=== PATIENT | male | born 1935 | race Caucasian/White ===

== ENCOUNTER 2018-02-04 10:34 | Inpatient (IN) ==
[2018-02-04] MEDS ORDERED: Sod Chloride 0.9% Inj 1,000 ML IV.SIG ONE (11:05)
[2018-02-04 11:36] LABS: Baso # (Auto) 0.6 th/mm3 (0.0-0.2); Baso % (Auto) 3.2 % (0.0-2.0); Eos # (Auto) 1.6 th/mm3 (0.0-0.4); Eos % (Auto) 9.1 % (0.0-4.0); Hematocrit 54.5 % (39.0-51.0); Hemoglobin 16.8 gm/dL (13.0-17.0); Lymph # (Auto) 2.4 th/mm3 (1.0-4.8); Lymph % (Auto) 13.7 % (9.0-44.0); Mean Corpuscular Volume 86.9 fL (80.0-100.0); Mean Platelet Volume 7.9 fL (7.0-11.0); Mono % (Auto) 5.5 % (0.0-8.0); Neut # (Auto) 12.2 th/mm3 (1.8-7.7); Neut % (Auto) 68.5 % (16.0-70.0); Platelet Count 217 th/mm3 (150-450); Red Blood Count 6.27 mil/mm3 (4.50-5.90); Red Cell Distribution Width 14.3 % (11.6-17.2); White Blood Count 17.8 th/mm3 (4.0-11.0)
--- NOTE | 2018-02-04 11:55 | XR ---
EXAM DATE: 02/04/2018 11:42 AM EDT AGE/SEX: 82 years / Male INDICATIONS: Short of breath. CLINICAL DATA: This is the patient's initial encounter. Patient reports that signs and symptoms have been present for 1 day and indicates a pain score of 0/10. MEDICAL/SURGICAL HISTORY: None. None. COMPARISON: No prior exams available for comparison. FINDINGS: Heart is enlarged. Mild interstitial prominence is evident suggesting minimal failure. There is no ev idence of consolidation, pleural effusion or pneumothorax. Degenerative changes thoracic spine. CONCLUSION: Probable mild failure. There is no infiltrate. Electronically signed by: Palomo Craig MD 02/04/2018 11:54 AM EDT
[2018-02-04 11:59] LABS: Albumin 3.2 g/dL (3.4-5.0); Anion Gap 18 meq/L (5-15); Blood Urea Nitrogen 69 mg/dL (7-18); Calcium 7.7 mg/dL (8.5-10.1); Carbon Dioxide 19.5 meq/L (21.0-32.0); Chloride 93 meq/L (98-107); Glucose,Random 264 mg/dL (74-106); Sodium 130 meq/L (136-145)
[2018-02-04 12:02] LABS: Platelet Estimate Normal (Normal); Platelet Morphology Normal (Normal); RBC Morphology Normal (Normal)
[2018-02-04] MEDS ORDERED: metroNIDAZOLE 500 MG Tablet PO ONE (12:21)
[2018-02-04 12:26] LABS: Alanine Aminotransferase 16 U/L (12-78); Alkaline Phosphatase 104 U/L (45-117); Aspartate Aminotransferase 8 U/L (15-37); Glomerular Filtration Rate 9 mL/min (>89); Potassium 2.9 meq/L (3.5-5.1); Total Protein 7.8 g/dL (6.4-8.2)
[2018-02-04 12:44] LABS: Mean Corpuscular HGB Conc 34.7 % (32.0-36.0); Mean Corpuscular Hemoglobin 29.7 pg (27.0-34.0)
--- NOTE | 2018-02-04 12:44 | ED ---
HPI General Chief complaint: Nausea/Vomiting/Diarrhea Stated complaint: Possible Colitis/+C Diff/Diarrhea/Vomiting Time Seen by Provider: 02/04/18 10:57 Source: patient and family Mode of arrival: ambulatory Limitations: no limitations History of Present Illness HPI narrative: Patient is an 82-year-old male who comes in complaining of diarrhea for 1 week. He had a stool test done that was positive for C. difficile. He says he has multiple episodes of diarrhea each day, it is black in color. He was here a few days ago and found to have stool that was positive for blood. He was told to hold his Xarelto at that time. He denies any abdominal pain. He says he feels very weak. He denies chest pain. He does report some shortness of breath. He denies fever chills. He denies recent antibiotic use. Severity is moderate. Onset (ago): week(s) Related Data Home Medications Medication Instructions Recorded Confirmed cetirizine 10 mg PO DAILY 02/04/18 02/04/18 ezetimibe [Zetia] 10 mg PO DAILY 02/04/18 02/04/18 loperamide [Imodium A-D] 2 mg PO BID 02/04/18 02/04/18 losartan 50 mg PO DAILY 02/04/18 02/04/18 omeprazole magnesium [Prilosec OTC] 20 mg PO DAILY 02/04/18 02/04/18 rivaroxaban [Xarelto] 20 mg PO DAILY 02/04/18 02/04/18 simvastatin [Zocor] 40 mg 02/04/18 Allergies Allergy/AdvReac Type Severity Reaction Status Date / Time No Known Allergies Allergy NONE Uncoded 02/04/18 10:44 Review of Systems Except as stated in HPI: all other systems reviewed are negative Constitutional Denies chills, Denies fever(s) and Reports weakness Cardiovascular Denies chest pain Respiratory Reports dyspnea Gastrointestinal Denies nausea and Denies vomiting Genitourinary Denies difficulty urinating Musculoskeletal Reports myalgias and Reports arthralgias Integumentary/Breasts Denies change in pigmentation and Denies rash Neurologic Denies focal weakness PMFSH Medical History Medical History Presence of IVC filter (Acute) COPD (chronic obstructive pulmonary disease) (Acute) DVT, lower extremity (Acute) Emphysema lung (Acute) GERD (gastroesophageal reflux disease) (Acute) High cholesterol (Acute) Hypertension (Acute) Pulmonary embolism (Acute) Skin cancer of face (Acute) Social History Social History Substance History: No History of Abuse Second Hand Smoke Exposure: No Smoking Status: Current every day smoker Tobacco Type: Cigarettes How Often Do You Have a Drink Containing Alcohol: Never Recent Travel in [facility] within the Last 8 Weeks: No Recent Out of Country Travel within the Last 8 Weeks: No Immunization History Tetanus Immunization: Unsure Exam Narrative Exam Narrative: GENERAL: Awake and alert, patient appears uncomfortable. SKIN: Skin is pale in color, no evidence of infection. HEAD: Atraumatic. Normocephalic. EYES: Pupils equal and round. No scleral icterus. ENT: Dry mucous membranes. NECK: Trachea midline. No JVD. CARDIOVASCULAR: Tachycardia RESPIRATORY: No accessory muscle use. Coarse breath sounds throughout the lungs.. Breath sounds equal bilaterally. GASTROINTESTINAL: Abdomen soft, non-tender, nondistended. MUSCULOSKELETAL: No obvious deformities. No clubbing. No cyanosis. No edema. NEUROLOGICAL: Awake and alert. No obvious cranial nerve deficits. Motor grossly within normal limits. Normal speech. PSYCHIATRIC: Appropriate mood and affect; insight and judgment normal. Course Hospital Course: IV established, labs sent. Patient given IV, Flagyl. Reevaluation(s) Reevaluation #1: Patient reports feeling better after fluids. Pulse rate is improving. Time: 12:20 Reevaluation #2: Patient continues to feel better. He is advised of results. He is agreeable to admission. Time: 13:02 Initial Documented Vital Signs Temperature 98 F 02/04/18 10:42 Pulse Rate 118 H 02/04/18 10:42 Respiratory Rate 18 02/04/18 10:42 Blood Pressure 108/60 02/04/18 10:42 Pulse Oximetry 88 L 02/04/18 10:42 Last Documented Vital Signs Temperature 98 F 02/04/18 10:42 Pulse Rate 106 H 02/04/18 11:45 Respiratory Rate 20 02/04/18 11:45 Blood Pressure 119/65 02/04/18 11:06 Pulse Oximetry 94 L 02/04/18 11:45 Medical Decision Making MDM Narrative Medical decision making narrative: Patient is a an 82-year-old male who comes in planing of diarrhea and weakness. On exam, patient appears dehydrated, he is tachycardic. IV established, labs sent. Labs concerning for acute kidney injury with a creatinine of 5.9. It was 1.3 on January 29. Potassium was low at 2.9, this was replaced. Given a dose of Flagyl. Patient will be admitted for management of C. difficile, dehydration and acute kidney injury. Differential Diagnosis Differential Diagnosis: Dehydration versus electrolyte abnormality versus C. difficile versus infectious diarrhea Medical Records Medical records reviewed: Yes I reviewed the patient's medical records. Lab Data Lab results reviewed: Yes I reviewed the patient's lab results. Result diagrams: 02/04/18 11:30 02/04/18 11:30 Lab Results 02/04/18 02/04/18 02/04/18 Range/Units 11:30 11:30 11:30 CBC w Diff Slide review pending WBC 17.8 H (4.0-11.0) th/mm3 RBC 6.27 H (4.50-5.90) mil/mm3 Hgb 16.8 (13.0-17.0) gm/dL Hct 54.5 H (39.0-51.0) % MCV 86.9 (80.0-100.0) fL MCH 29.7 (27.0-34.0) pg MCHC 34.7 (32.0-36.0) % RDW 14.3 (11.6-17.2) % Plt Count 217 D (150-450) th/mm3 MPV 7.9 (7.0-11.0) fL Neut % (Auto) 68.5 (16.0-70.0) % Lymph % (Auto) 13.7 (9.0-44.0) % [place] % (Auto) 5.5 (0.0-8.0) % Eos % (Auto) 9.1 H (0.0-4.0) % Baso % (Auto) 3.2 H (0.0-2.0) % Neut # (Auto) 12.2 H (1.8-7.7) th/mm3 Lymph # (Auto) 2.4 (1.0-4.8) th/mm3 [place] # (Auto) 1.0 H (0.0-0.9) th/mm3 Eos # (Auto) 1.6 H (0.0-0.4) th/mm3 Baso # (Auto) 0.6 H (0.0-0.2) th/mm3 WBC Differential . Diff Scan Auto diff confirmed Differential Comment . Platelet Estimate Normal (Normal) Platelet Morphology Normal (Normal) RBC Morphology Normal (Normal) Sodium 130 L (136-145) meq/L Potassium 2.9 L* (3.5-5.1) meq/L Chloride 93 L (98-107) meq/L Carbon Dioxide 19.5 L (21.0-32.0) meq/L Anion Gap 18 H (5-15) meq/L BUN 69 H (7-18) mg/dL Creatinine 5.90 H (0.60-1.30) mg/dL Estimated GFR 9 L (>89) mL/min Random Glucose 264 H (74-106) mg/dL Lactic Acid 3.0 H (0.4-2.0) mmol/L Calcium 7.7 L (8.5-10.1) mg/dL Total Bilirubin 0.6 (0.2-1.0) mg/dL AST 8 L (15-37) U/L ALT 16 (12-78) U/L Alkaline Phosphatase 104 (45-117) U/L Troponin I Less than 0.02 L (0.02-0.05) ng/mL Total Protein 7.8 (6.4-8.2) g/dL Albumin 3.2 L (3.4-5.0) g/dL Imaging Data Radiologist's impression: ITS Impressions Chest X-Ray 02/04/18 11:05 CONCLUSION: Probable mild failure. There is no infiltrate. ECG Data EKG Prior to Arrival: No Attestation: I personally reviewed and interpreted this ECG as follows: Interpretation: ECG shows sinus tachycardia at a rate of 112, no ST elevation or depression Discharge Plan Discharge Disposition Patient Disposition: 30 Still Patient Discharge Details Discharge Problem: Dehydration, Clostridium difficile infection, JESS (acute kidney injury), Acute hypokalemia Physicians Team ED Provider: Carri Angeles Primary Care Provider: Mavis Lindo Rxs /Orders / Referrals /Forms Prescriptions: No Action losartan 50 mg Tablet 50 mg PO DAILY RF: 0 loperamide [Imodium A-D] 2 mg Capsule 2 mg PO BID RF: 0 cetirizine 10 mg Tablet 10 mg PO DAILY RF: 0 simvastatin [Zocor] 40 mg Tablet 40 mg RF: 0 ezetimibe [Zetia] 10 mg Tablet 10 mg PO DAILY RF: 0 omeprazole magnesium [Prilosec OTC] 20 mg Tablet,Delayed Release (Dr/Ec) 20 mg PO DAILY RF: 0 rivaroxaban [Xarelto] 20 mg Tablet 20 mg PO DAILY RF: 0 Discharge Interventions Interventions: Vital Signs Last Done: 02/04/18 11:06 Status ED Status: With Doctor
[2018-02-04] MEDS ORDERED: Dextrose 50% in Water 50 ML Vial IV.PUSH PRN (13:19)
--- NOTE | 2018-02-04 13:31 | P.HPIM ---
History of Present Illness Primary Care Physician: Mavis Lindo MD Chief Complaint: diarrhea History of Present Illness: patient is a 82 y/o male with history of COPD,diabetes mellitus, DVT, presented to ER with diarrhea. he says that he's had diarrhea for the past two weeks.he was seen in ER and was discharged home. he says that he became progressively weak with ongoing diarrhea to the extent that the family decided to bring him back to ER. he doesn't report any fever,chills, abdominal pain. he had some nausea and emesis earlier although he says that he's feeling better now.he doesn 't recall taking any antibiotics prior to his first presentation to ER. - Diagnosis (1) Clostridium difficile infection (2) Sepsis (3) JESS (acute kidney injury) (4) Acute hypokalemia (5) COPD (chronic obstructive pulmonary disease) (6) DVT (deep venous thrombosis) (7) Hypertension (8) Diabetes mellitus Inpatient Certification: I certify that the inpatient services were ordered in accordance with Medicare regulations governing the order. This includes certification that hospital inpatient services are reasonable and necessary and in the case of services not specified as inpatient-only under 42 CFR 419.22(n), that they are appropriately provided as inpatient services in accordance to with the 2-midnight benchmark under 43 CFR 412.3(e) Estimated Total Length of Stay (Days): 2 Plans for Post Hospital Care: Not yet determined Review of Systems All other systems reviewed negative except as stated in HPI PMFSH - History History Provided By: Family Member - Medical History Medical History: Medical History (Last Reviewed 02/04/18 @ 13:01 by Carri Angeles MD) Presence of IVC filter COPD (chronic obstructive pulmonary disease) DVT, lower extremity Emphysema lung GERD (gastroesophageal reflux disease) High cholesterol Hypertension Pulmonary embolism Skin cancer of face - Tobacco History Second Hand Smoke Exposure: No Tobacco Use In Past 30 Days: Yes Smoking Status: Current every day smoker Tobacco Type: Cigarettes - Alcohol History How Often Do You Have a Drink Containing Alcohol: Never - Substance Use History Substance History: No History of Abuse - Travel History Recent Travel in the [place] Within the Last 8 Weeks: No Recent Travel Out of the Country Within the Last 8 Weeks: No - Immunization History Tetanus Immunization: Unsure Medications and Allergies Active Medications: Active Medications Albuterol (Albuterol Neb (Prn)) 0.63 mg NEB Q6HR NEB PRN PRN Reason: SHORTNESS OF BREATH Cetirizine HCl (Zyrtec) 10 mg PO DAILY [facility] Dextrose (D50w Vial) 50 ml IV.PUSH UNSCH PRN PRN Reason: PER HYPOGLYCEMIA PROTOCOL Ezetimibe (Zetia) 10 mg PO DAILY [facility] Glucagon (Glucagon Inj) 1 mg OTHER PRN PRN PRN Reason: for Hypoglycemia Protocol Sodium Chloride (Ns Inj) 1,000 mls @ 125 mls/hr IV.CONT .Q8H ARYA Insulin Aspart (Novolog Insulin Suppl Scale Inj) 0 unit SQ ACHS ARYA; Protocol Non-Formulary Medication (Simvastatin [Zocor]) 40 mg PO DAILY [facility] Non-Formulary Medication (Omeprazole Magnesium [Prilosec Otc]) 20 mg PO DAILY [facility] Sodium Chloride (Ns Flush) 2 ml IV.FLUSH PRN PRN PRN Reason: FLUSH AFTER USING IV ACCESS Vancomycin HCl (Vancomycin Po) 125 mg PO QID ARYA Allergies Allergy/AdvReac Type Severity Reaction Status Date / Time No Known Allergies Allergy NONE Uncoded 02/04/18 10:44 Home Medications Medication Instructions Recorded Confirmed Type cetirizine 10 mg PO DAILY 02/04/18 02/04/18 History ezetimibe [Zetia] 10 mg PO DAILY 02/04/18 02/04/18 History loperamide [Imodium A-D] 2 mg PO BID 02/04/18 02/04/18 History losartan 50 mg PO DAILY 02/04/18 02/04/18 History omeprazole magnesium [Prilosec OTC] 20 mg PO DAILY 02/04/18 02/04/18 History rivaroxaban [Xarelto] 20 mg PO DAILY 02/04/18 02/04/18 History simvastatin [Zocor] 40 mg 02/04/18 History Exam Vital signs: Vital Signs 02/04/18 10:42 02/04/18 11:05 02/04/18 11:06 Temperature 98 F Pulse Rate 118 H 114 H Respiratory Rate 18 20 Blood Pressure 108/60 119/65 Pulse Oximetry 88 L 94 L 92 L 02/04/18 11:45 Temperature Pulse Rate 106 H Respiratory Rate 20 Blood Pressure Pulse Oximetry 94 L Intake & Output 02/03/18 02/04/18 02/04/18 18:59 06:59 18:59 Intake Total 1000 / 1000 Balance 1000 / 1000 Weight 68 kg Intake: IV 1000 / 1000 NS Inj 1,000 ML @ Wide Open IV. 1000 / 1000 SIG BOLUS ONE Rx#:[id number] Results - Labs CBC & Chem 7: 02/04/18 11:30 02/04/18 11:30 Labs: Short CBC 02/04/18 Range/Units 11:30 WBC 17.8 H (4.0-11.0) th/mm3 Hgb 16.8 (13.0-17.0) gm/dL Hct 54.5 H (39.0-51.0) % Plt Count 217 D (150-450) th/mm3 BMP 02/04/18 11:30 Sodium 130 L Potassium 2.9 L* Chloride 93 L Carbon Dioxide 19.5 L BUN 69 H Creatinine 5.90 H Calcium 7.7 L Cardiac Enzymes 02/04/18 Range/Units 11:30 Troponin I Less than 0.02 L (0.02-0.05) ng/mL Liver Function 02/04/18 Range/Units 11:30 Total Bilirubin 0.6 (0.2-1.0) mg/dL AST 8 L (15-37) U/L ALT 16 (12-78) U/L Alkaline Phosphatase 104 (45-117) U/L Albumin 3.2 L (3.4-5.0) g/dL - Imaging Impressions Chest X-Ray 02/04/18 11:05 CONCLUSION: Probable mild failure. There is no infiltrate. Caprini VTE Risk Assessment Caprini VTE Risk Assessment: Moderate/High Risk (score >= 2) Caprini Risk Assessment Model: Point Value = 1 Point Value = 2 Point Value = 3 Point Value = 5 Age 41-60 Minor surgery BMI > 25 kg/m2 Swollen legs Varicose veins or History of unexplained or recurrent spontaneous Oral contraceptives or hormone replacement Sepsis (< 1 month) Serious lung disease, including pneumonia (< 1 month) Abnormal pulmonary function Acute myocardial infarction Congestive heart failure (< 1 month) History of inflammatory bowel disease Medical patient at bed rest Age 61-74 Arthroscopic surgery Major open surgery (> 45 min) Laparoscopic surgery (> 45 min) Malignancy Confined to bed (> 72 hours) Immobilizing plaster cast Central venous access Age >= 75 History of VTE Family history of VTE Factor V Leiden Prothrombin [id number] Lupus anticoagulant Anticardiolipin antibodies Elevated serum homocysteine Heparin-induced thrombocytopenia Other congenital or acquired thrombophilia Stroke (< 1 month) Elective arthroplasty Hip, pelvis, or leg fracture Acute spinal cord injury (< 1 month) Prophylaxis Regimen: Total Risk Factor Score Risk Level Prophylaxis Regimen 0-1 Low Early ambulation 2 Moderate Order ONE of the following: *Sequential Compression Device (SCD) *Heparin 5000 units SQ BID 3-4 Higher Order ONE of the following medications: *Heparin 5000 units SQ TID *Enoxaparin/Lovenox 40 mg SQ daily (WT < 150 kg, CrCl > 30 mL/min) *Enoxaparin/Lovenox 30 mg SQ daily (WT < 150 kg, CrCl > 10-29 mL/min) *Enoxaparin/Lovenox 30 mg SQ BID (WT < 150 kg, CrCl > 30 mL/min) AND/OR *Sequential Compression Device (SCD) 5 or more Highest Order ONE of the following medications: *Heparin 5000 units SQ TID (Preferred with Epidurals) *Enoxaparin/Lovenox 40 mg SQ daily (WT < 150 kg, CrCl > 30 mL/min) *Enoxaparin/Lovenox 30 mg SQ daily (WT < 150 kg, CrCl > 10-29 mL/min) *Enoxaparin/Lovenox 30 mg SQ BID (WT < 150 kg, CrCl > 30 mL/min) AND *Sequential Compression Device (SCD) Assessment and Plan - Assessment (1) Clostridium difficile infection Code(s): B96.89 - Other specified bacterial agents as the cause of diseases classified elsewhere Status: Acute Plan: start on Vancomycin- will monitor clinically- will consider ID and/or GI evaluation if no improvement over the next 24-48 hrs. (2) Sepsis Code(s): A41.9 - Sepsis, unspecified organism Status: Acute Plan: due to c-diff colitis- started on Vanco and continue supportive care. (3) JESS (acute kidney injury) Code(s): N17.9 - Acute kidney failure, unspecified Status: Acute Plan: due to dehydration- due to diarrhea and vomiting- will continue with aggressive IV hydration and will monitor the renal function closely. (4) Acute hypokalemia Code(s): E87.6 - Hypokalemia Status: Acute Plan: due to diarrhea- replaced in ER- will monitor the level and replace as needed. (5) COPD (chronic obstructive pulmonary disease) Code(s): J44.9 - Chronic obstructive pulmonary disease, unspecified Status: Chronic Plan: with no exacerbation- oxygen dependent- neb treatment as needed. (6) DVT (deep venous thrombosis) Code(s): I82.409 - Acute embolism and thrombosis of unspecified deep veins of unspecified lower extremity Status: Chronic Plan: will hold Xarelto due to acute kidney injury- patient is s/p IVC filter placement. (7) Hypertension Code(s): I10 - Essential (primary) hypertension Status: Chronic Plan: hold losartan due to acute kidney injury- will monitor. (8) Diabetes mellitus Code(s): E11.9 - Type 2 diabetes mellitus without complications Status: Acute Plan: start on accu-check with SSI. - Plan DVT prophylaxis with SCD's. Discussed Condition With: ER physician and the patient and his family. Discharge Planning: pending clinical course. (7) Hypertension Qualifiers: Hypertension type: essential hypertension Qualified Code(s): I10 - Essential (primary) hypertension (8) Diabetes mellitus Qualifiers: Diabetes mellitus type: type 2
--- NOTE | 2018-02-04 15:11 | ECG ---
Date Performed: 02/04/2018 Time Performed: 11:22:36 PTAGE: 82 years EKG: SINUS TACHYCARDIA INFERIOR MYOCARDIAL INFARCTION ABNORMAL ECG PREVIOUS TRACING : 03/05/2012 16.42 Since the previous tracing, no significant change noted DOCTOR: Stef Campbell Interpretating Date/Time 02/04/2018 15:10:45
[2018-02-04] MEDS: Sod Chloride 0.9% Inj 1,000 ML IV.CONT SCH (15:30)
[2018-02-04] MEDS: Insulin NovoLOG Aspart Correctional Sugar Inj SQ SCH ×2 (18:23→20:47)
[2018-02-05] MEDS: Sod Chloride 0.9% Inj 1,000 ML IV.CONT SCH ×3 (02:13→17:50)
[2018-02-05 05:55] LABS: Hematocrit 46.8 % (39.0-51.0); Hemoglobin 15.5 gm/dL (13.0-17.0); Mean Corpuscular HGB Conc 33.1 % (32.0-36.0); Mean Corpuscular Hemoglobin 28.7 pg (27.0-34.0); Mean Corpuscular Volume 86.6 fL (80.0-100.0); Mean Platelet Volume 8.2 fL (7.0-11.0); Platelet Count 166 th/mm3 (150-450); Red Blood Count 5.41 mil/mm3 (4.50-5.90); Red Cell Distribution Width 14.1 % (11.6-17.2); White Blood Count 14.7 th/mm3 (4.0-11.0)
[2018-02-05 06:23] LABS: Calcium 7.5 mg/dL (8.5-10.1); Carbon Dioxide 19.4 meq/L (21.0-32.0)
[2018-02-05 06:38] LABS: Potassium 2.6 meq/L (3.5-5.1)
[2018-02-05] MEDS: Potassium Chlor 20 mEq Premix 20 MEQ/100 ML PIGGYBACK IV.SIG SCH ×2 (08:01→10:41)
[2018-02-05] MEDS: Insulin NovoLOG Aspart Correctional Sugar Inj SQ SCH ×4 (08:02→22:15)
[2018-02-05] MEDS: Pantoprazole Sodium 20 MG DR Tablet PO SCH (08:04)
[2018-02-05] MEDS: Ezetimibe 10 MG Tablet PO SCH (08:05)
--- NOTE | 2018-02-05 10:00 | P.PN ---
Subjective Interval history: in no acute distress.feeling a little stronger today. still with some diarrhea but with no abdominal pain. remains afebrile. Physical Exam Vital signs: Vital Signs 02/04/18 10:42 02/04/18 11:05 02/04/18 11:06 Temperature 98 F Pulse Rate 118 H 114 H Respiratory Rate 18 20 Blood Pressure 108/60 119/65 Pulse Oximetry 88 L 94 L 92 L 02/04/18 11:45 02/04/18 13:47 02/04/18 15:05 Temperature 97.5 F L Pulse Rate 106 H 98 H 101 H Respiratory Rate 20 18 17 Blood Pressure 125/64 116/69 Pulse Oximetry 94 L 95 93 L 02/04/18 16:00 02/04/18 20:00 02/04/18 20:20 Temperature 97.5 F L 98.7 F Pulse Rate 101 H 105 H Respiratory Rate 17 20 Blood Pressure 116/69 139/74 Pulse Oximetry 93 L 94 L 92 L 02/05/18 00:00 02/05/18 09:21 Temperature 97.4 F L Pulse Rate 102 H 105 H Respiratory Rate 20 20 Blood Pressure 105/70 Pulse Oximetry 94 L 91 L Intake & Output 02/04/18 02/05/18 02/05/18 18:59 06:59 18:59 Intake Total 1480 / 1480 1000 / 1000 1000 / 1000 Output Total 60 / 60 Balance 1480 / 1480 940 / 940 1000 / 1000 Weight 78.5 kg 77.5 kg Intake: IV 1000 / 1000 1000 / 1000 1000 / 1000 NS Inj 1,000 ML @ 125 mls/hr IV 1000 / 1000 1000 / 1000 .CONT .Q8H ARYA Rx#:[id number] NS Inj 1,000 ML @ Wide Open IV. 1000 / 1000 SIG BOLUS ONE Rx#:[id number] Oral 480 / 480 Output: Urine 60 / 60 Other: # Voids 1 2 Date of Last Bowel Movement 02/04/18 02/04/18 # Bowel Movements 0 2 Weight On Admission 78.5 kg - Constitutional no acute distress - Routine Respiratory Exam Present: CTA bilaterally - Routine Cardiovascular Exam Present: RRR - Routine Abdominal Exam Present: soft - Routine Extremities Exam Comments: no pedal edema. - Routine Neurological Exam Present: alert, oriented X3 Results - Labs CBC & Chem 7: 02/05/18 05:20 02/05/18 05:20 Laboratory Results - last 24 hr 02/04/18 02/04/18 02/04/18 11:30 11:30 11:30 CBC w Diff Slide review pending WBC 17.8 H RBC 6.27 H Hgb 16.8 Hct 54.5 H MCV 86.9 MCH 29.7 MCHC 34.7 RDW 14.3 Plt Count 217 D MPV 7.9 Neut % (Auto) 68.5 Lymph % (Auto) 13.7 [place] % (Auto) 5.5 Eos % (Auto) 9.1 H Baso % (Auto) 3.2 H Neut # (Auto) 12.2 H Lymph # (Auto) 2.4 [place] # (Auto) 1.0 H Eos # (Auto) 1.6 H Baso # (Auto) 0.6 H WBC Differential . Diff Scan Auto diff confirmed Differential Comment . Platelet Estimate Normal Platelet Morphology Normal RBC Morphology Normal Sodium 130 L Potassium 2.9 L* Chloride 93 L Carbon Dioxide 19.5 L Anion Gap 18 H BUN 69 H Creatinine 5.90 H Estimated GFR 9 L POC Glucose Random Glucose 264 H Lactic Acid 3.0 H Calcium 7.7 L Magnesium Total Bilirubin 0.6 AST 8 L ALT 16 Alkaline Phosphatase 104 Troponin I Less than 0.02 L Total Protein 7.8 Albumin 3.2 L 02/04/18 02/04/18 02/04/18 16:24 18:05 20:46 CBC w Diff WBC RBC Hgb Hct MCV MCH MCHC RDW Plt Count MPV Neut % (Auto) Lymph % (Auto) [place] % (Auto) Eos % (Auto) Baso % (Auto) Neut # (Auto) Lymph # (Auto) [place] # (Auto) Eos # (Auto) Baso # (Auto) WBC Differential Diff Scan Differential Comment Platelet Estimate Platelet Morphology RBC Morphology Sodium Potassium Chloride Carbon Dioxide Anion Gap BUN Creatinine Estimated GFR POC Glucose 91 137 H Random Glucose Lactic Acid 1.7 Calcium Magnesium Total Bilirubin AST ALT Alkaline Phosphatase Troponin I Total Protein Albumin 02/05/18 02/05/18 02/05/18 05:20 05:20 05:20 CBC w Diff WBC 14.7 H RBC 5.41 Hgb 15.5 Hct 46.8 MCV 86.6 MCH 28.7 MCHC 33.1 RDW 14.1 Plt Count 166 MPV 8.2 Neut % (Auto) Lymph % (Auto) [place] % (Auto) Eos % (Auto) Baso % (Auto) Neut # (Auto) Lymph # (Auto) [place] # (Auto) Eos # (Auto) Baso # (Auto) WBC Differential Diff Scan Differential Comment Platelet Estimate Platelet Morphology RBC Morphology Sodium 135 L Potassium 2.6 L* Chloride 102 D Carbon Dioxide 19.4 L Anion Gap 14 BUN 74 H Creatinine 4.70 H Estimated GFR 12 L POC Glucose Random Glucose 118 H D Lactic Acid Calcium 7.5 L Magnesium 2.0 Total Bilirubin AST ALT Alkaline Phosphatase Troponin I Total Protein Albumin 02/05/18 07:37 CBC w Diff WBC RBC Hgb Hct MCV MCH MCHC RDW Plt Count MPV Neut % (Auto) Lymph % (Auto) [place] % (Auto) Eos % (Auto) Baso % (Auto) Neut # (Auto) Lymph # (Auto) [place] # (Auto) Eos # (Auto) Baso # (Auto) WBC Differential Diff Scan Differential Comment Platelet Estimate Platelet Morphology RBC Morphology Sodium Potassium Chloride Carbon Dioxide Anion Gap BUN Creatinine Estimated GFR POC Glucose 121 H Random Glucose Lactic Acid Calcium Magnesium Total Bilirubin AST ALT Alkaline Phosphatase Troponin I Total Protein Albumin - Imaging Impressions Chest X-Ray 02/04/18 11:05 CONCLUSION: Probable mild failure. There is no infiltrate. Assessment and Plan - Assessment (1) Clostridium difficile infection Code(s): B96.89 - Other specified bacterial agents as the cause of diseases classified elsewhere Status: Acute Plan: started on Vancomycin- will monitor clinically- will consider ID and/or GI evaluation if no improvement over the next 24 hrs. (2) Sepsis Code(s): A41.9 - Sepsis, unspecified organism Status: Acute Plan: due to c-diff colitis- started on Vanco and continue supportive care. (3) JESS (acute kidney injury) Code(s): N17.9 - Acute kidney failure, unspecified Status: Acute Plan: due to dehydration- due to diarrhea and vomiting- will continue with aggressive IV hydration and will monitor the renal function closely. (4) Acute hypokalemia Code(s): E87.6 - Hypokalemia Status: Acute Plan: due to diarrhea- will replace and monitor. (5) COPD (chronic obstructive pulmonary disease) Code(s): J44.9 - Chronic obstructive pulmonary disease, unspecified Status: Chronic Plan: with no exacerbation- oxygen dependent- neb treatment as needed. (6) DVT (deep venous thrombosis) Code(s): I82.409 - Acute embolism and thrombosis of unspecified deep veins of unspecified lower extremity Status: Chronic Plan: will hold Xarelto due to acute kidney injury- patient is s/p IVC filter placement. (7) Hypertension Code(s): I10 - Essential (primary) hypertension Status: Chronic Plan: hold losartan due to acute kidney injury- will monitor. (8) Diabetes mellitus Code(s): E11.9 - Type 2 diabetes mellitus without complications Status: Acute Plan: started on accu-check with SSI. - Plan DVT prophylaxis with SCD's. Discharge Planning: within the next 2-3 days-pending clinical improvement. (7) Hypertension Qualifiers: Hypertension type: essential hypertension Qualified Code(s): I10 - Essential (primary) hypertension (8) Diabetes mellitus Qualifiers: Diabetes mellitus type: type 2
[2018-02-06] MEDS: Sod Chloride 0.9% Inj 1,000 ML IV.CONT SCH ×4 (01:27→23:23)
[2018-02-06 08:05] LABS: Hematocrit 43.5 % (39.0-51.0); Hemoglobin 14.4 gm/dL (13.0-17.0); Mean Corpuscular Hemoglobin 28.1 pg (27.0-34.0); Mean Corpuscular Volume 85.2 fL (80.0-100.0); Mean Platelet Volume 8.4 fL (7.0-11.0); Platelet Count 159 th/mm3 (150-450); Red Blood Count 5.11 mil/mm3 (4.50-5.90); Red Cell Distribution Width 14.7 % (11.6-17.2); White Blood Count 13.5 th/mm3 (4.0-11.0)
[2018-02-06] MEDS: Insulin NovoLOG Aspart Correctional Sugar Inj SQ SCH ×4 (08:05→21:05)
[2018-02-06] MEDS: Pantoprazole Sodium 20 MG DR Tablet PO SCH (08:25)
[2018-02-06] MEDS: Ezetimibe 10 MG Tablet PO SCH (08:27)
[2018-02-06 09:04] LABS: Calcium 7.8 mg/dL (8.5-10.1); Potassium 3.7 meq/L (3.5-5.1)
--- NOTE | 2018-02-06 12:09 | P.PN ---
Subjective Interval history: in no acute distress. feels stronger. diarrhea is improving but the RN reported that there was some blood on the bedsheet. Physical Exam Vital signs: Vital Signs 02/05/18 14:28 02/05/18 16:00 02/05/18 19:00 Temperature 97 F L Pulse Rate 92 H Respiratory Rate 18 Blood Pressure 110/62 Pulse Oximetry 93 L 93 L 93 L 02/05/18 20:00 02/05/18 20:30 02/06/18 00:00 Temperature 98.4 F 98.3 F Pulse Rate 90 89 Respiratory Rate 16 16 Blood Pressure 126/63 126/67 Pulse Oximetry 93 L 93 L 96 02/06/18 07:00 02/06/18 08:00 Temperature 97.8 F Pulse Rate 95 H Respiratory Rate 18 Blood Pressure 140/73 Pulse Oximetry 96 95 Intake & Output 02/05/18 02/06/18 02/06/18 18:59 06:59 18:59 Intake Total 2400 / 2400 1340 / 1340 1000 / 1000 Output Total 300 / 300 Balance 2100 / 2100 1340 / 1340 1000 / 1000 Weight 80.3 kg Intake: IV 2100 / 2100 1100 / 1100 1000 / 1000 NS Inj 1,000 ML @ 125 mls/hr IV 2000 / 2000 1000 / 1000 1000 / 1000 .CONT .Q8H ARYA Rx#:[id number] KCl 20 mEq Premix Inj 20 meq In 100 / 100 100 ml @ 50 mls/hr IV.SIG Q2H ARYA Rx#:[id number] Oral 300 / 300 240 / 240 Output: Urine 300 / 300 Other: # Voids 3 Date of Last Bowel Movement 02/05/18 # Bowel Movements 3 - Constitutional no acute distress - Routine Respiratory Exam Present: CTA bilaterally - Routine Cardiovascular Exam Present: RRR - Routine Abdominal Exam Present: soft - Routine Extremities Exam Comments: no pedal edema. - Routine Neurological Exam Present: alert, oriented X3 Results - Labs CBC & Chem 7: 02/06/18 07:55 02/06/18 07:55 Laboratory Results - last 24 hr 02/05/18 02/05/18 02/05/18 13:55 17:08 22:04 WBC RBC Hgb Hct MCV MCH MCHC RDW Plt Count MPV Sodium Potassium 3.2 L Chloride Carbon Dioxide Anion Gap BUN Creatinine Estimated GFR POC Glucose 112 H 114 H Random Glucose Calcium 02/06/18 02/06/18 02/06/18 07:55 07:55 07:57 WBC 13.5 H RBC 5.11 Hgb 14.4 Hct 43.5 MCV 85.2 MCH 28.1 MCHC 33.0 RDW 14.7 Plt Count 159 MPV 8.4 Sodium 142 Potassium 3.7 Chloride 112 H D Carbon Dioxide 19.0 L Anion Gap 11 BUN 69 H Creatinine 3.10 H Estimated GFR 19 L POC Glucose 110 Random Glucose 114 H Calcium 7.8 L 02/06/18 11:56 WBC RBC Hgb Hct MCV MCH MCHC RDW Plt Count MPV Sodium Potassium Chloride Carbon Dioxide Anion Gap BUN Creatinine Estimated GFR POC Glucose 109 Random Glucose Calcium Assessment and Plan - Assessment (1) Clostridium difficile infection Code(s): B96.89 - Other specified bacterial agents as the cause of diseases classified elsewhere Status: Acute Plan: clinically improving.started on Vancomycin- - (2) Rectal bleed Code(s): K62.5 - Hemorrhage of anus and rectum Status: Acute Plan: H/H stable- patient has been on anticoagulation- will consult GI and continue to monitor H/H. (3) Sepsis Code(s): A41.9 - Sepsis, unspecified organism Status: Acute Plan: due to c-diff colitis- started on Vanco and continue supportive care. (4) JESS (acute kidney injury) Code(s): N17.9 - Acute kidney failure, unspecified Status: Acute Plan: due to dehydration- due to diarrhea and vomiting- improving- will continue with IV hydration and will monitor the renal function closely. (5) Acute hypokalemia Code(s): E87.6 - Hypokalemia Status: Acute Plan: due to diarrhea- replaced. (6) COPD (chronic obstructive pulmonary disease) Code(s): J44.9 - Chronic obstructive pulmonary disease, unspecified Status: Chronic Plan: with no exacerbation- oxygen dependent- neb treatment as needed. (7) DVT (deep venous thrombosis) Code(s): I82.409 - Acute embolism and thrombosis of unspecified deep veins of unspecified lower extremity Status: Chronic Plan: will hold Xarelto due to acute kidney injury and reported rectal bleed- patient is s/p IVC filter placement. (8) Hypertension Code(s): I10 - Essential (primary) hypertension Status: Chronic Plan: hold losartan due to acute kidney injury- will monitor. (9) Diabetes mellitus Code(s): E11.9 - Type 2 diabetes mellitus without complications Status: Acute Plan: started on accu-check with SSI. - Plan DVT prophylaxis with SCD's. Discharge Planning: within the next 2-3 days-pending clinical improvement. (8) Hypertension Qualifiers: Hypertension type: essential hypertension Qualified Code(s): I10 - Essential (primary) hypertension (9) Diabetes mellitus Qualifiers: Diabetes mellitus type: type 2
--- NOTE | 2018-02-06 20:37 | MB ---
cc: Idalia Hennessy MD DATE: 02/06/2018 SERVICE: GI ATTENDING PHYSICIAN: Dr. Idalia Hennessy PRIMARY TOW OPERATOR: Dr. Luis Saucedo HISTORY OF PRESENT ILLNESS: This is a very pleasant 82-year-old gentleman known to our office with Dr. Saucedo, who complains of having issues with diarrhea over the last several weeks. He recalls being seen in the ER for similar issues about a week ago, but due to his ongoing diarrhea and his symptoms became worse, progressively weak and due to the severity of his symptoms, he came back to the hospital for further workup and evaluation. He denied any recent antibiotic use or travel history. He denies ever having similar issues in the past. PAST MEDICAL HISTORY: COPD, history of DVT with an IVC filter placement, history of GERD, dyslipidemia, hypertension. PAST SURGICAL HISTORY: IVC filter placement. FAMILY HISTORY: No GI malignancies. SOCIAL HISTORY: Smokes tobacco on a daily basis, but denies any alcohol use or any illicit drug use. ALLERGIES: NO KNOWN DRUG ALLERGIES. CURRENT MEDICATIONS: Albuterol, Zyrtec, Zetia, insulin and vancomycin. HOME MEDICATIONS: Include Zetia, loperamide, losartan, omeprazole, Xarelto, Zocor. REVIEW OF SYSTEMS: A 12-point review of system was obtained by nc, showed to be negative or noncontributory. PHYSICAL EXAMINATION: VITAL SIGNS: Temperature 97.6, heart rate 90, respiration 18, blood pressure 133/72, O2 saturation 96% on room air. GENERAL: Alert, oriented. No acute distress, resting comfortably, appears somewhat sickened and weak. HEENT: Pupils equal, round, reactive to light and accommodation. No JVD noted. NECK: Supple. No carotid bruits. No thyromegaly. CARDIOVASCULAR: Regular rate and rhythm. No murmurs heard. RESPIRATORY: Clear to auscultation. Bilateral mild wheezing noted at the bases. ABDOMEN: Soft, nontender, nondistended. Bowel sounds present in all 4 quadrants. No hepatosplenomegaly appreciated. Obese abdomen. No guarding noted. No umbilical hernias noted. GENITOURINARY, BACK: No CVA tenderness noted. No lymphadenopathy noted. MUSCULOSKELETAL: Upper and lower extremities equal, slight weakness overall. NEUROLOGIC: Alert, oriented. No focal deficits. PSYCHIATRIC: Appropriate mood and affect. LABORATORY DATA: WBC 13.5, hemoglobin 14.4, MCV 85.2, platelet count of 159. Sodium 142, potassium 3.7, chloride 112, bicarbonate 19, BUN 69, creatinine 3.1. IMPRESSION: 1. Clostridium difficile colitis. 2. Diarrhea secondary to above. 3. Questionable history of blood in the stool, which may be secondary to hemorrhoidal or the multiple bouts of diarrhea. It does not appear the patient is having any hemorrhagic diarrhea at this time. 4. Acute kidney injury, with an elevated creatinine. RECOMMENDATIONS: 1. Agree with vancomycin 125 p.o. q.i.d. The patient will need continued course of a 14-day treatment. Recommend oral liquid vancomycin upon discharge, which is more affordable than pills. 2. Diet as tolerated. 3. Monitor periodic hemoglobin. 4. workup management for acute kidney injury. 5. Can followup outpatient with GI in 1-2 weeks after discharge. No urgent plans for endoscopic workup at this time during the admission. Thank you for allowing to participate in the care of this patient. We will follow along with you and make recommendation as to the medical course. Please do not hesitate to contact for any further questions. MD PETROS Samuel/RAJWINDER , 08:11 PM , 08:35 PM
[2018-02-07 06:45] LABS: Hematocrit 42.3 % (39.0-51.0); Hemoglobin 14.3 gm/dL (13.0-17.0); Mean Corpuscular HGB Conc 33.9 % (32.0-36.0); Mean Corpuscular Hemoglobin 28.8 pg (27.0-34.0); Mean Corpuscular Volume 84.9 fL (80.0-100.0); Mean Platelet Volume 8.8 fL (7.0-11.0); Platelet Count 184 th/mm3 (150-450); Red Blood Count 4.98 mil/mm3 (4.50-5.90); Red Cell Distribution Width 14.3 % (11.6-17.2); White Blood Count 12.5 th/mm3 (4.0-11.0)
[2018-02-07 06:49] LABS: Potassium 3.1 meq/L (3.5-5.1)
[2018-02-07 06:51] LABS: Calcium 7.8 mg/dL (8.5-10.1)
[2018-02-07 06:52] LABS: Carbon Dioxide 20.4 meq/L (21.0-32.0)
[2018-02-07] MEDS: Insulin NovoLOG Aspart Correctional Sugar Inj SQ SCH ×4 (08:56→20:56)
[2018-02-07] MEDS: Sod Chloride 0.9% Inj 1,000 ML IV.CONT SCH (09:53)
[2018-02-07] MEDS: Pantoprazole Sodium 20 MG DR Tablet PO SCH (09:55)
[2018-02-07] MEDS: Ezetimibe 10 MG Tablet PO SCH (09:56)
[2018-02-07] MEDS ORDERED: Potassium Chloride 25 MEQ Effervescent Tablet PO ONE (12:00)
--- NOTE | 2018-02-07 12:06 | P.PNIM ---
Subjective Interval history: Patient seen in follow up for c diff colitis and weakness with severe sepsis. Still with frequent BM and hg has dropped from 14 g to 12. Otherwise he feels ashli d/w ptn and spous in room Physical Exam Vital signs: Vital Signs 02/06/18 12:00 02/06/18 16:00 02/06/18 20:00 Temperature 97.4 F L 97.6 F 97.1 F L Pulse Rate 96 H 90 93 H Respiratory Rate 18 18 18 Blood Pressure 138/70 133/72 158/80 H Pulse Oximetry 96 96 97 02/06/18 21:00 02/07/18 00:00 02/07/18 04:14 Temperature 98.2 F 97.4 F L Pulse Rate 100 H 97 H Respiratory Rate 18 18 Blood Pressure 178/89 H 144/74 H Pulse Oximetry 98 92 L 94 L 02/07/18 07:42 02/07/18 07:43 02/07/18 08:03 Temperature 97.6 F Pulse Rate 95 H 98 H Respiratory Rate 18 20 Blood Pressure 134/84 Pulse Oximetry 94 L 94 L 92 L 02/07/18 11:26 Temperature 97.2 F L Pulse Rate 97 H Respiratory Rate 20 Blood Pressure 130/82 Pulse Oximetry 93 L Intake & Output 02/06/18 02/07/18 02/07/18 18:59 06:59 18:59 Intake Total 2300 / 2300 1000 / 1000 1000 / 1000 Balance 2300 / 2300 1000 / 1000 1000 / 1000 Intake: IV 2000 / 2000 1000 / 1000 1000 / 1000 NS Inj 1,000 ML @ 100 mls/hr IV 2000 / 2000 1000 / 1000 1000 / 1000 .CONT .Q10H ARYA Rx#:[id number] Oral 300 / 300 Other: # Voids 1 Date of Last Bowel Movement 02/06/18 # Bowel Movements 3 Narrative: GENERAL: nad, ambulatory but weak SKIN: Warm and dry. HEAD: Atraumatic. Normocephalic. EYES: Pupils equal and round. No scleral icterus. No injection or drainage. ENT: No nasal bleeding or discharge. Mucous membranes pink and moist. NECK: Trachea midline. No JVD. CARDIOVASCULAR: Regular rate and rhythm. RESPIRATORY: No accessory muscle use. Clear to auscultation. Breath sounds equal bilaterally. GASTROINTESTINAL: Abdomen soft, non-tender, nondistended. Hepatic and splenic margins not palpable. MUSCULOSKELETAL: Extremities without clubbing, cyanosis, or edema. No obvious deformities. NEUROLOGICAL: Awake and alert. No obvious cranial nerve deficits. Motor grossly within normal limits. Five out of 5 muscle strength in the arms and legs. Normal speech. PSYCHIATRIC: Appropriate mood and affect; insight and judgment normal. Results - Labs CBC & Chem 7: 02/07/18 05:52 02/07/18 05:52 Laboratory Results - last 24 hr 02/06/18 02/06/18 02/07/18 18:01 21:03 05:52 WBC RBC Hgb Hct MCV MCH MCHC RDW Plt Count MPV Sodium 145 Potassium 3.1 L Chloride 114 H Carbon Dioxide 20.4 L Anion Gap 11 BUN 58 H Creatinine 2.00 H Estimated GFR 32 L POC Glucose 121 H 98 Random Glucose 125 H Calcium 7.8 L 02/07/18 02/07/18 02/07/18 05:52 07:39 11:34 WBC 12.5 H RBC 4.98 Hgb 14.3 Hct 42.3 MCV 84.9 MCH 28.8 MCHC 33.9 RDW 14.3 Plt Count 184 MPV 8.8 Sodium Potassium Chloride Carbon Dioxide Anion Gap BUN Creatinine Estimated GFR POC Glucose 109 171 H Random Glucose Calcium Assessment and Plan - Assessment (1) Clostridium difficile infection Code(s): B96.89 - Other specified bacterial agents as the cause of diseases classified elsewhere Status: Acute Plan: cont po vanco, add questran (2) Rectal bleed Code(s): K62.5 - Hemorrhage of anus and rectum Status: Acute Plan: H/H lower, but no need for transfusion likely due to colitis gi consult appreciated outpatient eval (3) Sepsis Code(s): A41.9 - Sepsis, unspecified organism Status: Acute Plan: severe, due to ARF secondary to c diff colitis, improved (4) JESS (acute kidney injury) Code(s): N17.9 - Acute kidney failure, unspecified Status: Acute Plan: improved with hydration, encourage po hydration (5) Acute hypokalemia Code(s): E87.6 - Hypokalemia Status: Acute Plan: replace as needed 3.1 today (6) COPD (chronic obstructive pulmonary disease) Code(s): J44.9 - Chronic obstructive pulmonary disease, unspecified Status: Chronic Plan: without exacerbation, home oxygen dependent- neb treatment as needed. (7) DVT (deep venous thrombosis) Code(s): I82.409 - Acute embolism and thrombosis of unspecified deep veins of unspecified lower extremity Status: Chronic Plan: hold Xarelto due to acute kidney injury and reported rectal bleed- patient is s/ p IVC filter placement. (8) Hypertension Code(s): I10 - Essential (primary) hypertension Status: Chronic Plan: losartan held due to acute kidney injury and relative hypotension- will monitor. (9) Diabetes mellitus Code(s): E11.9 - Type 2 diabetes mellitus without complications Status: Acute Plan: ada diet, accucheck and ssi controlled - Plan Discharge Planning: dc in am pending clinical improvement (8) Hypertension Qualifiers: Hypertension type: essential hypertension Qualified Code(s): I10 - Essential (primary) hypertension (9) Diabetes mellitus Qualifiers: Diabetes mellitus type: type 2
--- NOTE | 2018-02-07 15:47 | P.DCO ---
- Physical Therapy Order: Evaluate and treat, Improve ambulation - Occupational Therapy Order: Evaluate and treat, Gross motor coordination - Home Health Nursing Order: Medical education - Certification I have seen patient William Copeland on 02/07/18. My clinical findings support the need for the requested home health care services because: Limited mobility due to disease progression I certify that my clinical findings support that this patient is homebound because: Unsteady gait/balance
[2018-02-07] MEDS: Cholestyramine Light 4 GM Packet PO SCH ×2 (18:50→21:38)
[2018-02-08 06:21] LABS: Potassium 3.1 meq/L (3.5-5.1)
[2018-02-08 06:25] LABS: Calcium 8.2 mg/dL (8.5-10.1)
[2018-02-08] MEDS: Insulin NovoLOG Aspart Correctional Sugar Inj SQ SCH ×4 (08:08→21:16)
[2018-02-08] MEDS: Pantoprazole Sodium 20 MG DR Tablet PO SCH (09:32)
[2018-02-08] MEDS: Cholestyramine Light 4 GM Packet PO SCH ×2 (09:32→21:15)
[2018-02-08] MEDS: Ezetimibe 10 MG Tablet PO SCH (09:32)
--- NOTE | 2018-02-08 10:55 | P.PNGI ---
Subjective Interval history: Feels better today ,still having diarrhea, but overall better Physical Exam Vital signs: Vital Signs 02/07/18 11:26 02/07/18 14:33 02/07/18 15:11 Temperature 97.2 F L 97.5 F L Pulse Rate 97 H 95 H Respiratory Rate 20 20 Blood Pressure 130/82 131/84 Pulse Oximetry 93 L 93 L 98 02/07/18 20:02 02/07/18 22:15 02/08/18 01:41 Temperature 96.3 F L 97.7 F Pulse Rate 95 H 90 Respiratory Rate 18 18 Blood Pressure 169/80 H 162/83 H Pulse Oximetry 94 L 95 96 02/08/18 08:00 Temperature 97.8 F Pulse Rate 91 H Respiratory Rate 17 Blood Pressure 156/88 H Pulse Oximetry 94 L Intake & Output 02/07/18 02/08/18 02/08/18 18:59 06:59 18:59 Intake Total 2840 / 2840 1000 / 1000 Output Total 900 / 900 Balance 2840 / 2840 100 / 100 Weight 175.2 kg 79.1 kg Intake: IV 1999 NS Inj 1,000 ML @ 100 mls/hr IV 1999 .CONT .Q10H ARYA Rx#:[id number] Oral 840 / 840 1000 / 1000 Output: Urine 900 / 900 Other: # Voids 5 # Bowel Movements 2 - Constitutional no acute distress, mild distress - Routine HEENT Exam Head: Present: normocephalic Eye: Present: EOMI ENT: Present: mucous membranes moist - Routine Neck Exam Present: supple - Routine Respiratory Exam Present: CTA bilaterally - Routine Cardiovascular Exam Present: RRR - Routine Abdominal Exam Present: soft, normoactive bowel sounds, tenderness. Absent: distended, rebound , guarding - Routine Skin Exam Present: intact - Routine Neurological Exam Present: alert, oriented X3 - Routine Psychiatric Exam Present: normal affect Results - Labs CBC & Chem 7: 02/07/18 05:52 02/08/18 05:25 Laboratory Results - last 24 hr 02/07/18 02/07/18 02/07/18 11:34 16:45 20:54 Sodium Potassium Chloride Carbon Dioxide Anion Gap BUN Creatinine Estimated GFR POC Glucose 171 H 104 112 H Random Glucose Calcium 02/08/18 02/08/18 05:25 07:46 Sodium 145 Potassium 3.1 L Chloride 113 H Carbon Dioxide 22.0 Anion Gap 10 BUN 47 H Creatinine 1.50 H Estimated GFR 45 L POC Glucose 99 Random Glucose 104 Calcium 8.2 L Assessment and Plan (1) Clostridium difficile infection Status: Acute Code(s): B96.89 - Other specified bacterial agents as the cause of diseases classified elsewhere (2) Acute hypokalemia Status: Acute Code(s): E87.6 - Hypokalemia (3) COPD (chronic obstructive pulmonary disease) Status: Chronic Code(s): J44.9 - Chronic obstructive pulmonary disease, unspecified (4) Diabetes mellitus Status: Acute Code(s): E11.9 - Type 2 diabetes mellitus without complications - Plan 1. Continue Vanco PO 125 mg QId x 14 days total 2. Diet as tolerated 3. out pt follow up with GI in 3-4 wks 4. replace lytes as needed. (4) Diabetes mellitus Qualifiers: Diabetes mellitus type: type 2
[2018-02-09 07:58] LABS: Baso # (Auto) 0.1 th/mm3 (0.0-0.2); Baso % (Auto) 0.6 % (0.0-2.0); Eos # (Auto) 2.9 th/mm3 (0.0-0.4); Eos % (Auto) 20.8 % (0.0-4.0); Hematocrit 45.9 % (39.0-51.0); Hemoglobin 14.8 gm/dL (13.0-17.0); Lymph # (Auto) 2.5 th/mm3 (1.0-4.8); Lymph % (Auto) 17.8 % (9.0-44.0); Mean Corpuscular HGB Conc 32.2 % (32.0-36.0); Mean Corpuscular Hemoglobin 28.3 pg (27.0-34.0); Mean Corpuscular Volume 87.8 fL (80.0-100.0); Mean Platelet Volume 7.9 fL (7.0-11.0); Mono # (Auto) 1.6 th/mm3 (0.0-0.9); Mono % (Auto) 11.3 % (0.0-8.0); Neut # (Auto) 6.9 th/mm3 (1.8-7.7); Neut % (Auto) 49.5 % (16.0-70.0); Platelet Count 192 th/mm3 (150-450); Red Blood Count 5.23 mil/mm3 (4.50-5.90); Red Cell Distribution Width 13.9 % (11.6-17.2)
[2018-02-09 08:12] LABS: Potassium 3.4 meq/L (3.5-5.1)
[2018-02-09 08:15] LABS: Calcium 8.7 mg/dL (8.5-10.1)
[2018-02-09] MEDS: Pantoprazole Sodium 20 MG DR Tablet PO SCH (08:24)
[2018-02-09] MEDS: Ezetimibe 10 MG Tablet PO SCH (08:25)
[2018-02-09] MEDS: Insulin NovoLOG Aspart Correctional Sugar Inj SQ SCH (09:09)
--- NOTE | 2018-02-09 09:38 | P.DS ---
Date of admission: 02/04/18 12:51 Primary care physician: Mavis Lindo MD Brief History from admission: Patient is a 82 y/o male with history of COPD,diabetes mellitus, DVT, presented to ER with diarrhea. he says that he's had diarrhea for the past two weeks.he was seen in ER and was discharged home. he says that he became progressively weak with ongoing diarrhea to the extent that the family decided to bring him back to ER. he doesn't report any fever,chills, abdominal pain. he had some nausea and emesis earlier although he says that he's feeling better now.he doesn 't recall taking any antibiotics prior to his first presentation to ER. DS: Diagnosis - Discharge Diagnosis (1) Dehydration Status: Acute (2) Clostridium difficile infection Status: Acute (3) JESS (acute kidney injury) Status: Acute (4) Acute hypokalemia Status: Acute (5) COPD (chronic obstructive pulmonary disease) Status: Chronic (6) DVT (deep venous thrombosis) Status: Chronic (7) Hypertension Status: Chronic (8) Diabetes mellitus Status: Acute (9) Sepsis Status: Acute (10) Rectal bleed Status: Acute DS: Medications - Discharge Medications Prescriptions: cholestyramine-aspartame [Cholestyramine Light] 4 gm PO BID #14 ea vancomycin 125 mg PO QID #40 ea DS: Summary Hospital Course: Seen and treated for C. difficile colitis. His electrolytes were replaced aggressively. He was quite dehydrated and weak. He required quite a bit IV fluids and antibiotics. He was discharged home with home health care and for outpatient GI follow-up - Time Spent with Patient Total time spent providing and/or coordinating discharge services: Less than 30 minutes - Quality: VTE Deep Vein Thrombosis/Pulmonary Embolism Present on Admission: No Exam Vital signs: Vital Signs 02/08/18 12:00 02/08/18 16:00 02/08/18 20:00 Temperature 98.0 F 98.4 F 97.4 F L Pulse Rate 92 H 86 86 Respiratory Rate 17 18 20 Blood Pressure 156/84 H 157/86 H 139/74 Pulse Oximetry 95 94 L 94 L 02/08/18 22:59 02/09/18 00:00 02/09/18 07:41 Temperature 98 F 97.6 F Pulse Rate 87 99 H Respiratory Rate 20 20 Blood Pressure 133/72 151/76 H Pulse Oximetry 95 94 L 94 L Intake & Output 02/08/18 02/09/18 02/09/18 18:59 06:59 18:59 Intake Total 720 / 720 100 / 100 Balance 720 / 720 100 / 100 Weight 79.1 kg 79 kg Intake: Oral 720 / 720 100 / 100 Other: # Voids 5 2 Date of Last Bowel Movement 02/08/18 # Bowel Movements 2 Narrative: GENERAL: Patient calm resting and without complaints SKIN: Warm and dry. No rashes or ecchymotic injuries EYES: Pupils equal and round. No scleral icterus. No injection or drainage. ENT: External ear exam normal. No acute nasal bleeding or discharge. Mucous membranes pink and moist. CARDIOVASCULAR: Regular rate and rhythm. No murmurs gallops or rubs appreciated RESPIRATORY: Good air flow and effort without accessory muscle use. Clear to auscultation. Breath sounds equal bilaterally. GASTROINTESTINAL: Abdomen soft, non-tender, nondistended. Hepatic and splenic margins not palpable. MUSCULOSKELETAL: Extremities without clubbing, cyanosis, or edema. No obvious deformities. NEUROLOGICAL: Awake and alert. No obvious cranial nerve deficits. Motor grossly within normal limits. Five out of 5 muscle strength in the arms and legs. Normal speech. Results Procedures completed during hospitalization: none Labs on day of discharge: Labs from last 24 hours 02/09/18 02/09/18 02/09/18 07:27 06:54 06:54 CBC w Diff Auto diff final WBC 14.0 H RBC 5.23 Hgb 14.8 Hct 45.9 MCV 87.8 MCH 28.3 MCHC 32.2 RDW 13.9 Plt Count 192 MPV 7.9 Neut % (Auto) 49.5 Lymph % (Auto) 17.8 [place] % (Auto) 11.3 H Eos % (Auto) 20.8 H Baso % (Auto) 0.6 Neut # (Auto) 6.9 Lymph # (Auto) 2.5 [place] # (Auto) 1.6 H Eos # (Auto) 2.9 H Baso # (Auto) 0.1 WBC Differential . Differential Comment . Sodium 144 Potassium 3.4 L Chloride 110 H Carbon Dioxide 24.0 Anion Gap 10 BUN 42 H Creatinine 1.40 H Estimated GFR 49 L POC Glucose 125 H Random Glucose 116 H Calcium 8.7 02/09/18 02/08/18 02/08/18 03:43 21:06 16:25 CBC w Diff WBC RBC Hgb Hct MCV MCH MCHC RDW Plt Count MPV Neut % (Auto) Lymph % (Auto) [place] % (Auto) Eos % (Auto) Baso % (Auto) Neut # (Auto) Lymph # (Auto) [place] # (Auto) Eos # (Auto) Baso # (Auto) WBC Differential Differential Comment Sodium Potassium Chloride Carbon Dioxide Anion Gap BUN Creatinine Estimated GFR POC Glucose 113 H 144 H 106 Random Glucose Calcium 02/08/18 12:00 CBC w Diff WBC RBC Hgb Hct MCV MCH MCHC RDW Plt Count MPV Neut % (Auto) Lymph % (Auto) [place] % (Auto) Eos % (Auto) Baso % (Auto) Neut # (Auto) Lymph # (Auto) [place] # (Auto) Eos # (Auto) Baso # (Auto) WBC Differential Differential Comment Sodium Potassium Chloride Carbon Dioxide Anion Gap BUN Creatinine Estimated GFR POC Glucose 142 H Random Glucose Calcium - Impressions ITS Impressions Chest X-Ray 02/04/18 11:05 CONCLUSION: Probable mild failure. There is no infiltrate. Discharge Plan - Discharge Disposition Patient Disposition: W/Home Health Service - Discharge Condition Condition: Stable - Discharge Order Discharge Orders: Discharge Order (Routine); Ordered 02/09/18 Ordered By: Erendira Linares - Discharge Details Anticipated Discharge Date: 02/09/18 Discharge Comment: vanco given to spouse yesterday - Physicians Team Primary Care Provider: Mavis Lindo Attending Provider: Erendira Linares Other Providers: Idalia Hennessy MD
== END 2018-02-09 10:41 | disposition home health service (06) ==
LOC: PHED 10:34 → PHEDA 12:51 → PH3 13:55
PROVIDERS: ADMIT Hospitalist; ATTEND Hospitalist

== ENCOUNTER 2018-02-14 12:09 | Inpatient (IN) ==
[2018-02-14] MEDS ORDERED: MethylPREDNISolone Sod Succinate Inj 125 MG/2 ML Vial IV.PUSH ONE (12:19)
--- NOTE | 2018-02-14 12:27 | ED ---
HPI General Chief Complaint: Shortness of Breath/Dyspnea Stated Complaint: Medical Time Seen by Provider: 02/14/18 12:13 Source: patient Mode of arrival: EMS Limitations: other History of Present Illness Patient was recently discharged on February 07 or so he was treated for C. difficile colitis. However patient comes today complaining of progressive worsening of shortness of breath over the last 2 days. Home health attempted to increase the oxygen but was still reading on the pulse ox of 81% when seen, 911 was called EMS corroborated the pulse ox reading still reading around 70% or so this was shortly after the patient took off his oxygen Patient is known to have history of DVT, hypertension, diabetes, kidney injury, and COPD MD Complaint: shortness of breath Onset (ago): day(s) (Per EMS at least going on for 2 days) Severity: severe Consistency/Duration: progressively worsening Relieving factors: nothing Exacerbating factors: talking Known history of: COPD Treatment prior to arrival: oxygen and NIPPV Related Data Home oxygen amount: 2 liters Home Medications Medication Instructions Recorded Confirmed cetirizine 10 mg PO DAILY 02/04/18 02/14/18 ezetimibe [Zetia] 10 mg PO DAILY 02/04/18 02/14/18 losartan 50 mg PO DAILY 02/04/18 02/14/18 omeprazole magnesium [Prilosec OTC] 20 mg PO DAILY 02/04/18 02/14/18 simvastatin [Zocor] 40 mg PO DAILY 02/04/18 02/14/18 albuterol sulfate [ProAir HFA] 2 puff INHALATION DAILY 02/14/18 02/14/18 exenatide microspheres 2 mg SUB-Q WEEKLY 02/14/18 02/14/18 fluticasone-salmeterol [Advair 1 inh INHALATION BID 02/14/18 02/14/18 Diskus] loperamide [Imodium A-D] 2 mg PO PRN PRN 02/14/18 02/14/18 omega-3 acid ethyl esters 1 g PO DAILY 02/14/18 02/14/18 umeclidinium 1 inh INHALATION DAILY 02/14/18 02/14/18 Previous Rx's Medication Instructions Recorded vancomycin 125 mg PO QID #40 ea 02/08/18 Lactobacillus acidoph-L.bulgar 2 tab PO BID #60 tab 02/19/18 [Lactinex] apixaban [Eliquis] 2.5 mg PO BID #60 tab 02/19/18 cefuroxime axetil 500 mg PO Q12H #10 tab 02/19/18 diltiazem HCl 120 mg PO DAILY #60 cap 02/19/18 guaifenesin [Mucinex] 600 mg PO BID #10 tab 02/19/18 nicotine 1 patch TRANSDERMAL DAILY #30 ea 02/19/18 nitroglycerin [Nitrostat] 0.4 mg SUBLINGUAL Q5M PRN #30 tab 02/19/18 prednisone [Deltasone] 40 mg PO DAILY #3 tab 02/19/18 Allergies Allergy/AdvReac Type Severity Reaction Status Date / Time No Known Allergies Allergy Verified 02/14/18 12:58 Review of Systems Except as stated in HPI: all other systems reviewed are negative PMFSH History History Provided By: Patient Medical History Medical History COPD (chronic obstructive pulmonary disease) (Acute) DVT, lower extremity (Acute) Emphysema lung (Acute) GERD (gastroesophageal reflux disease) (Acute) High cholesterol (Acute) Hypertension (Acute) Presence of IVC filter (Acute) Pulmonary embolism (Acute) Skin cancer of face (Acute) Social History Social History Substance History: No History of Abuse Second Hand Smoke Exposure: Yes Smoking Status: Light tobacco smoker Tobacco Type: Cigarettes Packs Per Day: 1 Cigarettes Per Day: 20.0 Years Smoked: 50 Pack-Years: 50.00 How Often Do You Have a Drink Containing Alcohol: Monthly or less Hx Recent Travel: No Recent Travel in [facility] within the Last 8 Weeks: No Recent Out of Country Travel within the Last 8 Weeks: No Exam Narrative Exam Narrative: GENERAL: Obese elderly male in respiratory distress SKIN: Warm and dry. HEAD: Atraumatic. Normocephalic. EYES: Pupils equal and round. No scleral icterus. No injection or drainage. ENT: No nasal bleeding or discharge. Mucous membranes pink and moist. NECK: Trachea midline. No JVD. CARDIOVASCULAR: Tachycardic rate with regular rhythm. no rubs or gallops RESPIRATORY: accessory muscle use. Tachypnea, bilateral wheezing, bilaterally decreased tidal volume, 1-2 word dyspnea GASTROINTESTINAL: Abdomen soft, non-tender, nondistended. No rebound or guarding MUSCULOSKELETAL: Extremities without clubbing, cyanosis, or 2+ pitting edema to lower extremities. No obvious deformities. NEUROLOGICAL: Awake and alert. No obvious cranial nerve deficits. Motor grossly within normal limits. Five out of 5 muscle strength in the arms and legs. Normal speech. PSYCHIATRIC: Appropriate mood and affect; insight and judgment normal. Course Initial Documented Vital Signs Pulse Rate 116 H 02/14/18 12:12 Respiratory Rate 26 H 02/14/18 12:12 Blood Pressure 132/76 02/14/18 12:12 Pulse Oximetry 88 L 02/14/18 12:12 Last Documented Vital Signs Temperature 97.8 F 02/19/18 07:00 Pulse Rate 90 02/19/18 10:00 Respiratory Rate 20 02/19/18 07:00 Blood Pressure 144/84 H 02/19/18 07:00 Pulse Oximetry 94 L 02/19/18 08:00 Medical Decision Making MDM Narrative Medical decision making narrative: Patient has a leukocytosis with left shift 81 %, no anemia, normal platelet count Coagulation profile is within normal limits Beta natruretic peptide 21 and not consistent with any CHF Chest x-ray shows developing bibasilar airspace disease may represent early infiltrate or atelectasis otherwise stable emphysematous changes Differential Diagnosis Differential Diagnosis: Pneumonia versus COPD exacerbation versus pneumothorax versus pleural effusion versus STEMI Medical Records Medical records reviewed: Yes I reviewed the patient's medical records. Lab Data Lab results reviewed: Yes I reviewed the patient's lab results. Result diagrams: 02/19/18 06:21 02/19/18 06:21 Lab Results 02/14/18 02/14/18 02/14/18 Range/Units 12:40 12:40 12:40 WBC 15.4 H (4.0-11.0) th/mm3 RBC 4.58 (4.50-5.90) mil/mm3 Hgb 13.0 (13.0-17.0) gm/dL Hct 39.4 (39.0-51.0) % MCV 86.0 (80.0-100.0) fL MCH 28.5 (27.0-34.0) pg MCHC 33.1 (32.0-36.0) % RDW 15.6 (11.6-17.2) % Plt Count 270 D (150-450) th/mm3 MPV 9.3 (7.0-11.0) fL Neut % (Auto) 80.8 H (16.0-70.0) % Lymph % (Auto) 9.9 (9.0-44.0) % [place] % (Auto) 8.9 H (0.0-8.0) % Eos % (Auto) 0.1 (0.0-4.0) % Baso % (Auto) 0.3 (0.0-2.0) % Neut # (Auto) 12.5 H (1.8-7.7) th/mm3 Lymph # (Auto) 1.5 (1.0-4.8) th/mm3 [place] # (Auto) 1.4 H (0.0-0.9) th/mm3 Eos # (Auto) 0.0 (0.0-0.4) th/mm3 Baso # (Auto) 0.0 (0.0-0.2) th/mm3 WBC Differential . Differential Comment Auto diff final PT 11.4 (9.8-11.6) sec INR 1.1 Ratio APTT 23.3 L (24.3-30.1) sec Puncture Site Patient Temperature O2 Saturation (90-100) % ABG pH (7.380-7.420) ABG pCO2 (38-42) mmHg ABG pO2 (61-120) mmHg ABG HCO3 (22-26) mmol/L ABG O2 Content (12.0-20.0) Vol % ABG Base Excess (-2-2) mmol/L ABG Methemoglobin (0-2) % Isai Test Hemoglobin (12.0-16.0) G/DL Carboxyhemoglobin (0-4) % O2 Delivery Device Inspired O2 % Critical Value Sodium (136-145) meq/L Potassium (3.5-5.1) meq/L Chloride (98-107) meq/L Carbon Dioxide (21.0-32.0) meq/L Anion Gap (5-15) meq/L BUN (7-18) mg/dL Creatinine (0.60-1.30) mg/dL Estimated GFR (>89) mL/min POC Glucose (68-110) mg/dl Random Glucose (74-106) mg/dL Hemoglobin A1c (4.3-6.0) % Calcium (8.5-10.1) mg/dL Phosphorus (2.5-4.9) mg/dL Magnesium (1.5-2.5) mg/dL Total Bilirubin (0.2-1.0) mg/dL AST (15-37) U/L ALT (12-78) U/L Alkaline Phosphatase (45-117) U/L Total Creatine Kinase (39-308) U/L Troponin I (0.02-0.05) ng/mL B-Natriuretic Peptide 21 (0-100) pg/mL Total Protein (6.4-8.2) g/dL Albumin (3.4-5.0) g/dL Triglycerides (42-150) mg/dL Cholesterol (120-200) mg/dL LDL Cholesterol, Calc (0-99) mg/dL HDL Cholesterol (40.0-60.0) mg/dL Cholesterol/HDL Ratio Ratio TSH (0.358-3.740) uIU/mL Free T4 (0.76-1.46) ng/dL Urine Color (Yellw/Straw) Urine Clarity (Clear) Urine pH (5.0-8.5) Ur Specific [place] (1.002-1.035) Urine Protein (Neg-Trace) mg/dL Urine Glucose (UA) (Negative) mg/dL Urine Ketones (Negative) mg/dL Urine Occult Blood (Negative) Urine Nitrate (Negative) Urine Bilirubin (Negative) Urine Urobilinogen (Less than 2) mg/dL Ur Leukocyte Esterase (Negative) Urine RBC (0-3) /hpf Urine WBC (0-5) /hpf Ur Squamous Epith Cells (0-5) /hpf Urine Bacteria (None) /hpf Urine Mucus (Occasional) /lpf Micro UA Comment Urine Culture Comments 02/14/18 02/14/18 02/14/18 Range/Units 15:32 15:32 15:51 WBC (4.0-11.0) th/mm3 RBC (4.50-5.90) mil/mm3 Hgb (13.0-17.0) gm/dL Hct (39.0-51.0) % MCV (80.0-100.0) fL MCH (27.0-34.0) pg MCHC (32.0-36.0) % RDW (11.6-17.2) % Plt Count (150-450) th/mm3 MPV (7.0-11.0) fL Neut % (Auto) (16.0-70.0) % Lymph % (Auto) (9.0-44.0) % [place] % (Auto) (0.0-8.0) % Eos % (Auto) (0.0-4.0) % Baso % (Auto) (0.0-2.0) % Neut # (Auto) (1.8-7.7) th/mm3 Lymph # (Auto) (1.0-4.8) th/mm3 [place] # (Auto) (0.0-0.9) th/mm3 Eos # (Auto) (0.0-0.4) th/mm3 Baso # (Auto) (0.0-0.2) th/mm3 WBC Differential Differential Comment PT (9.8-11.6) sec INR Ratio APTT (24.3-30.1) sec Puncture Site Left radial Patient Temperature 98.6 O2 Saturation 94 (90-100) % ABG pH 7.42 (7.380-7.420) ABG pCO2 27 L (38-42) mmHg ABG pO2 84 (61-120) mmHg ABG HCO3 17 L (22-26) mmol/L ABG O2 Content 17.6 (12.0-20.0) Vol % ABG Base Excess -6.7 L (-2-2) mmol/L ABG Methemoglobin 0.6 (0-2) % Isai Test Present Hemoglobin 13.2 (12.0-16.0) G/DL Carboxyhemoglobin 1.2 (0-4) % O2 Delivery Device Bipap Inspired O2 50 % Critical Value No Sodium 133 L (136-145) meq/L Potassium 6.1 H (3.5-5.1) meq/L Chloride 102 (98-107) meq/L Carbon Dioxide 19.0 L (21.0-32.0) meq/L Anion Gap 12 (5-15) meq/L BUN 135 H (7-18) mg/dL Creatinine 3.98 H (0.60-1.30) mg/dL Estimated GFR 15 L (>89) mL/min POC Glucose (68-110) mg/dl Random Glucose 160 H (74-106) mg/dL Hemoglobin A1c (4.3-6.0) % Calcium 8.8 (8.5-10.1) mg/dL Phosphorus (2.5-4.9) mg/dL Magnesium (1.5-2.5) mg/dL Total Bilirubin 0.9 (0.2-1.0) mg/dL AST 40 H (15-37) U/L ALT 126 H (12-78) U/L Alkaline Phosphatase 188 H (45-117) U/L Total Creatine Kinase 41 (39-308) U/L Troponin I Less than 0.02 L Less than 0.02 L (0.02-0.05) ng/mL B-Natriuretic Peptide (0-100) pg/mL Total Protein 7.7 (6.4-8.2) g/dL Albumin 2.7 L (3.4-5.0) g/dL Triglycerides (42-150) mg/dL Cholesterol (120-200) mg/dL LDL Cholesterol, Calc (0-99) mg/dL HDL Cholesterol (40.0-60.0) mg/dL Cholesterol/HDL Ratio Ratio TSH (0.358-3.740) uIU/mL Free T4 (0.76-1.46) ng/dL Urine Color (Yellw/Straw) Urine Clarity (Clear) Urine pH (5.0-8.5) Ur Specific [place] (1.002-1.035) Urine Protein (Neg-Trace) mg/dL Urine Glucose (UA) (Negative) mg/dL Urine Ketones (Negative) mg/dL Urine Occult Blood (Negative) Urine Nitrate (Negative) Urine Bilirubin (Negative) Urine Urobilinogen (Less than 2) mg/dL Ur Leukocyte Esterase (Negative) Urine RBC (0-3) /hpf Urine WBC (0-5) /hpf Ur Squamous Epith Cells (0-5) /hpf Urine Bacteria (None) /hpf Urine Mucus (Occasional) /lpf Micro UA Comment Urine Culture Comments 02/14/18 02/14/18 02/14/18 Range/Units 17:19 17:29 20:37 WBC (4.0-11.0) th/mm3 RBC (4.50-5.90) mil/mm3 Hgb (13.0-17.0) gm/dL Hct (39.0-51.0) % MCV (80.0-100.0) fL MCH (27.0-34.0) pg MCHC (32.0-36.0) % RDW (11.6-17.2) % Plt Count (150-450) th/mm3 MPV (7.0-11.0) fL Neut % (Auto) (16.0-70.0) % Lymph % (Auto) (9.0-44.0) % [place] % (Auto) (0.0-8.0) % Eos % (Auto) (0.0-4.0) % Baso % (Auto) (0.0-2.0) % Neut # (Auto) (1.8-7.7) th/mm3 Lymph # (Auto) (1.0-4.8) th/mm3 [place] # (Auto) (0.0-0.9) th/mm3 Eos # (Auto) (0.0-0.4) th/mm3 Baso # (Auto) (0.0-0.2) th/mm3 WBC Differential Differential Comment PT (9.8-11.6) sec INR Ratio APTT (24.3-30.1) sec Puncture Site Patient Temperature O2 Saturation (90-100) % ABG pH (7.380-7.420) ABG pCO2 (38-42) mmHg ABG pO2 (61-120) mmHg ABG HCO3 (22-26) mmol/L ABG O2 Content (12.0-20.0) Vol % ABG Base Excess (-2-2) mmol/L ABG Methemoglobin (0-2) % Isai Test Hemoglobin (12.0-16.0) G/DL Carboxyhemoglobin (0-4) % O2 Delivery Device Inspired O2 % Critical Value Sodium (136-145) meq/L Potassium 6.1 H (3.5-5.1) meq/L Chloride (98-107) meq/L Carbon Dioxide (21.0-32.0) meq/L Anion Gap (5-15) meq/L BUN (7-18) mg/dL Creatinine (0.60-1.30) mg/dL Estimated GFR (>89) mL/min POC Glucose 186 H 255 H (68-110) mg/dl Random Glucose (74-106) mg/dL Hemoglobin A1c (4.3-6.0) % Calcium (8.5-10.1) mg/dL Phosphorus (2.5-4.9) mg/dL Magnesium (1.5-2.5) mg/dL Total Bilirubin (0.2-1.0) mg/dL AST (15-37) U/L ALT (12-78) U/L Alkaline Phosphatase (45-117) U/L Total Creatine Kinase (39-308) U/L Troponin I (0.02-0.05) ng/mL B-Natriuretic Peptide (0-100) pg/mL Total Protein (6.4-8.2) g/dL Albumin (3.4-5.0) g/dL Triglycerides (42-150) mg/dL Cholesterol (120-200) mg/dL LDL Cholesterol, Calc (0-99) mg/dL HDL Cholesterol (40.0-60.0) mg/dL Cholesterol/HDL Ratio Ratio TSH (0.358-3.740) uIU/mL Free T4 (0.76-1.46) ng/dL Urine Color (Yellw/Straw) Urine Clarity (Clear) Urine pH (5.0-8.5) Ur Specific [place] (1.002-1.035) Urine Protein (Neg-Trace) mg/dL Urine Glucose (UA) (Negative) mg/dL Urine Ketones (Negative) mg/dL Urine Occult Blood (Negative) Urine Nitrate (Negative) Urine Bilirubin (Negative) Urine Urobilinogen (Less than 2) mg/dL Ur Leukocyte Esterase (Negative) Urine RBC (0-3) /hpf Urine WBC (0-5) /hpf Ur Squamous Epith Cells (0-5) /hpf Urine Bacteria (None) /hpf Urine Mucus (Occasional) /lpf Micro UA Comment Urine Culture Comments 02/14/18 02/15/18 02/15/18 Range/Units 20:45 04:06 06:20 WBC (4.0-11.0) th/mm3 RBC (4.50-5.90) mil/mm3 Hgb (13.0-17.0) gm/dL Hct (39.0-51.0) % MCV (80.0-100.0) fL MCH (27.0-34.0) pg MCHC (32.0-36.0) % RDW (11.6-17.2) % Plt Count (150-450) th/mm3 MPV (7.0-11.0) fL Neut % (Auto) (16.0-70.0) % Lymph % (Auto) (9.0-44.0) % [place] % (Auto) (0.0-8.0) % Eos % (Auto) (0.0-4.0) % Baso % (Auto) (0.0-2.0) % Neut # (Auto) (1.8-7.7) th/mm3 Lymph # (Auto) (1.0-4.8) th/mm3 [place] # (Auto) (0.0-0.9) th/mm3 Eos # (Auto) (0.0-0.4) th/mm3 Baso # (Auto) (0.0-0.2) th/mm3 WBC Differential Differential Comment PT (9.8-11.6) sec INR Ratio APTT (24.3-30.1) sec Puncture Site Patient Temperature O2 Saturation (90-100) % ABG pH (7.380-7.420) ABG pCO2 (38-42) mmHg ABG pO2 (61-120) mmHg ABG HCO3 (22-26) mmol/L ABG O2 Content (12.0-20.0) Vol % ABG Base Excess (-2-2) mmol/L ABG Methemoglobin (0-2) % Isai Test Hemoglobin (12.0-16.0) G/DL Carboxyhemoglobin (0-4) % O2 Delivery Device Inspired O2 % Critical Value Sodium 137 (136-145) meq/L Potassium 5.2 H D (3.5-5.1) meq/L Chloride 104 (98-107) meq/L Carbon Dioxide 16.2 L (21.0-32.0) meq/L Anion Gap 17 H (5-15) meq/L BUN 134 H (7-18) mg/dL Creatinine 3.15 H (0.60-1.30) mg/dL Estimated GFR 19 L (>89) mL/min POC Glucose 174 H (68-110) mg/dl Random Glucose 180 H (74-106) mg/dL Hemoglobin A1c (4.3-6.0) % Calcium 9.1 (8.5-10.1) mg/dL Phosphorus 5.5 H (2.5-4.9) mg/dL Magnesium 3.0 H (1.5-2.5) mg/dL Total Bilirubin 0.6 (0.2-1.0) mg/dL AST 20 (15-37) U/L ALT 85 H (12-78) U/L Alkaline Phosphatase 141 H (45-117) U/L Total Creatine Kinase 35 L (39-308) U/L Troponin I Less than 0.02 L (0.02-0.05) ng/mL B-Natriuretic Peptide (0-100) pg/mL Total Protein 6.7 D (6.4-8.2) g/dL Albumin 2.3 L (3.4-5.0) g/dL Triglycerides 125 (42-150) mg/dL Cholesterol 106 L (120-200) mg/dL LDL Cholesterol, Calc 43 (0-99) mg/dL HDL Cholesterol 38.5 L (40.0-60.0) mg/dL Cholesterol/HDL Ratio 2.75 Ratio TSH 0.622 (0.358-3.740) uIU/mL Free T4 1.19 (0.76-1.46) ng/dL Urine Color (Yellw/Straw) Urine Clarity (Clear) Urine pH (5.0-8.5) Ur Specific [place] (1.002-1.035) Urine Protein (Neg-Trace) mg/dL Urine Glucose (UA) (Negative) mg/dL Urine Ketones (Negative) mg/dL Urine Occult Blood (Negative) Urine Nitrate (Negative) Urine Bilirubin (Negative) Urine Urobilinogen (Less than 2) mg/dL Ur Leukocyte Esterase (Negative) Urine RBC (0-3) /hpf Urine WBC (0-5) /hpf Ur Squamous Epith Cells (0-5) /hpf Urine Bacteria (None) /hpf Urine Mucus (Occasional) /lpf Micro UA Comment Urine Culture Comments 02/15/18 02/15/18 02/15/18 Range/Units 06:20 06:20 06:20 WBC 7.6 D (4.0-11.0) th/mm3 RBC 4.08 L (4.50-5.90) mil/mm3 Hgb 11.6 L (13.0-17.0) gm/dL Hct 34.7 L (39.0-51.0) % MCV 85.0 (80.0-100.0) fL MCH 28.3 (27.0-34.0) pg MCHC 33.3 (32.0-36.0) % RDW 15.2 (11.6-17.2) % Plt Count 241 (150-450) th/mm3 MPV 8.5 (7.0-11.0) fL Neut % (Auto) 85.3 H (16.0-70.0) % Lymph % (Auto) 10.5 (9.0-44.0) % [place] % (Auto) 4.1 (0.0-8.0) % Eos % (Auto) 0.0 (0.0-4.0) % Baso % (Auto) 0.1 (0.0-2.0) % Neut # (Auto) 6.5 (1.8-7.7) th/mm3 Lymph # (Auto) 0.8 L (1.0-4.8) th/mm3 [place] # (Auto) 0.3 (0.0-0.9) th/mm3 Eos # (Auto) 0.0 (0.0-0.4) th/mm3 Baso # (Auto) 0.0 (0.0-0.2) th/mm3 WBC Differential . Differential Comment Auto diff final PT 11.4 (9.8-11.6) sec INR 1.1 Ratio APTT (24.3-30.1) sec Puncture Site Patient Temperature O2 Saturation (90-100) % ABG pH (7.380-7.420) ABG pCO2 (38-42) mmHg ABG pO2 (61-120) mmHg ABG HCO3 (22-26) mmol/L ABG O2 Content (12.0-20.0) Vol % ABG Base Excess (-2-2) mmol/L ABG Methemoglobin (0-2) % Isai Test Hemoglobin (12.0-16.0) G/DL Carboxyhemoglobin (0-4) % O2 Delivery Device Inspired O2 % Critical Value Sodium (136-145) meq/L Potassium (3.5-5.1) meq/L Chloride (98-107) meq/L Carbon Dioxide (21.0-32.0) meq/L Anion Gap (5-15) meq/L BUN (7-18) mg/dL Creatinine (0.60-1.30) mg/dL Estimated GFR (>89) mL/min POC Glucose (68-110) mg/dl Random Glucose (74-106) mg/dL Hemoglobin A1c 6.4 H (4.3-6.0) % Calcium (8.5-10.1) mg/dL Phosphorus (2.5-4.9) mg/dL Magnesium (1.5-2.5) mg/dL Total Bilirubin (0.2-1.0) mg/dL AST (15-37) U/L ALT (12-78) U/L Alkaline Phosphatase (45-117) U/L Total Creatine Kinase (39-308) U/L Troponin I (0.02-0.05) ng/mL B-Natriuretic Peptide (0-100) pg/mL Total Protein (6.4-8.2) g/dL Albumin (3.4-5.0) g/dL Triglycerides (42-150) mg/dL Cholesterol (120-200) mg/dL LDL Cholesterol, Calc (0-99) mg/dL HDL Cholesterol (40.0-60.0) mg/dL Cholesterol/HDL Ratio Ratio TSH (0.358-3.740) uIU/mL Free T4 (0.76-1.46) ng/dL Urine Color (Yellw/Straw) Urine Clarity (Clear) Urine pH (5.0-8.5) Ur Specific [place] (1.002-1.035) Urine Protein (Neg-Trace) mg/dL Urine Glucose (UA) (Negative) mg/dL Urine Ketones (Negative) mg/dL Urine Occult Blood (Negative) Urine Nitrate (Negative) Urine Bilirubin (Negative) Urine Urobilinogen (Less than 2) mg/dL Ur Leukocyte Esterase (Negative) Urine RBC (0-3) /hpf Urine WBC (0-5) /hpf Ur Squamous Epith Cells (0-5) /hpf Urine Bacteria (None) /hpf Urine Mucus (Occasional) /lpf Micro UA Comment Urine Culture Comments 02/15/18 02/15/18 02/15/18 Range/Units 08:22 11:47 16:05 WBC (4.0-11.0) th/mm3 RBC (4.50-5.90) mil/mm3 Hgb (13.0-17.0) gm/dL Hct (39.0-51.0) % MCV (80.0-100.0) fL MCH (27.0-34.0) pg MCHC (32.0-36.0) % RDW (11.6-17.2) % Plt Count (150-450) th/mm3 MPV (7.0-11.0) fL Neut % (Auto) (16.0-70.0) % Lymph % (Auto) (9.0-44.0) % [place] % (Auto) (0.0-8.0) % Eos % (Auto) (0.0-4.0) % Baso % (Auto) (0.0-2.0) % Neut # (Auto) (1.8-7.7) th/mm3 Lymph # (Auto) (1.0-4.8) th/mm3 [place] # (Auto) (0.0-0.9) th/mm3 Eos # (Auto) (0.0-0.4) th/mm3 Baso # (Auto) (0.0-0.2) th/mm3 WBC Differential Differential Comment PT (9.8-11.6) sec INR Ratio APTT (24.3-30.1) sec Puncture Site Patient Temperature O2 Saturation (90-100) % ABG pH (7.380-7.420) ABG pCO2 (38-42) mmHg ABG pO2 (61-120) mmHg ABG HCO3 (22-26) mmol/L ABG O2 Content (12.0-20.0) Vol % ABG Base Excess (-2-2) mmol/L ABG Methemoglobin (0-2) % Isai Test Hemoglobin (12.0-16.0) G/DL Carboxyhemoglobin (0-4) % O2 Delivery Device Inspired O2 % Critical Value Sodium (136-145) meq/L Potassium (3.5-5.1) meq/L Chloride (98-107) meq/L Carbon Dioxide (21.0-32.0) meq/L Anion Gap (5-15) meq/L BUN (7-18) mg/dL Creatinine (0.60-1.30) mg/dL Estimated GFR (>89) mL/min POC Glucose 194 H 305 H (68-110) mg/dl Random Glucose (74-106) mg/dL Hemoglobin A1c (4.3-6.0) % Calcium (8.5-10.1) mg/dL Phosphorus (2.5-4.9) mg/dL Magnesium (1.5-2.5) mg/dL Total Bilirubin (0.2-1.0) mg/dL AST (15-37) U/L ALT (12-78) U/L Alkaline Phosphatase (45-117) U/L Total Creatine Kinase (39-308) U/L Troponin I (0.02-0.05) ng/mL B-Natriuretic Peptide (0-100) pg/mL Total Protein (6.4-8.2) g/dL Albumin (3.4-5.0) g/dL Triglycerides (42-150) mg/dL Cholesterol (120-200) mg/dL LDL Cholesterol, Calc (0-99) mg/dL HDL Cholesterol (40.0-60.0) mg/dL Cholesterol/HDL Ratio Ratio TSH (0.358-3.740) uIU/mL Free T4 (0.76-1.46) ng/dL Urine Color Yellow (Yellw/Straw) Urine Clarity Hazy H (Clear) Urine pH 5.0 (5.0-8.5) Ur Specific [place] 1.016 (1.002-1.035) Urine Protein Negative (Neg-Trace) mg/dL Urine Glucose (UA) 50 (Negative) mg/dL Urine Ketones Negative (Negative) mg/dL Urine Occult Blood Small H (Negative) Urine Nitrate Negative (Negative) Urine Bilirubin Negative (Negative) Urine Urobilinogen Less than 2 (Less than 2) mg/dL Ur Leukocyte Esterase Small H (Negative) Urine RBC 4 H (0-3) /hpf Urine WBC 6 H (0-5) /hpf Ur Squamous Epith Cells 1 (0-5) /hpf Urine Bacteria Rare H (None) /hpf Urine Mucus Few H (Occasional) /lpf Micro UA Comment Culture not ind Urine Culture Comments Culture not ind 02/15/18 02/15/18 02/16/18 Range/Units 16:16 20:58 04:06 WBC (4.0-11.0) th/mm3 RBC (4.50-5.90) mil/mm3 Hgb (13.0-17.0) gm/dL Hct (39.0-51.0) % MCV (80.0-100.0) fL MCH (27.0-34.0) pg MCHC (32.0-36.0) % RDW (11.6-17.2) % Plt Count (150-450) th/mm3 MPV (7.0-11.0) fL Neut % (Auto) (16.0-70.0) % Lymph % (Auto) (9.0-44.0) % [place] % (Auto) (0.0-8.0) % Eos % (Auto) (0.0-4.0) % Baso % (Auto) (0.0-2.0) % Neut # (Auto) (1.8-7.7) th/mm3 Lymph # (Auto) (1.0-4.8) th/mm3 [place] # (Auto) (0.0-0.9) th/mm3 Eos # (Auto) (0.0-0.4) th/mm3 Baso # (Auto) (0.0-0.2) th/mm3 WBC Differential Differential Comment PT (9.8-11.6) sec INR Ratio APTT (24.3-30.1) sec Puncture Site Patient Temperature O2 Saturation (90-100) % ABG pH (7.380-7.420) ABG pCO2 (38-42) mmHg ABG pO2 (61-120) mmHg ABG HCO3 (22-26) mmol/L ABG O2 Content (12.0-20.0) Vol % ABG Base Excess (-2-2) mmol/L ABG Methemoglobin (0-2) % Isai Test Hemoglobin (12.0-16.0) G/DL Carboxyhemoglobin (0-4) % O2 Delivery Device Inspired O2 % Critical Value Sodium (136-145) meq/L Potassium (3.5-5.1) meq/L Chloride (98-107) meq/L Carbon Dioxide (21.0-32.0) meq/L Anion Gap (5-15) meq/L BUN (7-18) mg/dL Creatinine (0.60-1.30) mg/dL Estimated GFR (>89) mL/min POC Glucose 228 H 243 H 245 H (68-110) mg/dl Random Glucose (74-106) mg/dL Hemoglobin A1c (4.3-6.0) % Calcium (8.5-10.1) mg/dL Phosphorus (2.5-4.9) mg/dL Magnesium (1.5-2.5) mg/dL Total Bilirubin (0.2-1.0) mg/dL AST (15-37) U/L ALT (12-78) U/L Alkaline Phosphatase (45-117) U/L Total Creatine Kinase (39-308) U/L Troponin I (0.02-0.05) ng/mL B-Natriuretic Peptide (0-100) pg/mL Total Protein (6.4-8.2) g/dL Albumin (3.4-5.0) g/dL Triglycerides (42-150) mg/dL Cholesterol (120-200) mg/dL LDL Cholesterol, Calc (0-99) mg/dL HDL Cholesterol (40.0-60.0) mg/dL Cholesterol/HDL Ratio Ratio TSH (0.358-3.740) uIU/mL Free T4 (0.76-1.46) ng/dL Urine Color (Yellw/Straw) Urine Clarity (Clear) Urine pH (5.0-8.5) Ur Specific [place] (1.002-1.035) Urine Protein (Neg-Trace) mg/dL Urine Glucose (UA) (Negative) mg/dL Urine Ketones (Negative) mg/dL Urine Occult Blood (Negative) Urine Nitrate (Negative) Urine Bilirubin (Negative) Urine Urobilinogen (Less than 2) mg/dL Ur Leukocyte Esterase (Negative) Urine RBC (0-3) /hpf Urine WBC (0-5) /hpf Ur Squamous Epith Cells (0-5) /hpf Urine Bacteria (None) /hpf Urine Mucus (Occasional) /lpf Micro UA Comment Urine Culture Comments 02/16/18 02/16/18 02/16/18 Range/Units 04:27 04:27 07:58 WBC 8.5 (4.0-11.0) th/mm3 RBC 4.23 L (4.50-5.90) mil/mm3 Hgb 12.1 L (13.0-17.0) gm/dL Hct 36.6 L (39.0-51.0) % MCV 86.5 (80.0-100.0) fL MCH 28.6 (27.0-34.0) pg MCHC 33.1 (32.0-36.0) % RDW 15.3 (11.6-17.2) % Plt Count 310 (150-450) th/mm3 MPV 8.3 (7.0-11.0) fL Neut % (Auto) 84.5 H (16.0-70.0) % Lymph % (Auto) 9.5 (9.0-44.0) % [place] % (Auto) 5.9 (0.0-8.0) % Eos % (Auto) 0.0 (0.0-4.0) % Baso % (Auto) 0.1 (0.0-2.0) % Neut # (Auto) 7.1 (1.8-7.7) th/mm3 Lymph # (Auto) 0.8 L (1.0-4.8) th/mm3 [place] # (Auto) 0.5 (0.0-0.9) th/mm3 Eos # (Auto) 0.0 (0.0-0.4) th/mm3 Baso # (Auto) 0.0 (0.0-0.2) th/mm3 WBC Differential . Differential Comment Auto diff final PT (9.8-11.6) sec INR Ratio APTT (24.3-30.1) sec Puncture Site Patient Temperature O2 Saturation (90-100) % ABG pH (7.380-7.420) ABG pCO2 (38-42) mmHg ABG pO2 (61-120) mmHg ABG HCO3 (22-26) mmol/L ABG O2 Content (12.0-20.0) Vol % ABG Base Excess (-2-2) mmol/L ABG Methemoglobin (0-2) % Isai Test Hemoglobin (12.0-16.0) G/DL Carboxyhemoglobin (0-4) % O2 Delivery Device Inspired O2 % Critical Value Sodium 136 (136-145) meq/L Potassium 4.7 (3.5-5.1) meq/L Chloride 101 (98-107) meq/L Carbon Dioxide 19.2 L (21.0-32.0) meq/L Anion Gap 16 H (5-15) meq/L BUN 127 H (7-18) mg/dL Creatinine 3.00 H (0.60-1.30) mg/dL Estimated GFR 20 L (>89) mL/min POC Glucose 199 H (68-110) mg/dl Random Glucose 217 H (74-106) mg/dL Hemoglobin A1c (4.3-6.0) % Calcium 8.6 (8.5-10.1) mg/dL Phosphorus (2.5-4.9) mg/dL Magnesium (1.5-2.5) mg/dL Total Bilirubin (0.2-1.0) mg/dL AST (15-37) U/L ALT (12-78) U/L Alkaline Phosphatase (45-117) U/L Total Creatine Kinase (39-308) U/L Troponin I (0.02-0.05) ng/mL B-Natriuretic Peptide (0-100) pg/mL Total Protein (6.4-8.2) g/dL Albumin (3.4-5.0) g/dL Triglycerides (42-150) mg/dL Cholesterol (120-200) mg/dL LDL Cholesterol, Calc (0-99) mg/dL HDL Cholesterol (40.0-60.0) mg/dL Cholesterol/HDL Ratio Ratio TSH (0.358-3.740) uIU/mL Free T4 (0.76-1.46) ng/dL Urine Color (Yellw/Straw) Urine Clarity (Clear) Urine pH (5.0-8.5) Ur Specific [place] (1.002-1.035) Urine Protein (Neg-Trace) mg/dL Urine Glucose (UA) (Negative) mg/dL Urine Ketones (Negative) mg/dL Urine Occult Blood (Negative) Urine Nitrate (Negative) Urine Bilirubin (Negative) Urine Urobilinogen (Less than 2) mg/dL Ur Leukocyte Esterase (Negative) Urine RBC (0-3) /hpf Urine WBC (0-5) /hpf Ur Squamous Epith Cells (0-5) /hpf Urine Bacteria (None) /hpf Urine Mucus (Occasional) /lpf Micro UA Comment Urine Culture Comments 02/16/18 02/16/18 02/16/18 Range/Units 11:42 17:13 20:44 WBC (4.0-11.0) th/mm3 RBC (4.50-5.90) mil/mm3 Hgb (13.0-17.0) gm/dL Hct (39.0-51.0) % MCV (80.0-100.0) fL MCH (27.0-34.0) pg MCHC (32.0-36.0) % RDW (11.6-17.2) % Plt Count (150-450) th/mm3 MPV (7.0-11.0) fL Neut % (Auto) (16.0-70.0) % Lymph % (Auto) (9.0-44.0) % [place] % (Auto) (0.0-8.0) % Eos % (Auto) (0.0-4.0) % Baso % (Auto) (0.0-2.0) % Neut # (Auto) (1.8-7.7) th/mm3 Lymph # (Auto) (1.0-4.8) th/mm3 [place] # (Auto) (0.0-0.9) th/mm3 Eos # (Auto) (0.0-0.4) th/mm3 Baso # (Auto) (0.0-0.2) th/mm3 WBC Differential Differential Comment PT (9.8-11.6) sec INR Ratio APTT (24.3-30.1) sec Puncture Site Patient Temperature O2 Saturation (90-100) % ABG pH (7.380-7.420) ABG pCO2 (38-42) mmHg ABG pO2 (61-120) mmHg ABG HCO3 (22-26) mmol/L ABG O2 Content (12.0-20.0) Vol % ABG Base Excess (-2-2) mmol/L ABG Methemoglobin (0-2) % Isai Test Hemoglobin (12.0-16.0) G/DL Carboxyhemoglobin (0-4) % O2 Delivery Device Inspired O2 % Critical Value Sodium (136-145) meq/L Potassium (3.5-5.1) meq/L Chloride (98-107) meq/L Carbon Dioxide (21.0-32.0) meq/L Anion Gap (5-15) meq/L BUN (7-18) mg/dL Creatinine (0.60-1.30) mg/dL Estimated GFR (>89) mL/min POC Glucose 329 H 308 H 306 H (68-110) mg/dl Random Glucose (74-106) mg/dL Hemoglobin A1c (4.3-6.0) % Calcium (8.5-10.1) mg/dL Phosphorus (2.5-4.9) mg/dL Magnesium (1.5-2.5) mg/dL Total Bilirubin (0.2-1.0) mg/dL AST (15-37) U/L ALT (12-78) U/L Alkaline Phosphatase (45-117) U/L Total Creatine Kinase (39-308) U/L Troponin I (0.02-0.05) ng/mL B-Natriuretic Peptide (0-100) pg/mL Total Protein (6.4-8.2) g/dL Albumin (3.4-5.0) g/dL Triglycerides (42-150) mg/dL Cholesterol (120-200) mg/dL LDL Cholesterol, Calc (0-99) mg/dL HDL Cholesterol (40.0-60.0) mg/dL Cholesterol/HDL Ratio Ratio TSH (0.358-3.740) uIU/mL Free T4 (0.76-1.46) ng/dL Urine Color (Yellw/Straw) Urine Clarity (Clear) Urine pH (5.0-8.5) Ur Specific [place] (1.002-1.035) Urine Protein (Neg-Trace) mg/dL Urine Glucose (UA) (Negative) mg/dL Urine Ketones (Negative) mg/dL Urine Occult Blood (Negative) Urine Nitrate (Negative) Urine Bilirubin (Negative) Urine Urobilinogen (Less than 2) mg/dL Ur Leukocyte Esterase (Negative) Urine RBC (0-3) /hpf Urine WBC (0-5) /hpf Ur Squamous Epith Cells (0-5) /hpf Urine Bacteria (None) /hpf Urine Mucus (Occasional) /lpf Micro UA Comment Urine Culture Comments 02/17/18 02/17/18 02/17/18 Range/Units 03:43 04:54 04:54 WBC 6.2 (4.0-11.0) th/mm3 RBC 4.08 L (4.50-5.90) mil/mm3 Hgb 11.7 L (13.0-17.0) gm/dL Hct 35.1 L (39.0-51.0) % MCV 86.0 (80.0-100.0) fL MCH 28.7 (27.0-34.0) pg MCHC 33.4 (32.0-36.0) % RDW 15.2 (11.6-17.2) % Plt Count 297 (150-450) th/mm3 MPV 7.9 (7.0-11.0) fL Neut % (Auto) 82.5 H (16.0-70.0) % Lymph % (Auto) 11.2 (9.0-44.0) % [place] % (Auto) 6.3 (0.0-8.0) % Eos % (Auto) 0.0 (0.0-4.0) % Baso % (Auto) 0.0 (0.0-2.0) % Neut # (Auto) 5.1 (1.8-7.7) th/mm3 Lymph # (Auto) 0.7 L (1.0-4.8) th/mm3 [place] # (Auto) 0.4 (0.0-0.9) th/mm3 Eos # (Auto) 0.0 (0.0-0.4) th/mm3 Baso # (Auto) 0.0 (0.0-0.2) th/mm3 WBC Differential . Differential Comment Auto diff final PT (9.8-11.6) sec INR Ratio APTT (24.3-30.1) sec Puncture Site Patient Temperature O2 Saturation (90-100) % ABG pH (7.380-7.420) ABG pCO2 (38-42) mmHg ABG pO2 (61-120) mmHg ABG HCO3 (22-26) mmol/L ABG O2 Content (12.0-20.0) Vol % ABG Base Excess (-2-2) mmol/L ABG Methemoglobin (0-2) % Isai Test Hemoglobin (12.0-16.0) G/DL Carboxyhemoglobin (0-4) % O2 Delivery Device Inspired O2 % Critical Value Sodium 141 (136-145) meq/L Potassium 4.7 (3.5-5.1) meq/L Chloride 106 (98-107) meq/L Carbon Dioxide 26.4 (21.0-32.0) meq/L Anion Gap 9 (5-15) meq/L BUN 104 H (7-18) mg/dL Creatinine 2.19 H (0.60-1.30) mg/dL Estimated GFR 29 L (>89) mL/min POC Glucose 180 H (68-110) mg/dl Random Glucose 168 H (74-106) mg/dL Hemoglobin A1c (4.3-6.0) % Calcium 8.5 (8.5-10.1) mg/dL Phosphorus (2.5-4.9) mg/dL Magnesium (1.5-2.5) mg/dL Total Bilirubin (0.2-1.0) mg/dL AST (15-37) U/L ALT (12-78) U/L Alkaline Phosphatase (45-117) U/L Total Creatine Kinase (39-308) U/L Troponin I (0.02-0.05) ng/mL B-Natriuretic Peptide (0-100) pg/mL Total Protein (6.4-8.2) g/dL Albumin (3.4-5.0) g/dL Triglycerides (42-150) mg/dL Cholesterol (120-200) mg/dL LDL Cholesterol, Calc (0-99) mg/dL HDL Cholesterol (40.0-60.0) mg/dL Cholesterol/HDL Ratio Ratio TSH (0.358-3.740) uIU/mL Free T4 (0.76-1.46) ng/dL Urine Color (Yellw/Straw) Urine Clarity (Clear) Urine pH (5.0-8.5) Ur Specific [place] (1.002-1.035) Urine Protein (Neg-Trace) mg/dL Urine Glucose (UA) (Negative) mg/dL Urine Ketones (Negative) mg/dL Urine Occult Blood (Negative) Urine Nitrate (Negative) Urine Bilirubin (Negative) Urine Urobilinogen (Less than 2) mg/dL Ur Leukocyte Esterase (Negative) Urine RBC (0-3) /hpf Urine WBC (0-5) /hpf Ur Squamous Epith Cells (0-5) /hpf Urine Bacteria (None) /hpf Urine Mucus (Occasional) /lpf Micro UA Comment Urine Culture Comments 02/17/18 02/17/18 02/17/18 Range/Units 11:25 17:24 21:19 WBC (4.0-11.0) th/mm3 RBC (4.50-5.90) mil/mm3 Hgb (13.0-17.0) gm/dL Hct (39.0-51.0) % MCV (80.0-100.0) fL MCH (27.0-34.0) pg MCHC (32.0-36.0) % RDW (11.6-17.2) % Plt Count (150-450) th/mm3 MPV (7.0-11.0) fL Neut % (Auto) (16.0-70.0) % Lymph % (Auto) (9.0-44.0) % [place] % (Auto) (0.0-8.0) % Eos % (Auto) (0.0-4.0) % Baso % (Auto) (0.0-2.0) % Neut # (Auto) (1.8-7.7) th/mm3 Lymph # (Auto) (1.0-4.8) th/mm3 [place] # (Auto) (0.0-0.9) th/mm3 Eos # (Auto) (0.0-0.4) th/mm3 Baso # (Auto) (0.0-0.2) th/mm3 WBC Differential Differential Comment PT (9.8-11.6) sec INR Ratio APTT (24.3-30.1) sec Puncture Site Patient Temperature O2 Saturation (90-100) % ABG pH (7.380-7.420) ABG pCO2 (38-42) mmHg ABG pO2 (61-120) mmHg ABG HCO3 (22-26) mmol/L ABG O2 Content (12.0-20.0) Vol % ABG Base Excess (-2-2) mmol/L ABG Methemoglobin (0-2) % Isai Test Hemoglobin (12.0-16.0) G/DL Carboxyhemoglobin (0-4) % O2 Delivery Device Inspired O2 % Critical Value Sodium (136-145) meq/L Potassium (3.5-5.1) meq/L Chloride (98-107) meq/L Carbon Dioxide (21.0-32.0) meq/L Anion Gap (5-15) meq/L BUN (7-18) mg/dL Creatinine (0.60-1.30) mg/dL Estimated GFR (>89) mL/min POC Glucose 349 H 422 H 264 H (68-110) mg/dl Random Glucose (74-106) mg/dL Hemoglobin A1c (4.3-6.0) % Calcium (8.5-10.1) mg/dL Phosphorus (2.5-4.9) mg/dL Magnesium (1.5-2.5) mg/dL Total Bilirubin (0.2-1.0) mg/dL AST (15-37) U/L ALT (12-78) U/L Alkaline Phosphatase (45-117) U/L Total Creatine Kinase (39-308) U/L Troponin I (0.02-0.05) ng/mL B-Natriuretic Peptide (0-100) pg/mL Total Protein (6.4-8.2) g/dL Albumin (3.4-5.0) g/dL Triglycerides (42-150) mg/dL Cholesterol (120-200) mg/dL LDL Cholesterol, Calc (0-99) mg/dL HDL Cholesterol (40.0-60.0) mg/dL Cholesterol/HDL Ratio Ratio TSH (0.358-3.740) uIU/mL Free T4 (0.76-1.46) ng/dL Urine Color (Yellw/Straw) Urine Clarity (Clear) Urine pH (5.0-8.5) Ur Specific [place] (1.002-1.035) Urine Protein (Neg-Trace) mg/dL Urine Glucose (UA) (Negative) mg/dL Urine Ketones (Negative) mg/dL Urine Occult Blood (Negative) Urine Nitrate (Negative) Urine Bilirubin (Negative) Urine Urobilinogen (Less than 2) mg/dL Ur Leukocyte Esterase (Negative) Urine RBC (0-3) /hpf Urine WBC (0-5) /hpf Ur Squamous Epith Cells (0-5) /hpf Urine Bacteria (None) /hpf Urine Mucus (Occasional) /lpf Micro UA Comment Urine Culture Comments 02/18/18 02/18/18 02/18/18 Range/Units 03:31 06:01 06:01 WBC 6.9 (4.0-11.0) th/mm3 RBC 4.07 L (4.50-5.90) mil/mm3 Hgb 11.7 L (13.0-17.0) gm/dL Hct 35.0 L (39.0-51.0) % MCV 86.0 (80.0-100.0) fL MCH 28.8 (27.0-34.0) pg MCHC 33.5 (32.0-36.0) % RDW 15.1 (11.6-17.2) % Plt Count 320 (150-450) th/mm3 MPV 7.7 (7.0-11.0) fL Neut % (Auto) 83.2 H (16.0-70.0) % Lymph % (Auto) 10.1 (9.0-44.0) % [place] % (Auto) 6.7 (0.0-8.0) % Eos % (Auto) 0.0 (0.0-4.0) % Baso % (Auto) 0.0 (0.0-2.0) % Neut # (Auto) 5.8 (1.8-7.7) th/mm3 Lymph # (Auto) 0.7 L (1.0-4.8) th/mm3 [place] # (Auto) 0.5 (0.0-0.9) th/mm3 Eos # (Auto) 0.0 (0.0-0.4) th/mm3 Baso # (Auto) 0.0 (0.0-0.2) th/mm3 WBC Differential . Differential Comment Auto diff final PT (9.8-11.6) sec INR Ratio APTT (24.3-30.1) sec Puncture Site Patient Temperature O2 Saturation (90-100) % ABG pH (7.380-7.420) ABG pCO2 (38-42) mmHg ABG pO2 (61-120) mmHg ABG HCO3 (22-26) mmol/L ABG O2 Content (12.0-20.0) Vol % ABG Base Excess (-2-2) mmol/L ABG Methemoglobin (0-2) % Isai Test Hemoglobin (12.0-16.0) G/DL Carboxyhemoglobin (0-4) % O2 Delivery Device Inspired O2 % Critical Value Sodium 142 (136-145) meq/L Potassium 4.6 (3.5-5.1) meq/L Chloride 104 (98-107) meq/L Carbon Dioxide 29.0 (21.0-32.0) meq/L Anion Gap 9 (5-15) meq/L BUN 76 H (7-18) mg/dL Creatinine 1.89 H (0.60-1.30) mg/dL Estimated GFR 34 L (>89) mL/min POC Glucose 130 H (68-110) mg/dl Random Glucose 171 H (74-106) mg/dL Hemoglobin A1c (4.3-6.0) % Calcium 8.7 (8.5-10.1) mg/dL Phosphorus (2.5-4.9) mg/dL Magnesium (1.5-2.5) mg/dL Total Bilirubin (0.2-1.0) mg/dL AST (15-37) U/L ALT (12-78) U/L Alkaline Phosphatase (45-117) U/L Total Creatine Kinase (39-308) U/L Troponin I (0.02-0.05) ng/mL B-Natriuretic Peptide (0-100) pg/mL Total Protein (6.4-8.2) g/dL Albumin (3.4-5.0) g/dL Triglycerides (42-150) mg/dL Cholesterol (120-200) mg/dL LDL Cholesterol, Calc (0-99) mg/dL HDL Cholesterol (40.0-60.0) mg/dL Cholesterol/HDL Ratio Ratio TSH (0.358-3.740) uIU/mL Free T4 (0.76-1.46) ng/dL Urine Color (Yellw/Straw) Urine Clarity (Clear) Urine pH (5.0-8.5) Ur Specific [place] (1.002-1.035) Urine Protein (Neg-Trace) mg/dL Urine Glucose (UA) (Negative) mg/dL Urine Ketones (Negative) mg/dL Urine Occult Blood (Negative) Urine Nitrate (Negative) Urine Bilirubin (Negative) Urine Urobilinogen (Less than 2) mg/dL Ur Leukocyte Esterase (Negative) Urine RBC (0-3) /hpf Urine WBC (0-5) /hpf Ur Squamous Epith Cells (0-5) /hpf Urine Bacteria (None) /hpf Urine Mucus (Occasional) /lpf Micro UA Comment Urine Culture Comments 02/18/18 02/18/18 02/18/18 Range/Units 08:23 11:50 17:10 WBC (4.0-11.0) th/mm3 RBC (4.50-5.90) mil/mm3 Hgb (13.0-17.0) gm/dL Hct (39.0-51.0) % MCV (80.0-100.0) fL MCH (27.0-34.0) pg MCHC (32.0-36.0) % RDW (11.6-17.2) % Plt Count (150-450) th/mm3 MPV (7.0-11.0) fL Neut % (Auto) (16.0-70.0) % Lymph % (Auto) (9.0-44.0) % [place] % (Auto) (0.0-8.0) % Eos % (Auto) (0.0-4.0) % Baso % (Auto) (0.0-2.0) % Neut # (Auto) (1.8-7.7) th/mm3 Lymph # (Auto) (1.0-4.8) th/mm3 [place] # (Auto) (0.0-0.9) th/mm3 Eos # (Auto) (0.0-0.4) th/mm3 Baso # (Auto) (0.0-0.2) th/mm3 WBC Differential Differential Comment PT (9.8-11.6) sec INR Ratio APTT (24.3-30.1) sec Puncture Site Patient Temperature O2 Saturation (90-100) % ABG pH (7.380-7.420) ABG pCO2 (38-42) mmHg ABG pO2 (61-120) mmHg ABG HCO3 (22-26) mmol/L ABG O2 Content (12.0-20.0) Vol % ABG Base Excess (-2-2) mmol/L ABG Methemoglobin (0-2) % Isai Test Hemoglobin (12.0-16.0) G/DL Carboxyhemoglobin (0-4) % O2 Delivery Device Inspired O2 % Critical Value Sodium (136-145) meq/L Potassium (3.5-5.1) meq/L Chloride (98-107) meq/L Carbon Dioxide (21.0-32.0) meq/L Anion Gap (5-15) meq/L BUN (7-18) mg/dL Creatinine (0.60-1.30) mg/dL Estimated GFR (>89) mL/min POC Glucose 209 H 308 H 201 H (68-110) mg/dl Random Glucose (74-106) mg/dL Hemoglobin A1c (4.3-6.0) % Calcium (8.5-10.1) mg/dL Phosphorus (2.5-4.9) mg/dL Magnesium (1.5-2.5) mg/dL Total Bilirubin (0.2-1.0) mg/dL AST (15-37) U/L ALT (12-78) U/L Alkaline Phosphatase (45-117) U/L Total Creatine Kinase (39-308) U/L Troponin I (0.02-0.05) ng/mL B-Natriuretic Peptide (0-100) pg/mL Total Protein (6.4-8.2) g/dL Albumin (3.4-5.0) g/dL Triglycerides (42-150) mg/dL Cholesterol (120-200) mg/dL LDL Cholesterol, Calc (0-99) mg/dL HDL Cholesterol (40.0-60.0) mg/dL Cholesterol/HDL Ratio Ratio TSH (0.358-3.740) uIU/mL Free T4 (0.76-1.46) ng/dL Urine Color (Yellw/Straw) Urine Clarity (Clear) Urine pH (5.0-8.5) Ur Specific [place] (1.002-1.035) Urine Protein (Neg-Trace) mg/dL Urine Glucose (UA) (Negative) mg/dL Urine Ketones (Negative) mg/dL Urine Occult Blood (Negative) Urine Nitrate (Negative) Urine Bilirubin (Negative) Urine Urobilinogen (Less than 2) mg/dL Ur Leukocyte Esterase (Negative) Urine RBC (0-3) /hpf Urine WBC (0-5) /hpf Ur Squamous Epith Cells (0-5) /hpf Urine Bacteria (None) /hpf Urine Mucus (Occasional) /lpf Micro UA Comment Urine Culture Comments 02/18/18 02/19/18 02/19/18 Range/Units 20:50 03:55 06:21 WBC 6.9 (4.0-11.0) th/mm3 RBC 4.26 L (4.50-5.90) mil/mm3 Hgb 12.4 L (13.0-17.0) gm/dL Hct 36.6 L (39.0-51.0) % MCV 86.0 (80.0-100.0) fL MCH 29.1 (27.0-34.0) pg MCHC 33.9 (32.0-36.0) % RDW 15.0 (11.6-17.2) % Plt Count 326 (150-450) th/mm3 MPV 7.3 (7.0-11.0) fL Neut % (Auto) 77.9 H (16.0-70.0) % Lymph % (Auto) 12.6 (9.0-44.0) % [place] % (Auto) 9.4 H (0.0-8.0) % Eos % (Auto) 0.1 (0.0-4.0) % Baso % (Auto) 0.0 (0.0-2.0) % Neut # (Auto) 5.3 (1.8-7.7) th/mm3 Lymph # (Auto) 0.9 L (1.0-4.8) th/mm3 [place] # (Auto) 0.6 (0.0-0.9) th/mm3 Eos # (Auto) 0.0 (0.0-0.4) th/mm3 Baso # (Auto) 0.0 (0.0-0.2) th/mm3 WBC Differential . Differential Comment Auto diff final PT (9.8-11.6) sec INR Ratio APTT (24.3-30.1) sec Puncture Site Patient Temperature O2 Saturation (90-100) % ABG pH (7.380-7.420) ABG pCO2 (38-42) mmHg ABG pO2 (61-120) mmHg ABG HCO3 (22-26) mmol/L ABG O2 Content (12.0-20.0) Vol % ABG Base Excess (-2-2) mmol/L ABG Methemoglobin (0-2) % Isai Test Hemoglobin (12.0-16.0) G/DL Carboxyhemoglobin (0-4) % O2 Delivery Device Inspired O2 % Critical Value Sodium (136-145) meq/L Potassium (3.5-5.1) meq/L Chloride (98-107) meq/L Carbon Dioxide (21.0-32.0) meq/L Anion Gap (5-15) meq/L BUN (7-18) mg/dL Creatinine (0.60-1.30) mg/dL Estimated GFR (>89) mL/min POC Glucose 222 H 165 H (68-110) mg/dl Random Glucose (74-106) mg/dL Hemoglobin A1c (4.3-6.0) % Calcium (8.5-10.1) mg/dL Phosphorus (2.5-4.9) mg/dL Magnesium (1.5-2.5) mg/dL Total Bilirubin (0.2-1.0) mg/dL AST (15-37) U/L ALT (12-78) U/L Alkaline Phosphatase (45-117) U/L Total Creatine Kinase (39-308) U/L Troponin I (0.02-0.05) ng/mL B-Natriuretic Peptide (0-100) pg/mL Total Protein (6.4-8.2) g/dL Albumin (3.4-5.0) g/dL Triglycerides (42-150) mg/dL Cholesterol (120-200) mg/dL LDL Cholesterol, Calc (0-99) mg/dL HDL Cholesterol (40.0-60.0) mg/dL Cholesterol/HDL Ratio Ratio TSH (0.358-3.740) uIU/mL Free T4 (0.76-1.46) ng/dL Urine Color (Yellw/Straw) Urine Clarity (Clear) Urine pH (5.0-8.5) Ur Specific [place] (1.002-1.035) Urine Protein (Neg-Trace) mg/dL Urine Glucose (UA) (Negative) mg/dL Urine Ketones (Negative) mg/dL Urine Occult Blood (Negative) Urine Nitrate (Negative) Urine Bilirubin (Negative) Urine Urobilinogen (Less than 2) mg/dL Ur Leukocyte Esterase (Negative) Urine RBC (0-3) /hpf Urine WBC (0-5) /hpf Ur Squamous Epith Cells (0-5) /hpf Urine Bacteria (None) /hpf Urine Mucus (Occasional) /lpf Micro UA Comment Urine Culture Comments 02/19/18 02/19/18 Range/Units 06:21 07:35 WBC (4.0-11.0) th/mm3 RBC (4.50-5.90) mil/mm3 Hgb (13.0-17.0) gm/dL Hct (39.0-51.0) % MCV (80.0-100.0) fL MCH (27.0-34.0) pg MCHC (32.0-36.0) % RDW (11.6-17.2) % Plt Count (150-450) th/mm3 MPV (7.0-11.0) fL Neut % (Auto) (16.0-70.0) % Lymph % (Auto) (9.0-44.0) % [place] % (Auto) (0.0-8.0) % Eos % (Auto) (0.0-4.0) % Baso % (Auto) (0.0-2.0) % Neut # (Auto) (1.8-7.7) th/mm3 Lymph # (Auto) (1.0-4.8) th/mm3 [place] # (Auto) (0.0-0.9) th/mm3 Eos # (Auto) (0.0-0.4) th/mm3 Baso # (Auto) (0.0-0.2) th/mm3 WBC Differential Differential Comment PT (9.8-11.6) sec INR Ratio APTT (24.3-30.1) sec Puncture Site Patient Temperature O2 Saturation (90-100) % ABG pH (7.380-7.420) ABG pCO2 (38-42) mmHg ABG pO2 (61-120) mmHg ABG HCO3 (22-26) mmol/L ABG O2 Content (12.0-20.0) Vol % ABG Base Excess (-2-2) mmol/L ABG Methemoglobin (0-2) % Isai Test Hemoglobin (12.0-16.0) G/DL Carboxyhemoglobin (0-4) % O2 Delivery Device Inspired O2 % Critical Value Sodium 142 (136-145) meq/L Potassium 4.7 (3.5-5.1) meq/L Chloride 106 (98-107) meq/L Carbon Dioxide 30.7 (21.0-32.0) meq/L Anion Gap 5 (5-15) meq/L BUN 62 H (7-18) mg/dL Creatinine 1.72 H (0.60-1.30) mg/dL Estimated GFR 38 L (>89) mL/min POC Glucose 145 H (68-110) mg/dl Random Glucose 157 H (74-106) mg/dL Hemoglobin A1c (4.3-6.0) % Calcium 8.6 (8.5-10.1) mg/dL Phosphorus (2.5-4.9) mg/dL Magnesium (1.5-2.5) mg/dL Total Bilirubin (0.2-1.0) mg/dL AST (15-37) U/L ALT (12-78) U/L Alkaline Phosphatase (45-117) U/L Total Creatine Kinase (39-308) U/L Troponin I (0.02-0.05) ng/mL B-Natriuretic Peptide (0-100) pg/mL Total Protein (6.4-8.2) g/dL Albumin (3.4-5.0) g/dL Triglycerides (42-150) mg/dL Cholesterol (120-200) mg/dL LDL Cholesterol, Calc (0-99) mg/dL HDL Cholesterol (40.0-60.0) mg/dL Cholesterol/HDL Ratio Ratio TSH (0.358-3.740) uIU/mL Free T4 (0.76-1.46) ng/dL Urine Color (Yellw/Straw) Urine Clarity (Clear) Urine pH (5.0-8.5) Ur Specific [place] (1.002-1.035) Urine Protein (Neg-Trace) mg/dL Urine Glucose (UA) (Negative) mg/dL Urine Ketones (Negative) mg/dL Urine Occult Blood (Negative) Urine Nitrate (Negative) Urine Bilirubin (Negative) Urine Urobilinogen (Less than 2) mg/dL Ur Leukocyte Esterase (Negative) Urine RBC (0-3) /hpf Urine WBC (0-5) /hpf Ur Squamous Epith Cells (0-5) /hpf Urine Bacteria (None) /hpf Urine Mucus (Occasional) /lpf Micro UA Comment Urine Culture Comments Imaging Data Radiologist's impression: Abdomen/Bladder Ultrasound 02/14/18 00:00 CONCLUSION: 1. Negative renal sonogram. Chest X-Ray 02/14/18 12:15 CONCLUSION: 1. Developing bibasilar airspace disease may represent early infiltrates or atelectasis. 2. Stable emphysematous changes, particularly in the apices. ECG Data EKG Prior to Arrival: No Attestation: I personally reviewed and interpreted this ECG as follows: Prior ECG tracings: not available for review Interpretation: Sinus tachycardia, 112 bpm, normal intervals, normal axis, no evidence of any ST elevation NC pattern Discharge Plan Discharge Disposition Patient Disposition: 30 Still Patient Discharge Condition Condition: Stable Discharge Details Anticipated Discharge Date: 02/19/18 Diagnosis: Acute exacerbation of chronic obstructive airways disease, Acute respiratory failure with hypoxia Physicians Team ED Provider: Heriberto Lundberg Primary Care Provider: Mavis Lindo Attending Provider: Halle Figueroa Other Providers: Dominic Camarena ; Leif Nieto ; Evelio Amezcua Discharge Interventions Interventions: ED Discharge Assessment Last Done: 02/15/18 00:45 Vital Signs Last Done: 02/14/18 17:00 Status ED Status: Left Department Discharge Information Discharge Date/Time: 02/15/18 00:30
[2018-02-14 13:27] LABS: Baso % (Auto) 0.3 % (0.0-2.0); Eos % (Auto) 0.1 % (0.0-4.0); Hematocrit 39.4 % (39.0-51.0); Lymph # (Auto) 1.5 th/mm3 (1.0-4.8); Lymph % (Auto) 9.9 % (9.0-44.0); Mean Corpuscular HGB Conc 33.1 % (32.0-36.0); Mean Corpuscular Hemoglobin 28.5 pg (27.0-34.0); Mean Platelet Volume 9.3 fL (7.0-11.0); Mono # (Auto) 1.4 th/mm3 (0.0-0.9); Mono % (Auto) 8.9 % (0.0-8.0); Neut # (Auto) 12.5 th/mm3 (1.8-7.7); Neut % (Auto) 80.8 % (16.0-70.0); Platelet Count 270 th/mm3 (150-450); Red Blood Count 4.58 mil/mm3 (4.50-5.90); Red Cell Distribution Width 15.6 % (11.6-17.2); White Blood Count 15.4 th/mm3 (4.0-11.0)
[2018-02-14 13:36] LABS: Activated Partial Thrombo Time 23.3 sec (24.3-30.1); INR 1.1 Ratio; Prothrombin Time 11.4 sec (9.8-11.6)
--- NOTE | 2018-02-14 13:54 | XR ---
EXAM DATE: 02/14/2018 1:46 PM EDT AGE/SEX: 82 years / Male INDICATIONS: Shortness of breath. CLINICAL DATA: This is the patient's initial encounter. Patient reports that signs and symptoms have been present for 1 day and indicates a pain score of 0/10. MEDICAL/SURGICAL HISTORY: Hypertension. Diabetes mellitus type II. None. COMPARISON: [facility], CHEST 1V SINGLE AP, 02/04/2018. . FINDINGS: A single AP view of the chest demonstrates developing bibasilar airspace disease. Stable biapical emp hysematous changes. Heart size is normal. Degenerative spurring throughout the dorsal spine. Osseous structures are otherwise intact. CONCLUSION: 1. Developing bibasilar airspace disease may represent early infiltrates or atelectasis. 2. Stable emphysematous changes, particularly in the apices. Electronically signed by: Wily Wilson MD 02/14/2018 1:53 PM EDT
[2018-02-14] MEDS ORDERED: Naloxone Inj 0.4 MG/ML Vial IV.PUSH PRN (15:31)
[2018-02-14] MEDS ORDERED: Acetaminophen 325 MG Tablet PO PRN ×2 (15:31)
[2018-02-14] MEDS ORDERED: Zolpidem Tartrate 5 MG Tablet PO PRN (15:31)
[2018-02-14] MEDS ORDERED: Morphine Inj 4 MG/ML Vial IV.PUSH PRN ×2 (15:31)
[2018-02-14] MEDS ORDERED: oxyCODONE/Acetaminophen 10/325 Tablet PO PRN (15:31)
[2018-02-14] MEDS ORDERED: Bisacodyl 10 MG Supp RECTAL PRN (15:31)
[2018-02-14] MEDS ORDERED: Morphine Sulfate Inj 2 MG/ML Vial IV.PUSH PRN (15:31)
[2018-02-14 15:58] LABS: ABG Base Excess -6.7 mmol/L (-2-2); ABG PCO2 27 mmHg (38-42); ABG PO2 84 mmHg (61-120)
[2018-02-14] MEDS ORDERED: Dextrose 50% in Water 50 ML Vial IV.PUSH PRN (15:59)
[2018-02-14] MEDS ORDERED: Pantoprazole Inj 40 MG Vial IV.PUSH SCH (16:00)
--- NOTE | 2018-02-14 16:02 | P.HPIM ---
History of Present Illness Service: [facility] Primary Care Physician: Mavis Lindo MD Chief Complaint: SHORTNESS OF BREATH AND DYSPNEA History of Present Illness: Patient is a 82-year-old gentleman who was recently discharged from the hospital on February 07. He was treated for C. difficile colitis. Patient comes in today complaining of increasing progressive worsening of shortness of breath it has been going on for the past 2 days. His home health attempted to increase the oxygen but he was still reading on the pulse ox about 81% when seen. 911 was therefore called and EMS brought the patient here with a pulse ox still reading about 70% or so when he took off his oxygen. Patient is therefore in the emergency department is already on BiPAP. Will get an ABG. And patient will be admitted to the ICU. Patient has severe shortness of breath it is worsening needs to be placed on BiPAP At home had been on oxygen 2 L by nasal cannula Has history of COPD Past medical history significant for DVT, hypertension, diabetes mellitus, kidney injury, and COPD and hyperlipidemia and GERD and recent C. difficile toxin colitis - Diagnosis (1) Clostridium difficile infection (2) JESS (acute kidney injury) (3) COPD (chronic obstructive pulmonary disease) (4) DVT (deep venous thrombosis) (5) Hypertension (6) Diabetes mellitus (7) Sepsis (8) COPD exacerbation (9) Acute respiratory failure with hypoxia Inpatient Certification: I certify that the inpatient services were ordered in accordance with Medicare regulations governing the order. This includes certification that hospital inpatient services are reasonable and necessary and in the case of services not specified as inpatient-only under 42 CFR 419.22(n), that they are appropriately provided as inpatient services in accordance to with the 2-midnight benchmark under 43 CFR 412.3(e) Estimated Total Length of Stay (Days): 5 Plans for Post Hospital Care: Not yet determined Review of Systems All other systems reviewed negative except as stated in HPI Constitutional: Reports fatigue, Denies body ache(s), Denies fever(s), Denies night sweats Eyes: Denies blind spots, Denies discharge, Denies requires corrective lenses Ears, Nose, Mouth, and Throat: Reports abnormal hearing, Denies dental pain, Denies ear pain, Denies lip swelling, Denies nasal discharge, Denies nose pain, Denies ringing in the ears, Denies throat swelling Cardiovascular: Reports shortness of breath with activity, Reports shortness of breath causing sudden awakening, Denies chest pain, Denies excessive sweating, Denies generalized swelling, Denies leg sores, Denies rapid, pounding, or irregular heartbeat Respiratory: Reports shortness of breath, Reports shortness of breath with activity, Reports wheezing, Denies change in phlegm color Gastrointestinal: Reports loose stools, Reports other (Diarrhea), Denies abdominal pain, Denies bright, red blood in stools, Denies constant urge to pass stool, Denies feeling full early, Denies pain with swallowing Genitourinary: Denies urinary urgency Musculoskeletal: Denies abnormal walking, Denies joint pain, Denies loss of height, Denies radiating pain into limb Skin/Breast: Denies hair loss, Denies nipple discharge, Denies rash, Denies wounds Neurologic: Reports abnormal hearing, Reports weakness, Denies abnormal walking , Denies dizziness, Denies other visual disturbances, Denies seizure-like activity, Denies tingling/numbness/burning sensations Psychiatric: Denies abnormal sleep pattern, Denies change in sex drive, Denies hearing things others do not hear, Denies lack of enjoyment, Denies seeing things others do not see Endocrine: Denies cold intolerance, Denies increased hunger, Denies rapid, pounding, or irregular heartbeat Hematologic/Lymphatic: Denies easy bleeding, Denies easy bruising Allergic/Immunologic: Denies GI upset with certain foods, Denies seasonal runny nose PMFSH - History History Provided By: Patient - Medical History Medical History: Medical History (Last Updated 02/14/18 @ 15:49 by Palomo Garcia DO) C. difficile colitis Diabetes mellitus COPD (chronic obstructive pulmonary disease) DVT, lower extremity Emphysema lung GERD (gastroesophageal reflux disease) High cholesterol Hypertension Presence of IVC filter Pulmonary embolism Skin cancer of face - Tobacco History Second Hand Smoke Exposure: Yes Tobacco Use In Past 30 Days: Yes Smoking Status: Light tobacco smoker Tobacco Type: Cigarettes Packs Per Day: 1 Years Smoked: 50 - Alcohol History How Often Do You Have a Drink Containing Alcohol: Monthly or less - Substance Use History Substance History: No History of Abuse - Travel History History of Recent Travel: No Recent Travel in the [place] Within the Last 8 Weeks: No Recent Travel Out of the Country Within the Last 8 Weeks: No - Immunization History Tetanus Immunization: >5 Years Hx Influenza Vaccine This Season: Yes Medications and Allergies Active Medications: Active Medications Acetaminophen (Tylenol) 650 mg PO Q6H PRN PRN Reason: PAIN 1-10 AND/OR FEVER >101F Acetaminophen (Tylenol) 650 mg PO Q6HR PRN PRN Reason: PAIN SCALE 1 TO 2 Al Hydroxide/Mg Hydroxide (Milk Of Magnesia Liq) 30 ml PO Q12H PRN PRN Reason: Mild Constipation Albuterol (Duoneb Neb (Marielle)) 1 ampul NEB Q4HR NEB MARIELLE Albuterol (Duoneb Neb (Prn)) 1 ampul NEB Q2HR NEB PRN PRN Reason: SHORTNESS OF BREATH/WHEEZING Albuterol (Duoneb Neb (Marielle)) 1 ampul NEB Q6HR NEB MARIELLE Bisacodyl (Dulcolax Supp) 10 mg RECTAL DAILY PRN PRN Reason: SEVERE CONSITIPATION Budesonide/Formoterol Fumarate (Symbicort 160/4.5 Mcg Inh) 2 puff INH BID [facility] Chlorhexidine Gluconate (Chlorhexidine 2% Cloth) 3 pack TOPICAL DAILY@0400 PRN PRN Reason: Extra cloth needed Stop: 02/20/18 03:59 Chlorhexidine Gluconate (Chlorhexidine 2% Cloth) 3 pack TOPICAL DAILY@0400 MARIELLE Stop: 02/20/18 03:59 Clonidine HCl (Catapres) 0.1 mg PO Q6H PRN PRN Reason: HYPERTENSION Enoxaparin Sodium (Lovenox Inj) 40 mg SQ Q24H [facility] Famotidine (Pepcid) 20 mg PO BID [facility] Famotidine (Pepcid Pf Inj) 20 mg IV.PUSH Q12HR MARIELLE Guaifenesin (Mucinex Er) 600 mg PO BID [facility] Lactulose (Lactulose Liq) 30 ml PO DAILY PRN PRN Reason: SEVERE CONSITIPATION Lorazepam (Ativan Inj) 2 mg IV.PUSH Q4H PRN PRN Reason: Agitation/sedation Methylprednisolone Sodium Succinate (Solumedrol Inj) 60 mg IV.PUSH Q6H MARIELLE Metoclopramide HCl (Reglan Inj) 5 mg IV.PUSH Q6HR PRN; Protocol PRN Reason: NAUSEA OR VOMITING Morphine Sulfate (Morphine Inj) 4 mg IV.PUSH Q3H PRN PRN Reason: PAIN 6-10;IF UNABLE TO TAKE PO Morphine Sulfate (Morphine Inj) 4 mg IV.PUSH Q3H PRN PRN Reason: BREAKTHROUGH PAIN Morphine Sulfate (Morphine Inj) 2 mg IV.PUSH Q3H PRN PRN Reason: PAIN 3-5; IF UABLE TO TAKE PO Naloxone HCl (Narcan Inj) 0.4 mg IV.PUSH UNSCH PRN PRN Reason: SEE LABEL COMMENTS Nicotine (Habitrol 21 Mg Patch.24 Hr) 1 patch T-DERMAL DAILY MARIELLE Nitroglycerin (Nitrostat Sl) 0.4 mg SL Q5M PRN PRN Reason: ANGINA Ondansetron HCl (Zofran Inj) 4 mg IV.PUSH Q6H PRN PRN Reason: NAUSEA OR VOMITING Oxycodone/Acetaminophen (Percocet 10/325 Mg) 1 tab PO Q6H PRN PRN Reason: PAIN SCALE 6 TO 10 Oxycodone/Acetaminophen (Percocet 5/325 Mg) 1 tab PO Q6H PRN PRN Reason: PAIN SCALE 3 TO 5 Pantoprazole Sodium (Protonix Inj) 40 mg IV.PUSH DAILY MARIELLE Senna/Docusate Sodium (Lianna-Colace) 1 tab PO BID MARIELLE Sennosides (Senokot) 17.2 mg PO Q12H PRN PRN Reason: Moderate Constipation Sodium Chloride (Ns Flush) 2 ml IV.FLUSH BID MARIELLE Sodium Chloride (Ns Flush) 2 ml IV.FLUSH PRN PRN PRN Reason: FLUSH AFTER USING IV ACCESS Sodium Chloride (Ns Flush) 2 ml IV.FLUSH PRN PRN PRN Reason: FLUSH AFTER USING IV ACCESS Sodium Chloride (Ns Flush) 2 ml IV.FLUSH BID MARIELLE Sodium Chloride (Ns Flush) 2 ml IV.FLUSH BID MARIELLE Sodium Chloride (Ns Flush) 2 ml IV.FLUSH PRN PRN PRN Reason: FLUSH AFTER USING IV ACCESS Zolpidem Tartrate (Ambien) 5 mg PO HS PRN PRN Reason: INSOMNIA Allergies Allergy/AdvReac Type Severity Reaction Status Date / Time No Known Allergies Allergy Verified 02/14/18 12:58 Home Medications Medication Instructions Recorded Confirmed Type cetirizine 10 mg PO DAILY 02/04/18 02/14/18 History ezetimibe [Zetia] 10 mg PO DAILY 02/04/18 02/14/18 History losartan 50 mg PO DAILY 02/04/18 02/14/18 History omeprazole magnesium [Prilosec OTC] 20 mg PO DAILY 02/04/18 02/14/18 History simvastatin [Zocor] 40 mg PO DAILY 02/04/18 02/14/18 History albuterol sulfate [ProAir HFA] 2 puff INHALATION DAILY 02/14/18 02/14/18 History exenatide microspheres 2 mg SUB-Q WEEKLY 02/14/18 02/14/18 History fluticasone-salmeterol [Advair 1 inh INHALATION BID 02/14/18 02/14/18 History Diskus] loperamide [Imodium A-D] 2 mg PO PRN PRN 02/14/18 02/14/18 History omega-3 acid ethyl esters 1 g PO DAILY 02/14/18 02/14/18 History umeclidinium 1 inh INHALATION DAILY 02/14/18 02/14/18 History Exam Vital signs: Vital Signs 02/14/18 12:12 02/14/18 12:22 02/14/18 12:27 Temperature 98.7 F Pulse Rate 116 H 111 H 113 H Respiratory Rate 26 H 25 H Blood Pressure 132/76 95/84 L Pulse Oximetry 88 L 93 L 96 02/14/18 12:33 02/14/18 12:40 02/14/18 13:22 Temperature Pulse Rate 110 H 110 H Respiratory Rate 20 20 Blood Pressure 105/92 H Pulse Oximetry 96 97 02/14/18 14:04 02/14/18 15:00 Temperature Pulse Rate 107 H 102 H Respiratory Rate 24 21 Blood Pressure 107/58 L 107/56 L Pulse Oximetry 93 L 93 L Intake & Output 02/13/18 02/14/18 02/14/18 18:59 06:59 18:59 Weight 86.183 kg Narrative: GENERAL: Awake alert oriented talkative and cooperative and respiratory distress on BiPAP somewhat hard of hearing on the BiPAP slow to respond SKIN: Warm and dry. HEAD: Atraumatic. Normocephalic. BiPAP in place EYES: Pupils equal and round. No scleral icterus. No injection or drainage. Extraocular muscles intact ENT: No nasal bleeding or discharge. Mucous membranes pink and moist. Tongue is midline NECK: Trachea midline. No JVD. Supple CARDIOVASCULAR: Regular rate and rhythm. S1-S2 no S3 or S4 RESPIRATORY: Positive accessory muscle use. Rhonchi and wheezes bilaterally. Breath sounds equal bilaterally. Positive conversational dyspnea even on BiPAP GASTROINTESTINAL: Abdomen soft, non-tender, nondistended. Hepatic and splenic margins not palpable. MUSCULOSKELETAL: Extremities without clubbing, cyanosis, or +3 bilateral lower extremity edema. No obvious deformities. NEUROLOGICAL: Awake and alert. No obvious cranial nerve deficits. Motor grossly within normal limits. 4 out of 5 muscle strength in the arms and legs. Normal speech. PSYCHIATRIC: Appropriate mood and affect; insight and judgment normal. Results - Labs CBC & Chem 7: 02/14/18 12:40 02/14/18 15:32 Labs: Short CBC 02/14/18 Range/Units 12:40 WBC 15.4 H (4.0-11.0) th/mm3 Hgb 13.0 (13.0-17.0) gm/dL Hct 39.4 (39.0-51.0) % Plt Count 270 D (150-450) th/mm3 - Imaging Impressions Chest X-Ray 02/14/18 12:15 CONCLUSION: 1. Developing bibasilar airspace disease may represent early infiltrates or atelectasis. 2. Stable emphysematous changes, particularly in the apices. Caprini VTE Risk Assessment Caprini VTE Risk Assessment: Moderate/High Risk (score >= 2) Caprini Risk Assessment Model: Point Value = 1 Point Value = 2 Point Value = 3 Point Value = 5 Age 41-60 Minor surgery BMI > 25 kg/m2 Swollen legs Varicose veins or History of unexplained or recurrent spontaneous Oral contraceptives or hormone replacement Sepsis (< 1 month) Serious lung disease, including pneumonia (< 1 month) Abnormal pulmonary function Acute myocardial infarction Congestive heart failure (< 1 month) History of inflammatory bowel disease Medical patient at bed rest Age 61-74 Arthroscopic surgery Major open surgery (> 45 min) Laparoscopic surgery (> 45 min) Malignancy Confined to bed (> 72 hours) Immobilizing plaster cast Central venous access Age >= 75 History of VTE Family history of VTE Factor V Leiden Prothrombin [id number] Lupus anticoagulant Anticardiolipin antibodies Elevated serum homocysteine Heparin-induced thrombocytopenia Other congenital or acquired thrombophilia Stroke (< 1 month) Elective arthroplasty Hip, pelvis, or leg fracture Acute spinal cord injury (< 1 month) Prophylaxis Regimen: Total Risk Factor Score Risk Level Prophylaxis Regimen 0-1 Low Early ambulation 2 Moderate Order ONE of the following: *Sequential Compression Device (SCD) *Heparin 5000 units SQ BID 3-4 Higher Order ONE of the following medications: *Heparin 5000 units SQ TID *Enoxaparin/Lovenox 40 mg SQ daily (WT < 150 kg, CrCl > 30 mL/min) *Enoxaparin/Lovenox 30 mg SQ daily (WT < 150 kg, CrCl > 10-29 mL/min) *Enoxaparin/Lovenox 30 mg SQ BID (WT < 150 kg, CrCl > 30 mL/min) AND/OR *Sequential Compression Device (SCD) 5 or more Highest Order ONE of the following medications: *Heparin 5000 units SQ TID (Preferred with Epidurals) *Enoxaparin/Lovenox 40 mg SQ daily (WT < 150 kg, CrCl > 30 mL/min) *Enoxaparin/Lovenox 30 mg SQ daily (WT < 150 kg, CrCl > 10-29 mL/min) *Enoxaparin/Lovenox 30 mg SQ BID (WT < 150 kg, CrCl > 30 mL/min) AND *Sequential Compression Device (SCD) Assessment and Plan - Assessment (1) Clostridium difficile infection Code(s): B96.89 - Other specified bacterial agents as the cause of diseases classified elsewhere Status: Acute (2) JESS (acute kidney injury) Code(s): N17.9 - Acute kidney failure, unspecified Status: Acute (3) COPD (chronic obstructive pulmonary disease) Code(s): J44.9 - Chronic obstructive pulmonary disease, unspecified Status: Chronic (4) DVT (deep venous thrombosis) Code(s): I82.409 - Acute embolism and thrombosis of unspecified deep veins of unspecified lower extremity Status: Chronic (5) Hypertension Code(s): I10 - Essential (primary) hypertension Status: Chronic (6) Diabetes mellitus Code(s): E11.9 - Type 2 diabetes mellitus without complications Status: Acute (7) Sepsis Code(s): A41.9 - Sepsis, unspecified organism Status: Acute (8) COPD exacerbation Code(s): J44.1 - Chronic obstructive pulmonary disease with (acute) exacerbation Status: Acute (9) Acute respiratory failure with hypoxia Code(s): J96.01 - Acute respiratory failure with hypoxia Status: Acute - Plan Patient is a 82-year-old gentleman who presented to the emergency department was COPD exacerbation on chronic home oxygen with severe hypoxia and acute respiratory failure has been placed on BiPAP We will continue on steroids Continue on duo nebs Continue on Mucinex Continue on BiPAP We will get an ABG Consult pulmonary May need critical care if needs to be intubated History of DVT continue on anticoagulation History of C. difficile toxin colitis continue on treatment WITH VANCOMYCIN ORALLY 4X DAY History of GERD continue on PPI Hyperlipidemia continue on home medications History of DVT with an IVC filter placed DM CONTINUE ON SLIDING SCALE COVERAGE Acute respiratory failure see above Continue on BiPAP Continue on oxygen Continue on steroids Continue on duo nebs Code Status: Full code Discussed Condition With: RN and patient Discharge Planning: Pending respiratory improvement (5) Hypertension Qualifiers:
[2018-02-14 16:16] LABS: Alanine Aminotransferase 126 U/L (12-78); Albumin 2.7 g/dL (3.4-5.0); Anion Gap 12 meq/L (5-15); Aspartate Aminotransferase 40 U/L (15-37); Blood Urea Nitrogen 135 mg/dL (7-18); Calcium 8.8 mg/dL (8.5-10.1); Chloride 102 meq/L (98-107); Glomerular Filtration Rate 15 mL/min (>89); Glucose,Random 160 mg/dL (74-106); Potassium 6.1 meq/L (3.5-5.1); Sodium 133 meq/L (136-145)
[2018-02-14 16:20] LABS: Alkaline Phosphatase 188 U/L (45-117); Total Protein 7.7 g/dL (6.4-8.2)
[2018-02-14 16:43] LABS: Creatine Kinase 41 U/L (39-308)
[2018-02-14] MEDS ORDERED: Enoxaparin Inj 40 MG/0.4 ML Syringe SQ SCH ×2 (17:00→17:37)
[2018-02-14] MEDS: MethylPREDNISolone Sod Succinate Inj 125 MG/2 ML Vial IV.PUSH SCH ×2 (17:24→23:11)
[2018-02-14] MEDS: Insulin NovoLOG Aspart Correctional Sugar Inj SQ SCH ×2 (17:44→23:10)
[2018-02-14] MEDS ORDERED: VANCOMYCIN IV.SIG SCH (18:00)
[2018-02-14] MEDS ORDERED: Calcium Chloride Inj 1 GM in Sodium Chlor 0.9% Inj 100 ML IV.SIG ONE (18:00)
[2018-02-14] MEDS: Ezetimibe 10 MG Tablet PO SCH (18:33)
[2018-02-14] MEDS ORDERED: Dextrose 50% in Water 50 ML Vial IV.PUSH ONE (18:40)
--- NOTE | 2018-02-14 18:56 | US ---
EXAM DATE: 02/14/2018 6:52 PM EDT AGE/SEX: 82 years / Male INDICATIONS: Increased lab values. CLINICAL DATA: This is the patient's initial encounter. Patient reports that signs and symptoms have been present for 1 day and indicates a pain score of 0/10. MEDICAL/SURGICAL HISTORY: Chronic obstructive pulmonary disease. Gastroesophageal reflux disea se. Hypercholesterolemia. C-diff. Diabetes. Deep vein thrombosis. Hypertension. Pulmonary embolism. Skin cancer. . IVC filter. COMPARISON: No prior exams available for comparison. MEASUREMENTS: Right Kidney:__11.4 x 4.5 x 4.8 cm Left Kidney:__9.3 x 4.7 x 5.6 cm FINDINGS: Right Kidney: Increased echotexture. No mass or hydronephrosis. A few simple cysts measuring 1.5 cm o r less. Left Kidney: Increased echotexture. No mass or hydronephrosis. A few simple cyst measuring 1.5 cm or less. Bladder: Within normal limits given the degree of distension. Other: None. CONCLUSION: 1. Negative renal sonogram. Electronically signed by: Marques Cummigns MD 02/14/2018 6:55 PM EDT
--- NOTE | 2018-02-14 19:05 | MB ---
cc: Dominic Camarena MD, Arjun D MD DATE: 02/14/2018 REQUESTING PHYSICIAN: Dr. Garcia REASON FOR CONSULTATION: Respiratory failure. HISTORY OF PRESENT ILLNESS: Mr. Vallejo is an 82-year-old male with history of COPD, diabetes mellitus, C diff colitis. The patient was recently discharged from the hospital. As per , he has been feeling very weak. He could barely walk inside the house. He had occupational therapy coming. They came to the house and found that his saturation was 80%; normally he is supposed to use 4 liters nasal cannula, as per his , oxygen was decresed to 2 liters nasal cannula. Because of worsening of his symptoms, he was brought to the emergency room. He had a workup done. His blood gas showed pH 7.42, PCO2 of 27, pO2 of 84 on 50% BiPAP. CBC: WBC count 15.4, hemoglobin 13.0, hematocrit 39.4, MCV 86, platelet count 270. Sodium 133, potassium 6.1, chloride 102, CO2 of 19, BUN 135, creatinine 3.98. Chest x-ray shows basilar airspace opacity, likely infiltrate or atelectasis. PAST MEDICAL HISTORY: Significant for history of COPD, renal insufficiency, C. diff infection recently. DVT, hypertension, diabetes mellitus. CURRENT MEDICATIONS: 1. Albuterol. 2. Atrovent nebulizer treatment, 3. Symbicort twice a day. 4. Zyrtec 10 mg, 5. Catapres 0.1 mg q. 6 hours p.r.n. 6. Lovenox 30 mg sub q. 7. Zetia 10 mg. 8. Famotidine 10 mg twice a day. 9. He is on insulin. 10. Lorazepam p.r.n. 11. Morphine p.r.n. 12. Nicotine patch, 13. Oxycodone for pain. 14. Pravastatin 80 mg a day. 15. Vancomycin p.o. 500 mg 4 times a day. ALLERGIES: NO KNOWN DRUG ALLERGIES. SOCIAL HISTORY: second time now for 13 years. 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 He has a long history of smoking, continues to smoke. FAMILY HISTORY: He had four children ,. REVIEW OF SYSTEMS: As per his , he was feeling very weak, has lost weight. has swelling in his legs, has history of deep venous thrombosis. No seizure, epilepsy. No malignancy. PHYSICAL EXAMINATION: GENERAL: Frail elderly male, short of breath. He is currently on BiPAP. VITAL SIGNS: His blood pressure is 107/59, heart rate 105, respirations 13, temperature 98. HEENT: Pupils are equal and reactive to light. Oral mucosa and nasal mucosa normal. NECK: Supple. JVD not raised. CHEST: He has a few rhonchi, basilar rales. CARDIOVASCULAR: S1, S2 is normal. ABDOMEN: Nontender. Bowel sounds are present. EXTREMITIES: 2+ pedal edema. IMPRESSION: 1. Respiratory failure. 2. Acute kidney injury. 4. Recent Clostridium difficile colitis. 5. Basilar infiltrate versus atelectasis. 6. Chronic obstructive pulmonary disease. PLAN: I discussed with the patient and his . At this point, he wants to remain FULL CODE. We will continue him on BiPAP. Monitor his electrolytes. Nephrology is consulted. Continue p.o. vancomycin. Aerosol treatment and supplement his oxygen, monitor his blood sugar and electrolytes. Further treatment will depend on the course in the hospital. Thank you, Dr. Garcia, for this consult. MD RICK Christianson/ , 06:31 PM , 07:04 PM [email or web address]
[2018-02-14] MEDS ORDERED: Famotidine PF Inj 20 MG/2 ML Vial IV.PUSH PRN (21:00)
[2018-02-14] MEDS ORDERED: Non-Formulary Drug (Fluticasone-Salmeterol [Advair Diskus] 1 INH) INHALATION SCH (21:00)
[2018-02-14 21:20] LABS: Creatine Kinase 35 U/L (39-308)
[2018-02-14] MEDS: Sodium Bicarbonate 8.4% Inj 75 MEQ in Sodium Chloride 0.45 % Inj 925 ML IV.CONT SCH (23:11)
[2018-02-14] MEDS: Sod Chloride 0.9% Inj 1,000 ML IV.CONT SCH (23:13)
[2018-02-15] MEDS: Budesonide-Formoterol 160/4.5 MCG 6 GM Inhaler INH SCH ×3 (00:21→21:51)
[2018-02-15] MEDS: guaiFENesin 600 MG ER Tablet PO SCH ×3 (00:21→21:47)
[2018-02-15] MEDS: Famotidine 20 MG Tablet PO SCH ×3 (00:22→21:46)
[2018-02-15] MEDS: Senna/Docusate Sodium 8.6/50 MG Tablet PO SCH ×3 (00:22→21:52)
[2018-02-15] MEDS ORDERED: Chlorhexidine Gluconate 2% 1 Pack (2 Cloths) TOPICAL PRN (04:00)
[2018-02-15] MEDS ORDERED: Metoprolol Inj 5 MG/5 ML Vial ONE (04:52)
[2018-02-15] MEDS: Insulin NovoLOG Aspart Correctional Sugar Inj SQ SCH ×5 (05:01→21:47)
[2018-02-15] MEDS: Chlorhexidine Gluconate 2% 1 Pack (2 Cloths) TOPICAL SCH (05:02)
[2018-02-15] MEDS: Sod Chloride 0.9% Inj 1,000 ML IV.CONT SCH ×2 (05:03→14:06)
[2018-02-15] MEDS: MethylPREDNISolone Sod Succinate Inj 125 MG/2 ML Vial IV.PUSH SCH ×4 (05:09→23:52)
[2018-02-15] MEDS: Metoprolol Inj 5 MG/5 ML Vial IV.PUSH SCH ×2 (05:09→05:19)
[2018-02-15 07:55] LABS: Baso % (Auto) 0.1 % (0.0-2.0); Hematocrit 34.7 % (39.0-51.0); Hemoglobin 11.6 gm/dL (13.0-17.0); Lymph # (Auto) 0.8 th/mm3 (1.0-4.8); Lymph % (Auto) 10.5 % (9.0-44.0); Mean Corpuscular HGB Conc 33.3 % (32.0-36.0); Mean Corpuscular Hemoglobin 28.3 pg (27.0-34.0); Mean Platelet Volume 8.5 fL (7.0-11.0); Mono # (Auto) 0.3 th/mm3 (0.0-0.9); Mono % (Auto) 4.1 % (0.0-8.0); Neut # (Auto) 6.5 th/mm3 (1.8-7.7); Neut % (Auto) 85.3 % (16.0-70.0); Platelet Count 241 th/mm3 (150-450); Red Blood Count 4.08 mil/mm3 (4.50-5.90); Red Cell Distribution Width 15.2 % (11.6-17.2); White Blood Count 7.6 th/mm3 (4.0-11.0)
[2018-02-15 08:03] LABS: INR 1.1 Ratio; Prothrombin Time 11.4 sec (9.8-11.6)
[2018-02-15 08:23] LABS: Alanine Aminotransferase 85 U/L (12-78); Albumin 2.3 g/dL (3.4-5.0); Alkaline Phosphatase 141 U/L (45-117); Anion Gap 17 meq/L (5-15); Aspartate Aminotransferase 20 U/L (15-37); Blood Urea Nitrogen 134 mg/dL (7-18); Calcium 9.1 mg/dL (8.5-10.1); Carbon Dioxide 16.2 meq/L (21.0-32.0); Chloride 104 meq/L (98-107); Chol/HDL Ratio 2.75 Ratio; Cholesterol 106 mg/dL (120-200); Free T4 (Free Thyroxine) 1.19 ng/dL (0.76-1.46); Glomerular Filtration Rate 19 mL/min (>89); Glucose,Random 180 mg/dL (74-106); HDL Cholesterol 38.5 mg/dL (40.0-60.0); LDL Cholesterol,Calculated 43 mg/dL (0-99); Phosphorus 5.5 mg/dL (2.5-4.9); Potassium 5.2 meq/L (3.5-5.1); Sodium 137 meq/L (136-145); Thyroid Stimulating Hormone 0.622 uIU/mL (0.358-3.740); Total Protein 6.7 g/dL (6.4-8.2); Triglycerides 125 mg/dL (42-150)
[2018-02-15] MEDS: Ezetimibe 10 MG Tablet PO SCH (08:24)
[2018-02-15] MEDS: Sodium Bicarbonate 8.4% Inj 75 MEQ in Sodium Chloride 0.45 % Inj 925 ML IV.CONT SCH ×2 (08:25→17:31)
[2018-02-15] MEDS ORDERED: OMEGA ACID ETHYL ESTERS PO SCH (09:00)
--- NOTE | 2018-02-15 10:27 | ECG ---
Date Performed: 02/14/2018 Time Performed: 12:24:47 PTAGE: 82 years EKG: SINUS TACHYCARDIA ABNORMAL RHYTHM ECG PREVIOUS TRACING 02/04/2018 11.22 Since the previous tracing, no significant change noted DOCTOR: Marlene Nuno Interpretating Date/Time 02/15/2018 10:26:12
--- NOTE | 2018-02-15 11:35 | P.PN ---
Physical Exam Vital signs: Vital Signs 02/14/18 12:12 02/14/18 12:22 02/14/18 12:27 Temperature 98.7 F Pulse Rate 116 H 111 H 113 H Respiratory Rate 26 H 25 H Blood Pressure 132/76 95/84 L Pulse Oximetry 88 L 93 L 96 02/14/18 12:33 02/14/18 12:40 02/14/18 13:22 Temperature Pulse Rate 110 H 110 H Respiratory Rate 20 20 Blood Pressure 105/92 H Pulse Oximetry 96 97 02/14/18 14:04 02/14/18 15:00 02/14/18 15:31 Temperature Pulse Rate 107 H 102 H 105 H Respiratory Rate 24 21 20 Blood Pressure 107/58 L 107/56 L 143/77 H Pulse Oximetry 93 L 93 L 93 L 02/14/18 17:00 02/14/18 18:03 02/14/18 19:00 Temperature Pulse Rate 105 H 107 H Respiratory Rate 20 21 26 H Blood Pressure 107/59 L 93/55 L 114/57 L Pulse Oximetry 93 L 94 L 94 L 02/14/18 19:42 02/14/18 19:51 02/14/18 21:00 Temperature Pulse Rate 106 H 107 H 112 H Respiratory Rate 26 H 22 24 Blood Pressure 118/58 L 121/68 Pulse Oximetry 93 L 94 L 96 02/14/18 23:00 02/15/18 00:00 02/15/18 01:44 Temperature 98.1 F Pulse Rate 104 H 102 H Respiratory Rate 24 20 Blood Pressure 133/66 126/75 Pulse Oximetry 95 99 95 02/15/18 02:02 02/15/18 02:03 02/15/18 03:26 Temperature Pulse Rate 100 H 97 H Respiratory Rate 23 Blood Pressure Pulse Oximetry 99 99 02/15/18 04:00 02/15/18 08:00 02/15/18 09:00 Temperature 98.7 F 97.8 F Pulse Rate 98 H 135 H 130 H Respiratory Rate 20 20 Blood Pressure 131/69 130/64 Pulse Oximetry 98 93 L 02/15/18 10:19 02/15/18 10:23 02/15/18 11:00 Temperature Pulse Rate 117 H 130 H Respiratory Rate 20 Blood Pressure Pulse Oximetry 94 L Intake & Output 02/14/18 02/15/18 02/15/18 18:59 06:59 18:59 Intake Total 110 / 110 1999 Output Total 825 / 825 Balance -715 / -715 1999 Weight 86.183 kg 86 kg Intake: IV 110 / 110 1999 NS Inj 1,000 ML @ 100 mls/hr IV 1000 / 1000 .CONT .Q10H [facility] Rx#:[id number] Sodium Bicarbonate 8.4% Inj 75 1000 / 1000 MEQ In 1/2 Normal Saline Inj 925 ML @ 100 mls/hr IV.CONT . Q10H [facility] Rx#:[id number] Calcium Chloride Inj 1 GM In NS 110 / 110 Inj 100 ML @ 110 mls/hr IV.SIG ONCE ONE Rx#:[id number] Oral 0 / 0 Output: Urine 825 / 825 Other: Date of Last Bowel Movement 02/15/18 02/15/18 Narrative: Subjective: The patient is in bed he appears in distress due to shortness of breath and coughing. Is also noted to tachycardic however says he does not feel that her heart racing. No fever or chills. Still with diarrhea however improved. No abdominal cramps. Feels very weak Does not have a cardiology Dr. Physical exam: GENERAL: Pleasant 82-year-old male in bed appears chronically ill, coughing. CARDIOVASCULAR: Regular rate and rhythm. S1-S2 no S3 or S4 RESPIRATORY: Coughing with some shortness of breath. Rhonchi and wheezes bilaterally. GASTROINTESTINAL: Abdomen soft, non-tender, nondistended. Hepatic and splenic margins not palpable. MUSCULOSKELETAL: Extremities without clubbing, cyanosis, or +3 bilateral lower extremity edema. No obvious deformities. NEUROLOGICAL: Awake and alert. No obvious cranial nerve deficits. Motor grossly within normal limits. 4 out of 5 muscle strength in the arms and legs. Normal speech. PSYCHIATRIC: Appropriate mood and affect; insight and judgment normal. Assessment and Plan Patient is a 82-year-old gentleman who presented to the emergency department was COPD exacerbation on chronic home oxygen with severe hypoxia and acute respiratory failure has been placed on BiPAP: COPD with exacerbation. Acute on chronic respiratory failure. Patient with chronic respiratory failure and with history of COPD. He is on chronic home oxygen. Presented with hypoxia and acute respiratory failure and was placed on BiPAP. Currently off BiPAP. Continue to monitor oxygen saturation and wean off oxygen as tolerated. We will continue on steroids Continue on duo nebs Continue on Mucinex Use BiPAP if need. Oxygen by nasal cannula keep oxygen saturation more than 92% ABG reviewed Consult pulmonary May need critical care if needs to be intubated A. fib with RVR. Received metoprolol overnight. Add Cardizem p.o. 30 mg 4 times daily. Add IV metoprolol as needed if sustained heart rate more than 110. Consult cardiology. Will do 2D echo. History of DVT continue on anticoagulation History of C. difficile toxin colitis continue on treatment WITH VANCOMYCIN ORALLY 4X DAY History of GERD continue on PPI Hyperlipidemia continue on home medications History of DVT with an IVC filter placed DM CONTINUE ON SLIDING SCALE COVERAGE Acute respiratory failure see above Continue on BiPAP Continue on oxygen Continue on steroids Continue on duo nebs Code Status: Full code Discussed Condition With: Patient, family at bedside, nurse. Discharge Planning: Pending improvement and clearance by consultants Results - Labs CBC & Chem 7: 02/15/18 06:20 02/15/18 06:20 Laboratory Results - last 24 hr 02/14/18 02/14/18 02/14/18 12:40 12:40 12:40 WBC 15.4 H RBC 4.58 Hgb 13.0 Hct 39.4 MCV 86.0 MCH 28.5 MCHC 33.1 RDW 15.6 Plt Count 270 D MPV 9.3 Neut % (Auto) 80.8 H Lymph % (Auto) 9.9 [place] % (Auto) 8.9 H Eos % (Auto) 0.1 Baso % (Auto) 0.3 Neut # (Auto) 12.5 H Lymph # (Auto) 1.5 [place] # (Auto) 1.4 H Eos # (Auto) 0.0 Baso # (Auto) 0.0 WBC Differential . Differential Comment Auto diff final PT 11.4 INR 1.1 APTT 23.3 L Puncture Site Patient Temperature O2 Saturation ABG pH ABG pCO2 ABG pO2 ABG HCO3 ABG O2 Content ABG Base Excess ABG Methemoglobin Isai Test Hemoglobin Carboxyhemoglobin O2 Delivery Device Inspired O2 Critical Value Sodium Potassium Chloride Carbon Dioxide Anion Gap BUN Creatinine Estimated GFR POC Glucose Random Glucose Calcium Phosphorus Magnesium Total Bilirubin AST ALT Alkaline Phosphatase Total Creatine Kinase Troponin I B-Natriuretic Peptide 21 Total Protein Albumin Triglycerides Cholesterol LDL Cholesterol, Calc HDL Cholesterol Cholesterol/HDL Ratio TSH Free T4 02/14/18 02/14/1802/14/18 15:32 15:32 15:51 WBC RBC Hgb Hct MCV MCH MCHC RDW Plt Count MPV Neut % (Auto) Lymph % (Auto) [place] % (Auto) Eos % (Auto) Baso % (Auto) Neut # (Auto) Lymph # (Auto) [place] # (Auto) Eos # (Auto) Baso # (Auto) WBC Differential Differential Comment PT INR APTT Puncture Site Left radial Patient Temperature 98.6 O2 Saturation 94 ABG pH 7.42 ABG pCO2 27 L ABG pO2 84 ABG HCO3 17 L ABG O2 Content 17.6 ABG Base Excess -6.7 L ABG Methemoglobin 0.6 Isai Test Present Hemoglobin 13.2 Carboxyhemoglobin 1.2 O2 Delivery Device Bipap Inspired O2 50 Critical Value No Sodium 133 L Potassium 6.1 H Chloride 102 Carbon Dioxide 19.0 L Anion Gap 12 BUN 135 H Creatinine 3.98 H Estimated GFR 15 L POC Glucose Random Glucose 160 H Calcium 8.8 Phosphorus Magnesium Total Bilirubin 0.9 AST 40 H ALT 126 H Alkaline Phosphatase 188 H Total Creatine Kinase 41 Troponin I Less than 0.02 L Less than 0.02 L B-Natriuretic Peptide Total Protein 7.7 Albumin 2.7 L Triglycerides Cholesterol LDL Cholesterol, Calc HDL Cholesterol Cholesterol/HDL Ratio TSH Free T4 02/14/18 02/14/18 02/14/18 17:19 17:29 20:37 WBC RBC Hgb Hct MCV MCH MCHC RDW Plt Count MPV Neut % (Auto) Lymph % (Auto) [place] % (Auto) Eos % (Auto) Baso % (Auto) Neut # (Auto) Lymph # (Auto) [place] # (Auto) Eos # (Auto) Baso # (Auto) WBC Differential Differential Comment PT INR APTT Puncture Site Patient Temperature O2 Saturation ABG pH ABG pCO2 ABG pO2 ABG HCO3 ABG O2 Content ABG Base Excess ABG Methemoglobin Isai Test Hemoglobin Carboxyhemoglobin O2 Delivery Device Inspired O2 Critical Value Sodium Potassium 6.1 H Chloride Carbon Dioxide Anion Gap BUN Creatinine Estimated GFR POC Glucose 186 H 255 H Random Glucose Calcium Phosphorus Magnesium Total Bilirubin AST ALT Alkaline Phosphatase Total Creatine Kinase Troponin I B-Natriuretic Peptide Total Protein Albumin Triglycerides Cholesterol LDL Cholesterol, Calc HDL Cholesterol Cholesterol/HDL Ratio TSH Free T4 02/14/18 02/15/18 02/15/18 20:45 04:06 06:20 WBC RBC Hgb Hct MCV MCH MCHC RDW Plt Count MPV Neut % (Auto) Lymph % (Auto) [place] % (Auto) Eos % (Auto) Baso % (Auto) Neut # (Auto) Lymph # (Auto) [place] # (Auto) Eos # (Auto) Baso # (Auto) WBC Differential Differential Comment PT INR APTT Puncture Site Patient Temperature O2 Saturation ABG pH ABG pCO2 ABG pO2 ABG HCO3 ABG O2 Content ABG Base Excess ABG Methemoglobin Isai Test Hemoglobin Carboxyhemoglobin O2 Delivery Device Inspired O2 Critical Value Sodium 137 Potassium 5.2 H D Chloride 104 Carbon Dioxide 16.2 L Anion Gap 17 H BUN 134 H Creatinine 3.15 H Estimated GFR 19 L POC Glucose 174 H Random Glucose 180 H Calcium 9.1 Phosphorus 5.5 H Magnesium 3.0 H Total Bilirubin 0.6 AST 20 ALT 85 H Alkaline Phosphatase 141 H Total Creatine Kinase 35 L Troponin I Less than 0.02 L B-Natriuretic Peptide Total Protein 6.7 D Albumin 2.3 L Triglycerides 125 Cholesterol 106 L LDL Cholesterol, Calc 43 HDL Cholesterol 38.5 L Cholesterol/HDL Ratio 2.75 TSH 0.622 Free T4 1.19 02/15/18 02/15/18 02/15/18 06:20 06:20 08:22 WBC 7.6 D RBC 4.08 L Hgb 11.6 L Hct 34.7 L MCV 85.0 MCH 28.3 MCHC 33.3 RDW 15.2 Plt Count 241 MPV 8.5 Neut % (Auto) 85.3 H Lymph % (Auto) 10.5 [place] % (Auto) 4.1 Eos % (Auto) 0.0 Baso % (Auto) 0.1 Neut # (Auto) 6.5 Lymph # (Auto) 0.8 L [place] # (Auto) 0.3 Eos # (Auto) 0.0 Baso # (Auto) 0.0 WBC Differential . Differential Comment Auto diff final PT 11.4 INR 1.1 APTT Puncture Site Patient Temperature O2 Saturation ABG pH ABG pCO2 ABG pO2 ABG HCO3 ABG O2 Content ABG Base Excess ABG Methemoglobin Isai Test Hemoglobin Carboxyhemoglobin O2 Delivery Device Inspired O2 Critical Value Sodium Potassium Chloride Carbon Dioxide Anion Gap BUN Creatinine Estimated GFR POC Glucose 194 H Random Glucose Calcium Phosphorus Magnesium Total Bilirubin AST ALT Alkaline Phosphatase Total Creatine Kinase Troponin I B-Natriuretic Peptide Total Protein Albumin Triglycerides Cholesterol LDL Cholesterol, Calc HDL Cholesterol Cholesterol/HDL Ratio TSH Free T4 Microbiology 02/14/18 12:10 Blood - Peripheral Aerobic Blood Culture - Preliminary No growth in 1 day 02/14/18 12:10 Blood - Peripheral Anaerobic Blood Culture - Preliminary No growth in 1 day 02/14/18 12:15 Blood - Peripheral Aerobic Blood Culture - Preliminary No growth in 1 day 02/14/18 12:15 Blood - Peripheral Anaerobic Blood Culture - Preliminary No growth in 1 day - Imaging Impressions Abdomen/Bladder Ultrasound 02/14/18 00:00 CONCLUSION: 1. Negative renal sonogram. Chest X-Ray 02/14/18 12:15 CONCLUSION: 1. Developing bibasilar airspace disease may represent early infiltrates or atelectasis. 2. Stable emphysematous changes, particularly in the apices. Assessment and Plan - Assessment (1) Clostridium difficile infection Code(s): B96.89 - Other specified bacterial agents as the cause of diseases classified elsewhere Status: Acute (2) JESS (acute kidney injury) Code(s): N17.9 - Acute kidney failure, unspecified Status: Acute (3) COPD (chronic obstructive pulmonary disease) Code(s): J44.9 - Chronic obstructive pulmonary disease, unspecified Status: Chronic (4) DVT (deep venous thrombosis) Code(s): I82.409 - Acute embolism and thrombosis of unspecified deep veins of unspecified lower extremity Status: Chronic (5) Hypertension Code(s): I10 - Essential (primary) hypertension Status: Chronic (6) Diabetes mellitus Code(s): E11.9 - Type 2 diabetes mellitus without complications Status: Acute (7) Sepsis Code(s): A41.9 - Sepsis, unspecified organism Status: Acute (8) COPD exacerbation Code(s): J44.1 - Chronic obstructive pulmonary disease with (acute) exacerbation Status: Acute (9) Acute respiratory failure with hypoxia Code(s): J96.01 - Acute respiratory failure with hypoxia Status: Acute 5) Hypertension Qualifiers:
[2018-02-15] MEDS: Metoprolol Inj 5 MG/5 ML Vial IV.PUSH PRN ×3 (11:49→23:43)
[2018-02-15] MEDS ORDERED: dilTIAZem 30 MG Tablet PO ONE (12:00)
[2018-02-15] MEDS: Nystatin Liq 500,000 UNIT/5 ML UDC SWISH-SWAL SCH ×3 (14:03→21:50)
[2018-02-15] MEDS: dilTIAZem 30 MG Tablet PO SCH ×3 (14:03→21:47)
--- NOTE | 2018-02-15 15:24 | P.CONNP ---
<Tiarra Reeves - Last Filed: 02/15/18 15:09> History of Present Illness Service: Nephrology Consult date: 02/15/18 Reason for Consult: Acute Renal Failure Primary Care Provider: Mavis Lindo MD Chief Complaint: SHORTNESS OF BREATH AND DYSPNEA History of Present Illness: This is a 82 y/o male patient who was admitted for shortness of breath overnight. He was recently discharged from the hospital and had C diff at that time. At home he reports upwards of 8 to 10 BM's per day. His creatinine at baseline is around 1.3. On admission his creatinine was3.98 that improved to 3.15 today. He was hyperkalemic at 6 improved to 5.2 today. He is making urine. We were consulted to assist with management. PMH include HTN, DM II, DVT, GERD, and COPD. He smokes daily and is on oxygen at night at home. The patient reports weakness and persistent shortness of breath and coughing. He is not nauseated, eating lunch on exam. He is a full code, family is at the bedside. Review of Systems All other systems reviewed negative except as stated in HPI PMFSH - History History Provided By: Patient - Medical History Medical History: Medical History (Last Reviewed 02/15/18 @ 08:18 by Willie Smith) C. difficile colitis Diabetes mellitus COPD (chronic obstructive pulmonary disease) DVT, lower extremity Emphysema lung GERD (gastroesophageal reflux disease) High cholesterol Hypertension Presence of IVC filter Pulmonary embolism Skin cancer of face - Tobacco History Second Hand Smoke Exposure: Yes Tobacco Use In Past 30 Days: Yes Smoking Status: Light tobacco smoker Tobacco Type: Cigarettes Packs Per Day: 1 Years Smoked: 50 - Alcohol History How Often Do You Have a Drink Containing Alcohol: Monthly or less - Substance Use History Substance History: No History of Abuse - Travel History History of Recent Travel: No Recent Travel in the [place] Within the Last 8 Weeks: No Recent Travel Out of the Country Within the Last 8 Weeks: No - Immunization History Tetanus Immunization: >5 Years Hx Influenza Vaccine This Season: Yes Medications and Allergies Allergies Allergy/AdvReac Type Severity Reaction Status Date / Time No Known Allergies Allergy Verified 02/14/18 12:58 Home Medications Medication Instructions Recorded Confirmed Type cetirizine 10 mg PO DAILY 02/04/18 02/14/18 History ezetimibe [Zetia] 10 mg PO DAILY 02/04/18 02/14/18 History losartan 50 mg PO DAILY 02/04/18 02/14/18 History omeprazole magnesium [Prilosec OTC] 20 mg PO DAILY 02/04/18 02/14/18 History simvastatin [Zocor] 40 mg PO DAILY 02/04/18 02/14/18 History albuterol sulfate [ProAir HFA] 2 puff INHALATION DAILY 02/14/18 02/14/18 History exenatide microspheres 2 mg SUB-Q WEEKLY 02/14/18 02/14/18 History fluticasone-salmeterol [Advair 1 inh INHALATION BID 02/14/18 02/14/18 History Diskus] loperamide [Imodium A-D] 2 mg PO PRN PRN 02/14/18 02/14/18 History omega-3 acid ethyl esters 1 g PO DAILY 02/14/18 02/14/18 History umeclidinium 1 inh INHALATION DAILY 02/14/18 02/14/18 History Active Medications: Active Medications Acetaminophen (Tylenol) 650 mg PO Q6H PRN PRN Reason: FEVER >101F Acetaminophen (Tylenol) 650 mg PO Q6HR PRN PRN Reason: PAIN SCALE 1 TO 2 Al Hydroxide/Mg Hydroxide (Milk Of Magnyeison Liq) 30 ml PO Q12H PRN PRN Reason: Mild Constipation Albuterol (Duoneb Neb (Prn)) 1 ampul NEB Q2HR NEB PRN PRN Reason: SHORTNESS OF BREATH/WHEEZING Albuterol (Duoneb Neb (Marielle)) 1 ampul NEB Q6HR NEB [facility] Last Admin: 02/15/18 10:15 Dose: 1 ampul Bisacodyl (Dulcolax Supp) 10 mg RECTAL DAILY PRN PRN Reason: SEVERE CONSITIPATION Budesonide/Formoterol Fumarate (Symbicort 160/4.5 Mcg Inh) 2 puff INH BID [facility] Last Admin: 02/15/18 08:24 Dose: 2 puff Cetirizine HCl (Zyrtec) 10 mg PO DAILY [facility] Last Admin: 02/15/18 08:24 Dose: 10 mg Chlorhexidine Gluconate (Chlorhexidine 2% Cloth) 3 pack TOPICAL DAILY@0400 PRN PRN Reason: Extra cloth needed Stop: 02/20/18 03:59 Chlorhexidine Gluconate (Chlorhexidine 2% Cloth) 3 pack TOPICAL DAILY@0400 [facility] Stop: 02/20/18 03:59 Last Admin: 02/15/18 05:02 Dose: 3 pack Clonidine HCl (Catapres) 0.1 mg PO Q6H PRN PRN Reason: SEE LABEL COMMENTS Dextrose (D50w Vial) 50 ml IV.PUSH UNSCH PRN PRN Reason: PER HYPOGLYCEMIA PROTOCOL Diltiazem HCl (Cardizem) 30 mg PO QID [facility] Last Admin: 02/15/18 14:03 Dose: 30 mg Ezetimibe (Zetia) 10 mg PO DAILY [facility] Last Admin: 02/15/18 08:24 Dose: 10 mg Enoxaparin Sodium (Lovenox Inj) 30 mg SQ Q24H [facility] Famotidine (Pepcid) 10 mg PO BID [facility] Last Admin: 02/15/18 08:24 Dose: 10 mg Famotidine (Pepcid Pf Inj) 10 mg IV.PUSH Q12HR PRN PRN Reason: SEE LABEL COMMENTS Glucagon (Glucagon Inj) 1 mg OTHER PRN PRN PRN Reason: for Hypoglycemia Protocol Guaifenesin (Mucinex Er) 600 mg PO BID [facility] Last Admin: 02/15/18 08:24 Dose: 600 mg Sodium Chloride (Ns Inj) 1,000 mls @ 100 mls/hr IV.CONT .Q10H [facility] Last Admin: 02/15/18 14:06 Dose: 100 mls/hr Sodium Bicarbonate 75 meq/ (Sodium Chloride) 1,000 mls @ 100 mls/hr IV.CONT .Q10H [facility] Last Admin: 02/15/18 08:25 Dose: 100 mls/hr Insulin Aspart (Novolog Insulin Correctional Sugar Inj) 0 unit SQ ACHS AND 3AM MARIELLE; Protocol Last Admin: 02/15/18 11:48 Dose: 7 unit Lactulose (Lactulose Liq) 30 ml PO DAILY PRN PRN Reason: SEVERE CONSITIPATION Lorazepam (Ativan Inj) 2 mg IV.PUSH Q4H PRN PRN Reason: Agitation/sedation Last Admin: 02/14/18 17:25 Dose: 1 mg Methylprednisolone Sodium Succinate (Solumedrol Inj) 60 mg IV.PUSH Q6H [facility] Last Admin: 02/15/18 11:50 Dose: 60 mg Metoclopramide HCl (Reglan Inj) 5 mg IV.PUSH Q6HR PRN; Protocol PRN Reason: NAUSEA OR VOMITING Metoprolol Tartrate (Lopressor Inj) 5 mg IV.PUSH Q5M PRN PRN Reason: if sustained HR> 110 Last Admin: 02/15/18 14:03 Dose: 5 mg Morphine Sulfate (Morphine Inj) 4 mg IV.PUSH Q3H PRN PRN Reason: PAIN 6-10;IF UNABLE TO TAKE PO Morphine Sulfate (Morphine Inj) 4 mg IV.PUSH Q3H PRN PRN Reason: BREAKTHROUGH PAIN Morphine Sulfate (Morphine Inj) 2 mg IV.PUSH Q3H PRN PRN Reason: PAIN 3-5; IF UABLE TO TAKE PO Naloxone HCl (Narcan Inj) 0.4 mg IV.PUSH UNSCH PRN PRN Reason: SEE LABEL COMMENTS Nicotine (Habitrol 21 Mg Patch.24 Hr) 1 patch T-DERMAL DAILY [facility] Last Admin: 02/15/18 08:25 Dose: 1 patch Nitroglycerin (Nitrostat Sl) 0.4 mg SL Q5M PRN PRN Reason: ANGINA Nystatin (Mycostatin Liq) 5 ml SWISH-SWAL QID [facility] Stop: 02/22/18 12:59 Last Admin: 02/15/18 14:03 Dose: 5 ml Ondansetron HCl (Zofran Odt) 4 mg PO Q6H PRN PRN Reason: NAUSEA OR VOMITING Oxycodone/Acetaminophen (Percocet 10/325 Mg) 1 tab PO Q6H PRN PRN Reason: PAIN SCALE 6 TO 10 Oxycodone/Acetaminophen (Percocet 5/325 Mg) 1 tab PO Q6H PRN PRN Reason: PAIN SCALE 3 TO 5 Pravastatin Sodium (Pravachol) 80 mg PO DAILY [facility] Last Admin: 02/15/18 08:24 Dose: 80 mg Senna/Docusate Sodium (Lianna-Colace) 1 tab PO BID [facility] Last Admin: 02/15/18 08:24 Dose: 1 tab Sennosides (Senokot) 17.2 mg PO Q12H PRN PRN Reason: Moderate Constipation Sodium Chloride (Ns Flush) 2 ml IV.FLUSH PRN PRN PRN Reason: FLUSH AFTER USING IV ACCESS Sodium Chloride (Ns Flush) 2 ml IV.FLUSH BID [facility] Last Admin: 02/15/18 08:25 Dose: 2 ml Vancomycin HCl (Vancomycin Po) 500 mg PO QID [facility] Last Admin: 02/15/18 14:03 Dose: 500 mg Zolpidem Tartrate (Ambien) 5 mg PO HS PRN PRN Reason: INSOMNIA Exam Vital signs: Vital Signs 02/14/18 15:31 02/14/18 17:00 02/14/18 18:03 Temperature Pulse Rate 105 H 105 H Respiratory Rate 20 20 21 Blood Pressure 143/77 H 107/59 L 93/55 L Pulse Oximetry 93 L 93 L 94 L 02/14/18 19:00 02/14/18 19:42 02/14/18 19:51 Temperature Pulse Rate 107 H 106 H 107 H Respiratory Rate 26 H 26 H 22 Blood Pressure 114/57 L 118/58 L Pulse Oximetry 94 L 93 L 94 L 02/14/18 21:00 02/14/18 23:00 02/15/18 00:00 Temperature 98.1 F Pulse Rate 112 H 104 H 102 H Respiratory Rate 24 24 20 Blood Pressure 121/68 133/66 126/75 Pulse Oximetry 96 95 99 02/15/18 01:44 02/15/18 02:02 02/15/18 02:03 Temperature Pulse Rate 100 H Respiratory Rate Blood Pressure Pulse Oximetry 95 99 02/15/18 03:26 02/15/18 04:00 02/15/18 08:00 Temperature 98.7 F 97.8 F Pulse Rate 97 H 98 H 135 H Respiratory Rate 23 20 20 Blood Pressure 131/69 130/64 Pulse Oximetry 99 98 93 L 02/15/18 09:00 02/15/18 10:19 02/15/18 10:23 Temperature Pulse Rate 130 H 117 H Respiratory Rate 20 Blood Pressure Pulse Oximetry 94 L 02/15/18 11:00 02/15/18 12:00 02/15/18 13:00 Temperature 97.8 F Pulse Rate 130 H 124 H 115 H Respiratory Rate 20 Blood Pressure 113/59 L Pulse Oximetry 95 02/15/18 14:00 02/15/18 15:00 Temperature Pulse Rate 113 H 102 H Respiratory Rate Blood Pressure Pulse Oximetry Intake & Output 02/14/18 02/15/18 02/15/18 18:59 06:59 18:59 Intake Total 110 / 110 1999 Output Total 825 / 825 Balance -715 / -715 1999 Weight 86.183 kg 86 kg Intake: IV 110 / 110 1999 NS Inj 1,000 ML @ 100 mls/hr IV 1000 / 1000 .CONT .Q10H [facility] Rx#:[id number] Sodium Bicarbonate 8.4% Inj 75 1000 / 1000 MEQ In 1/2 Normal Saline Inj 925 ML @ 100 mls/hr IV.CONT . Q10H [facility] Rx#:[id number] Calcium Chloride Inj 1 GM In NS 110 / 110 Inj 100 ML @ 110 mls/hr IV.SIG ONCE ONE Rx#:[id number] Oral 0 / 0 Output: Urine 825 / 825 Other: Date of Last Bowel Movement 02/15/18 02/15/18 - Constitutional no acute distress, chronically ill appearing, disheveled - Routine HEENT Exam Head: Present: normocephalic - Routine Neck Exam Present: supple, full ROM. Absent: JVD - Routine Respiratory Exam Present: accessory muscle use, prolonged expiratory phase, rhonchi, wheezes, crackles - Routine Cardiovascular Exam Present: RRR, S1, S2 - Routine Abdominal Exam Present: soft, normoactive bowel sounds - Routine Extremities Exam Present: edema. Absent: tenderness Comments: 1+ lower extremity edema - Routine Skin Exam Present: intact, warm - Routine Neurological Exam Present: alert, oriented X3 Results - Lab Results 02/15/18 06:20 02/15/18 06:20 Most recent lab results ABG pH 7.42 (7.380-7.420) 02/14/18 15:51 ABG pCO2 27 mmHg (38-42) L 02/14/18 15:51 ABG pO2 84 mmHg (61-120) 02/14/18 15:51 ABG HCO3 17 mmol/L (22-26) L 02/14/18 15:51 Calcium 9.1 mg/dL (8.5-10.1) 02/15/18 06:20 Phosphorus 5.5 mg/dL (2.5-4.9) H 02/15/18 06:20 Magnesium 3.0 mg/dL (1.5-2.5) H 02/15/18 06:20 - Image Kidney/bladder ultrasound: report reviewed Assessment and Plan - Assessment (1) JESS (acute kidney injury) Code(s): N17.9 - Acute kidney failure, unspecified Status: Acute Plan: Baseline creatinine 1.3. May have mild renal impairment. JESS thought to be due to intravascular volume depletion secondary to diarrhea. Renal function is improving with IVF Stop 0.9% NS, continue bicarb drip Monitor urine output, currently non oliguric. Avoid nephrotoxic agents. Dose medications appropriate to renal status Repeat labs in AM Encourage PO fluids. Obtain UA Imaging reviewed, not obstructive uropathy per imaging. (2) Clostridium difficile infection Code(s): B96.89 - Other specified bacterial agents as the cause of diseases classified elsewhere Status: Acute Plan: On PO vancomycin. contact precautions. (3) COPD (chronic obstructive pulmonary disease) Code(s): J44.9 - Chronic obstructive pulmonary disease, unspecified Status: Chronic Plan: Despite oxygen he is currently hypoxic. May need continuos oxygen at discharge. (4) Diabetes mellitus Code(s): E11.9 - Type 2 diabetes mellitus without complications Status: Acute Plan: Maintain glucose 140-180md/dL while hospitalized. <Leif Nieto - Last Filed: 02/15/18 16:13> History of Present Illness Primary Care Provider: Mavis Lindo MD [facility] - Medical History Medical History: Medical History (Last Reviewed 02/15/18 @ 08:18 by Willie Smith) C. difficile colitis Diabetes mellitus COPD (chronic obstructive pulmonary disease) DVT, lower extremity Emphysema lung GERD (gastroesophageal reflux disease) High cholesterol Hypertension Presence of IVC filter Pulmonary embolism Skin cancer of face Medications and Allergies Active Medications: Active Medications Acetaminophen (Tylenol) 650 mg PO Q6H PRN PRN Reason: FEVER >101F Acetaminophen (Tylenol) 650 mg PO Q6HR PRN PRN Reason: PAIN SCALE 1 TO 2 Al Hydroxide/Mg Hydroxide (Milk Of Mely Liq) 30 ml PO Q12H PRN PRN Reason: Mild Constipation Albuterol (Duoneb Neb (Prn)) 1 ampul NEB Q2HR NEB PRN PRN Reason: SHORTNESS OF BREATH/WHEEZING Albuterol (Duoneb Neb (Marielle)) 1 ampul NEB Q6HR NEB [facility] Last Admin: 02/15/18 10:15 Dose: 1 ampul Bisacodyl (Dulcolax Supp) 10 mg RECTAL DAILY PRN PRN Reason: SEVERE CONSITIPATION Budesonide/Formoterol Fumarate (Symbicort 160/4.5 Mcg Inh) 2 puff INH BID [facility] Last Admin: 02/15/18 08:24 Dose: 2 puff Cetirizine HCl (Zyrtec) 10 mg PO DAILY [facility] Last Admin: 02/15/18 08:24 Dose: 10 mg Chlorhexidine Gluconate (Chlorhexidine 2% Cloth) 3 pack TOPICAL DAILY@0400 PRN PRN Reason: Extra cloth needed Stop: 02/20/18 03:59 Chlorhexidine Gluconate (Chlorhexidine 2% Cloth) 3 pack TOPICAL DAILY@0400 [facility] Stop: 02/20/18 03:59 Last Admin: 02/15/18 05:02 Dose: 3 pack Clonidine HCl (Catapres) 0.1 mg PO Q6H PRN PRN Reason: SEE LABEL COMMENTS Dextrose (D50w Vial) 50 ml IV.PUSH UNSCH PRN PRN Reason: PER HYPOGLYCEMIA PROTOCOL Diltiazem HCl (Cardizem) 30 mg PO QID [facility] Last Admin: 02/15/18 14:03 Dose: 30 mg Ezetimibe (Zetia) 10 mg PO DAILY [facility] Last Admin: 02/15/18 08:24 Dose: 10 mg Enoxaparin Sodium (Lovenox Inj) 30 mg SQ Q24H [facility] Famotidine (Pepcid) 10 mg PO BID [facility] Last Admin: 02/15/18 08:24 Dose: 10 mg Famotidine (Pepcid Pf Inj) 10 mg IV.PUSH Q12HR PRN PRN Reason: SEE LABEL COMMENTS Glucagon (Glucagon Inj) 1 mg OTHER PRN PRN PRN Reason: for Hypoglycemia Protocol Guaifenesin (Mucinex Er) 600 mg PO BID [facility] Last Admin: 02/15/18 08:24 Dose: 600 mg Sodium Bicarbonate 75 meq/ (Sodium Chloride) 1,000 mls @ 100 mls/hr IV.CONT .Q10H [facility] Last Admin: 02/15/18 08:25 Dose: 100 mls/hr Insulin Aspart (Novolog Insulin Correctional Sugar Inj) 0 unit SQ ACHS AND 3AM MARIELLE; Protocol Last Admin: 02/15/18 11:48 Dose: 7 unit Lactulose (Lactulose Liq) 30 ml PO DAILY PRN PRN Reason: SEVERE CONSITIPATION Lorazepam (Ativan Inj) 2 mg IV.PUSH Q4H PRN PRN Reason: Agitation/sedation Last Admin: 02/14/18 17:25 Dose: 1 mg Methylprednisolone Sodium Succinate (Solumedrol Inj) 60 mg IV.PUSH Q6H [facility] Last Admin: 02/15/18 11:50 Dose: 60 mg Metoclopramide HCl (Reglan Inj) 5 mg IV.PUSH Q6HR PRN; Protocol PRN Reason: NAUSEA OR VOMITING Metoprolol Tartrate (Lopressor Inj) 5 mg IV.PUSH Q5M PRN PRN Reason: if sustained HR> 110 Last Admin: 02/15/18 14:03 Dose: 5 mg Morphine Sulfate (Morphine Inj) 4 mg IV.PUSH Q3H PRN PRN Reason: PAIN 6-10;IF UNABLE TO TAKE PO Morphine Sulfate (Morphine Inj) 4 mg IV.PUSH Q3H PRN PRN Reason: BREAKTHROUGH PAIN Morphine Sulfate (Morphine Inj) 2 mg IV.PUSH Q3H PRN PRN Reason: PAIN 3-5; IF UABLE TO TAKE PO Naloxone HCl (Narcan Inj) 0.4 mg IV.PUSH UNSCH PRN PRN Reason: SEE LABEL COMMENTS Nicotine (Habitrol 21 Mg Patch.24 Hr) 1 patch T-DERMAL DAILY [facility] Last Admin: 02/15/18 08:25 Dose: 1 patch Nitroglycerin (Nitrostat Sl) 0.4 mg SL Q5M PRN PRN Reason: ANGINA Nystatin (Mycostatin Liq) 5 ml SWISH-SWAL QID [facility] Stop: 02/22/18 12:59 Last Admin: 02/15/18 14:03 Dose: 5 ml Ondansetron HCl (Zofran Odt) 4 mg PO Q6H PRN PRN Reason: NAUSEA OR VOMITING Oxycodone/Acetaminophen (Percocet 10/325 Mg) 1 tab PO Q6H PRN PRN Reason: PAIN SCALE 6 TO 10 Oxycodone/Acetaminophen (Percocet 5/325 Mg) 1 tab PO Q6H PRN PRN Reason: PAIN SCALE 3 TO 5 Pravastatin Sodium (Pravachol) 80 mg PO DAILY [facility] Last Admin: 02/15/18 08:24 Dose: 80 mg Senna/Docusate Sodium (Lianna-Colace) 1 tab PO BID [facility] Last Admin: 02/15/18 08:24 Dose: 1 tab Sennosides (Senokot) 17.2 mg PO Q12H PRN PRN Reason: Moderate Constipation Sodium Chloride (Ns Flush) 2 ml IV.FLUSH PRN PRN PRN Reason: FLUSH AFTER USING IV ACCESS Sodium Chloride (Ns Flush) 2 ml IV.FLUSH BID [facility] Last Admin: 02/15/18 08:25 Dose: 2 ml Vancomycin HCl (Vancomycin Po) 500 mg PO QID [facility] Last Admin: 02/15/18 14:03 Dose: 500 mg Zolpidem Tartrate (Ambien) 5 mg PO HS PRN PRN Reason: INSOMNIA Exam Vital signs: Vital Signs 02/14/18 17:00 02/14/18 18:03 02/14/18 19:00 Temperature Pulse Rate 105 H 107 H Respiratory Rate 20 21 26 H Blood Pressure 107/59 L 93/55 L 114/57 L Pulse Oximetry 93 L 94 L 94 L 02/14/18 19:42 02/14/18 19:51 02/14/18 21:00 Temperature Pulse Rate 106 H 107 H 112 H Respiratory Rate 26 H 22 24 Blood Pressure 118/58 L 121/68 Pulse Oximetry 93 L 94 L 96 02/14/18 23:00 02/15/18 00:00 02/15/18 01:44 Temperature 98.1 F Pulse Rate 104 H 102 H Respiratory Rate 24 20 Blood Pressure 133/66 126/75 Pulse Oximetry 95 99 95 02/15/18 02:02 02/15/18 02:03 02/15/18 03:26 Temperature Pulse Rate 100 H 97 H Respiratory Rate 23 Blood Pressure Pulse Oximetry 99 99 02/15/18 04:00 02/15/18 08:00 02/15/18 09:00 Temperature 98.7 F 97.8 F Pulse Rate 98 H 135 H 130 H Respiratory Rate 20 20 Blood Pressure 131/69 130/64 Pulse Oximetry 98 93 L 02/15/18 10:19 02/15/18 10:23 02/15/18 11:00 Temperature Pulse Rate 117 H 130 H Respiratory Rate 20 Blood Pressure Pulse Oximetry 94 L 02/15/18 12:00 02/15/18 13:00 02/15/18 14:00 Temperature 97.8 F Pulse Rate 124 H 115 H 113 H Respiratory Rate 20 Blood Pressure 113/59 L Pulse Oximetry 95 02/15/18 15:00 Temperature Pulse Rate 102 H Respiratory Rate Blood Pressure Pulse Oximetry Intake & Output 02/14/18 02/15/18 02/15/18 18:59 06:59 18:59 Intake Total 110 / 110 3000 / 3000 Output Total 825 / 825 Balance -715 / -715 3000 / 3000 Weight 86.183 kg 86 kg Intake: IV 110 / 110 3000 / 3000 NS Inj 1,000 ML @ 100 mls/hr IV 1999 / 1999 .CONT .Q10H [facility] Rx#:[id number] Sodium Bicarbonate 8.4% Inj 75 1000 / 1000 MEQ In 1/2 Normal Saline Inj 925 ML @ 100 mls/hr IV.CONT . Q10H [facility] Rx#:[id number] Calcium Chloride Inj 1 GM In NS 110 / 110 Inj 100 ML @ 110 mls/hr IV.SIG ONCE ONE Rx#:[id number] Oral 0 / 0 Output: Urine 825 / 825 Other: Date of Last Bowel Movement 02/15/18 02/15/18 Results - Lab Results 02/15/18 06:20 02/15/18 06:20 Most recent lab results ABG pH 7.42 (7.380-7.420) 02/14/18 15:51 ABG pCO2 27 mmHg (38-42) L 02/14/18 15:51 ABG pO2 84 mmHg (61-120) 02/14/18 15:51 ABG HCO3 17 mmol/L (22-26) L 02/14/18 15:51 Calcium 9.1 mg/dL (8.5-10.1) 02/15/18 06:20 Phosphorus 5.5 mg/dL (2.5-4.9) H 02/15/18 06:20 Magnesium 3.0 mg/dL (1.5-2.5) H 02/15/18 06:20 Assessment and Plan - Assessment (1) JESS (acute kidney injury) Code(s): N17.9 - Acute kidney failure, unspecified Status: Acute (2) Clostridium difficile infection Code(s): B96.89 - Other specified bacterial agents as the cause of diseases classified elsewhere Status: Acute (3) COPD (chronic obstructive pulmonary disease) Code(s): J44.9 - Chronic obstructive pulmonary disease, unspecified Status: Chronic (4) Diabetes mellitus Code(s): E11.9 - Type 2 diabetes mellitus without complications Status: Acute - Attending Attestation patient was seen and examined. JESS likely due to intravascular volume depletion and pre-renal azotemia, but could have progressed to ATN. Continue bicarbonate drip. Hyperkalemia and renal function have improved. No hydronephrosis.
[2018-02-15 15:46] LABS: Hemoglobin A1c 6.4 % (4.3-6.0)
[2018-02-15] MEDS ORDERED: Enoxaparin Inj 30 MG/0.3 ML Syringe SQ SCH (17:00)
[2018-02-15 17:22] LABS: Bacteria,Urine Rare /hpf; Bilirubin,Urine Negative (Negative); Clarity,Urine Hazy (Clear); Color,Urine Yellow (Yellw/Straw); Glucose,Urine (UA) 50 mg/dL (Negative); Leukocyte Esterase,Urine Small (Negative); Mucus,Urine Few /lpf (Occasional); Nitrite,Urine Negative (Negative); Specific Gravity,Urine 1.016 (1.002-1.035); Squamous Epithelial Cell,Urine 1 /hpf (0-5)
--- NOTE | 2018-02-15 17:57 | P.PNPL ---
Subjective Interval history: 82 YOWM with COPD,hypercapnoic RF,JESS Used CPAP last night now weaned to [place] Family at [place] Physical Exam Vital signs: Vital Signs 02/14/18 18:03 02/14/18 19:00 02/14/18 19:42 Temperature Pulse Rate 107 H 106 H Respiratory Rate 21 26 H 26 H Blood Pressure 93/55 L 114/57 L 118/58 L Pulse Oximetry 94 L 94 L 93 L 02/14/18 19:51 02/14/18 21:00 02/14/18 23:00 Temperature Pulse Rate 107 H 112 H 104 H Respiratory Rate 22 24 24 Blood Pressure 121/68 133/66 Pulse Oximetry 94 L 96 95 02/15/18 00:00 02/15/18 01:44 02/15/18 02:02 Temperature 98.1 F Pulse Rate 102 H 100 H Respiratory Rate 20 Blood Pressure 126/75 Pulse Oximetry 99 95 02/15/18 02:03 02/15/18 03:26 02/15/18 04:00 Temperature 98.7 F Pulse Rate 97 H 98 H Respiratory Rate 23 20 Blood Pressure 131/69 Pulse Oximetry 99 99 98 02/15/18 08:00 02/15/18 09:00 02/15/18 10:19 Temperature 97.8 F Pulse Rate 135 H 130 H Respiratory Rate 20 Blood Pressure 130/64 Pulse Oximetry 93 L 94 L 02/15/18 10:23 02/15/18 11:00 02/15/18 12:00 Temperature 97.8 F Pulse Rate 117 H 130 H 124 H Respiratory Rate 20 20 Blood Pressure 113/59 L Pulse Oximetry 95 02/15/18 13:00 02/15/18 14:00 02/15/18 15:00 Temperature Pulse Rate 115 H 113 H 102 H Respiratory Rate Blood Pressure Pulse Oximetry 02/15/18 16:00 02/15/18 17:00 02/15/18 17:09 Temperature 98.1 F Pulse Rate 110 H 98 H 80 Respiratory Rate 18 20 Blood Pressure 123/64 Pulse Oximetry 97 Intake & Output 02/14/18 02/15/18 02/15/18 18:59 06:59 18:59 Intake Total 110 / 110 4000 / 4000 Output Total 825 / 825 Balance -715 / -715 4000 / 4000 Weight 86.183 kg 86 kg Intake: IV 110 / 110 4000 / 4000 NS Inj 1,000 ML @ 100 mls/hr IV 1999 / 1999 .CONT .Q10H [facility] Rx#:[id number] Sodium Bicarbonate 8.4% Inj 75 1999 / 1999 MEQ In 1/2 Normal Saline Inj 925 ML @ 100 mls/hr IV.CONT . Q10H [facility] Rx#:[id number] Calcium Chloride Inj 1 GM In NS 110 / 110 Inj 100 ML @ 110 mls/hr IV.SIG ONCE ONE Rx#:[id number] Oral 0 / 0 Output: Urine 825 / 825 Other: Date of Last Bowel Movement 02/15/18 02/15/18 GENERAL: Elderly WM NAD SKIN: Warm and dry. HEAD: Normocephalic. EYES: No scleral icterus. No injection or drainage. NECK: Supple, trachea midline. No JVD or lymphadenopathy. CARDIOVASCULAR: Regular rate and rhythm without murmurs, gallops, or rubs. RESPIRATORY: Breath sounds equal bilaterally. No accessory muscle use. GASTROINTESTINAL: Abdomen soft, non-tender, nondistended. MUSCULOSKELETAL: No cyanosis, or edema. BACK: Nontender without obvious deformity. No CVA tenderness. Assessment and Plan - Plan IMPRESSION: 1. Respiratory failure. 2. Acute kidney injury. 4. Recent Clostridium difficile colitis. 5. Basilar infiltrate versus atelectasis. 6. Chronic obstructive pulmonary disease. PLAN: Aerosol nebs PO Vanco Supplement 02 CPAP prn monitor jaspal TAYLOR pt and his family at [place]
--- NOTE | 2018-02-15 18:38 | ECHRPT ---
Indication: SOB CONCLUSIONS The left ventricular systolic function is normal with an estimated ejection fraction in the range of 60-65%. Trace mitral valve regurgitation. There is trace tricuspid valve regurgitation. BP: / HR: 144 Rhythm: Atrial fibrillation MEASUREMENTS (Male / Female) Normal Values Technical Quality: 2D ECHO LV Diastolic Diameter PLAX 4.7 cm 4.2 - 5.9 / 3.9 - 5.3 cm LV Systolic Diameter PLAX 3.7 cm IVS Diastolic Thickness 1.0 cm 0.6 - 1.0 / 0.6 - 0.9 cm LVPW Diastolic Thickness 0.8 cm 0.6 - 1.0 / 0.6 - 0.9 cm LV Relative Wall Thickness 0.4 RV Internal Dim ED PLAX 2.2 cm DOPPLER AV Peak Velocity 128.0 cm/s AV Peak Gradient 6.6 mmHg LVOT Peak Velocity 182.0 cm/s LVOT Peak Gradient 13.2 mmHg Mitral E Point Velocity 117.0 cm/s TR Peak Velocity 210.0 cm/s TR Peak Gradient 17.6 mmHg Right Atrial Pressure 10.0 mmHg Pulmonary Artery Systolic Pressu 27.6 mmHg Right Ventricular Systolic Press 27.6 mmHg FINDINGS LEFT VENTRICLE Normal left ventricular size. Wall thickness is normal. The left ventricular systolic function is normal with an estimated ejection fraction in the range of 60-65%. RIGHT VENTRICLE Normal right ventricular size and systolic function. LEFT ATRIUM The left atrial size is normal. RIGHT ATRIUM The right atrial size is normal. ATRIAL SEPTUM Normal atrial septal thickness without atrial level shunting by limited color doppler interrogation. AORTA The aortic root and proximal ascending aorta are normal in size on limited imaging. MITRAL VALVE Mitral annular calcification is present. Trace mitral valve regurgitation. No mitral valve stenosis. AORTIC VALVE Aortic valve sclerosis is present. No aortic valve regurgitation. No aortic valve stenosis. TRICUSPID VALVE Structurally normal tricuspid valve. There is trace tricuspid valve regurgitation. No tricuspid valve stenosis. PULMONARY VALVE No pulmonary valve regurgitation or stenosis. VESSELS The inferior vena cava is normal in size. PERICARDIUM No pericardial effusion. Evelio Amezcua DO (Electronically Signed) Final Date:15 February 2018 18:38
--- NOTE | 2018-02-15 19:12 | ECG ---
Date Performed: 02/14/2018 Time Performed: 20:38:53 PTAGE: 82 years EKG: SINUS TACHYCARDIA INFERIOR MYOCARDIAL INFARCTION ABNORMAL ECG Since PREVIOUS TRACING , no significant change noted PREVIOUS TRACIN02/14/2018 12.24 DOCTOR: Marlene Nuno Interpretating Date/Time 02/15/2018 19:11:03
--- NOTE | 2018-02-15 19:14 | ECG ---
Date Performed: 02/15/2018 Time Performed: 04:36:28 PTAGE: 82 years EKG: Atrial fibrillation with rapid ventricular response Abnormal ECG Compared to PREVIOUS TRACING , now AF with RVR PREVIOUS TRACIN02/14/2018 20.38 DOCTOR: Marlene Nuno Interpretating Date/Time 02/15/2018 19:13:45
[2018-02-16] MEDS: Insulin NovoLOG Aspart Correctional Sugar Inj SQ SCH ×5 (04:11→21:33)
[2018-02-16 05:08] LABS: Baso % (Auto) 0.1 % (0.0-2.0); Hematocrit 36.6 % (39.0-51.0); Hemoglobin 12.1 gm/dL (13.0-17.0); Lymph # (Auto) 0.8 th/mm3 (1.0-4.8); Lymph % (Auto) 9.5 % (9.0-44.0); Mean Corpuscular HGB Conc 33.1 % (32.0-36.0); Mean Corpuscular Hemoglobin 28.6 pg (27.0-34.0); Mean Corpuscular Volume 86.5 fL (80.0-100.0); Mean Platelet Volume 8.3 fL (7.0-11.0); Mono # (Auto) 0.5 th/mm3 (0.0-0.9); Mono % (Auto) 5.9 % (0.0-8.0); Neut # (Auto) 7.1 th/mm3 (1.8-7.7); Neut % (Auto) 84.5 % (16.0-70.0); Platelet Count 310 th/mm3 (150-450); Red Blood Count 4.23 mil/mm3 (4.50-5.90); Red Cell Distribution Width 15.3 % (11.6-17.2); White Blood Count 8.5 th/mm3 (4.0-11.0)
[2018-02-16] MEDS: Chlorhexidine Gluconate 2% 1 Pack (2 Cloths) TOPICAL SCH (05:14)
[2018-02-16] MEDS: MethylPREDNISolone Sod Succinate Inj 125 MG/2 ML Vial IV.PUSH SCH ×4 (05:15→22:51)
[2018-02-16] MEDS: Sodium Bicarbonate 8.4% Inj 75 MEQ in Sodium Chloride 0.45 % Inj 925 ML IV.CONT SCH ×2 (05:18→17:19)
[2018-02-16 05:26] LABS: Calcium 8.6 mg/dL (8.5-10.1); Carbon Dioxide 19.2 meq/L (21.0-32.0); Potassium 4.7 meq/L (3.5-5.1)
[2018-02-16] MEDS: Ezetimibe 10 MG Tablet PO SCH (08:51)
[2018-02-16] MEDS: Senna/Docusate Sodium 8.6/50 MG Tablet PO SCH ×2 (08:51→21:35)
[2018-02-16] MEDS: dilTIAZem 30 MG Tablet PO SCH (08:51)
[2018-02-16] MEDS: Famotidine 20 MG Tablet PO SCH ×2 (08:51→21:28)
[2018-02-16] MEDS: Nystatin Liq 500,000 UNIT/5 ML UDC SWISH-SWAL SCH ×4 (08:51→21:31)
[2018-02-16] MEDS: guaiFENesin 600 MG ER Tablet PO SCH ×2 (08:51→21:29)
[2018-02-16] MEDS: Budesonide-Formoterol 160/4.5 MCG 6 GM Inhaler INH SCH ×2 (08:53→21:35)
--- NOTE | 2018-02-16 09:24 | MB ---
cc: Jeff Villegas MD DATE: 02/16/2018 REASON FOR CONSULTATION: Atrial fibrillation. HISTORY OF PRESENT ILLNESS: The patient is a pleasantly confused 82-year-old gentleman, recently discharged from the hospital for Clostridium difficile, who comes in with hypoxia, shortness of breath, felt to have a COPD exacerbation. He is currently confused and appears asymptomatic, but cannot give me much history. He denies chest pain or shortness of breath. PAST MEDICAL HISTORY: DVT, hypertension, diabetes, kidney injury, COPD, hyperlipidemia, GERD, and C. difficile. CURRENT MEDICATIONS: 1. Tylenol. 2. Cardizem 30 mg p.o. q.i.d. 3. Lovenox 30 mg subcutaneous every 24 hours. 4. Zetia 10 mg daily. 5. Pepcid. ALLERGIES: NO KNOWN DRUG ALLERGIES. PHYSICAL EXAMINATION: VITAL SIGNS: Afebrile, pulse 90, respiratory rate 20, blood pressure 105/51, saturating 96%. GENERAL: A pleasantly confused gentleman in no distress. NECK: No JVD. LUNGS: Decreased breath sounds in all gamez. CARDIOVASCULAR: Regular rate and rhythm. No significant murmurs appreciated. ABDOMEN: Benign. EXTREMITIES: 1+ edema in the ankles bilaterally. LABORATORY DATA: White count 8.5, down from 15.4, hematocrit 36.6, platelets 310. INR is 1.1. Sodium 136, potassium 4.7, chloride 101, bicarbonate 19.2, BUN 127, creatinine 3, and glucose 199, down from 305. DIAGNOSTIC STUDIES: EKG showed atrial fibrillation at a rate of [address] changes. Current telemetry shows he converted to sinus rhythm. IMAGING STUDIES: Chest x-ray showed early infiltrates or atelectasis, as well as COPD. ASSESSMENT AND PLAN: New onset atrial fibrillation. The patient had newly discovered atrial fibrillation. An echocardiogram had already been done and showed normal ejection fraction without any major valvular disease. His risk for stroke is quite high given his age, history of hypertension, and diabetes with a CHADS-VASc score of at least 4, potentially 5, if we count him as having some diastolic congestive heart failure. Thus, with such a high stroke risk, I think a trial of anticoagulation is reasonable, as he apparently lives in a long term facility, so his fall risk could be hopefully mitigated. Given his poor renal function and age greater than 81, I will start him on low-dose Eliquis. He is now asymptomatic and back in sinus rhythm. I will also change his Cardizem to long-acting. I will be available as needed. Please call with any questions. Thank you again for the opportunity to participate in this patient's care. MD RYAN Kaminski/NAKUL , 09:04 AM , 09:22 AM
--- NOTE | 2018-02-16 10:31 | P.PN ---
Physical Exam Vital signs: Vital Signs 02/15/18 11:00 02/15/18 12:00 02/15/18 13:00 Temperature 97.8 F Pulse Rate 130 H 124 H 115 H Respiratory Rate 20 Blood Pressure 113/59 L Pulse Oximetry 95 02/15/18 14:00 02/15/18 15:00 02/15/18 16:00 Temperature 98.1 F Pulse Rate 113 H 102 H 110 H Respiratory Rate 18 Blood Pressure 123/64 Pulse Oximetry 97 02/15/18 17:00 02/15/18 17:09 02/15/18 17:56 Temperature Pulse Rate 98 H 80 125 H Respiratory Rate 20 Blood Pressure Pulse Oximetry 02/15/18 19:00 02/15/18 20:00 02/15/18 21:00 Temperature 97.8 F Pulse Rate 95 H 116 H 108 H Respiratory Rate 20 Blood Pressure 108/57 L Pulse Oximetry 97 02/15/18 21:25 02/15/18 22:00 02/15/18 23:00 Temperature Pulse Rate 90 140 H 120 H Respiratory Rate 18 Blood Pressure Pulse Oximetry 93 L 02/16/18 00:00 02/16/18 01:00 02/16/18 02:00 Temperature Pulse Rate 108 H 98 H 110 H Respiratory Rate 20 Blood Pressure 106/54 L Pulse Oximetry 96 02/16/18 03:00 02/16/18 03:52 02/16/18 04:00 Temperature Pulse Rate 108 H 87 100 H Respiratory Rate 20 Blood Pressure 105/51 L Pulse Oximetry 96 02/16/18 05:00 02/16/18 06:00 02/16/18 07:00 Temperature Pulse Rate 128 H 86 85 Respiratory Rate Blood Pressure Pulse Oximetry 02/16/18 08:00 02/16/18 09:00 02/16/18 10:00 Temperature 97.9 F Pulse Rate 86 93 H 81 Respiratory Rate 18 18 Blood Pressure 107/56 L Pulse Oximetry 96 96 Intake & Output 02/15/18 02/16/18 02/16/18 18:59 06:59 18:59 Intake Total 4720 / 4720 1480 / 1480 Output Total 800 / 800 1025 / 1025 Balance 3920 / 3920 455 / 455 Weight 86 kg Intake: IV 4000 / 4000 1000 / 1000 NS Inj 1,000 ML @ 100 mls/hr IV 1999 .CONT .Q10H ARYA Rx#:[id number] Sodium Bicarbonate 8.4% Inj 75 1999 1000 / 1000 MEQ In 1/2 Normal Saline Inj 925 ML @ 100 mls/hr IV.CONT . Q10H ARYA Rx#:[id number] Oral 720 / 720 480 / 480 Output: Urine 800 / 800 1025 / 1025 Other: Date of Last Bowel Movement 02/15/18 02/15/18 # Bowel Movements 3 0 Narrative: Subjective: Follow-up COPD with exacerbation, hypoxia acute on chronic respiratory failure, A. fib with RVR The patient feels very weak however he is improved since yesterday. Less cough. Does not feel his heart racing. Able to eat no nausea or vomiting. No lightheadedness or chest pain. Still with shortness of breath however improved some. Physical exam: GENERAL: Pleasant cachectic 82-year-old male in bed appears chronically ill. CARDIOVASCULAR: Regular rate and rhythm. S1-S2 no S3 or S4 RESPIRATORY: With shortness of breath. Rhonchi and wheezes bilaterally. GASTROINTESTINAL: Abdomen soft, non-tender, nondistended. MUSCULOSKELETAL: Extremities without clubbing, cyanosis, or +3 bilateral lower extremity edema. No obvious deformities. NEUROLOGICAL: Awake and alert. No obvious cranial nerve deficits. Motor grossly within normal limits. 4 out of 5 muscle strength in the arms and legs. Normal speech. PSYCHIATRIC: Appropriate mood and affect; insight and judgment normal. Assessment and Plan Patient is a 82-year-old gentleman who presented to the emergency department was COPD exacerbation on chronic home oxygen with severe hypoxia and acute respiratory failure has been placed on BiPAP: COPD with exacerbation. Acute on chronic respiratory failure. Patient with chronic respiratory failure and with history of COPD. He is on chronic home oxygen. Presented with hypoxia and acute respiratory failure and was placed on BiPAP. Currently off BiPAP. Continue to monitor oxygen saturation and wean off oxygen as tolerated. We will continue on steroids Continue on duo nebs Continue on Mucinex Use BiPAP if need. Oxygen by nasal cannula keep oxygen saturation more than 92% ABG reviewed Consult pulmonary, appreciate recs A. fib with RVR. Received metoprolol overnight. Continue Cardizem p.o. 30 mg 4 times daily. Add IV metoprolol as needed if sustained heart rate more than 110. Consult cardiology. 2D echo pending. History of DVT continue on anticoagulation History of C. difficile toxin colitis continue on treatment WITH VANCOMYCIN ORALLY 4X DAY History of GERD continue on PPI Hyperlipidemia continue on home medications History of DVT with an IVC filter placed DM CONTINUE ON SLIDING SCALE COVERAGE Acute respiratory failure see above Continue on BiPAP Continue on oxygen Continue on steroids Continue on duo nebs Code Status: Full code Discussed Condition With: Patient, family at bedside, nurse. Discharge Planning: Pending improvement and clearance by consultants Results - Labs CBC & Chem 7: 02/16/18 04:27 02/16/18 04:27 Laboratory Results - last 24 hr 02/15/18 02/15/18 02/15/18 06:20 11:47 16:05 WBC RBC Hgb Hct MCV MCH MCHC RDW Plt Count MPV Neut % (Auto) Lymph % (Auto) [place] % (Auto) Eos % (Auto) Baso % (Auto) Neut # (Auto) Lymph # (Auto) [place] # (Auto) Eos # (Auto) Baso # (Auto) WBC Differential Differential Comment Sodium Potassium Chloride Carbon Dioxide Anion Gap BUN Creatinine Estimated GFR POC Glucose 305 H Random Glucose Hemoglobin A1c 6.4 H Calcium Urine Color Yellow Urine Clarity Hazy H Urine pH 5.0 Ur Specific [place] 1.016 Urine Protein Negative Urine Glucose (UA) 50 Urine Ketones Negative Urine Occult Blood Small H Urine Nitrate Negative Urine Bilirubin Negative Urine Urobilinogen Less than 2 Ur Leukocyte Esterase Small H Urine RBC 4 H Urine WBC 6 H Ur Squamous Epith Cells 1 Urine Bacteria Rare H Urine Mucus Few H Micro UA Comment Culture not ind Urine Culture Comments Culture not ind 02/15/18 02/15/18 02/16/18 16:16 20:58 04:06 WBC RBC Hgb Hct MCV MCH MCHC RDW Plt Count MPV Neut % (Auto) Lymph % (Auto) [place] % (Auto) Eos % (Auto) Baso % (Auto) Neut # (Auto) Lymph # (Auto) [place] # (Auto) Eos # (Auto) Baso # (Auto) WBC Differential Differential Comment Sodium Potassium Chloride Carbon Dioxide Anion Gap BUN Creatinine Estimated GFR POC Glucose 228 H 243 H 245 H Random Glucose Hemoglobin A1c Calcium Urine Color Urine Clarity Urine pH Ur Specific [place] Urine Protein Urine Glucose (UA) Urine Ketones Urine Occult Blood Urine Nitrate Urine Bilirubin Urine Urobilinogen Ur Leukocyte Esterase Urine RBC Urine WBC Ur Squamous Epith Cells Urine Bacteria Urine Mucus Micro UA Comment Urine Culture Comments 02/16/18 02/16/18 02/16/18 04:27 04:27 07:58 WBC 8.5 RBC 4.23 L Hgb 12.1 L Hct 36.6 L MCV 86.5 MCH 28.6 MCHC 33.1 RDW 15.3 Plt Count 310 MPV 8.3 Neut % (Auto) 84.5 H Lymph % (Auto) 9.5 [place] % (Auto) 5.9 Eos % (Auto) 0.0 Baso % (Auto) 0.1 Neut # (Auto) 7.1 Lymph # (Auto) 0.8 L [place] # (Auto) 0.5 Eos # (Auto) 0.0 Baso # (Auto) 0.0 WBC Differential . Differential Comment Auto diff final Sodium 136 Potassium 4.7 Chloride 101 Carbon Dioxide 19.2 L Anion Gap 16 H BUN 127 H Creatinine 3.00 H Estimated GFR 20 L POC Glucose 199 H Random Glucose 217 H Hemoglobin A1c Calcium 8.6 Urine Color Urine Clarity Urine pH Ur Specific [place] Urine Protein Urine Glucose (UA) Urine Ketones Urine Occult Blood Urine Nitrate Urine Bilirubin Urine Urobilinogen Ur Leukocyte Esterase Urine RBC Urine WBC Ur Squamous Epith Cells Urine Bacteria Urine Mucus Micro UA Comment Urine Culture Comments Microbiology 02/14/18 12:10 Blood - Peripheral Aerobic Blood Culture - Preliminary No growth in 1 day 02/14/18 12:10 Blood - Peripheral Anaerobic Blood Culture - Preliminary No growth in 1 day 02/14/18 12:15 Blood - Peripheral Aerobic Blood Culture - Preliminary No growth in 1 day 02/14/18 12:15 Blood - Peripheral Anaerobic Blood Culture - Preliminary No growth in 1 day Assessment and Plan - Assessment (1) Clostridium difficile infection Code(s): B96.89 - Other specified bacterial agents as the cause of diseases classified elsewhere Status: Acute (2) JESS (acute kidney injury) Code(s): N17.9 - Acute kidney failure, unspecified Status: Acute (3) COPD (chronic obstructive pulmonary disease) Code(s): J44.9 - Chronic obstructive pulmonary disease, unspecified Status: Chronic (4) DVT (deep venous thrombosis) Code(s): I82.409 - Acute embolism and thrombosis of unspecified deep veins of unspecified lower extremity Status: Chronic (5) Hypertension Code(s): I10 - Essential (primary) hypertension Status: Chronic (6) Diabetes mellitus Code(s): E11.9 - Type 2 diabetes mellitus without complications Status: Acute (7) Sepsis Code(s): A41.9 - Sepsis, unspecified organism Status: Acute (8) COPD exacerbation Code(s): J44.1 - Chronic obstructive pulmonary disease with (acute) exacerbation Status: Acute (9) Acute respiratory failure with hypoxia Code(s): J96.01 - Acute respiratory failure with hypoxia Status: Acute (5) Hypertension Qualifiers:
--- NOTE | 2018-02-16 13:25 | P.PNPL ---
Subjective Interval history: 82 YOWM with COPD,hypercapnoic RF,JESS Did't requireCPAP last night now weaned to [place] Family at BS Good appetite Physical Exam Vital signs: Vital Signs 02/15/18 14:00 02/15/18 15:00 02/15/18 16:00 Temperature 98.1 F Pulse Rate 113 H 102 H 110 H Respiratory Rate 18 Blood Pressure 123/64 Pulse Oximetry 97 02/15/18 17:00 02/15/18 17:09 02/15/18 17:56 Temperature Pulse Rate 98 H 80 125 H Respiratory Rate 20 Blood Pressure Pulse Oximetry 02/15/18 19:00 02/15/18 20:00 02/15/18 21:00 Temperature 97.8 F Pulse Rate 95 H 116 H 108 H Respiratory Rate 20 Blood Pressure 108/57 L Pulse Oximetry 97 02/15/18 21:25 02/15/18 22:00 02/15/18 23:00 Temperature Pulse Rate 90 140 H 120 H Respiratory Rate 18 Blood Pressure Pulse Oximetry 93 L 02/16/18 00:00 02/16/18 01:00 02/16/18 02:00 Temperature Pulse Rate 108 H 98 H 110 H Respiratory Rate 20 Blood Pressure 106/54 L Pulse Oximetry 96 02/16/18 03:00 02/16/18 03:52 02/16/18 04:00 Temperature Pulse Rate 108 H 87 100 H Respiratory Rate 20 Blood Pressure 105/51 L Pulse Oximetry 96 02/16/18 05:00 02/16/18 06:00 02/16/18 07:00 Temperature Pulse Rate 128 H 86 85 Respiratory Rate Blood Pressure Pulse Oximetry 02/16/18 08:00 02/16/18 09:00 02/16/18 10:00 Temperature 97.9 F Pulse Rate 86 93 H 81 Respiratory Rate 18 18 Blood Pressure 107/56 L Pulse Oximetry 96 96 02/16/18 11:00 02/16/18 12:00 Temperature 98.1 F Pulse Rate 97 H 97 H Respiratory Rate 16 Blood Pressure 136/64 Pulse Oximetry 100 Intake & Output 02/15/18 02/16/18 02/16/18 18:59 06:59 18:59 Intake Total 4720 / 4720 1480 / 1480 Output Total 800 / 800 1025 / 1025 Balance 3920 / 3920 455 / 455 Weight 86 kg Intake: IV 4000 / 4000 1000 / 1000 NS Inj 1,000 ML @ 100 mls/hr IV 1999 / 1999 .CONT .Q10H ARYA Rx#:[id number] Sodium Bicarbonate 8.4% Inj 75 1999 / 1999 1000 / 1000 MEQ In 1/2 Normal Saline Inj 925 ML @ 100 mls/hr IV.CONT . Q10H ARYA Rx#:[id number] Oral 720 / 720 480 / 480 Output: Urine 800 / 800 1025 / 1025 Other: Date of Last Bowel Movement 02/15/18 02/15/18 # Bowel Movements 3 0 GENERAL: MBMN, Mild sob SKIN: Warm and dry. HEAD: Normocephalic. EYES: No scleral icterus. No injection or drainage. NECK: Supple, trachea midline. No JVD or lymphadenopathy. CARDIOVASCULAR: Regular rate and rhythm without murmurs, gallops, or rubs. RESPIRATORY: Breath sounds equal bilaterally. No accessory muscle use. GASTROINTESTINAL: Abdomen soft, non-tender, nondistended. MUSCULOSKELETAL: No cyanosis, or edema. BACK: Nontender without obvious deformity. No CVA tenderness. Assessment and Plan - Plan IMPRESSION: 1. Respiratory failure. 2. Acute kidney injury. 4. Recent Clostridium difficile colitis. 5. Basilar infiltrate versus atelectasis. 6. Chronic obstructive pulmonary disease. PLAN: Aerosol nebs PO Vanco Supplement 02 CPAP prn monitor lytes Use Michelle Giraldo pt and at BS
--- NOTE | 2018-02-16 15:32 | P.PNNP ---
Subjective Interval history: Patient states her diarrhea has improved Physical Exam Vital signs: Vital Signs 02/15/18 16:00 02/15/18 17:00 02/15/18 17:09 Temperature 98.1 F Pulse Rate 110 H 98 H 80 Respiratory Rate 18 20 Blood Pressure 123/64 Pulse Oximetry 97 02/15/18 17:56 02/15/18 19:00 02/15/18 20:00 Temperature 97.8 F Pulse Rate 125 H 95 H 116 H Respiratory Rate 20 Blood Pressure 108/57 L Pulse Oximetry 97 02/15/18 21:00 02/15/18 21:25 02/15/18 22:00 Temperature Pulse Rate 108 H 90 140 H Respiratory Rate 18 Blood Pressure Pulse Oximetry 93 L 02/15/18 23:00 02/16/18 00:00 02/16/18 01:00 Temperature Pulse Rate 120 H 108 H 98 H Respiratory Rate 20 Blood Pressure 106/54 L Pulse Oximetry 96 02/16/18 02:00 02/16/18 03:00 02/16/18 03:52 Temperature Pulse Rate 110 H 108 H 87 Respiratory Rate Blood Pressure Pulse Oximetry 02/16/18 04:00 02/16/18 05:00 02/16/18 06:00 Temperature Pulse Rate 100 H 128 H 86 Respiratory Rate 20 Blood Pressure 105/51 L Pulse Oximetry 96 02/16/18 07:00 02/16/18 08:00 02/16/18 09:00 Temperature 97.9 F Pulse Rate 85 86 93 H Respiratory Rate 18 Blood Pressure 107/56 L Pulse Oximetry 96 02/16/18 10:00 02/16/18 11:00 02/16/18 12:00 Temperature 98.1 F Pulse Rate 81 97 H 97 H Respiratory Rate 18 16 Blood Pressure 136/64 Pulse Oximetry 96 100 02/16/18 13:00 02/16/18 14:00 02/16/18 15:00 Temperature 97.8 F Pulse Rate 95 H 68 98 H Respiratory Rate 16 Blood Pressure 156/78 H Pulse Oximetry 99 Intake & Output 02/15/18 02/16/18 02/16/18 18:59 06:59 18:59 Intake Total 4720 / 4720 1480 / 1480 Output Total 800 / 800 1025 / 1025 Balance 3920 / 3920 455 / 455 Weight 86 kg Intake: IV 4000 / 4000 1000 / 1000 NS Inj 1,000 ML @ 100 mls/hr IV 1999 .CONT .Q10H ARYA Rx#:[id number] Sodium Bicarbonate 8.4% Inj 75 1999 / 1999 1000 / 1000 MEQ In 1/2 Normal Saline Inj 925 ML @ 100 mls/hr IV.CONT . Q10H ARAY Rx#:[id number] Oral 720 / 720 480 / 480 Output: Urine 800 / 800 1025 / 1025 Other: Date of Last Bowel Movement 02/15/18 02/15/18 # Bowel Movements 3 0 - Constitutional no acute distress - Routine HEENT Exam Head: Present: normocephalic - Routine Neck Exam Present: supple - Routine Respiratory Exam Present: accessory muscle use - Routine Cardiovascular Exam Present: RRR - Routine Abdominal Exam Present: soft, normoactive bowel sounds - Routine Neurological Exam Present: alert, oriented X3 Assessment and Plan - Assessment (1) Dehydration Code(s): E86.0 - Dehydration Status: Acute Plan: Improved with the IV fluids 100 cc an hour half-normal saline with 75 MB q. of sodium bicarbonate Follows with Dr. Nieto (2) Clostridium difficile infection Code(s): B96.89 - Other specified bacterial agents as the cause of diseases classified elsewhere Status: Acute (3) JESS (acute kidney injury) Code(s): N17.9 - Acute kidney failure, unspecified Status: Acute - Plan As above responding to IV hydration with bicarbonate and IV fluids follow BMP
[2018-02-17] MEDS: Sodium Bicarbonate 8.4% Inj 75 MEQ in Sodium Chloride 0.45 % Inj 925 ML IV.CONT SCH ×2 (03:38→11:58)
[2018-02-17] MEDS: Insulin NovoLOG Aspart Correctional Sugar Inj SQ SCH ×5 (03:45→22:58)
[2018-02-17] MEDS: Chlorhexidine Gluconate 2% 1 Pack (2 Cloths) TOPICAL SCH (05:04)
[2018-02-17] MEDS: MethylPREDNISolone Sod Succinate Inj 125 MG/2 ML Vial IV.PUSH SCH ×4 (05:31→22:56)
[2018-02-17 06:03] LABS: Hematocrit 35.1 % (39.0-51.0); Hemoglobin 11.7 gm/dL (13.0-17.0); Lymph # (Auto) 0.7 th/mm3 (1.0-4.8); Lymph % (Auto) 11.2 % (9.0-44.0); Mean Corpuscular HGB Conc 33.4 % (32.0-36.0); Mean Corpuscular Hemoglobin 28.7 pg (27.0-34.0); Mean Platelet Volume 7.9 fL (7.0-11.0); Mono # (Auto) 0.4 th/mm3 (0.0-0.9); Mono % (Auto) 6.3 % (0.0-8.0); Neut # (Auto) 5.1 th/mm3 (1.8-7.7); Neut % (Auto) 82.5 % (16.0-70.0); Platelet Count 297 th/mm3 (150-450); Red Blood Count 4.08 mil/mm3 (4.50-5.90); Red Cell Distribution Width 15.2 % (11.6-17.2); White Blood Count 6.2 th/mm3 (4.0-11.0)
[2018-02-17 06:29] LABS: Calcium 8.5 mg/dL (8.5-10.1); Carbon Dioxide 26.4 meq/L (21.0-32.0); Potassium 4.7 meq/L (3.5-5.1)
--- NOTE | 2018-02-17 08:57 | P.PN ---
Physical Exam Vital signs: Vital Signs 02/16/18 09:00 02/16/18 10:00 02/16/18 11:00 Temperature 98.1 F Pulse Rate 93 H 81 97 H Respiratory Rate 18 16 Blood Pressure 136/64 Pulse Oximetry 96 100 02/16/18 12:00 02/16/18 13:00 02/16/18 14:00 Temperature Pulse Rate 97 H 95 H 68 Respiratory Rate Blood Pressure Pulse Oximetry 02/16/18 15:00 02/16/18 16:00 02/16/18 16:23 Temperature 97.8 F Pulse Rate 98 H 89 76 Respiratory Rate 16 18 Blood Pressure 156/78 H Pulse Oximetry 99 02/16/18 17:00 02/16/18 18:00 02/16/18 19:00 Temperature 98 F Pulse Rate 98 H 96 H 102 H Respiratory Rate 16 Blood Pressure 142/82 H Pulse Oximetry 96 02/16/18 20:00 02/16/18 21:00 02/16/18 21:02 Temperature Pulse Rate 118 H 114 H 105 H Respiratory Rate 20 Blood Pressure Pulse Oximetry 93 L 100 02/16/18 22:00 02/16/18 23:00 02/16/18 23:40 Temperature Pulse Rate 102 H 104 H Respiratory Rate 20 Blood Pressure 129/69 Pulse Oximetry 96 97 02/17/18 00:00 02/17/18 01:00 02/17/18 02:00 Temperature Pulse Rate 98 H 106 H 99 H Respiratory Rate Blood Pressure Pulse Oximetry 100 02/17/18 03:00 02/17/18 04:00 02/17/18 04:15 Temperature Pulse Rate 96 H 94 H 90 Respiratory Rate 16 18 Blood Pressure 130/74 Pulse Oximetry 96 02/17/18 05:00 02/17/18 06:00 02/17/18 07:00 Temperature 97.6 F Pulse Rate 100 H 100 H 100 H Respiratory Rate 16 Blood Pressure 134/75 Pulse Oximetry 93 L 02/17/18 08:00 02/17/18 08:43 Temperature Pulse Rate 100 H 74 Respiratory Rate 18 Blood Pressure Pulse Oximetry 93 L 97 Intake & Output 02/16/18 02/17/18 02/17/18 18:59 06:59 18:59 Intake Total 1720 / 1720 1240 / 1240 Output Total 700 / 700 1100 / 1100 Balance 1020 / 1020 140 / 140 Weight 85.2 kg Intake: IV 1000 / 1000 1000 / 1000 Sodium Bicarbonate 8.4% Inj 75 1000 / 1000 1000 / 1000 MEQ In 1/2 Normal Saline Inj 925 ML @ 100 mls/hr IV.CONT . Q10H [facility] Rx#:[id number] Oral 720 / 720 240 / 240 Output: Urine 700 / 700 1100 / 1100 Other: Date of Last Bowel Movement 02/17/18 # Bowel Movements 1 1 Narrative: Subjective: Follow-up COPD with exacerbation, hypoxia acute on chronic respiratory failure, A. fib with RVR The patient appears improved. With cough nonproductive. No n/v/d/c. No fever or chills. Physical exam: GENERAL: Pleasant cachectic 82-year-old male in bed appears chronically ill. CARDIOVASCULAR: Regular rate and rhythm. S1-S2 no S3 or S4 RESPIRATORY: With shortness of breath. Rhonchi and wheezes bilaterally. GASTROINTESTINAL: Abdomen soft, non-tender, nondistended. MUSCULOSKELETAL: Extremities without clubbing, cyanosis, or +3 bilateral lower extremity edema. No obvious deformities. NEUROLOGICAL: Awake and alert. No obvious cranial nerve deficits. Motor grossly within normal limits. 4 out of 5 muscle strength in the arms and legs. Normal speech. PSYCHIATRIC: Appropriate mood and affect; insight and judgment normal. Assessment and Plan Patient is a 82-year-old gentleman who presented to the emergency department was COPD exacerbation on chronic home oxygen with severe hypoxia and acute respiratory failure has been placed on BiPAP: COPD with exacerbation. Acute on chronic respiratory failure. Patient with chronic respiratory failure and with history of COPD. He is on chronic home oxygen. Presented with hypoxia and acute respiratory failure and was placed on BiPAP. Currently off BiPAP. Continue to monitor oxygen saturation and wean off oxygen as tolerated. We will continue on steroids Continue on duo nebs Continue on Mucinex Use BiPAP if need. Oxygen by nasal cannula keep oxygen saturation more than 92% ABG reviewed Consult pulmonary, appreciate recs A. fib with RVR. Received metoprolol overnight. Continue Cardizem p.o. 30 mg 4 times daily. Add IV metoprolol as needed if sustained heart rate more than 110. Consult cardiology. 2D echo pending. JESS. Stop bicarb, continue NS. Nephrology ff. Appreciate recommendations History of DVT continue on anticoagulation History of C. difficile toxin colitis continue on treatment WITH VANCOMYCIN ORALLY 4X DAY History of GERD continue on PPI Hyperlipidemia continue on home medications History of DVT with an IVC filter placed DM CONTINUE ON SLIDING SCALE COVERAGE Acute respiratory failure see above Continue on BiPAP Continue on oxygen Continue on steroids Continue on duo nebs Code Status: Full code Discussed Condition With: Patient, family at bedside, nurse. Discharge Planning: Pending improvement and clearance by consultants Results - Labs CBC & Chem 7: 02/17/18 04:54 02/17/18 04:54 Laboratory Results - last 24 hr 02/16/18 02/16/18 02/16/18 11:42 17:13 20:44 WBC RBC Hgb Hct MCV MCH MCHC RDW Plt Count MPV Neut % (Auto) Lymph % (Auto) [place] % (Auto) Eos % (Auto) Baso % (Auto) Neut # (Auto) Lymph # (Auto) [place] # (Auto) Eos # (Auto) Baso # (Auto) WBC Differential Differential Comment Sodium Potassium Chloride Carbon Dioxide Anion Gap BUN Creatinine Estimated GFR POC Glucose 329 H 308 H 306 H Random Glucose Calcium 02/17/18 02/17/18 02/17/18 03:43 04:54 04:54 WBC 6.2 RBC 4.08 L Hgb 11.7 L Hct 35.1 L MCV 86.0 MCH 28.7 MCHC 33.4 RDW 15.2 Plt Count 297 MPV 7.9 Neut % (Auto) 82.5 H Lymph % (Auto) 11.2 [place] % (Auto) 6.3 Eos % (Auto) 0.0 Baso % (Auto) 0.0 Neut # (Auto) 5.1 Lymph # (Auto) 0.7 L [place] # (Auto) 0.4 Eos # (Auto) 0.0 Baso # (Auto) 0.0 WBC Differential . Differential Comment Auto diff final Sodium 141 Potassium 4.7 Chloride 106 Carbon Dioxide 26.4 Anion Gap 9 BUN 104 H Creatinine 2.19 H Estimated GFR 29 L POC Glucose 180 H Random Glucose 168 H Calcium 8.5 Microbiology 02/14/18 12:10 Blood - Peripheral Aerobic Blood Culture - Preliminary No growth in 2 days 02/14/18 12:10 Blood - Peripheral Anaerobic Blood Culture - Preliminary No growth in 2 days 02/14/18 12:15 Blood - Peripheral Aerobic Blood Culture - Preliminary No growth in 2 days 02/14/18 12:15 Blood - Peripheral Anaerobic Blood Culture - Preliminary No growth in 2 days Assessment and Plan - Assessment (1) Clostridium difficile infection Code(s): B96.89 - Other specified bacterial agents as the cause of diseases classified elsewhere Status: Acute (2) JESS (acute kidney injury) Code(s): N17.9 - Acute kidney failure, unspecified Status: Acute (3) COPD (chronic obstructive pulmonary disease) Code(s): J44.9 - Chronic obstructive pulmonary disease, unspecified Status: Chronic (4) DVT (deep venous thrombosis) Code(s): I82.409 - Acute embolism and thrombosis of unspecified deep veins of unspecified lower extremity Status: Chronic (5) Hypertension Code(s): I10 - Essential (primary) hypertension Status: Chronic (6) Diabetes mellitus Code(s): E11.9 - Type 2 diabetes mellitus without complications Status: Acute (7) Sepsis Code(s): A41.9 - Sepsis, unspecified organism Status: Acute (8) COPD exacerbation Code(s): J44.1 - Chronic obstructive pulmonary disease with (acute) exacerbation Status: Acute (9) Acute respiratory failure with hypoxia Code(s): J96.01 - Acute respiratory failure with hypoxia Status: Acute (5) Hypertension Qualifiers:
[2018-02-17] MEDS: dilTIAZem CD 120 MG Capsule PO SCH (09:09)
[2018-02-17] MEDS: Nystatin Liq 500,000 UNIT/5 ML UDC SWISH-SWAL SCH ×4 (09:09→22:55)
[2018-02-17] MEDS: Ezetimibe 10 MG Tablet PO SCH (09:09)
[2018-02-17] MEDS: Famotidine 20 MG Tablet PO SCH ×2 (09:09→22:51)
[2018-02-17] MEDS: guaiFENesin 600 MG ER Tablet PO SCH ×2 (09:09→22:53)
[2018-02-17] MEDS: Budesonide-Formoterol 160/4.5 MCG 6 GM Inhaler INH SCH ×2 (09:10→23:04)
[2018-02-17] MEDS: Senna/Docusate Sodium 8.6/50 MG Tablet PO SCH ×2 (09:10→23:04)
--- NOTE | 2018-02-17 11:00 | P.PNPL ---
Subjective Interval history: 82 YOWM with COPD,hypercapnoic RF,JESS Did't requireCPAP last night now weaned to NC Family at BS Good appetite Anxious to go home Physical Exam Vital signs: Vital Signs 02/16/18 11:00 02/16/18 12:00 02/16/18 13:00 Temperature 98.1 F Pulse Rate 97 H 97 H 95 H Respiratory Rate 16 Blood Pressure 136/64 Pulse Oximetry 100 02/16/18 14:00 02/16/18 15:00 02/16/18 16:00 Temperature 97.8 F Pulse Rate 68 98 H 89 Respiratory Rate 16 Blood Pressure 156/78 H Pulse Oximetry 99 02/16/18 16:23 02/16/18 17:00 02/16/18 18:00 Temperature Pulse Rate 76 98 H 96 H Respiratory Rate 18 Blood Pressure Pulse Oximetry 02/16/18 19:00 02/16/18 20:00 02/16/18 21:00 Temperature 98 F Pulse Rate 102 H 118 H 114 H Respiratory Rate 16 Blood Pressure 142/82 H Pulse Oximetry 96 93 L 02/16/18 21:02 02/16/18 22:00 02/16/18 23:00 Temperature Pulse Rate 105 H 102 H 104 H Respiratory Rate 20 20 Blood Pressure 129/69 Pulse Oximetry 100 96 02/16/18 23:40 02/17/18 00:00 02/17/18 01:00 Temperature Pulse Rate 98 H 106 H Respiratory Rate Blood Pressure Pulse Oximetry 97 100 02/17/18 02:00 02/17/18 03:00 02/17/18 04:00 Temperature Pulse Rate 99 H 96 H 94 H Respiratory Rate 16 Blood Pressure 130/74 Pulse Oximetry 96 02/17/18 04:15 02/17/18 05:00 02/17/18 06:00 Temperature Pulse Rate 90 100 H 100 H Respiratory Rate 18 Blood Pressure Pulse Oximetry 02/17/18 07:00 02/17/18 08:00 02/17/18 08:43 Temperature 97.6 F Pulse Rate 100 H 100 H 74 Respiratory Rate 16 18 Blood Pressure 134/75 Pulse Oximetry 93 L 93 L 97 02/17/18 09:00 02/17/18 10:00 Temperature Pulse Rate 117 H 108 H Respiratory Rate Blood Pressure Pulse Oximetry Intake & Output 02/16/18 02/17/18 02/17/18 18:59 06:59 18:59 Intake Total 1720 / 1720 1240 / 1240 Output Total 700 / 700 1100 / 1100 Balance 1020 / 1020 140 / 140 Weight 85.2 kg Intake: IV 1000 / 1000 1000 / 1000 Sodium Bicarbonate 8.4% Inj 75 1000 / 1000 1000 / 1000 MEQ In 1/2 Normal Saline Inj 925 ML @ 100 mls/hr IV.CONT . Q10H [facility] Rx#:[id number] Oral 720 / 720 240 / 240 Output: Urine 700 / 700 1100 / 1100 Other: Date of Last Bowel Movement 02/17/18 # Bowel Movements 1 1 GENERAL: MBMN WM NAD SKIN: Warm and dry. HEAD: Normocephalic. EYES: No scleral icterus. No injection or drainage. NECK: Supple, trachea midline. No JVD or lymphadenopathy. CARDIOVASCULAR: Regular rate and rhythm without murmurs, gallops, or rubs. RESPIRATORY: Breath sounds equal bilaterally. No accessory muscle use. GASTROINTESTINAL: Abdomen soft, non-tender, nondistended. MUSCULOSKELETAL: No cyanosis, or edema. BACK: Nontender without obvious deformity. No CVA tenderness. Assessment and Plan - Plan IMPRESSION: 1. Respiratory failure. 2. Acute kidney injury. 4. Recent Clostridium difficile colitis. 5. Basilar infiltrate versus atelectasis. 6. Chronic obstructive pulmonary disease. PLAN: Aerosol nebs PO Vanco Supplement 02 CPAP prn monitor lytes Use Acapella
--- NOTE | 2018-02-17 12:55 | P.PNNP ---
Subjective Interval history: Patient feels better Physical Exam Vital signs: Vital Signs 02/16/18 13:00 02/16/18 14:00 02/16/18 15:00 Temperature 97.8 F Pulse Rate 95 H 68 98 H Respiratory Rate 16 Blood Pressure 156/78 H Pulse Oximetry 99 02/16/18 16:00 02/16/18 16:23 02/16/18 17:00 Temperature Pulse Rate 89 76 98 H Respiratory Rate 18 Blood Pressure Pulse Oximetry 02/16/18 18:00 02/16/18 19:00 02/16/18 20:00 Temperature 98 F Pulse Rate 96 H 102 H 118 H Respiratory Rate 16 Blood Pressure 142/82 H Pulse Oximetry 96 93 L 02/16/18 21:00 02/16/18 21:02 02/16/18 22:00 Temperature Pulse Rate 114 H 105 H 102 H Respiratory Rate 20 Blood Pressure Pulse Oximetry 100 02/16/18 23:00 02/16/18 23:40 02/17/18 00:00 Temperature Pulse Rate 104 H 98 H Respiratory Rate 20 Blood Pressure 129/69 Pulse Oximetry 96 97 02/17/18 01:00 02/17/18 02:00 02/17/18 03:00 Temperature Pulse Rate 106 H 99 H 96 H Respiratory Rate 16 Blood Pressure 130/74 Pulse Oximetry 100 96 02/17/18 04:00 02/17/18 04:15 02/17/18 05:00 Temperature Pulse Rate 94 H 90 100 H Respiratory Rate 18 Blood Pressure Pulse Oximetry 02/17/18 06:00 02/17/18 07:00 02/17/18 08:00 Temperature 97.6 F Pulse Rate 100 H 100 H 100 H Respiratory Rate 16 Blood Pressure 134/75 Pulse Oximetry 93 L 93 L 02/17/18 08:43 02/17/18 09:00 02/17/18 10:00 Temperature Pulse Rate 74 117 H 108 H Respiratory Rate 18 Blood Pressure Pulse Oximetry 97 02/17/18 11:00 02/17/18 12:00 Temperature 97.8 F Pulse Rate 109 H 110 H Respiratory Rate 16 Blood Pressure 123/68 Pulse Oximetry 99 Intake & Output 02/16/18 02/17/18 02/17/18 18:59 06:59 18:59 Intake Total 1720 / 1720 1240 / 1240 1000 / 1000 Output Total 700 / 700 1100 / 1100 Balance 1020 / 1020 140 / 140 1000 / 1000 Weight 85.2 kg Intake: IV 1000 / 1000 1000 / 1000 1000 / 1000 Sodium Bicarbonate 8.4% Inj 75 1000 / 1000 1000 / 1000 1000 / 1000 MEQ In 1/2 Normal Saline Inj 925 ML @ 100 mls/hr IV.CONT . Q10H [facility] Rx#:[id number] Oral 720 / 720 240 / 240 Output: Urine 700 / 700 1100 / 1100 Other: Date of Last Bowel Movement 02/17/18 # Bowel Movements 1 1 - Constitutional no acute distress - Routine HEENT Exam Head: Present: normocephalic - Routine Respiratory Exam Present: CTA bilaterally - Routine Cardiovascular Exam Present: RRR - Routine Abdominal Exam Present: soft, normoactive bowel sounds - Routine Neurological Exam Present: alert Assessment and Plan - Assessment (1) Dehydration Code(s): E86.0 - Dehydration Status: Acute Plan: Resolving acute renal failure creatinine declined to 2.19 with hydration, bicarbonate improved DC bicarbonate from IV fluids and change it to normal saline Follows with Dr. Nieto (2) Clostridium difficile infection Code(s): B96.89 - Other specified bacterial agents as the cause of diseases classified elsewhere Status: Acute (3) JESS (acute kidney injury) Code(s): N17.9 - Acute kidney failure, unspecified Status: Acute - Plan As above responding to IV hydration with bicarbonate and IV fluids follow BMP
[2018-02-18] MEDS: Insulin NovoLOG Aspart Correctional Sugar Inj SQ SCH ×5 (03:38→22:27)
[2018-02-18] MEDS: MethylPREDNISolone Sod Succinate Inj 125 MG/2 ML Vial IV.PUSH SCH (04:40)
[2018-02-18] MEDS: Chlorhexidine Gluconate 2% 1 Pack (2 Cloths) TOPICAL SCH (04:44)
[2018-02-18 06:59] LABS: Hemoglobin 11.7 gm/dL (13.0-17.0); Lymph # (Auto) 0.7 th/mm3 (1.0-4.8); Lymph % (Auto) 10.1 % (9.0-44.0); Mean Corpuscular HGB Conc 33.5 % (32.0-36.0); Mean Corpuscular Hemoglobin 28.8 pg (27.0-34.0); Mean Platelet Volume 7.7 fL (7.0-11.0); Mono # (Auto) 0.5 th/mm3 (0.0-0.9); Mono % (Auto) 6.7 % (0.0-8.0); Neut # (Auto) 5.8 th/mm3 (1.8-7.7); Neut % (Auto) 83.2 % (16.0-70.0); Platelet Count 320 th/mm3 (150-450); Red Blood Count 4.07 mil/mm3 (4.50-5.90); Red Cell Distribution Width 15.1 % (11.6-17.2); White Blood Count 6.9 th/mm3 (4.0-11.0)
[2018-02-18 07:12] LABS: Calcium 8.7 mg/dL (8.5-10.1); Potassium 4.6 meq/L (3.5-5.1)
[2018-02-18] MEDS: Nystatin Liq 500,000 UNIT/5 ML UDC SWISH-SWAL SCH ×4 (08:32→22:26)
[2018-02-18] MEDS: Famotidine 20 MG Tablet PO SCH ×2 (08:33→22:27)
[2018-02-18] MEDS: Ezetimibe 10 MG Tablet PO SCH (08:34)
[2018-02-18] MEDS: guaiFENesin 600 MG ER Tablet PO SCH ×2 (08:34→22:26)
[2018-02-18] MEDS: dilTIAZem CD 120 MG Capsule PO SCH (08:34)
[2018-02-18] MEDS: Senna/Docusate Sodium 8.6/50 MG Tablet PO SCH ×2 (08:35→22:28)
[2018-02-18] MEDS: Budesonide-Formoterol 160/4.5 MCG 6 GM Inhaler INH SCH ×2 (10:01→22:31)
--- NOTE | 2018-02-18 10:52 | P.PNNP ---
Subjective Interval history: Renal function improved. He is still on oxygen. His diarrhea has improved significantly. <Tiarra Reeves - Last Filed: 02/18/18 10:44> Physical Exam Vital signs: Vital Signs 02/17/18 11:00 02/17/18 12:00 02/17/18 13:00 Temperature 97.8 F Pulse Rate 109 H 110 H 108 H Respiratory Rate 16 Blood Pressure 123/68 Pulse Oximetry 99 02/17/18 14:00 02/17/18 15:00 02/17/18 16:00 Temperature 97.7 F Pulse Rate 115 H 110 H 109 H Respiratory Rate 16 Blood Pressure 131/71 Pulse Oximetry 95 02/17/18 16:05 02/17/18 17:00 02/17/18 18:00 Temperature Pulse Rate 110 H 114 H 110 H Respiratory Rate 18 Blood Pressure Pulse Oximetry 02/17/18 19:00 02/17/18 20:00 02/17/18 20:59 Temperature 97.7 F Pulse Rate 103 H 116 H 110 H Respiratory Rate 20 18 Blood Pressure 145/74 H Pulse Oximetry 95 95 02/17/18 21:00 02/17/18 22:00 02/17/18 23:00 Temperature Pulse Rate 98 H 104 H 101 H Respiratory Rate 16 Blood Pressure 139/73 Pulse Oximetry 99 02/18/18 00:00 02/18/18 00:11 02/18/18 01:00 Temperature Pulse Rate 100 H 90 Respiratory Rate Blood Pressure Pulse Oximetry 99 02/18/18 02:00 02/18/18 03:00 02/18/18 03:43 Temperature Pulse Rate 86 90 94 H Respiratory Rate 16 16 Blood Pressure 123/73 Pulse Oximetry 99 02/18/18 04:00 02/18/18 05:00 02/18/18 06:00 Temperature Pulse Rate 92 H 114 H 98 H Respiratory Rate Blood Pressure Pulse Oximetry Intake & Output 02/17/18 02/18/18 02/18/18 18:59 06:59 18:59 Intake Total 3050 / 3050 240 / 240 Output Total 1000 / 1000 900 / 900 Balance 2049 -660 / -660 Weight 86.9 kg Intake: IV 1999 / 1999 Sodium Bicarbonate 8.4% Inj 75 1999 / 1999 MEQ In 1/2 Normal Saline Inj 925 ML @ 100 mls/hr IV.CONT . Q10H [facility] Rx#:[id number] Oral 1050 / 1050 240 / 240 Output: Urine 1000 / 1000 900 / 900 Other: Date of Last Bowel Movement 02/17/18 02/18/18 # Bowel Movements 2 1 - Constitutional no acute distress, chronically ill appearing - Routine HEENT Exam Head: Present: normocephalic - Routine Neck Exam Present: supple, full ROM. Absent: JVD - Routine Respiratory Exam Present: rhonchi, wheezes, crackles. Absent: accessory muscle use Comments: mostly on right - Routine Cardiovascular Exam Present: RRR, S1, S2 - Routine Abdominal Exam Present: soft, normoactive bowel sounds - Routine Extremities Exam Present: edema Comments: lower extremity edema - Routine Skin Exam Present: intact, warm - Routine Neurological Exam Present: alert, oriented X3, CN II-XII intact, moving all extremities, hearing grossly intact - Detailed Neurological Exam: Coma Scale Eye Opening: Spontaneous Verbal Response: Oriented Motor Response: Obey commands [place] Coma Scale Total: 15 - Routine Psychiatric Exam Present: normal affect, normal thought process <Tiarra Reeves - Last Filed: 02/18/18 10:44> Vital signs: Vital Signs 02/18/18 12:00 02/18/18 13:00 02/18/18 14:00 Temperature 98.2 F Pulse Rate 101 H 106 H 97 H Respiratory Rate 20 Blood Pressure 134/69 Pulse Oximetry 94 L Pulse Oximetry [Exertion on Room Air] Pulse Oximetry [Resting on Room Air] Pulse Oximetry [Resting with Oxygen] 02/18/18 15:00 02/18/18 15:55 02/18/18 16:00 Temperature Pulse Rate 92 H 90 88 Respiratory Rate 20 Blood Pressure Pulse Oximetry 97 Pulse Oximetry [Exertion on Room Air] Pulse Oximetry [Resting on Room Air] Pulse Oximetry [Resting with Oxygen] 02/18/18 17:00 02/18/18 18:00 02/18/18 18:39 Temperature Pulse Rate 96 H 100 H Respiratory Rate Blood Pressure Pulse Oximetry Pulse Oximetry [Exertion on Room Air] 95 Pulse Oximetry [Resting on Room Air] 96 Pulse Oximetry [Resting with Oxygen] 98 02/18/18 19:00 02/18/18 20:00 02/18/18 21:00 Temperature 97.8 F Pulse Rate 96 H 93 H 88 Respiratory Rate 18 Blood Pressure 137/80 Pulse Oximetry 95 Pulse Oximetry [Exertion on Room Air] Pulse Oximetry [Resting on Room Air] Pulse Oximetry [Resting with Oxygen] 02/18/18 22:00 02/18/18 23:00 02/19/18 00:00 Temperature 98.2 F Pulse Rate 86 92 H 92 H Respiratory Rate 18 Blood Pressure 150/74 H Pulse Oximetry 97 Pulse Oximetry [Exertion on Room Air] Pulse Oximetry [Resting on Room Air] Pulse Oximetry [Resting with Oxygen] 02/19/18 01:00 02/19/18 02:00 02/19/18 03:00 Temperature 98.2 F Pulse Rate 89 84 84 Respiratory Rate 18 Blood Pressure 127/70 Pulse Oximetry 95 Pulse Oximetry [Exertion on Room Air] Pulse Oximetry [Resting on Room Air] Pulse Oximetry [Resting with Oxygen] 02/19/18 04:00 02/19/18 05:00 02/19/18 06:00 Temperature Pulse Rate 86 80 84 Respiratory Rate Blood Pressure Pulse Oximetry Pulse Oximetry [Exertion on Room Air] Pulse Oximetry [Resting on Room Air] Pulse Oximetry [Resting with Oxygen] 02/19/18 07:00 02/19/18 08:00 02/19/18 09:00 Temperature 97.8 F Pulse Rate 79 84 100 H Respiratory Rate 20 Blood Pressure 144/84 H Pulse Oximetry 94 L 94 L Pulse Oximetry [Exertion on Room Air] Pulse Oximetry [Resting on Room Air] Pulse Oximetry [Resting with Oxygen] 02/19/18 10:00 Temperature Pulse Rate 90 Respiratory Rate Blood Pressure Pulse Oximetry Pulse Oximetry [Exertion on Room Air] Pulse Oximetry [Resting on Room Air] Pulse Oximetry [Resting with Oxygen] Intake & Output 02/18/18 02/19/18 02/19/18 18:59 06:59 18:59 Intake Total 800 / 800 240 / 240 400 / 400 Output Total 750 / 750 950 / 950 250 / 250 Balance 50 / 50 -710 / -710 150 / 150 Weight 87 kg Intake: Oral 800 / 800 240 / 240 400 / 400 Output: Urine 750 / 750 950 / 950 250 / 250 Other: Date of Last Bowel Movement 02/18/18 02/18/18 02/18/18 # Bowel Movements 1 <Leif Nieto - Last Filed: 02/19/18 11:06> Assessment and Plan - Assessment (1) JESS (acute kidney injury) Code(s): N17.9 - Acute kidney failure, unspecified Status: Acute Plan: Baseline creatinine 1.3. May have mild CKD at baseline. JESS thought to be due to intravascular volume depletion secondary to diarrhea. Renal function improved He is non oliguric Encourage PO fluids. IVF not currently infusing. UA without proteinuria. Monitor urine output, repeat labs daily. Avoid nephrotoxic agents. Dose medications appropriate to renal status (2) Dehydration Code(s): E86.0 - Dehydration Status: Acute Plan: Due to diarrhea, improved with IVF. (3) Clostridium difficile infection Code(s): B96.89 - Other specified bacterial agents as the cause of diseases classified elsewhere Status: Acute Plan: On PO vancomycin. and contact precautions. (4) COPD (chronic obstructive pulmonary disease) Code(s): J44.9 - Chronic obstructive pulmonary disease, unspecified Status: Chronic Plan: On oxygen, may need walk test to determine need for continuos oxygen at home On Nebs. Solumedrol was stopped. <Tiarra Reeves - Last Filed: 02/18/18 10:44> - Assessment (1) JESS (acute kidney injury) Code(s): N17.9 - Acute kidney failure, unspecified Status: Acute (2) Dehydration Code(s): E86.0 - Dehydration Status: Acute (3) Clostridium difficile infection Code(s): B96.89 - Other specified bacterial agents as the cause of diseases classified elsewhere Status: Acute (4) COPD (chronic obstructive pulmonary disease) Code(s): J44.9 - Chronic obstructive pulmonary disease, unspecified Status: Chronic - Attending Attestation patient was seen and examined. Agree with above assessment and plan. <Leif Nieto - Last Filed: 02/19/18 11:06>
[2018-02-18] MEDS ORDERED: MethylPREDNISolone Sod Succinate Inj 40 MG/ML Vial IV.PUSH SCH (14:00)
--- NOTE | 2018-02-18 14:38 | P.PN ---
Physical Exam Vital signs: Vital Signs 02/17/18 15:00 02/17/18 16:00 02/17/18 16:05 Temperature 97.7 F Pulse Rate 110 H 109 H 110 H Respiratory Rate 16 18 Blood Pressure 131/71 Pulse Oximetry 95 02/17/18 17:00 02/17/18 18:00 02/17/18 19:00 Temperature 97.7 F Pulse Rate 114 H 110 H 103 H Respiratory Rate 20 Blood Pressure 145/74 H Pulse Oximetry 95 02/17/18 20:00 02/17/18 20:59 02/17/18 21:00 Temperature Pulse Rate 116 H 110 H 98 H Respiratory Rate 18 Blood Pressure Pulse Oximetry 95 02/17/18 22:00 02/17/18 23:00 02/18/18 00:00 Temperature Pulse Rate 104 H 101 H 100 H Respiratory Rate 16 Blood Pressure 139/73 Pulse Oximetry 99 02/18/18 00:11 02/18/18 01:00 02/18/18 02:00 Temperature Pulse Rate 90 86 Respiratory Rate Blood Pressure Pulse Oximetry 99 02/18/18 03:00 02/18/18 03:43 02/18/18 04:00 Temperature Pulse Rate 90 94 H 92 H Respiratory Rate 16 16 Blood Pressure 123/73 Pulse Oximetry 99 02/18/18 05:00 02/18/18 06:00 02/18/18 08:00 Temperature 97.9 F Pulse Rate 114 H 98 H 95 H Respiratory Rate 20 Blood Pressure 141/77 H Pulse Oximetry 97 02/18/18 08:25 02/18/18 09:00 02/18/18 11:00 Temperature Pulse Rate 102 H 108 H Respiratory Rate Blood Pressure Pulse Oximetry 97 02/18/18 12:00 02/18/18 13:00 02/18/18 14:00 Temperature 98.2 F Pulse Rate 101 H 106 H 97 H Respiratory Rate 20 Blood Pressure 134/69 Pulse Oximetry 94 L Intake & Output 02/17/18 02/18/18 02/18/18 18:59 06:59 18:59 Intake Total 3050 / 3050 240 / 240 Output Total 1000 / 1000 900 / 900 Balance 2049 / 2050 -660 / -660 Weight 86.9 kg Intake: IV 1999 / 1999 Sodium Bicarbonate 8.4% Inj 75 1999 / 1999 MEQ In 1/2 Normal Saline Inj 925 ML @ 100 mls/hr IV.CONT . Q10H ARYA Rx#:[id number] Oral 1050 / 1050 240 / 240 Output: Urine 1000 / 1000 900 / 900 Other: Date of Last Bowel Movement 02/17/18 02/18/18 02/18/18 # Bowel Movements 2 1 Narrative: Subjective: Follow-up COPD with exacerbation, hypoxia acute on chronic respiratory failure, A. fib with RVR The patient appears improved. With cough nonproductive. With some shortness of breath however he improved significantly. Feels weak. Does not have oxygen during the day at home. Will do a walking test tomorrow morning. Plan to taper off steroids and possible discharge tomorrow if continues to improves. No fever or chills. Had a forming stool in the morning. Physical exam: GENERAL: Pleasant cachectic 82-year-old appears to not acute distress at this time. CARDIOVASCULAR: Regular rate and rhythm. S1-S2 no S3 or S4 RESPIRATORY: Less shortness of breath. Minimal rhonchi is scattered no wheezing. GASTROINTESTINAL: Abdomen soft, non-tender, nondistended. MUSCULOSKELETAL: Extremities without clubbing, cyanosis, or +3 bilateral lower extremity edema. No obvious deformities. NEUROLOGICAL: Awake and alert. No obvious cranial nerve deficits. Motor grossly within normal limits. 4 out of 5 muscle strength in the arms and legs. Normal speech. PSYCHIATRIC: Appropriate mood and affect; insight and judgment normal. Assessment and Plan Patient is a 82-year-old gentleman who presented to the emergency department was COPD exacerbation on chronic home oxygen with severe hypoxia and acute respiratory failure has been placed on BiPAP: COPD with exacerbation. Acute on chronic respiratory failure. Patient with chronic respiratory failure and with history of COPD. He is on chronic home oxygen. Presented with hypoxia and acute respiratory failure and was placed on BiPAP. Currently off BiPAP. Continue to monitor oxygen saturation and wean off oxygen as tolerated. We will continue on steroids Continue on duo nebs Continue on Mucinex Use BiPAP if need. Oxygen by nasal cannula keep oxygen saturation more than 92% ABG reviewed Consult pulmonary, appreciate recs A. fib with RVR. Received metoprolol overnight. Continue Cardizem p.o. 30 mg 4 times daily. Add IV metoprolol as needed if sustained heart rate more than 110. Consult cardiology. 2D echo pending. JESS. Stop bicarb, continue NS. Nephrology ff. Appreciate recommendations History of DVT continue on anticoagulation History of C. difficile toxin colitis continue on treatment WITH VANCOMYCIN ORALLY 4X DAY History of GERD continue on PPI Hyperlipidemia continue on home medications History of DVT with an IVC filter placed DM CONTINUE ON SLIDING SCALE COVERAGE Acute respiratory failure see above Continue on BiPAP Continue on oxygen Continue on steroids Continue on duo nebs Code Status: Full code Discussed Condition With: Patient, family at bedside, nurse. Discharge Planning: Pending improvement and clearance by consultants Will wean off steroids, if continues to improve possible discharge tomorrow. We will do walking oxygen test tomorrow morning Results - Labs CBC & Chem 7: 02/18/18 06:01 02/18/18 06:01 Laboratory Results - last 24 hr 02/17/18 02/17/18 02/18/18 17:24 21:19 03:31 WBC RBC Hgb Hct MCV MCH MCHC RDW Plt Count MPV Neut % (Auto) Lymph % (Auto) [place] % (Auto) Eos % (Auto) Baso % (Auto) Neut # (Auto) Lymph # (Auto) [place] # (Auto) Eos # (Auto) Baso # (Auto) WBC Differential Differential Comment Sodium Potassium Chloride Carbon Dioxide Anion Gap BUN Creatinine Estimated GFR POC Glucose 422 H 264 H 130 H Random Glucose Calcium 02/18/18 02/18/18 02/18/18 06:01 06:01 08:23 WBC 6.9 RBC 4.07 L Hgb 11.7 L Hct 35.0 L MCV 86.0 MCH 28.8 MCHC 33.5 RDW 15.1 Plt Count 320 MPV 7.7 Neut % (Auto) 83.2 H Lymph % (Auto) 10.1 [place] % (Auto) 6.7 Eos % (Auto) 0.0 Baso % (Auto) 0.0 Neut # (Auto) 5.8 Lymph # (Auto) 0.7 L [place] # (Auto) 0.5 Eos # (Auto) 0.0 Baso # (Auto) 0.0 WBC Differential . Differential Comment Auto diff final Sodium 142 Potassium 4.6 Chloride 104 Carbon Dioxide 29.0 Anion Gap 9 BUN 76 H Creatinine 1.89 H Estimated GFR 34 L POC Glucose 209 H Random Glucose 171 H Calcium 8.7 02/18/18 11:50 WBC RBC Hgb Hct MCV MCH MCHC RDW Plt Count MPV Neut % (Auto) Lymph % (Auto) [place] % (Auto) Eos % (Auto) Baso % (Auto) Neut # (Auto) Lymph # (Auto) [place] # (Auto) Eos # (Auto) Baso # (Auto) WBC Differential Differential Comment Sodium Potassium Chloride Carbon Dioxide Anion Gap BUN Creatinine Estimated GFR POC Glucose 308 H Random Glucose Calcium Microbiology 02/14/18 12:10 Blood - Peripheral Aerobic Blood Culture - Preliminary No growth in 4 days 02/14/18 12:10 Blood - Peripheral Anaerobic Blood Culture - Preliminary No growth in 4 days 02/14/18 12:15 Blood - Peripheral Aerobic Blood Culture - Preliminary No growth in 4 days 02/14/18 12:15 Blood - Peripheral Anaerobic Blood Culture - Preliminary No growth in 4 days Assessment and Plan - Assessment (1) Clostridium difficile infection Code(s): B96.89 - Other specified bacterial agents as the cause of diseases classified elsewhere Status: Acute (2) JESS (acute kidney injury) Code(s): N17.9 - Acute kidney failure, unspecified Status: Acute (3) COPD (chronic obstructive pulmonary disease) Code(s): J44.9 - Chronic obstructive pulmonary disease, unspecified Status: Chronic (4) DVT (deep venous thrombosis) Code(s): I82.409 - Acute embolism and thrombosis of unspecified deep veins of unspecified lower extremity Status: Chronic (5) Hypertension Code(s): I10 - Essential (primary) hypertension Status: Chronic (6) Diabetes mellitus Code(s): E11.9 - Type 2 diabetes mellitus without complications Status: Acute (7) Sepsis Code(s): A41.9 - Sepsis, unspecified organism Status: Acute (8) COPD exacerbation Code(s): J44.1 - Chronic obstructive pulmonary disease with (acute) exacerbation Status: Acute (9) Acute respiratory failure with hypoxia Code(s): J96.01 - Acute respiratory failure with hypoxia Status: Acute (5) Hypertension Qualifiers:
--- NOTE | 2018-02-18 18:11 | P.PNPL ---
Subjective Interval history: 82 YOWM with COPD,hypercapnoic RF,JESS Did't requireCPAP last night Good appetite Anxious to go home On NC, maintains good sats Physical Exam Vital signs: Vital Signs 02/17/18 19:00 02/17/18 20:00 02/17/18 20:59 Temperature 97.7 F Pulse Rate 103 H 116 H 110 H Respiratory Rate 20 18 Blood Pressure 145/74 H Pulse Oximetry 95 95 02/17/18 21:00 02/17/18 22:00 02/17/18 23:00 Temperature Pulse Rate 98 H 104 H 101 H Respiratory Rate 16 Blood Pressure 139/73 Pulse Oximetry 99 02/18/18 00:00 02/18/18 00:11 02/18/18 01:00 Temperature Pulse Rate 100 H 90 Respiratory Rate Blood Pressure Pulse Oximetry 99 02/18/18 02:00 02/18/18 03:00 02/18/18 03:43 Temperature Pulse Rate 86 90 94 H Respiratory Rate 16 16 Blood Pressure 123/73 Pulse Oximetry 99 02/18/18 04:00 02/18/18 05:00 02/18/18 06:00 Temperature Pulse Rate 92 H 114 H 98 H Respiratory Rate Blood Pressure Pulse Oximetry 02/18/18 07:00 02/18/18 08:00 02/18/18 08:25 Temperature 97.9 F Pulse Rate 94 H 95 H Respiratory Rate 20 Blood Pressure 141/77 H Pulse Oximetry 97 97 02/18/18 09:00 02/18/18 11:00 02/18/18 12:00 Temperature 98.2 F Pulse Rate 102 H 113 H 101 H Respiratory Rate 20 Blood Pressure 134/69 Pulse Oximetry 94 L 02/18/18 13:00 02/18/18 14:00 02/18/18 15:00 Temperature Pulse Rate 106 H 97 H 92 H Respiratory Rate Blood Pressure Pulse Oximetry 02/18/18 15:55 02/18/18 16:00 02/18/18 17:00 Temperature Pulse Rate 90 88 96 H Respiratory Rate 20 Blood Pressure Pulse Oximetry 97 02/18/18 18:00 Temperature Pulse Rate 100 H Respiratory Rate Blood Pressure Pulse Oximetry Intake & Output 02/17/18 02/18/18 02/18/18 18:59 06:59 18:59 Intake Total 3050 / 3050 240 / 240 800 / 800 Output Total 1000 / 1000 900 / 900 750 / 750 Balance 2049 -660 / -660 50 / 50 Weight 86.9 kg Intake: IV 1999 / 1999 Sodium Bicarbonate 8.4% Inj 75 1999 / 1999 MEQ In 1/2 Normal Saline Inj 925 ML @ 100 mls/hr IV.CONT . Q10H ARYA Rx#:[id number] Oral 1050 / 1050 240 / 240 800 / 800 Output: Urine 1000 / 1000 900 / 900 750 / 750 Other: Date of Last Bowel Movement 02/17/18 02/18/18 02/18/18 # Bowel Movements 2 1 GENERAL: MBMN,NAD SKIN: Warm and dry. HEAD: Normocephalic. EYES: No scleral icterus. No injection or drainage. NECK: Supple, trachea midline. No JVD or lymphadenopathy. CARDIOVASCULAR: Regular rate and rhythm without murmurs, gallops, or rubs. RESPIRATORY: Breath sounds equal bilaterally. No accessory muscle use. GASTROINTESTINAL: Abdomen soft, non-tender, nondistended. MUSCULOSKELETAL: No cyanosis, or edema. BACK: Nontender without obvious deformity. No CVA tenderness. Assessment and Plan - Plan IMPRESSION: 1. Respiratory failure. 2. Acute kidney injury. 4. Recent Clostridium difficile colitis. 5. Basilar infiltrate versus atelectasis. 6. Chronic obstructive pulmonary disease. PLAN: Aerosol nebs PO Vanco Supplement 02 CPAP prn monitor lytes Use Acapella DC plans underway
[2018-02-18] MEDS: MethylPREDNISolone Sod Succinate Inj 40 MG/ML Vial IV.PUSH SCH (22:28)
[2018-02-19] MEDS: Insulin NovoLOG Aspart Correctional Sugar Inj SQ SCH ×2 (04:00→08:48)
[2018-02-19 06:43] LABS: Eos % (Auto) 0.1 % (0.0-4.0); Hematocrit 36.6 % (39.0-51.0); Hemoglobin 12.4 gm/dL (13.0-17.0); Lymph # (Auto) 0.9 th/mm3 (1.0-4.8); Lymph % (Auto) 12.6 % (9.0-44.0); Mean Corpuscular HGB Conc 33.9 % (32.0-36.0); Mean Corpuscular Hemoglobin 29.1 pg (27.0-34.0); Mean Platelet Volume 7.3 fL (7.0-11.0); Mono # (Auto) 0.6 th/mm3 (0.0-0.9); Mono % (Auto) 9.4 % (0.0-8.0); Neut # (Auto) 5.3 th/mm3 (1.8-7.7); Neut % (Auto) 77.9 % (16.0-70.0); Platelet Count 326 th/mm3 (150-450); Red Blood Count 4.26 mil/mm3 (4.50-5.90); White Blood Count 6.9 th/mm3 (4.0-11.0)
[2018-02-19 06:59] LABS: Calcium 8.6 mg/dL (8.5-10.1); Carbon Dioxide 30.7 meq/L (21.0-32.0); Potassium 4.7 meq/L (3.5-5.1)
--- NOTE | 2018-02-19 08:14 | P.DS ---
Date of admission: 02/14/18 15:12 Primary care physician: Mavis Lindo MD Brief History from admission: Patient is a 82-year-old gentleman who was recently discharged from the hospital on February 07. He was treated for C. difficile colitis. Patient comes in today complaining of increasing progressive worsening of shortness of breath it has been going on for the past 2 days. His home health attempted to increase the oxygen but he was still reading on the pulse ox about 81% when seen. 911 was therefore called and EMS brought the patient here with a pulse ox still reading about 70% or so when he took off his oxygen. Patient is therefore in the emergency department is already on BiPAP. Will get an ABG. And patient will be admitted to the ICU. Patient has severe shortness of breath it is worsening needs to be placed on BiPAP At home had been on oxygen 2 L by nasal cannula Has history of COPD Past medical history significant for DVT, hypertension, diabetes mellitus, kidney injury, and COPD and hyperlipidemia and GERD and recent C. difficile toxin colitis DS: Diagnosis - Discharge Diagnosis (1) Clostridium difficile infection Status: Acute (2) JESS (acute kidney injury) Status: Acute (3) COPD (chronic obstructive pulmonary disease) Status: Chronic (4) DVT (deep venous thrombosis) Status: Chronic (5) Hypertension Status: Chronic (6) Diabetes mellitus Status: Acute (7) Sepsis Status: Acute (8) COPD exacerbation Status: Acute (9) Acute respiratory failure with hypoxia Status: Acute DS: Medications - Discharge Medications Prescriptions: apixaban [Eliquis] 2.5 mg PO BID #60 tab cefuroxime axetil 500 mg PO Q12H #10 tab diltiazem HCl 120 mg PO DAILY #60 cap guaifenesin [Mucinex] 600 mg PO BID #10 tab Lactobacillus acidoph-L.bulgar [Lactinex] 2 tab PO BID #60 tab nicotine 1 patch TRANSDERMAL DAILY #30 ea nitroglycerin [Nitrostat] 0.4 mg SUBLINGUAL Q5M PRN #30 tab PRN Reason: Angina prednisone [Deltasone] 40 mg PO DAILY #3 tab DS: Summary Hospital Course: Physical exam: GENERAL: Pleasant cachectic 82-year-old appears to not acute distress at this time. CARDIOVASCULAR: Regular rate and rhythm. S1-S2 no S3 or S4 RESPIRATORY: Less shortness of breath. Minimal rhonchi is scattered no wheezing. GASTROINTESTINAL: Abdomen soft, non-tender, nondistended. MUSCULOSKELETAL: Extremities without clubbing, cyanosis, edema improved. No obvious deformities. NEUROLOGICAL: Awake and alert. No obvious cranial nerve deficits. Motor grossly within normal limits. 4 out of 5 muscle strength in the arms and legs. Normal speech. PSYCHIATRIC: Appropriate mood and affect; insight and judgment normal. Assessment and Plan Patient is a 82-year-old gentleman who presented to the emergency department was COPD exacerbation on chronic home oxygen with severe hypoxia and acute respiratory failure has been placed on BiPAP on admission. Also with JESS, AFib with RVR on admission. Weaned off to NC and also by DC he passed O2 walking test. DC home in stable condition to f/u as OP with PCP and consultants. COPD with exacerbation. Acute on chronic respiratory failure. Patient with chronic respiratory failure and with history of COPD. He is on chronic home oxygen. Presented with hypoxia and acute respiratory failure and was placed on BiPAP. Currently off BiPAP. Continue to monitor oxygen saturation and wean off oxygen as tolerated. Steroids, tapered Continue on duo nebs Continue on Mucinex Use BiPAP if need. Oxygen by nasal cannula keep oxygen saturation more than 92% . Passed O2 walking test ABG reviewed Consult pulmonary, appreciate recs, cleared for DC A. fib with RVR. Received metoprolol overnight. Continue Cardizem p.o. 30 mg 4 times daily. Add IV metoprolol as needed if sustained heart rate more than 110. Consult cardiology. 2D echo with normal EF 60-65 % JESS. Improved. Stop bicarb. Nephrology ff. Appreciate recommendations, cleared pt for DC History of DVT continue on anticoagulation History of C. difficile toxin colitis continue on treatment WITH VANCOMYCIN ORALLY History of GERD continue on PPI Hyperlipidemia continue on home medications History of DVT with an IVC filter placed DM CONTINUE ON SLIDING SCALE COVERAGE Acute respiratory failure see above Continue on BiPAP as need. Patient improved and did not use bipap anymore. Weaned off to NC and also by DC he passed O2 walking test. Continue on steroids, tapered Continue on duo nebs Improved. Passed O2 walking test DC home in stable condition to follow up as OP with PCP and consultants. - Time Spent with Patient Total time spent providing and/or coordinating discharge services: Greater than 30 minutes Exam Vital signs: Vital Signs 02/18/18 08:25 02/18/18 09:00 02/18/18 11:00 Temperature Pulse Rate 102 H 113 H Respiratory Rate Blood Pressure Pulse Oximetry 97 Pulse Oximetry [Exertion on Room Air] Pulse Oximetry [Resting on Room Air] Pulse Oximetry [Resting with Oxygen] 02/18/18 12:00 02/18/18 13:00 02/18/18 14:00 Temperature 98.2 F Pulse Rate 101 H 106 H 97 H Respiratory Rate 20 Blood Pressure 134/69 Pulse Oximetry 94 L Pulse Oximetry [Exertion on Room Air] Pulse Oximetry [Resting on Room Air] Pulse Oximetry [Resting with Oxygen] 02/18/18 15:00 02/18/18 15:55 02/18/18 16:00 Temperature Pulse Rate 92 H 90 88 Respiratory Rate 20 Blood Pressure Pulse Oximetry 97 Pulse Oximetry [Exertion on Room Air] Pulse Oximetry [Resting on Room Air] Pulse Oximetry [Resting with Oxygen] 02/18/18 17:00 02/18/18 18:00 02/18/18 18:39 Temperature Pulse Rate 96 H 100 H Respiratory Rate Blood Pressure Pulse Oximetry Pulse Oximetry [Exertion on Room Air] 95 Pulse Oximetry [Resting on Room Air] 96 Pulse Oximetry [Resting with Oxygen] 98 02/18/18 19:00 02/18/18 20:00 02/18/18 21:00 Temperature 97.8 F Pulse Rate 96 H 93 H 88 Respiratory Rate 18 Blood Pressure 137/80 Pulse Oximetry 95 Pulse Oximetry [Exertion on Room Air] Pulse Oximetry [Resting on Room Air] Pulse Oximetry [Resting with Oxygen] 02/18/18 22:00 02/18/18 23:00 02/19/18 00:00 Temperature 98.2 F Pulse Rate 86 92 H 92 H Respiratory Rate 18 Blood Pressure 150/74 H Pulse Oximetry 97 Pulse Oximetry [Exertion on Room Air] Pulse Oximetry [Resting on Room Air] Pulse Oximetry [Resting with Oxygen] 02/19/18 01:00 02/19/18 02:00 02/19/18 03:00 Temperature 98.2 F Pulse Rate 89 84 84 Respiratory Rate 18 Blood Pressure 127/70 Pulse Oximetry 95 Pulse Oximetry [Exertion on Room Air] Pulse Oximetry [Resting on Room Air] Pulse Oximetry [Resting with Oxygen] 02/19/18 04:00 02/19/18 05:00 02/19/18 06:00 Temperature Pulse Rate 86 80 84 Respiratory Rate Blood Pressure Pulse Oximetry Pulse Oximetry [Exertion on Room Air] Pulse Oximetry [Resting on Room Air] Pulse Oximetry [Resting with Oxygen] Intake & Output 02/18/18 02/19/18 02/19/18 18:59 06:59 18:59 Intake Total 800 / 800 240 / 240 Output Total 750 / 750 950 / 950 Balance 50 / 50 -710 / -710 Weight 87 kg Intake: Oral 800 / 800 240 / 240 Output: Urine 750 / 750 950 / 950 Other: Date of Last Bowel Movement 02/18/18 02/18/18 # Bowel Movements 1 Results Procedures completed during hospitalization: no procedures Labs on day of discharge: Labs from last 24 hours 02/19/18 02/19/18 02/19/18 07:35 06:21 06:21 WBC 6.9 RBC 4.26 L Hgb 12.4 L Hct 36.6 L MCV 86.0 MCH 29.1 MCHC 33.9 RDW 15.0 Plt Count 326 MPV 7.3 Neut % (Auto) 77.9 H Lymph % (Auto) 12.6 [place] % (Auto) 9.4 H Eos % (Auto) 0.1 Baso % (Auto) 0.0 Neut # (Auto) 5.3 Lymph # (Auto) 0.9 L [place] # (Auto) 0.6 Eos # (Auto) 0.0 Baso # (Auto) 0.0 WBC Differential . Differential Comment Auto diff final Sodium 142 Potassium 4.7 Chloride 106 Carbon Dioxide 30.7 Anion Gap 5 BUN 62 H Creatinine 1.72 H Estimated GFR 38 L POC Glucose 145 H Random Glucose 157 H Calcium 8.6 02/19/18 02/18/18 02/18/18 03:55 20:50 17:10 WBC RBC Hgb Hct MCV MCH MCHC RDW Plt Count MPV Neut % (Auto) Lymph % (Auto) [place] % (Auto) Eos % (Auto) Baso % (Auto) Neut # (Auto) Lymph # (Auto) [place] # (Auto) Eos # (Auto) Baso # (Auto) WBC Differential Differential Comment Sodium Potassium Chloride Carbon Dioxide Anion Gap BUN Creatinine Estimated GFR POC Glucose 165 H 222 H 201 H Random Glucose Calcium 02/18/18 02/18/18 11:50 08:23 WBC RBC Hgb Hct MCV MCH MCHC RDW Plt Count MPV Neut % (Auto) Lymph % (Auto) [place] % (Auto) Eos % (Auto) Baso % (Auto) Neut # (Auto) Lymph # (Auto) [place] # (Auto) Eos # (Auto) Baso # (Auto) WBC Differential Differential Comment Sodium Potassium Chloride Carbon Dioxide Anion Gap BUN Creatinine Estimated GFR POC Glucose 308 H 209 H Random Glucose Calcium Preliminary micro results at discharge 02/14/18 12:10 Aerobic Blood Culture - Preliminary Blood - Peripheral No growth in 4 days Anaerobic Blood Culture - Preliminary No growth in 4 days 02/14/18 12:15 Aerobic Blood Culture - Preliminary Blood - Peripheral No growth in 4 days Anaerobic Blood Culture - Preliminary No growth in 4 days - Impressions ITS Impressions Abdomen/Bladder Ultrasound 02/14/18 00:00 CONCLUSION: 1. Negative renal sonogram. Chest X-Ray 02/14/18 12:15 CONCLUSION: 1. Developing bibasilar airspace disease may represent early infiltrates or atelectasis. 2. Stable emphysematous changes, particularly in the apices. Discharge Plan - Discharge Disposition Patient Disposition: /Home Health Service - Discharge Condition Condition: Stable - Discharge Details Anticipated Discharge Date: 02/19/18 - Physicians Team Primary Care Provider: Mavis Lindo Attending Provider: Halle Figueroa Other Providers: Dominic Camarena MD ; Leif Nieto MD ; Evelio Amezcua DO
--- NOTE | 2018-02-19 08:28 | P.DCO ---
- Diagnosis (3) Hypertension - Physical Therapy Order: Evaluate and treat - Home Health Nursing Order: Medical education, Signs/symptoms of disease process, Diabetic education , Medication education-adverse effect, Nursing assessment with vital signs - Certification I have seen patient William Copeland on 02/19/18. My clinical findings support the need for the requested home health care services because: Limited mobility due to disease progression, Patient has SOB I certify that my clinical findings support that this patient is homebound because: Post-op weakness, Hx COPD - exertion dyspnea/weakness (3) Hypertension Qualifiers:
[2018-02-19] MEDS: Ezetimibe 10 MG Tablet PO SCH (08:45)
[2018-02-19] MEDS: MethylPREDNISolone Sod Succinate Inj 40 MG/ML Vial IV.PUSH SCH (08:45)
[2018-02-19] MEDS: Nystatin Liq 500,000 UNIT/5 ML UDC SWISH-SWAL SCH (08:45)
[2018-02-19] MEDS: dilTIAZem CD 120 MG Capsule PO SCH (08:45)
[2018-02-19] MEDS: Famotidine 20 MG Tablet PO SCH (08:46)
[2018-02-19] MEDS: guaiFENesin 600 MG ER Tablet PO SCH (08:47)
[2018-02-19] MEDS: Budesonide-Formoterol 160/4.5 MCG 6 GM Inhaler INH SCH (08:48)
[2018-02-19] MEDS: Senna/Docusate Sodium 8.6/50 MG Tablet PO SCH (08:48)
[2018-02-19 09:13] VITALS: BP 144/84; RESP 20; TEMP 97.8; O2SAT 94
[2018-02-19] MEDS: Chlorhexidine Gluconate 2% 1 Pack (2 Cloths) TOPICAL SCH (09:21)
--- NOTE | 2018-02-19 09:50 | P.PN ---
Physical Exam Vital signs: Vital Signs 02/18/18 11:00 02/18/18 12:00 02/18/18 13:00 Temperature 98.2 F Pulse Rate 113 H 101 H 106 H Respiratory Rate 20 Blood Pressure 134/69 Pulse Oximetry 94 L Pulse Oximetry [Exertion on Room Air] Pulse Oximetry [Resting on Room Air] Pulse Oximetry [Resting with Oxygen] 02/18/18 14:00 02/18/18 15:00 02/18/18 15:55 Temperature Pulse Rate 97 H 92 H 90 Respiratory Rate 20 Blood Pressure Pulse Oximetry 97 Pulse Oximetry [Exertion on Room Air] Pulse Oximetry [Resting on Room Air] Pulse Oximetry [Resting with Oxygen] 02/18/18 16:00 02/18/18 17:00 02/18/18 18:00 Temperature Pulse Rate 88 96 H 100 H Respiratory Rate Blood Pressure Pulse Oximetry Pulse Oximetry [Exertion on Room Air] Pulse Oximetry [Resting on Room Air] Pulse Oximetry [Resting with Oxygen] 02/18/18 18:39 02/18/18 19:00 02/18/18 20:00 Temperature 97.8 F Pulse Rate 96 H 93 H Respiratory Rate 18 Blood Pressure 137/80 Pulse Oximetry 95 Pulse Oximetry [Exertion on Room Air] 95 Pulse Oximetry [Resting on Room Air] 96 Pulse Oximetry [Resting with Oxygen] 98 02/18/18 21:00 02/18/18 22:00 02/18/18 23:00 Temperature 98.2 F Pulse Rate 88 86 92 H Respiratory Rate 18 Blood Pressure 150/74 H Pulse Oximetry 97 Pulse Oximetry [Exertion on Room Air] Pulse Oximetry [Resting on Room Air] Pulse Oximetry [Resting with Oxygen] 02/19/18 00:00 02/19/18 01:00 02/19/18 02:00 Temperature Pulse Rate 92 H 89 84 Respiratory Rate Blood Pressure Pulse Oximetry Pulse Oximetry [Exertion on Room Air] Pulse Oximetry [Resting on Room Air] Pulse Oximetry [Resting with Oxygen] 02/19/18 03:00 02/19/18 04:00 02/19/18 05:00 Temperature 98.2 F Pulse Rate 84 86 80 Respiratory Rate 18 Blood Pressure 127/70 Pulse Oximetry 95 Pulse Oximetry [Exertion on Room Air] Pulse Oximetry [Resting on Room Air] Pulse Oximetry [Resting with Oxygen] 02/19/18 06:00 02/19/18 07:00 02/19/18 08:00 Temperature 97.8 F Pulse Rate 84 88 Respiratory Rate 20 Blood Pressure 144/84 H Pulse Oximetry 94 L 94 L Pulse Oximetry [Exertion on Room Air] Pulse Oximetry [Resting on Room Air] Pulse Oximetry [Resting with Oxygen] Intake & Output 02/18/18 02/19/18 02/19/18 18:59 06:59 18:59 Intake Total 800 / 800 240 / 240 Output Total 750 / 750 950 / 950 Balance 50 / 50 -710 / -710 Weight 87 kg Intake: Oral 800 / 800 240 / 240 Output: Urine 750 / 750 950 / 950 Other: Date of Last Bowel Movement 02/18/18 02/18/18 02/18/18 # Bowel Movements 1 Narrative: Subjective: Follow-up COPD with exacerbation, hypoxia acute on chronic respiratory failure, A. fib with RVR Improved significantly some cough nonproductive No abd pain Stool is formed No fever oe chills Passed O2 walking test Physical exam: GENERAL: Pleasant cachectic 82-year-old appears to not acute distress at this time. CARDIOVASCULAR: Regular rate and rhythm. S1-S2 no S3 or S4 RESPIRATORY: Less shortness of breath. Minimal rhonchi is scattered no wheezing. GASTROINTESTINAL: Abdomen soft, non-tender, nondistended. MUSCULOSKELETAL: Extremities without clubbing, cyanosis, or +3 bilateral lower extremity edema. No obvious deformities. NEUROLOGICAL: Awake and alert. No obvious cranial nerve deficits. Motor grossly within normal limits. 4 out of 5 muscle strength in the arms and legs. Normal speech. PSYCHIATRIC: Appropriate mood and affect; insight and judgment normal. Assessment and Plan Patient is a 82-year-old gentleman who presented to the emergency department was COPD exacerbation on chronic home oxygen with severe hypoxia and acute respiratory failure has been placed on BiPAP: COPD with exacerbation. Acute on chronic respiratory failure. Patient with chronic respiratory failure and with history of COPD. He is on chronic home oxygen. Presented with hypoxia and acute respiratory failure and was placed on BiPAP. Currently off BiPAP. Continue to monitor oxygen saturation and wean off oxygen as tolerated. We will continue on steroids Continue on duo nebs Continue on Mucinex Use BiPAP if need. Oxygen by nasal cannula keep oxygen saturation more than 92% ABG reviewed Consult pulmonary, appreciate recs A. fib with RVR. Received metoprolol overnight. Continue Cardizem p.o. 30 mg 4 times daily. Add IV metoprolol as needed if sustained heart rate more than 110. Consult cardiology. 2D echo pending. JESS. Stop bicarb, continue NS. Nephrology ff. Appreciate recommendations History of DVT continue on anticoagulation History of C. difficile toxin colitis continue on treatment WITH VANCOMYCIN ORALLY 4X DAY History of GERD continue on PPI Hyperlipidemia continue on home medications History of DVT with an IVC filter placed DM CONTINUE ON SLIDING SCALE COVERAGE Acute respiratory failure see above Continue on BiPAP Continue on oxygen Continue on steroids Continue on duo nebs Code Status: Full code Discussed Condition With: Patient, family at bedside, nurse. Discharge Planning: Improved. Passed O2 walking test DC home in stable condition to follow upas OP with PCP and consultants. Results - Labs CBC & Chem 7: 02/19/18 06:21 02/19/18 06:21 Laboratory Results - last 24 hr 02/18/18 02/18/18 02/18/18 11:50 17:10 20:50 WBC RBC Hgb Hct MCV MCH MCHC RDW Plt Count MPV Neut % (Auto) Lymph % (Auto) [place] % (Auto) Eos % (Auto) Baso % (Auto) Neut # (Auto) Lymph # (Auto) [place] # (Auto) Eos # (Auto) Baso # (Auto) WBC Differential Differential Comment Sodium Potassium Chloride Carbon Dioxide Anion Gap BUN Creatinine Estimated GFR POC Glucose 308 H 201 H 222 H Random Glucose Calcium 02/19/18 02/19/18 02/19/18 03:55 06:21 06:21 WBC 6.9 RBC 4.26 L Hgb 12.4 L Hct 36.6 L MCV 86.0 MCH 29.1 MCHC 33.9 RDW 15.0 Plt Count 326 MPV 7.3 Neut % (Auto) 77.9 H Lymph % (Auto) 12.6 [place] % (Auto) 9.4 H Eos % (Auto) 0.1 Baso % (Auto) 0.0 Neut # (Auto) 5.3 Lymph # (Auto) 0.9 L [place] # (Auto) 0.6 Eos # (Auto) 0.0 Baso # (Auto) 0.0 WBC Differential . Differential Comment Auto diff final Sodium 142 Potassium 4.7 Chloride 106 Carbon Dioxide 30.7 Anion Gap 5 BUN 62 H Creatinine 1.72 H Estimated GFR 38 L POC Glucose 165 H Random Glucose 157 H Calcium 8.6 02/19/18 07:35 WBC RBC Hgb Hct MCV MCH MCHC RDW Plt Count MPV Neut % (Auto) Lymph % (Auto) [place] % (Auto) Eos % (Auto) Baso % (Auto) Neut # (Auto) Lymph # (Auto) [place] # (Auto) Eos # (Auto) Baso # (Auto) WBC Differential Differential Comment Sodium Potassium Chloride Carbon Dioxide Anion Gap BUN Creatinine Estimated GFR POC Glucose 145 H Random Glucose Calcium Microbiology 02/14/18 12:10 Blood - Peripheral Aerobic Blood Culture - Preliminary No growth in 4 days 02/14/18 12:10 Blood - Peripheral Anaerobic Blood Culture - Preliminary No growth in 4 days 02/14/18 12:15 Blood - Peripheral Aerobic Blood Culture - Preliminary No growth in 4 days 02/14/18 12:15 Blood - Peripheral Anaerobic Blood Culture - Preliminary No growth in 4 days Assessment and Plan - Assessment (1) Dehydration Code(s): E86.0 - Dehydration Status: Acute (2) Clostridium difficile infection Code(s): B96.89 - Other specified bacterial agents as the cause of diseases classified elsewhere Status: Acute (3) JESS (acute kidney injury) Code(s): N17.9 - Acute kidney failure, unspecified Status: Acute (4) Acute hypokalemia Code(s): E87.6 - Hypokalemia Status: Acute (5) COPD (chronic obstructive pulmonary disease) Code(s): J44.9 - Chronic obstructive pulmonary disease, unspecified Status: Chronic (6) DVT (deep venous thrombosis) Code(s): I82.409 - Acute embolism and thrombosis of unspecified deep veins of unspecified lower extremity Status: Chronic (7) Hypertension Code(s): I10 - Essential (primary) hypertension Status: Chronic (8) Diabetes mellitus Code(s): E11.9 - Type 2 diabetes mellitus without complications Status: Acute (9) Sepsis Code(s): A41.9 - Sepsis, unspecified organism Status: Acute (10) COPD exacerbation Code(s): J44.1 - Chronic obstructive pulmonary disease with (acute) exacerbation Status: Acute (11) Acute respiratory failure with hypoxia Code(s): J96.01 - Acute respiratory failure with hypoxia Status: Acute (7) Hypertension Qualifiers:
[2018-02-19 10:08] VITALS: PULSE 90
--- NOTE | 2018-02-19 10:56 | P.PNPL ---
Subjective Interval history: 82 YOWM with COPD,hypercapnoic RF,JESS Good appetite Anxious to go home On [place], maintains good sats Anxious to go home Physical Exam Vital signs: Vital Signs 02/18/18 11:00 02/18/18 12:00 02/18/18 13:00 Temperature 98.2 F Pulse Rate 113 H 101 H 106 H Respiratory Rate 20 Blood Pressure 134/69 Pulse Oximetry 94 L Pulse Oximetry [Exertion on Room Air] Pulse Oximetry [Resting on Room Air] Pulse Oximetry [Resting with Oxygen] 02/18/18 14:00 02/18/18 15:00 02/18/18 15:55 Temperature Pulse Rate 97 H 92 H 90 Respiratory Rate 20 Blood Pressure Pulse Oximetry 97 Pulse Oximetry [Exertion on Room Air] Pulse Oximetry [Resting on Room Air] Pulse Oximetry [Resting with Oxygen] 02/18/18 16:00 02/18/18 17:00 02/18/18 18:00 Temperature Pulse Rate 88 96 H 100 H Respiratory Rate Blood Pressure Pulse Oximetry Pulse Oximetry [Exertion on Room Air] Pulse Oximetry [Resting on Room Air] Pulse Oximetry [Resting with Oxygen] 02/18/18 18:39 02/18/18 19:00 02/18/18 20:00 Temperature 97.8 F Pulse Rate 96 H 93 H Respiratory Rate 18 Blood Pressure 137/80 Pulse Oximetry 95 Pulse Oximetry [Exertion on Room Air] 95 Pulse Oximetry [Resting on Room Air] 96 Pulse Oximetry [Resting with Oxygen] 98 02/18/18 21:00 02/18/18 22:00 02/18/18 23:00 Temperature 98.2 F Pulse Rate 88 86 92 H Respiratory Rate 18 Blood Pressure 150/74 H Pulse Oximetry 97 Pulse Oximetry [Exertion on Room Air] Pulse Oximetry [Resting on Room Air] Pulse Oximetry [Resting with Oxygen] 02/19/18 00:00 02/19/18 01:00 02/19/18 02:00 Temperature Pulse Rate 92 H 89 84 Respiratory Rate Blood Pressure Pulse Oximetry Pulse Oximetry [Exertion on Room Air] Pulse Oximetry [Resting on Room Air] Pulse Oximetry [Resting with Oxygen] 02/19/18 03:00 02/19/18 04:00 02/19/18 05:00 Temperature 98.2 F Pulse Rate 84 86 80 Respiratory Rate 18 Blood Pressure 127/70 Pulse Oximetry 95 Pulse Oximetry [Exertion on Room Air] Pulse Oximetry [Resting on Room Air] Pulse Oximetry [Resting with Oxygen] 02/19/18 06:00 02/19/18 07:00 02/19/18 08:00 Temperature 97.8 F Pulse Rate 84 79 84 Respiratory Rate 20 Blood Pressure 144/84 H Pulse Oximetry 94 L 94 L Pulse Oximetry [Exertion on Room Air] Pulse Oximetry [Resting on Room Air] Pulse Oximetry [Resting with Oxygen] 02/19/18 09:00 02/19/18 10:00 Temperature Pulse Rate 100 H 90 Respiratory Rate Blood Pressure Pulse Oximetry Pulse Oximetry [Exertion on Room Air] Pulse Oximetry [Resting on Room Air] Pulse Oximetry [Resting with Oxygen] Intake & Output 02/18/18 02/19/18 02/19/18 18:59 06:59 18:59 Intake Total 800 / 800 240 / 240 400 / 400 Output Total 750 / 750 950 / 950 250 / 250 Balance 50 / 50 -710 / -710 150 / 150 Weight 87 kg Intake: Oral 800 / 800 240 / 240 400 / 400 Output: Urine 750 / 750 950 / 950 250 / 250 Other: Date of Last Bowel Movement 02/18/18 02/18/18 02/18/18 # Bowel Movements 1 GENERAL: Elderly WM,NAD SKIN: Warm and dry. HEAD: Normocephalic. EYES: No scleral icterus. No injection or drainage. NECK: Supple, trachea midline. No JVD or lymphadenopathy. CARDIOVASCULAR: Regular rate and rhythm without murmurs, gallops, or rubs. RESPIRATORY: Breath sounds equal bilaterally. No accessory muscle use. GASTROINTESTINAL: Abdomen soft, non-tender, nondistended. MUSCULOSKELETAL: No cyanosis, or edema. BACK: Nontender without obvious deformity. No CVA tenderness.El Assessment and Plan - Plan IMPRESSION: 1. Respiratory failure. 2. Acute kidney injury. 4. Recent Clostridium difficile colitis. 5. Basilar infiltrate versus atelectasis. 6. Chronic obstructive pulmonary disease. PLAN: Aerosol nebs Supplement 02 monitor lytes Use Acapella DC plans underway Will FU in office
== END 2018-02-19 10:54 | disposition home health service (06) ==
LOC: NEPE 12:09 → NEDA 15:12 → HCIS 02-15 00:30
PROVIDERS: ADMIT Hospitalist; ATTEND Hospitalist

== ENCOUNTER 2018-02-21 14:12 | Inpatient (IN) ==
--- NOTE | 2018-02-21 14:28 | ED ---
HPI General Chief Complaint: Weakness Stated Complaint: Medical Time Seen by Provider: 02/21/18 14:17 Source: patient and family Mode of arrival: ambulatory Limitations: other (Both the patient and his are very poor historians) History of Present Illness MD Complaint: shortness of breath Onset (ago): unknown Context: recent illness and other Consistency/Duration: constant and progressively worsening Relieving factors: nothing Exacerbating factors: nothing Known history of: COPD and DVT Associated symptoms: other (Weakness and lower extremity edema) Related Data Home oxygen amount: as needed at night Home Medications Medication Instructions Recorded Confirmed cetirizine 10 mg PO DAILY 02/04/18 02/21/18 ezetimibe [Zetia] 10 mg PO DAILY 02/04/18 02/21/18 losartan 50 mg PO DAILY 02/04/18 02/21/18 omeprazole magnesium [Prilosec OTC] 20 mg PO DAILY 02/04/18 02/21/18 simvastatin [Zocor] 40 mg PO DAILY 02/04/18 02/21/18 albuterol sulfate [ProAir HFA] 2 puff INHALATION DAILY 02/14/18 02/21/18 exenatide microspheres 2 mg SUB-Q WEEKLY 02/14/18 02/21/18 fluticasone-salmeterol [Advair 1 inh INHALATION BID 02/14/18 02/21/18 Diskus] loperamide [Imodium A-D] 2 mg PO PRN PRN 02/14/18 02/21/18 omega-3 acid ethyl esters 1 g PO DAILY 02/14/18 02/21/18 umeclidinium 1 puff INHALATION DAILY 02/14/18 02/21/18 prednisone 20 mg PO DIRECTED 02/21/18 02/21/18 Previous Rx's Medication Instructions Recorded vancomycin 125 mg PO QID #40 ea 02/08/18 Lactobacillus acidoph-L.bulgar 2 tab PO BID #60 tab 02/19/18 [Lactinex] apixaban [Eliquis] 2.5 mg PO BID #60 tab 02/19/18 cefuroxime axetil 500 mg PO Q12H #10 tab 02/19/18 diltiazem HCl 120 mg PO DAILY #60 cap 02/19/18 guaifenesin [Mucinex] 600 mg PO BID #10 tab 02/19/18 nicotine 1 patch TRANSDERMAL DAILY #30 ea 02/19/18 nitroglycerin [Nitrostat] 0.4 mg SUBLINGUAL Q5M PRN #30 tab 02/19/18 Allergies Allergy/AdvReac Type Severity Reaction Status Date / Time No Known Allergies Allergy Verified 02/14/18 12:58 Review of Systems Except as stated in HPI: all other systems reviewed are negative [facility] Medical History Medical History C. difficile colitis (Acute) COPD (chronic obstructive pulmonary disease) (Acute) DVT, lower extremity (Acute) Diabetes mellitus (Acute) Emphysema lung (Acute) GERD (gastroesophageal reflux disease) (Acute) High cholesterol (Acute) Hypertension (Acute) Presence of IVC filter (Acute) Pulmonary embolism (Acute) Skin cancer of face (Acute) Social History Social History Substance History: No History of Abuse Second Hand Smoke Exposure: No Smoking Status: Former smoker Tobacco Type: Cigarettes Packs Per Day: 1 Cigarettes Per Day: 20.0 Years Smoked: 50 Pack-Years: 50.00 How Often Do You Have a Drink Containing Alcohol: Never Hx Recent Travel: No Recent Travel in [facility] within the Last 8 Weeks: No Recent Out of Country Travel within the Last 8 Weeks: No Immunization History Tetanus Immunization: Unsure Exam Const General: cooperative and ill appearing [facility] Head: normal to inspection, normocephalic and atraumatic Eyes General: appearance normal, both eyes and all related structures Conjunctivae: conjunctivae normal Sclera: sclerae normal EOM: EOM intact bilaterally Neck Neck: normal visual inspection and full ROM Chest Chest: normal inspection of the chest Resp Effort & Inspection: normal respiratory effort Auscultation: rales Cardio Rate: regular rate Rhythm: regular rhythm Back/Spine/Pelvis Cervical Spine: cervical ROM normal Thoracic/Lumbar Spine: thoraco-lumbar ROM normal Skin General: no rashes or lesions noted and turgor normal Neuro General: alert, awake, oriented x3, moves all extremities and CN's II-XI intact bilaterally Extrem General: pedal edema (4+) bilaterally Psych Appearance: grossly normal Mental Status: mental status grossly normal Speech and Movement: speech and movement normal Mood: congruent mood Affect: normal affect Attitude: cooperative Thought Process: normal Thought Content: normal Judgment: judgment good Course Consultations Consultation #1: Dr. Yen will admit to OBS Initial Documented Vital Signs Temperature 97.7 F 02/21/18 14:17 Pulse Rate 85 02/21/18 14:17 Respiratory Rate 18 02/21/18 14:17 Blood Pressure 142/67 H 02/21/18 14:17 Pulse Oximetry 97 02/21/18 14:17 Last Documented Vital Signs Temperature 97.7 F 02/21/18 14:17 Pulse Rate 85 02/21/18 16:56 Respiratory Rate 17 02/21/18 16:56 Blood Pressure 127/81 02/21/18 16:56 Pulse Oximetry 97 02/21/18 16:56 Medical Decision Making MDM Narrative Medical decision making narrative: if or when there had been an exacerbationPatient presents with the chief complaint of dyspnea associated with weakness and peripheral edema. Onset has been a while. Neither the patient nor the were able to tell me her shortness of breath they do state that he is getting progressively worse. He is on oxygen at home at night. On exam, he is a chronically ill-appearing elderly man who does have rales on examination of his chest and 4+ pretibial pitting edema. Previous BNP during his most recent hospitalization was 21. Chest x-ray and CT of the chest reveal a mass in the right hilar region which was not present on his most recent chest x-ray done on 02/04. He is having progressive shortness of breath and weakness. I will consult the hospitalist for admission for further evaluation and treatment. Differential Diagnosis Differential Diagnosis: Differential diagnosis of dyspnea includes but is not limited to congestive heart failure, pneumonia, wheezing, pneumothorax, pulmonary embolism Medical Records Medical records reviewed: Yes I reviewed the patient's medical records. PMH of COPD on home O2, HTN, DVT with IVC filter, DM, HL, CKD with most recent creat of 1.72 on 02/19 and recent c. dif. Lab Data Lab results reviewed: Yes I reviewed the patient's lab results. Lab results narrative: He has a leukocytosis and a new mass in the right hilar region of his chest x-ray. I have added a lactic acid and blood cultures. He will be given antibiotics for presumed hospital-acquired pneumonia. Result diagrams: 02/21/18 14:30 02/21/18 14:30 Lab Results 02/21/18 02/21/18 02/21/18 Range/Units 14:30 14:30 14:30 WBC 13.2 H (4.0-11.0) th/mm3 RBC 4.90 (4.50-5.90) mil/mm3 Hgb 13.8 (13.0-17.0) gm/dL Hct 42.5 (39.0-51.0) % MCV 86.7 (80.0-100.0) fL MCH 28.1 (27.0-34.0) pg MCHC 32.4 (32.0-36.0) % RDW 15.1 (11.6-17.2) % Plt Count 311 (150-450) th/mm3 MPV 7.4 (7.0-11.0) fL Neut % (Auto) 64.8 (16.0-70.0) % Lymph % (Auto) 21.5 (9.0-44.0) % [place]ledso[place] % (Auto) 12.3 H (0.0-8.0) % Eos % (Auto) 1.3 (0.0-4.0) % Baso % (Auto) 0.1 (0.0-2.0) % Neut # (Auto) 8.6 H (1.8-7.7) th/mm3 Lymph # (Auto) 2.8 (1.0-4.8) th/mm3 [place] # (Auto) 1.6 H (0.0-0.9) th/mm3 Eos # (Auto) 0.2 (0.0-0.4) th/mm3 Baso # (Auto) 0.0 (0.0-0.2) th/mm3 WBC Differential . Differential Comment Auto diff final PT 11.9 H (9.8-11.6) sec INR 1.2 Ratio APTT 20.5 L (24.3-30.1) sec Sodium 142 (136-145) meq/L Potassium 4.2 (3.5-5.1) meq/L Chloride 104 (98-107) meq/L Carbon Dioxide 30.9 (21.0-32.0) meq/L Anion Gap 7 (5-15) meq/L BUN 50 H (7-18) mg/dL Creatinine 1.58 H (0.60-1.30) mg/dL Estimated GFR 42 L (>89) mL/min Random Glucose 84 (74-106) mg/dL Lactic Acid (0.4-2.0) mmol/L Calcium 8.6 (8.5-10.1) mg/dL Total Bilirubin 0.8 (0.2-1.0) mg/dL AST 22 (15-37) U/L ALT 75 (12-78) U/L Alkaline Phosphatase 95 (45-117) U/L Troponin I Less than 0.02 L (0.02-0.05) ng/mL B-Natriuretic Peptide (0-100) pg/mL Total Protein 6.7 (6.4-8.2) g/dL Albumin 3.0 L (3.4-5.0) g/dL 02/21/18 02/21/18 Range/Units 14:30 17:00 WBC (4.0-11.0) th/mm3 RBC (4.50-5.90) mil/mm3 Hgb (13.0-17.0) gm/dL Hct (39.0-51.0) % MCV (80.0-100.0) fL MCH (27.0-34.0) pg MCHC (32.0-36.0) % RDW (11.6-17.2) % Plt Count (150-450) th/mm3 MPV (7.0-11.0) fL Neut % (Auto) (16.0-70.0) % Lymph % (Auto) (9.0-44.0) % Bledsoe % (Auto) (0.0-8.0) % Eos % (Auto) (0.0-4.0) % Baso % (Auto) (0.0-2.0) % Neut # (Auto) (1.8-7.7) th/mm3 Lymph # (Auto) (1.0-4.8) th/mm3 [place] # (Auto) (0.0-0.9) th/mm3 Eos # (Auto) (0.0-0.4) th/mm3 Baso # (Auto) (0.0-0.2) th/mm3 WBC Differential Differential Comment PT (9.8-11.6) sec INR Ratio APTT (24.3-30.1) sec Sodium (136-145) meq/L Potassium (3.5-5.1) meq/L Chloride (98-107) meq/L Carbon Dioxide (21.0-32.0) meq/L Anion Gap (5-15) meq/L BUN (7-18) mg/dL Creatinine (0.60-1.30) mg/dL Estimated GFR (>89) mL/min Random Glucose (74-106) mg/dL Lactic Acid 2.0 (0.4-2.0) mmol/L Calcium (8.5-10.1) mg/dL Total Bilirubin (0.2-1.0) mg/dL AST (15-37) U/L ALT (12-78) U/L Alkaline Phosphatase (45-117) U/L Troponin I (0.02-0.05) ng/mL B-Natriuretic Peptide 60 (0-100) pg/mL Total Protein (6.4-8.2) g/dL Albumin (3.4-5.0) g/dL Imaging Data Attestation: I personally reviewed and interpreted this imaging study as follows : My impression: Right hilar mass Radiologist's impression: Chest X-Ray 02/21/18 14:20 CONCLUSION: Chest CT 02/21/18 16:15 CONCLUSION: ECG Data EKG Prior to Arrival: No Attestation: I personally reviewed and interpreted this ECG as follows: (EKG has a sinus rhythm with a rate of 80T wave elevation or depression. This is actually a normal EKG) Discharge Plan Discharge Disposition Patient Disposition: 30 Still Patient Discharge Details Diagnosis: Pulmonary mass Physicians Team ED Provider: Shayy Orr Primary Care Provider: Mavis Lindo Rxs /Orders / Referrals /Forms Prescriptions: No Action loperamide [Imodium A-D] 2 mg Capsule 2 mg PO PRN PRN (Reason: Diarrhea) RF: 0 fluticasone-salmeterol [Advair Diskus] 250-50 mcg/dose Blister With Device 1 inh INHALATION BID RF: 0 albuterol sulfate [ProAir HFA] 90 mcg/actuation Hfa Aerosol Inhaler 2 puff Inhalation DAILY RF: 0 omega-3 acid ethyl esters 1 gram Capsule 1 g PO DAILY RF: 0 exenatide microspheres 2 mg/0.65 mL Pen Injector 2 mg Sub-Q WEEKLY RF: 0 umeclidinium 62.5 mcg/actuation Blister With Device 1 puff INHALATION DAILY RF: 0 nicotine 21 mg/24 hr Patch 24 Hour 1 patch Transdermal DAILY Qty: 30 RF: 0 nitroglycerin [Nitrostat] 0.4 mg Tablet, Sublingual 0.4 mg Sublingual Q5M PRN (Reason: Angina) Qty: 30 RF: 0 diltiazem HCl 120 mg Capsule,Extended Release 24hr 120 mg PO DAILY Qty: 60 RF: 0 apixaban [Eliquis] 2.5 mg Tablet 2.5 mg PO BID Qty: 60 RF: 0 guaifenesin [Mucinex] 600 mg Tablet Extended Release 12hr 600 mg PO BID Qty: 10 RF: 0 Lactobacillus acidoph-L.bulgar [Lactinex] 1 million cell Tablet,Chewable 2 tab PO BID Qty: 60 RF: 0 cefuroxime axetil 500 mg Tablet 500 mg PO Q12H Qty: 10 RF: 0 losartan 50 mg Tablet 50 mg PO DAILY RF: 0 cetirizine 10 mg Tablet 10 mg PO DAILY RF: 0 simvastatin [Zocor] 40 mg Tablet 40 mg PO DAILY RF: 0 ezetimibe [Zetia] 10 mg Tablet 10 mg PO DAILY RF: 0 omeprazole magnesium [Prilosec OTC] 20 mg Tablet,Delayed Release (Dr/Ec) 20 mg PO DAILY RF: 0 vancomycin 500 mg Recon Soln 125 mg PO QID Qty: 40 RF: 0 prednisone 20 mg Tablet 20 mg PO DIRECTED RF: 0 Status ED Status: Pending Admission
--- NOTE | 2018-02-21 15:23 | XR ---
EXAM DATE: 02/21/2018 3:17 PM EDT AGE/SEX: 82 years / Male INDICATIONS: Short of breath and lower extremity swelling. CLINICAL DATA: This is the patient's initial encounter. Patient reports that signs and symptoms have been present for 1 week and indicates a pain score of 0/10. MEDICAL/SURGICAL HISTORY: . Chronic obstructive pulmonary disease. Gastroesophageal reflux dise ase. Hypercholesterolemia. Diabetes. Deep vein thrombosis. Hypertension. Pulmonary embolism. Skin can cer. . IVC filter. . COMPARISON: [facility] [place], CHEST 1V SINGLE AP, 02/14/2018. . FINDINGS: A single AP portable erect view of the chest was obtained and demonstrates masslike opacity in the ri ght perihilar region measuring up to 4.2 x 7 cm in diameter. There is mild patchy opacity at the lung bases most characteristic of scarring. The heart size is within normal limits. The bony thorax is in tact. CONCLUSION: New masslike opacity in the right hilar region which could indicate adenopathy. Further evaluation wi contrast enhanced chest CT is recommended. Electronically signed by: Carlos Shirley MD 02/21/2018 3:21 PM EDT
[2018-02-21 15:30] LABS: Baso % (Auto) 0.1 % (0.0-2.0); Eos # (Auto) 0.2 th/mm3 (0.0-0.4); Eos % (Auto) 1.3 % (0.0-4.0); Hematocrit 42.5 % (39.0-51.0); Hemoglobin 13.8 gm/dL (13.0-17.0); Lymph # (Auto) 2.8 th/mm3 (1.0-4.8); Lymph % (Auto) 21.5 % (9.0-44.0); Mean Corpuscular HGB Conc 32.4 % (32.0-36.0); Mean Corpuscular Hemoglobin 28.1 pg (27.0-34.0); Mean Corpuscular Volume 86.7 fL (80.0-100.0); Mean Platelet Volume 7.4 fL (7.0-11.0); Mono # (Auto) 1.6 th/mm3 (0.0-0.9); Mono % (Auto) 12.3 % (0.0-8.0); Neut # (Auto) 8.6 th/mm3 (1.8-7.7); Neut % (Auto) 64.8 % (16.0-70.0); Platelet Count 311 th/mm3 (150-450); Red Cell Distribution Width 15.1 % (11.6-17.2); White Blood Count 13.2 th/mm3 (4.0-11.0)
[2018-02-21 15:46] LABS: Activated Partial Thrombo Time 20.5 sec (24.3-30.1); INR 1.2 Ratio; Prothrombin Time 11.9 sec (9.8-11.6)
[2018-02-21] MEDS ORDERED: Azithromycin Inj 500 MG in Sodium Chlor 0.9% Inj 250 ML IV.SIG STA (15:58)
[2018-02-21] MEDS ORDERED: Piperacil/Tazo 4.5 GM Premix 4.5 GM/100 ML BAG IV.SIG STA (15:58)
[2018-02-21 16:01] LABS: Alanine Aminotransferase 75 U/L (12-78); Alkaline Phosphatase 95 U/L (45-117); Anion Gap 7 meq/L (5-15); Aspartate Aminotransferase 22 U/L (15-37); Blood Urea Nitrogen 50 mg/dL (7-18); Calcium 8.6 mg/dL (8.5-10.1); Carbon Dioxide 30.9 meq/L (21.0-32.0); Chloride 104 meq/L (98-107); Glomerular Filtration Rate 42 mL/min (>89); Glucose,Random 84 mg/dL (74-106); Potassium 4.2 meq/L (3.5-5.1); Sodium 142 meq/L (136-145); Total Protein 6.7 g/dL (6.4-8.2)
[2018-02-21] MEDS ORDERED: Sod Chloride 0.9% Inj 1,000 ML IV.SIG ONE (18:21)
--- NOTE | 2018-02-21 18:24 | CT ---
EXAM DATE: 02/21/2018 6:09 PM EDT AGE/SEX: 82 years / Male INDICATIONS: Shortness of breath, chest pain. CLINICAL DATA: This is the patient's initial encounter. Patient reports that signs and symptoms have been present for 1 day and indicates a pain score of 2/10. MEDICAL/SURGICAL HISTORY: Chronic obstructive pulmonary disease. Deep venous thrombosis. Hyperten nish. Cdiff, diabetes. None. RADIATION DOSE: 16.94 CTDI (mGy) COMPARISON: POI, CT CHEST W/O CONTRAST, 11/23/2016. . TECHNIQUE: Multiple contiguous axial images were obtained through the chest during bolus infusion of 70 ml Omnipaque 350 (iohexol) nonionic water-soluble contrast as a single exam dose. Images were obtained in suspended respiration using multiple row detector helical technique. Using automated exp osure control and adjustment of the mA and/or kV according to patient size, radiation dose was kept a s low as reasonably achievable to obtain optimal diagnostic quality images. DICOM format image data is available electronically for review and comparison. FINDINGS: Lungs: There is a large 8 cm mass seen at the right mediastinum and right hilar region. This very li cesilia represents a primary central lung malignancy. This mass abuts the SVC, right pulmonary artery, t he inferior trachea, and the right mainstem bronchus. There are 2 rounded masses seen in the left low er lobe with some cavitary change measuring 2.3 and 1.0 cm. These are nonspecific. There is some line ar density seen at the bases bilaterally being more prominent on the left likely related to atelectas is, scarring or consolidation. There is emphysematous change in the upper lungs. Mediastinum: Again noted is the mass in the right hilar and right mediastinum. Coronary artery calci fied lesions are seen.. Pleurae: No evidence of focal thickening or pleural effusion. Axillae: Unremarkable. Bony Structures: Unremarkable. Miscellaneous: The examination was extended to include the upper abdomen, and both adrenal glands ar e normal in size and configuration. Bilateral low-density masses are seen in the kidneys measuring 1. 3 cm on the left and 1.8 and 1.7 cm on the right likely related to cysts. 1. Large right-sided mass involving the right hilum and mediastinum. This likely represents a centra l lung malignancy. 2. 2 cavitary masses seen in the left lower lobe. These are nonspecific. They could be neoplastic or inflammatory. 3. Emphysematous change. Electronically signed by: Miguel Huitron MD 02/21/2018 6:23 PM EDT
[2018-02-21] MEDS ORDERED: Bisacodyl 10 MG Supp RECTAL PRN (19:26)
[2018-02-21] MEDS ORDERED: Acetaminophen 325 MG Tablet PO PRN (19:26)
[2018-02-21] MEDS ORDERED: Temazepam 15 MG Capsule PO PRN (19:26)
--- NOTE | 2018-02-21 19:27 | P.HPIM ---
History of Present Illness Primary Care Physician: Mavis Lindo MD History of Present Illness: This is an 82-year-old male with a PMH of COPD, O2 Dependent, DM, H/o DVT s/p IVC Filter, Afib on Eliquis and C Diff who presented to the ER w/ complaints of severe SOB. Recent admit 02/14-02/19/18 for similar complaints, treated for COPD Exacerbation, s/p eval by Dr. Camarena w/ Pulmonology. Returns now w/ worsening SOB. Denies fever/chills. No c/o chest pain. On arrival, BP 142/67, HR 85, O2 sat 97% on RA, Afebrile. WBC 13.2. Chemistry essentially at baseline. Troponin negative. CXR with new masslike opacity right hilar region, recommendation for further evaluation. CT Chest with large right-sided mass involving right hilum and mediastinum, likely central lung malignancy, 2 cavitary masses in left lower lobe, nonspecific. Previous CXR on 02/14/2018 with no evidence of lung mass. - Diagnosis (1) COPD (chronic obstructive pulmonary disease) (2) Lung mass (3) H/O deep venous thrombosis (4) C. difficile colitis Review of Systems All other systems reviewed negative except as stated in HPI PMFSH - History History Provided By: Patient, Family Member - Medical History Medical History: Medical History (Last Reviewed 02/21/18 @ 14:27 by Shayy Orr) C. difficile colitis COPD (chronic obstructive pulmonary disease) DVT, lower extremity Diabetes mellitus Emphysema lung GERD (gastroesophageal reflux disease) High cholesterol Hypertension Presence of IVC filter Pulmonary embolism Skin cancer of face - Tobacco History Second Hand Smoke Exposure: No Tobacco Use In Past 30 Days: No Smoking Status: Former smoker Tobacco Type: Cigarettes Packs Per Day: 1 Years Smoked: 50 - Alcohol History How Often Do You Have a Drink Containing Alcohol: Never - Substance Use History Substance History: No History of Abuse - Travel History History of Recent Travel: No Recent Travel in the [place] Within the Last 8 Weeks: No Recent Travel Out of the Country Within the Last 8 Weeks: No - Immunization History Tetanus Immunization: Unsure Medications and Allergies Allergies Allergy/AdvReac Type Severity Reaction Status Date / Time No Known Allergies Allergy Verified 02/14/18 12:58 Home Medications Medication Instructions Recorded Confirmed Type cetirizine 10 mg PO DAILY 02/04/18 02/21/18 History ezetimibe [Zetia] 10 mg PO DAILY 02/04/18 02/21/18 History losartan 50 mg PO DAILY 02/04/18 02/21/18 History omeprazole magnesium [Prilosec OTC] 20 mg PO DAILY 02/04/18 02/21/18 History simvastatin [Zocor] 40 mg PO DAILY 02/04/18 02/21/18 History albuterol sulfate [ProAir HFA] 2 puff INHALATION DAILY 02/14/18 02/21/18 History exenatide microspheres 2 mg SUB-Q WEEKLY 02/14/18 02/21/18 History fluticasone-salmeterol [Advair 1 inh INHALATION BID 02/14/18 02/21/18 History Diskus] loperamide [Imodium A-D] 2 mg PO PRN PRN 02/14/18 02/21/18 History omega-3 acid ethyl esters 1 g PO DAILY 02/14/18 02/21/18 History umeclidinium 1 puff INHALATION DAILY 02/14/18 02/21/18 History prednisone 20 mg PO DIRECTED 02/21/18 02/21/18 History Exam Vital signs: Vital Signs 02/21/18 14:17 02/21/18 14:23 02/21/18 16:56 Temperature 97.7 F Pulse Rate 85 85 Respiratory Rate 18 17 Blood Pressure 142/67 H 127/81 Pulse Oximetry 97 96 97 Intake & Output 02/21/18 02/21/18 02/22/18 06:59 18:59 06:59 Weight 83.915 kg Narrative: PE: GENERAL: Pleasant elderly white male in no acute distress. Sitting up at bedside, having dinner. at bedside. HEENT: PERRLA, EOMI. No scleral icterus or conjunctival pallor. No lid lag or facial droop. CARDIOVASCULAR: Regular rate and rhythm. No obvious murmurs to auscultation. No chest tenderness to palpation. RESPIRATORY: No obvious rhonchi. +wheezing. Clear to auscultation. Breath sounds equal bilaterally. GASTROINTESTINAL: Abdomen soft, non-tender, nondistended. BS normal. MUSCULOSKELETAL: Extremities without clubbing, cyanosis, or edema. No obvious deformities. NEUROLOGICAL: Awake, alert and oriented x4. No focal neurologic deficits. Moving both upper and lower extremities spontaneously. Results - Labs CBC & Chem 7: 02/21/18 14:30 02/21/18 14:30 Labs: Short CBC 02/21/18 Range/Units 14:30 WBC 13.2 H (4.0-11.0) th/mm3 Hgb 13.8 (13.0-17.0) gm/dL Hct 42.5 (39.0-51.0) % Plt Count 311 (150-450) th/mm3 BMP 02/21/18 14:30 Sodium 142 Potassium 4.2 Chloride 104 Carbon Dioxide 30.9 BUN 50 H Creatinine 1.58 H Calcium 8.6 Cardiac Enzymes 02/21/18 Range/Units 14:30 Troponin I Less than 0.02 L (0.02-0.05) ng/mL Liver Function 02/21/18 Range/Units 14:30 Total Bilirubin 0.8 (0.2-1.0) mg/dL AST 22 (15-37) U/L ALT 75 (12-78) U/L Alkaline Phosphatase 95 (45-117) U/L Albumin 3.0 L (3.4-5.0) g/dL - Imaging Impressions Chest X-Ray 02/21/18 14:20 CONCLUSION: Chest CT 02/21/18 16:15 CONCLUSION: Caprini VTE Risk Assessment Caprini VTE Risk Assessment: Moderate/High Risk (score >= 2) Caprini Risk Assessment Model: Point Value = 1 Point Value = 2 Point Value = 3 Point Value = 5 Age 41-60 Minor surgery BMI > 25 kg/m2 Swollen legs Varicose veins or History of unexplained or recurrent spontaneous Oral contraceptives or hormone replacement Sepsis (< 1 month) Serious lung disease, including pneumonia (< 1 month) Abnormal pulmonary function Acute myocardial infarction Congestive heart failure (< 1 month) History of inflammatory bowel disease Medical patient at bed rest Age 61-74 Arthroscopic surgery Major open surgery (> 45 min) Laparoscopic surgery (> 45 min) Malignancy Confined to bed (> 72 hours) Immobilizing plaster cast Central venous access Age >= 75 History of VTE Family history of VTE Factor V Leiden Prothrombin [id number] Lupus anticoagulant Anticardiolipin antibodies Elevated serum homocysteine Heparin-induced thrombocytopenia Other congenital or acquired thrombophilia Stroke (< 1 month) Elective arthroplasty Hip, pelvis, or leg fracture Acute spinal cord injury (< 1 month) Prophylaxis Regimen: Total Risk Factor Score Risk Level Prophylaxis Regimen 0-1 Low Early ambulation 2 Moderate Order ONE of the following: *Sequential Compression Device (SCD) *Heparin 5000 units SQ BID 3-4 Higher Order ONE of the following medications: *Heparin 5000 units SQ TID *Enoxaparin/Lovenox 40 mg SQ daily (WT < 150 kg, CrCl > 30 mL/min) *Enoxaparin/Lovenox 30 mg SQ daily (WT < 150 kg, CrCl > 10-29 mL/min) *Enoxaparin/Lovenox 30 mg SQ BID (WT < 150 kg, CrCl > 30 mL/min) AND/OR *Sequential Compression Device (SCD) 5 or more Highest Order ONE of the following medications: *Heparin 5000 units SQ TID (Preferred with Epidurals) *Enoxaparin/Lovenox 40 mg SQ daily (WT < 150 kg, CrCl > 30 mL/min) *Enoxaparin/Lovenox 30 mg SQ daily (WT < 150 kg, CrCl > 10-29 mL/min) *Enoxaparin/Lovenox 30 mg SQ BID (WT < 150 kg, CrCl > 30 mL/min) AND *Sequential Compression Device (SCD) Assessment and Plan - Assessment (1) COPD (chronic obstructive pulmonary disease) Code(s): J44.9 - Chronic obstructive pulmonary disease, unspecified Status: Chronic (2) Lung mass Code(s): R91.8 - Other nonspecific abnormal finding of lung field Status: Acute (3) H/O deep venous thrombosis Code(s): Z86.718 - Personal history of other venous thrombosis and embolism Status: Acute (4) C. difficile colitis Code(s): A04.72 - Enterocolitis due to Clostridium difficile, not specified as recurrent Status: Acute - Plan A/P: 1. COPD: Chronic Respiratory Failure w/ Acute Exacerbation, Moderate, O2 Dependent, O2 97% on 2L NC, will continue to monitor. Recent admit 02/14- for same, Solu-Medrol 40mg IV, DuoNeb, Symbicort, Mucinex. 2. Lung Mass: CXR showing new right hilar mass, not see on imaging from , images reviewed by me. CT Chest w/ large 8cm mass right mediastinum/right hilar region, likely primary central lung malignancy, 2 cavitary masses LLL. Consult Pulmonology for likely bronch w/ biopsy, Consult Oncology for assistance w/ work up/treatment plan. Pt is +smoker. 3. A-fib: episode of A-fib w/ RVR on last admission, will resume home Cardizem , hold Eliquis for possible bronch/biopsy. 4. C Diff: no ongoing diarrhea, resume home Vanc. Contact Precautions. 5. DVT Prophylaxis: H/o DVT s/p IVC Filter, hold Eliquis as above. 6. Social work for d/c planning as needed 7. Case discussed w/ ER physician at length, labs/records/imaging reviewed by me.
[2018-02-21] MEDS: guaiFENesin 600 MG ER Tablet PO SCH (21:14)
[2018-02-21] MEDS: Senna/Docusate Sodium 8.6/50 MG Tablet PO SCH (21:14)
[2018-02-21] MEDS: MethylPREDNISolone Sod Succinate Inj 40 MG/ML Vial IV.PUSH SCH (21:18)
[2018-02-21] MEDS: Budesonide-Formoterol 160/4.5 MCG 6 GM Inhaler INH SCH (21:25)
[2018-02-22] MEDS: MethylPREDNISolone Sod Succinate Inj 40 MG/ML Vial IV.PUSH SCH ×4 (03:46→22:15)
--- NOTE | 2018-02-22 08:36 | P.PN ---
Subjective Interval history: Follow up for lung mass. The patient reports feeling better today, still has some shortness of breath, worse with exertion. He denies any cough or sputum production. Denies fevers/chills. He reports increasing lower extremity edema that has been present for 1-2weeks per the patient. He denies any chest pain or abdominal complaints. Physical Exam Vital signs: Vital Signs 02/21/18 14:17 02/21/18 14:23 02/21/18 16:56 Temperature 97.7 F Pulse Rate 85 85 Respiratory Rate 18 17 Blood Pressure 142/67 H 127/81 Pulse Oximetry 97 96 97 02/21/18 19:30 02/21/18 20:00 02/21/18 23:13 Temperature 97.9 F 98.1 F Pulse Rate 84 83 89 Respiratory Rate 19 15 16 Blood Pressure 156/74 H 148/67 H Pulse Oximetry 97 97 96 02/22/18 03:32 Temperature 98.6 F Pulse Rate 86 Respiratory Rate 16 Blood Pressure 142/78 H Pulse Oximetry 93 L Intake & Output 02/21/18 02/22/18 02/22/18 18:59 06:59 18:59 Intake Total 250 / 250 Output Total 250 / 250 Balance 250 / 250 -250 / -250 Weight 83.915 kg 86 kg 86 kg Intake: Oral 250 / 250 Output: Urine 250 / 250 Other: Weight On Admission 86 kg Narrative: GENERAL: Well-nourished, well-developed pleasant elderly male patient in [facility]. SKIN: Warm and dry. No rash. HEENT: Normocephalic. Atraumatic. Pupils equal and round. Mucous membranes pink and moist. NECK: Supple. Trachea midline. CARDIOVASCULAR: Regular rate and rhythm. No murmur appreciated. RESPIRATORY: No accessory muscle use. Clear to auscultation. Breath sounds equal bilaterally. GASTROINTESTINAL: Abdomen soft, non-tender, nondistended. Normoactive bowel sounds x4. MUSCULOSKELETAL: No obvious deformities. Extremities without clubbing, cyanosis , or edema. NEUROLOGICAL: Awake and alert. No obvious cranial nerve deficits. Motor grossly within normal limits. Moving all extremities spontaneously. Normal speech. PSYCHIATRIC: Appropriate mood and affect; insight and judgment normal. Results - Labs CBC & Chem 7: 02/22/18 09:29 02/22/18 09:29 Laboratory Results - last 24 hr 02/21/18 02/21/18 02/21/18 14:30 14:30 14:30 WBC 13.2 H RBC 4.90 Hgb 13.8 Hct 42.5 MCV 86.7 MCH 28.1 MCHC 32.4 RDW 15.1 Plt Count 311 MPV 7.4 Neut % (Auto) 64.8 Lymph % (Auto) 21.5 Hays % (Auto) 12.3 H Eos % (Auto) 1.3 Baso % (Auto) 0.1 Neut # (Auto) 8.6 H Lymph # (Auto) 2.8 Hays # (Auto) 1.6 H Eos # (Auto) 0.2 Baso # (Auto) 0.0 WBC Differential . Differential Comment Auto diff final PT 11.9 H INR 1.2 APTT 20.5 L Sodium 142 Potassium 4.2 Chloride 104 Carbon Dioxide 30.9 Anion Gap 7 BUN 50 H Creatinine 1.58 H Estimated GFR 42 L Random Glucose 84 Lactic Acid Calcium 8.6 Total Bilirubin 0.8 AST 22 ALT 75 Alkaline Phosphatase 95 Troponin I Less than 0.02 L B-Natriuretic Peptide Total Protein 6.7 Albumin 3.0 L 02/21/18 02/21/18 14:30 17:00 WBC RBC Hgb Hct MCV MCH MCHC RDW Plt Count MPV Neut % (Auto) Lymph % (Auto) Hays % (Auto) Eos % (Auto) Baso % (Auto) Neut # (Auto) Lymph # (Auto) Hays # (Auto) Eos # (Auto) Baso # (Auto) WBC Differential Differential Comment PT INR APTT Sodium Potassium Chloride Carbon Dioxide Anion Gap BUN Creatinine Estimated GFR Random Glucose Lactic Acid 2.0 Calcium Total Bilirubin AST ALT Alkaline Phosphatase Troponin I B-Natriuretic Peptide 60 Total Protein Albumin - Imaging Impressions Chest X-Ray 02/21/18 14:20 CONCLUSION: Chest CT 02/21/18 16:15 CONCLUSION: Assessment and Plan - Assessment (1) COPD (chronic obstructive pulmonary disease) Code(s): J44.9 - Chronic obstructive pulmonary disease, unspecified Status: Chronic (2) Lung mass Code(s): R91.8 - Other nonspecific abnormal finding of lung field Status: Acute (3) H/O deep venous thrombosis Code(s): Z86.718 - Personal history of other venous thrombosis and embolism Status: Acute (4) C. difficile colitis Code(s): A04.72 - Enterocolitis due to Clostridium difficile, not specified as recurrent Status: Acute - Plan 82-year-old male with a PMH of COPD, O2 Dependent, DM, H/o DVT s/p IVC Filter, Afib on Eliquis and C Diff who presented to the ER w/ complaints of severe SOB. Recent admit 02/14-02/19/18 for similar complaints, treated for COPD Exacerbation, s/p eval by Dr. Camarena w/ Pulmonology. Lung Mass: New diagnosis. Pt is +smoker. -CXR showing new right hilar mass, not see on imaging from 02/14/18, images reviewed by me. 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 -Consult Pulmonology, discussed with Dr. Camarena, recommends CT guided lung biopsy -Consult Oncology for assistance w/ work up/treatment plan. Acute COPD Exacerbation with Chronic Respiratory Failure: O2 Dependent. + wheezing on exam. Recent admit 02/14-02/19/18 for same. -Continue Solu-Medrol 40mg IV q6h, DuoNeb qid and q4h prn, Symbicort bid, Mucinex bid. -Continue O2 as needed -Monitor for improvement A-fib: episode of A-fib w/ RVR on last admission, now improved -resume home Cardizem -hold Eliquis for upcoming biopsy. C Diff: diagnosed on 01/29, treated with 14 day supply of Vanco 125mg qid. No ongoing diarrhea -discontinued home vanco -Contact Precautions. -discussed with RN to report any recurrent diarrhea DVT Prophylaxis: H/o DVT s/p IVC Filter, hold Eliquis as above. Discharge Planning: Plan for likely CT-guided biopsy by IR on Sunday.
[2018-02-22] MEDS: guaiFENesin 600 MG ER Tablet PO SCH ×2 (09:52→22:15)
[2018-02-22] MEDS: Ezetimibe 10 MG Tablet PO SCH (09:52)
[2018-02-22] MEDS: dilTIAZem CD 120 MG Capsule PO SCH (09:52)
[2018-02-22] MEDS: Furosemide 20 MG Tablet PO SCH ×2 (09:52→18:07)
[2018-02-22] MEDS: Senna/Docusate Sodium 8.6/50 MG Tablet PO SCH ×2 (09:53→22:15)
[2018-02-22] MEDS: Budesonide-Formoterol 160/4.5 MCG 6 GM Inhaler INH SCH ×2 (09:53→22:16)
[2018-02-22 10:04] LABS: Baso % (Auto) 0.1 % (0.0-2.0); Eos % (Auto) 0.1 % (0.0-4.0); Hematocrit 39.4 % (39.0-51.0); Hemoglobin 12.9 gm/dL (13.0-17.0); Lymph # (Auto) 1.2 th/mm3 (1.0-4.8); Lymph % (Auto) 13.3 % (9.0-44.0); Mean Corpuscular HGB Conc 32.7 % (32.0-36.0); Mean Corpuscular Hemoglobin 28.2 pg (27.0-34.0); Mean Corpuscular Volume 86.4 fL (80.0-100.0); Mean Platelet Volume 7.6 fL (7.0-11.0); Mono # (Auto) 0.2 th/mm3 (0.0-0.9); Mono % (Auto) 2.7 % (0.0-8.0); Neut # (Auto) 7.8 th/mm3 (1.8-7.7); Neut % (Auto) 83.8 % (16.0-70.0); Platelet Count 245 th/mm3 (150-450); Red Blood Count 4.56 mil/mm3 (4.50-5.90); Red Cell Distribution Width 14.8 % (11.6-17.2); White Blood Count 9.3 th/mm3 (4.0-11.0)
[2018-02-22 10:22] LABS: Alanine Aminotransferase 67 U/L (12-78); Albumin 2.6 g/dL (3.4-5.0); Alkaline Phosphatase 89 U/L (45-117); Anion Gap 6 meq/L (5-15); Aspartate Aminotransferase 18 U/L (15-37); Blood Urea Nitrogen 50 mg/dL (7-18); Carbon Dioxide 29.8 meq/L (21.0-32.0); Chloride 104 meq/L (98-107); Glomerular Filtration Rate 41 mL/min (>89); Glucose,Random 189 mg/dL (74-106); Potassium 4.4 meq/L (3.5-5.1); Sodium 140 meq/L (136-145); Total Protein 5.9 g/dL (6.4-8.2)
--- NOTE | 2018-02-22 10:54 | MB ---
cc: Dominic Camarena MD DATE: 02/22/2018 REQUESTING PHYSICIAN: Dr. Araiza REASON FOR CONSULTATION: Shortness of breath, lung mass. HISTORY OF PRESENT ILLNESS: Mr. Vallejo is an 82-year-old male with history of COPD, diabetes mellitus, C. difficile colitis. He was recently admitted twice in the hospital. He was discharged from the hospital 2 days ago, he had acute kidney injury at that time and respiratory failure. He was managed with BiPAP and he did well. He was discharged from the hospital 2 days ago. Later he was seen in the office, was getting more short of breath and struggling to breathe. He was sent to the emergency room. He had a workup done in the emergency room. CT scan of the chest was done, which shows that he has a large right-sided mass involving the right hilum, mediastinum, likely representing lung malignancy. He also had a 2 cm cavitary mass in the left lower lobe. These are nonspecific and he has emphysematous changes in the lung. His CBC showed WBC of 9.3, hemoglobin 12.9, hematocrit 39.4, MCV 86, platelet count 245. Sodium 142, potassium 4.0, chloride 104, CO2 30, BUN 50, creatinine 1.58. His INR is 1.2. He is significantly better. He is feeling back to baseline. PAST MEDICAL HISTORY: Significant for history of COPD, renal insufficiency, DVT, IVC filter placement, C. difficile infection, hypertension, diabetes mellitus. MEDICATIONS: He is chronically taking acetaminophen, nebulized treatment with DuoNeb, Symbicort 160/4.5 twice a day, diltiazem 120 mg, Zetia 10 mg a day, Lasix 20 mg a day, twice a day, losartan 50 mg a day, Solu-Medrol 40 mg q.6 hours, Pravastatin 80 mg daily, temazepam 15 mg at nighttime, vancomycin p.o. 125 mg 4 times daily. ALLERGIES: NO KNOWN DRUG ALLERGIES. SOCIAL HISTORY: He is second time now for 13 years. 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 He has a long smoking history. FAMILY HISTORY: Has 4 children. REVIEW OF SYSTEMS: Feels weak and tired. Denies any weight loss. No hemoptysis. Has history of DVT. PHYSICAL EXAMINATION: GENERAL: Reveals an elderly male, mildly short of breath. VITAL SIGNS: Blood pressure 160/80, heart rate 70, respirations 20, temperature 98.0. HEENT: Pupils are equal and reactive to light. Oral mucosa and nasal normal. NECK: Supple. JVD not raised. CHEST: Few basilar rare wheezes. CV: S1, S2 normal. ABDOMEN: Soft nontender. ASSESSMENT: 1. Right lung with 2 cm left lower lobe cavitary lesion. 2. Chronic obstructive pulmonary disease 3. Deep venous thrombosis status post inferior vena cava filter placement. PLAN: I discussed with the patient and his we will need to biopsy. I will consult Interventional Radiology for CT-guided biopsy of the right lung. At present, supplement with oxygen and aerosol treatment. Further treatment will depend on his course in the hospital. Thank you Dr. Araiza for this consult. MD RICK Christianson/EARLE , 10:16 AM , 10:28 AM
--- NOTE | 2018-02-22 12:13 | CT ---
EXAM DATE: 02/22/2018 12:01 PM EDT AGE/SEX: 82 years / Male INDICATIONS: Right lung biopsy COMPARISON: No prior exams available for comparison. FINDINGS: The patient's recent CT of the chest dated 02/21/2018 was reviewed. The large right suprahilar mass is amenable to percutaneous biopsy. Unfortunately, the patient ate and therefore conscious sedation can not be utilized today. This was discussed with Dr. Camarena who plans to order the CT-guided lung biopsy as an outpatient early next week. Electronically signed by: Mani Parker MD 02/22/2018 12:12 PM EDT
[2018-02-23] MEDS: MethylPREDNISolone Sod Succinate Inj 40 MG/ML Vial IV.PUSH SCH ×4 (04:27→22:22)
--- NOTE | 2018-02-23 07:50 | MB ---
cc: Maryanne Quesada MD DATE: 02/22/2018 CHIEF COMPLAINT: Suspicious lung mass. HISTORY OF PRESENT ILLNESS: Mr. Vallejo is an 82-year-old gentleman with a history of COPD, DVT, diabetes, C. difficile colitis, acid reflux, hyperlipidemia, hypertension, facial skin cancer, and former tobacco abuse with recent tobacco cessation, who presented to the hospital with shortness of breath. He was previously admitted from 02/14/2018-02/19/2018 with similar issue and treated for a COPD exacerbation. Chest x-ray revealed new mass-like opacity near the right hilar region and CT chest showed a large right-sided mass involving the right hilum and mediastinum, which is highly suspicious for malignancy. He has been evaluated by Dr. Camarena from pulmonology, who recommended CT-guided biopsy by the interventional radiology team. This biopsy is planned for Sunday. PAST MEDICAL HISTORY: 1. COPD. 2. Deep venous thrombosis. 3. Clostridium difficile. 4. Hypertension. 5. Hyperlipidemia. SOCIAL HISTORY: The patient is a former smoker. He recently quit. He has a good support system with his family. ALLERGIES: NO KNOWN DRUG ALLERGIES. FAMILY HISTORY: No known family history of malignancy. REVIEW OF SYSTEMS: As in the HPI, all other review is negative. PHYSICAL EXAMINATION: GENERAL: Elderly man, sitting up at the bedside, eating dinner. No distress. HEENT: Head is normocephalic, atraumatic. NECK: Supple. No palpable lymphadenopathy. CARDIOVASCULAR: Regular rate and rhythm. No murmurs. RESPIRATORY: Clear to auscultation bilaterally. ABDOMEN: Soft, nontender, nondistended. Bowel sounds present. EXTREMITIES: No edema. NEUROLOGIC: Grossly nonfocal. PSYCHIATRIC: Appropriate mood and affect. ASSESSMENT AND PLAN: Suspicious right lung mass, highly suspicious for malignancy. We will await results of CT-guided biopsy. If this ends up being a malignancy on CT-guided biopsy, he will need close followup in oncology clinic to determine further workup and evaluation of his disease. MD BRITTNY Azar/NAKUL , 07:29 AM , 07:38 AM FAIZA
[2018-02-23 07:51] LABS: Calcium 8.3 mg/dL (8.5-10.1); Carbon Dioxide 27.8 meq/L (21.0-32.0); Potassium 4.4 meq/L (3.5-5.1)
--- NOTE | 2018-02-23 09:21 | P.PN ---
Subjective Interval history: Follow up for lung mass, bilateral lower extremity edema. Patient seen and examined today. at the bedside. Patient reports he is doing okay. Shortness of breath is not worsening. Continues to be on 2 L nasal cannula. Bilateral lower extremity edema reported, weeping. Otherwise, denies pain and discomfort. Denies chest pain, palpitations, headaches, dizziness. Denies fevers , chills, n/v/d. Denies dysuria. Physical Exam Vital signs: Vital Signs 02/22/18 12:35 02/22/18 14:37 02/22/18 16:05 Temperature 98.2 F 97.8 F Pulse Rate 70 97 H Respiratory Rate 22 18 Blood Pressure 132/68 143/76 H Pulse Oximetry 98 95 02/22/18 19:15 02/22/18 19:27 02/23/18 00:00 Temperature 97.9 F 98.2 F Pulse Rate 107 H 99 H 95 H Respiratory Rate 18 15 15 Blood Pressure 135/67 124/72 Pulse Oximetry 94 L 95 02/23/18 03:25 02/23/18 08:00 02/23/18 08:27 Temperature 97.7 F 97.5 F L Pulse Rate 95 H 82 83 Respiratory Rate 17 16 15 Blood Pressure 125/73 160/74 H Pulse Oximetry 96 95 96 Intake & Output 02/22/18 02/23/18 02/23/18 18:59 06:59 18:59 Intake Total 360 / 360 Output Total 350 / 350 600 / 600 Balance -350 / -350 -240 / -240 Weight 86 kg Intake: Oral 360 / 360 Output: Urine 350 / 350 600 / 600 Other: # Bowel Movements 0 Narrative: GENERAL: This is a well-developed patient, in no apparent distress, appears chronically ill. SKIN: Warm and dry HEENT: Normocephalic. Pupils equal round and reactive. Nose without bleeding. Airway patent. NECK: Trachea midline. Supple. CARDIOVASCULAR: Regular rate and rhythm without murmurs, gallops, or rubs. RESPIRATORY: Clear to auscultation. Breath sounds equal bilaterally. No wheezes , rales, or rhonchi. GASTROINTESTINAL: Abdomen soft, non-tender, nondistended. Bowel Sounds normoactive x4. MUSCULOSKELETAL: Extremities without clubbing, cyanosis. Bilateral lower ext +2 -3 NEUROLOGICAL: Awake and alert. Oriented to place, person. No focal neuro deficit. Moves all extremities. Normal speech. Results - Labs CBC & Chem 7: 02/22/18 09:29 02/23/18 06:00 Laboratory Results - last 24 hr 02/22/18 02/22/18 02/23/18 09:29 09:29 06:00 WBC 9.3 RBC 4.56 Hgb 12.9 L Hct 39.4 MCV 86.4 MCH 28.2 MCHC 32.7 RDW 14.8 Plt Count 245 MPV 7.6 Neut % (Auto) 83.8 H Lymph % (Auto) 13.3 [place]lin % (Auto) 2.7 Eos % (Auto) 0.1 Baso % (Auto) 0.1 Neut # (Auto) 7.8 H Lymph # (Auto) 1.2 [place] # (Auto) 0.2 Eos # (Auto) 0.0 Baso # (Auto) 0.0 WBC Differential . Differential Comment Auto diff final Hematology Comments Sodium 140 139 Potassium 4.4 4.4 Chloride 104 104 Carbon Dioxide 29.8 27.8 Anion Gap 6 7 BUN 50 H 50 H Creatinine 1.63 H 1.65 H Estimated GFR 41 L 40 L Random Glucose 189 H D 238 H Calcium 8.0 L 8.3 L Total Bilirubin 0.7 AST 18 ALT 67 Alkaline Phosphatase 89 Total Protein 5.9 L D Albumin 2.6 L Microbiology 02/21/18 16:50 Blood - Peripheral Aerobic Blood Culture - Preliminary No growth in 1 day 02/21/18 16:50 Blood - Peripheral Anaerobic Blood Culture - Preliminary No growth in 1 day 02/21/18 17:00 Blood - Peripheral Aerobic Blood Culture - Preliminary No growth in 1 day 02/21/18 17:00 Blood - Peripheral Anaerobic Blood Culture - Preliminary No growth in 1 day - Imaging Impressions Chest X-Ray 02/21/18 14:20 CONCLUSION: New masslike opacity in the right hilar region which could indicate adenopathy. Further evaluation with contrast enhanced chest CT is recommended. Assessment and Plan - Assessment (1) COPD (chronic obstructive pulmonary disease) Code(s): J44.9 - Chronic obstructive pulmonary disease, unspecified Status: Chronic (2) Lung mass Code(s): R91.8 - Other nonspecific abnormal finding of lung field Status: Acute (3) H/O deep venous thrombosis Code(s): Z86.718 - Personal history of other venous thrombosis and embolism Status: Acute (4) C. difficile colitis Code(s): A04.72 - Enterocolitis due to Clostridium difficile, not specified as recurrent Status: Acute - Plan 82-year-old male with a PMH of COPD, O2 Dependent, DM, H/o DVT s/p IVC Filter, Afib on Eliquis and C Diff who presented to the ER w/ complaints of severe SOB. Recent admit 02/14-02/19/18 for similar complaints, treated for COPD Exacerbation, s/p eval by Dr. Camarena w/ Pulmonology. Lung Mass: New diagnosis. Pt is +smoker. -CXR showing new right hilar mass, not see on imaging from 02/14/18, images reviewed by me. 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 -Consult Pulmonology, discussed with Dr. Camarena, recommends CT guided lung biopsy -Consult Oncology for assistance w/ work up/treatment plan. Acute COPD Exacerbation with Chronic Respiratory Failure: O2 Dependent. + wheezing on exam. Recent admit 02/14-02/19/18 for same. -Continue Solu-Medrol 40mg IV q6h, DuoNeb qid and q4h prn, Symbicort bid, Mucinex bid. -Continue O2 as needed -Monitor for improvement A-fib: episode of A-fib w/ RVR on last admission, now improved -resume home Cardizem -hold Eliquis for upcoming biopsy. -ECHO preserved EF 60-65% LV function normal Bilateral Lower ext edema -Start Lasix IV -If improved, may switch to PO daily C Diff: diagnosed on 01/29, treated with 14 day supply of Vanco 125mg qid. No ongoing diarrhea -discontinued home vanco -Contact Precautions. -discussed with RN to report any recurrent diarrhea DVT Prophylaxis: H/o DVT s/p IVC Filter, hold Eliquis as above. Code Status: Full code Discussed Condition With: Patient, nurse Discharge Planning: Pending CT biopsy Sunday.
[2018-02-23] MEDS: dilTIAZem CD 120 MG Capsule PO SCH (09:22)
[2018-02-23] MEDS: guaiFENesin 600 MG ER Tablet PO SCH ×2 (09:22→22:23)
[2018-02-23] MEDS: Senna/Docusate Sodium 8.6/50 MG Tablet PO SCH ×2 (09:22→22:22)
[2018-02-23] MEDS: Budesonide-Formoterol 160/4.5 MCG 6 GM Inhaler INH SCH (09:24)
[2018-02-23] MEDS: Ezetimibe 10 MG Tablet PO SCH (09:24)
[2018-02-23] MEDS: Furosemide 20 MG Tablet PO SCH (09:28)
--- NOTE | 2018-02-23 14:18 | P.PNPL ---
Subjective Interval history: Patient is sitting in bed on 2L oxygen in NAD. Awaiting CT guided right lung biopsy. Afebrile. Physical Exam Vital signs: Vital Signs 02/22/18 14:37 02/22/18 16:05 02/22/18 19:15 Temperature 97.8 F Pulse Rate 97 H 107 H Respiratory Rate 18 18 Blood Pressure 143/76 H Pulse Oximetry 98 95 02/22/18 19:27 02/23/18 00:00 02/23/18 03:25 Temperature 97.9 F 98.2 F 97.7 F Pulse Rate 99 H 95 H 95 H Respiratory Rate 15 15 17 Blood Pressure 135/67 124/72 125/73 Pulse Oximetry 94 L 95 96 02/23/18 08:00 02/23/18 08:27 02/23/18 12:00 Temperature 97.5 F L 97.3 F L Pulse Rate 82 83 95 H Respiratory Rate 16 15 18 Blood Pressure 160/74 H 131/68 Pulse Oximetry 95 96 95 02/23/18 13:11 Temperature Pulse Rate 80 Respiratory Rate 15 Blood Pressure Pulse Oximetry Intake & Output 02/22/18 02/23/18 02/23/18 18:59 06:59 18:59 Intake Total 360 / 360 Output Total 350 / 350 600 / 600 Balance -350 / -350 -240 / -240 Weight 86 kg Intake: Oral 360 / 360 Output: Urine 350 / 350 600 / 600 Other: # Bowel Movements 0 - Constitutional no acute distress - Routine HEENT Exam Head: Present: normocephalic, atraumatic Eye: Present: EOMI, PERRL, conjunctivae pink ENT: Present: mucous membranes moist - Routine Neck Exam Present: supple, full ROM, trachea midline - Routine Respiratory Exam Present: CTA bilaterally, diminished air movement - Routine Cardiovascular Exam Present: RRR, S1, S2 - Routine Abdominal Exam Present: soft, normoactive bowel sounds - Routine Extremities Exam Present: full ROM - Routine Skin Exam Present: intact - Routine Neurological Exam Present: alert, oriented X3, CN II-XII intact - Routine Psychiatric Exam Present: normal affect Assessment and Plan - Plan 1. Resp Insuff 2. COPD 3. Large right-sided mass involving the right hilum and mediastinum likely bronchogenic ca 2 cavitary masses seen in the left lower lobe. These are nonspecific. They could be neoplastic or inflammatory. 4. DVT s/p IVC filter placement. 5 JESS Plan Continue with oxygen keep sats >92% Bronchodilators ( DuoNeb, Symbicort) Continue with Solumederol 40mg IV Q6 BIPAP PRN for resp distress Awaiting CT guided lung biopsy Oncology eval and staging workup once path is conformed for malignancy d/c Lasix (worsening renal function) Monitor renal function, I/O's, avoid nephrotoxins Continue treatment plan
--- NOTE | 2018-02-23 14:46 | ECG ---
Date Performed: 02/21/2018 Time Performed: 14:28:48 PTAGE: 82 years EKG: Sinus rhythm Since previous tracing, no significant change noted NORMAL ECG PREVIOUS TRACING : 02/15/2018 04.36 DOCTOR: Akil Olson Interpretating Date/Time 02/23/2018 14:45:21
[2018-02-23] MEDS: Famotidine 20 MG Tablet PO SCH (22:22)
[2018-02-24] MEDS: MethylPREDNISolone Sod Succinate Inj 40 MG/ML Vial IV.PUSH SCH ×3 (02:38→14:53)
[2018-02-24] MEDS: Budesonide-Formoterol 160/4.5 MCG 6 GM Inhaler INH SCH ×3 (02:38→20:42)
[2018-02-24] MEDS: dilTIAZem CD 120 MG Capsule PO SCH (10:02)
[2018-02-24] MEDS: Famotidine 20 MG Tablet PO SCH ×2 (10:02→20:40)
[2018-02-24] MEDS: guaiFENesin 600 MG ER Tablet PO SCH ×2 (10:02→20:40)
[2018-02-24] MEDS: Ezetimibe 10 MG Tablet PO SCH (10:02)
--- NOTE | 2018-02-24 10:02 | P.PNIM ---
Subjective Interval history: Pt seen and eaxmined for f/u R hilar lung mass. at the bedside. Awaiting CT -guided bx tomorrow. Pt reports his breathing has improved and seems to be close to his baseline. Denies CP, abdominal pain, n/v. Tolerating PO. Endorses swelling of both legs that his states is unchanged from recent weeks. She states he does not take any diuretics at home and she notices that his legs weep a clear fluid. Echo was done last admission on 02/15 with EF 60-65%. Physical Exam Vital signs: Vital Signs 02/23/18 12:00 02/23/18 13:11 02/23/18 15:47 Temperature 97.3 F L Pulse Rate 95 H 80 88 Respiratory Rate 18 15 16 Blood Pressure 131/68 Pulse Oximetry 95 02/23/18 16:00 02/23/18 19:25 02/23/18 20:00 Temperature 98.3 F 97.8 F 97.2 F L Pulse Rate 100 H 118 H 114 H Respiratory Rate 20 20 20 Blood Pressure 140/60 143/71 H 156/82 H Pulse Oximetry 97 95 97 02/23/18 22:03 02/24/18 00:00 02/24/18 04:00 Temperature 97.4 F L 97.5 F L Pulse Rate 109 H 85 Respiratory Rate 20 20 Blood Pressure 145/93 H 141/88 H Pulse Oximetry 96 97 98 02/24/18 08:00 02/24/18 08:40 Temperature 97.5 F L Pulse Rate 90 80 Respiratory Rate 20 12 Blood Pressure 131/86 Pulse Oximetry 98 99 Intake & Output 02/23/18 02/24/18 02/24/18 18:59 06:59 18:59 Intake Total 120 / 120 Balance 120 / 120 Weight 87.9 kg Intake: Oral 120 / 120 Other: # Voids 3 # Bowel Movements 0 Narrative: GENERAL: WN, WD male resting in bed in NAD. SKIN: Warm and dry. NECK: Supple no tender LAD or JVD. HEART: RRR no m/r/g. LUNGS: Bibasilar crackles, R>L. No wheezing. ABDOMEN: +BS, soft, NT, ND. EXTREMITIES: 2+ pitting, weeping edema to his thighs bilaterally. NEURO: Awake and alert. Hard of hearing. PSYCH: Appropriate mood and affect. Results - Labs CBC & Chem 7: 02/22/18 09:29 02/23/18 06:00 Microbiology 02/21/18 16:50 Blood - Peripheral Aerobic Blood Culture - Preliminary No growth in 2 days 02/21/18 16:50 Blood - Peripheral Anaerobic Blood Culture - Preliminary No growth in 2 days 02/21/18 17:00 Blood - Peripheral Aerobic Blood Culture - Preliminary No growth in 2 days 02/21/18 17:00 Blood - Peripheral Anaerobic Blood Culture - Preliminary No growth in 2 days Assessment and Plan - Assessment (1) COPD (chronic obstructive pulmonary disease) Code(s): J44.9 - Chronic obstructive pulmonary disease, unspecified Status: Chronic (2) Lung mass Code(s): R91.8 - Other nonspecific abnormal finding of lung field Status: Acute (3) H/O deep venous thrombosis Code(s): Z86.718 - Personal history of other venous thrombosis and embolism Status: Acute (4) C. difficile colitis Code(s): A04.72 - Enterocolitis due to Clostridium difficile, not specified as recurrent Status: Acute - Plan 82 YOWM with history of O2-dependent COPD, DM, atrial fibrillation, recent C. difficile infection, and history of DVT status post IVC filter admitted on 02/21 for shortness of breath and found to have a large R hilar mass. 1. COPD exacerbation - Symptoms improving - Decrease SoluMedrol to 40 mg IV Q12 - Continue bronchodilators - Continue home Symbicort - Supplemental O2 - BiPAP PRN 2. Right hilar lung mass - CXR showing new right hilar mass not seen on previous imaging from 02/14 - CT chest with large 8 cm mass in the R mediastinum/hilar region likely representing a primary central carina malignancy. There are also 2 cavitary masses in the LLL - Pulm consulted, appreciate eval - CT-guided bx planned for tomorrow - NPO after midnight - Hold Eliquis 3. Atrial fibrillation - Continue home Cardizem - Holding Eliquis in light of upcoming biopsy 4. Bilateral lower extremity edema - Pt still with significant pitting edema - Echo done on 02/15 with EF of 60-65% - Continue Lasix 5. CKD - Creatinine rising up to 1.6 this AM, likely secondary to diuresis but patient continues to be significant edematous in his legs - Avoid nephrotoxic agents - Renally dose meds - Pt follows with Dr. Nieto as outpatient - Creatinine was as high as 5.9 last admission - Continue to monitor - Check U/A and urine microalbumin 6. HTN - Continue Losartan - If creatine continues to rise will d/c but given his DM and CKD he benefits from an ARB 7. DM - SSI w/ Accuchecks per protocol 8. Recent C. difficile infection - Diagnosed 01/29 and treated with 14 day course of Vanco - No ongoing diarrhea DVT Prophylaxis: h/o DVT s/p IVC Filter, hold Eliquis for procedure
[2018-02-24] MEDS: Senna/Docusate Sodium 8.6/50 MG Tablet PO SCH ×2 (10:04→20:41)
--- NOTE | 2018-02-24 11:43 | P.DIET ---
Nutritional Evaluation Type of nutrition evaluation: initial Nutrition consult regarding: Diet Evaluation Nutrition screening: Weight Loss > 10 lbs Subjective Subjective Comments: Pt reports a poor appetite and unintended recent weight loss Objective - Diagnosis Pulmonary Mass - Objective Wilson body weight: 166 kg % IBW: 114 Body Weight Used for Calculations: Actual (86kg) Energy Needs - Lower Range (kCal/kg): 25 Energy Needs - Upper Range (kCal/kg): 30 Lower Limit kCal/kg (kCals): 2,150 Upper Limit kCal/kg (kCals): 2,580 Lower Limit Protein Factor (Grams per Kg): 1 Upper Limit Protein Factor (Grams per Kg): 1.2 Lower Protein Needs (Protein): 86 Upper Protein Needs (Protein): 103 Fluid Factor (ml/kg): 25 Estimated Fluid Needs (ml): 2,150 Dietitian Reviewed in Medical Record: Current diet, Curent medications, Intake & Output, Labs, Medical history Diet Order: Regular Objective Comments: PMH: COPD, DM, H/o DVT s/p IVC Filter, Afib, C Diff, GERD, HLD, Pulmonary Embolism Meds include: cardizem, Zetia, Lasix, Solumedrol, Pravachol Labs include: BUN 50, Cr 1.65, GFR 40, Glucose 238 (-) BM Assessment Assessment: Pt at nutritional risk r/t dx, poor appetite and recent unintentional wt loss. Pt's nutritional needs as assessed above. Adequate po intake has not yet been established. Pt with history of Diabetes and is also on Solumedrol. Recommend a carbohydrate-controlled 2200 ADA diet. Will monitor po intake and provide supplements if needed. Recommendations: Recommend 2200 ADA diet Dietitian to Monitor: Lab values, Glucose level, Supplement acceptance, Intake & Output, Diet tolerance, Weight change, PO Intake, Medical course
--- NOTE | 2018-02-24 11:56 | P.PNPL ---
Subjective Interval history: Patient is on 2L oxygen, afebrile, awaiting CT guided lung biopsy. Physical Exam Vital signs: Vital Signs 02/23/18 12:00 02/23/18 13:11 02/23/18 15:47 Temperature 97.3 F L Pulse Rate 95 H 80 88 Respiratory Rate 18 15 16 Blood Pressure 131/68 Pulse Oximetry 95 02/23/18 16:00 02/23/18 19:25 02/23/18 20:00 Temperature 98.3 F 97.8 F 97.2 F L Pulse Rate 100 H 118 H 114 H Respiratory Rate 20 20 20 Blood Pressure 140/60 143/71 H 156/82 H Pulse Oximetry 97 95 97 02/23/18 22:03 02/24/18 00:00 02/24/18 04:00 Temperature 97.4 F L 97.5 F L Pulse Rate 109 H 85 Respiratory Rate 20 20 Blood Pressure 145/93 H 141/88 H Pulse Oximetry 96 97 98 02/24/18 08:00 02/24/18 08:40 Temperature 97.5 F L Pulse Rate 90 80 Respiratory Rate 20 12 Blood Pressure 131/86 Pulse Oximetry 98 99 Intake & Output 02/23/18 02/24/18 02/24/18 18:59 06:59 18:59 Intake Total 120 / 120 Balance 120 / 120 Weight 87.9 kg Intake: Oral 120 / 120 Other: # Voids 3 # Bowel Movements 0 - Constitutional no acute distress - Routine HEENT Exam Head: Present: normocephalic, atraumatic Eye: Present: EOMI, PERRL, normal accommodation, conjunctivae pink ENT: Present: mucous membranes moist - Routine Neck Exam Present: supple, full ROM, trachea midline - Routine Respiratory Exam Present: CTA bilaterally - Routine Cardiovascular Exam Present: RRR, S1, S2 - Routine Abdominal Exam Present: soft, normoactive bowel sounds - Routine Extremities Exam Present: full ROM, pulses intact - Routine Skin Exam Present: intact - Routine Neurological Exam Present: alert, oriented X3, CN II-XII intact - Routine Psychiatric Exam Present: normal affect Assessment and Plan - Plan 1. Resp Insuff 2. COPD 3. Large right-sided mass involving the right hilum and mediastinum likely bronchogenic ca 2 cavitary masses seen in the left lower lobe. These are nonspecific. They could be neoplastic or inflammatory. 4. DVT s/p IVC filter placement. 5 JESS Plan Continue with oxygen keep sats >92% Bronchodilators ( DuoNeb, Symbicort) Taper steroids- decrease Solumederol 40mg IV Q12 BIPAP PRN for resp distress For CT guided lung biopsy tomorrow Oncology eval and staging workup once path is conformed for malignancy Monitor renal function, I/O's, avoid nephrotoxins Continue treatment plan
[2018-02-24 12:16] LABS: Calcium 8.5 mg/dL (8.5-10.1); Carbon Dioxide 27.5 meq/L (21.0-32.0); Potassium 4.1 meq/L (3.5-5.1)
[2018-02-24] MEDS ORDERED: Dextrose 50% in Water 50 ML Vial IV.PUSH PRN (12:29)
[2018-02-24] MEDS: Insulin NovoLOG Aspart Correctional Sugar Inj SQ SCH (20:40)
[2018-02-25] MEDS: MethylPREDNISolone Sod Succinate Inj 40 MG/ML Vial IV.PUSH SCH (00:01)
[2018-02-25 01:30] LABS: Bilirubin,Urine Negative (Negative); Clarity,Urine Clear (Clear); Color,Urine Yellow (Yellw/Straw); Glucose,Urine (UA) 500 or Greater mg/dL (Negative); Leukocyte Esterase,Urine Negative (Negative); Mucus,Urine Few /lpf (Occasional); Nitrite,Urine Negative (Negative); Specific Gravity,Urine 1.013 (1.002-1.035)
--- NOTE | 2018-02-25 08:38 | P.PNIM ---
Subjective Interval history: Pt seen and examined for f/u R lung mass, COPD, and peripheral edema. AFVSS. No acute events overnight. Reports his breathing is about baseline. Denies CP, SOB , or wheezing. Tolerating PO. No abdominal pain, N/V. Hopes to have biopsy today. Continues to have significant pitting edema in his legs that are weeping and drenching his sheets. Physical Exam Vital signs: Vital Signs 02/24/18 08:40 02/24/18 12:00 02/24/18 12:08 Temperature 97.4 F L Pulse Rate 80 102 H 101 H Respiratory Rate 12 20 12 Blood Pressure 132/70 Pulse Oximetry 99 96 02/24/18 16:00 02/24/18 17:06 02/24/18 20:00 Temperature 97.7 F 98.0 F Pulse Rate 103 H 110 H 110 H Respiratory Rate 20 12 20 Blood Pressure 151/77 H 129/70 Pulse Oximetry 96 95 02/24/18 20:14 02/25/18 00:00 02/25/18 04:00 Temperature 97.8 F 97.8 F Pulse Rate 103 H 101 H 90 Respiratory Rate 16 18 16 Blood Pressure 135/70 132/63 Pulse Oximetry 94 L 98 02/25/18 07:53 Temperature Pulse Rate 86 Respiratory Rate 20 Blood Pressure Pulse Oximetry 95 Intake & Output 02/24/18 02/25/18 02/25/18 18:59 06:59 18:59 Intake Total 600 / 600 240 / 240 Balance 600 / 600 240 / 240 Weight 87.3 kg Intake: Oral 600 / 600 240 / 240 Other: # Voids 5 # Bowel Movements 1 Narrative: GENERAL: WN, WD male resting in bed in [facility]. SKIN: Warm and dry. NECK: Supple no tender LAD or JVD. HEART: RRR no m/r/g. LUNGS: Left basilar crackles otherwise CTAB. No wheezing. ABDOMEN: +BS, soft, NT, ND. EXTREMITIES: 2+ pitting, weeping edema to his thighs bilaterally. NEURO: Awake and alert. Hard of hearing. PSYCH: Appropriate mood and affect. Results - Labs CBC & Chem 7: 02/25/18 08:13 02/25/18 08:13 Laboratory Results - last 24 hr 02/24/18 02/24/18 02/24/18 11:28 18:55 19:43 Sodium 138 Potassium 4.1 Chloride 101 Carbon Dioxide 27.5 Anion Gap 10 BUN 52 H Creatinine 1.70 H Estimated GFR 39 L POC Glucose 382 H Random Glucose 265 H Calcium 8.5 Urine Color Yellow Urine Clarity Clear Urine pH 5.0 Ur Specific [place] 1.013 Urine Protein Negative Urine Glucose (UA) 500 or greater Urine Ketones Negative Urine Occult Blood Negative Urine Nitrate Negative Urine Bilirubin Negative Urine Urobilinogen Less than 2 Ur Leukocyte Esterase Negative Urine RBC Less than 1 Urine Mucus Few H 02/25/18 07:24 Sodium Potassium Chloride Carbon Dioxide Anion Gap BUN Creatinine Estimated GFR POC Glucose 202 H Random Glucose Calcium Urine Color Urine Clarity Urine pH Ur Specific [place] Urine Protein Urine Glucose (UA) Urine Ketones Urine Occult Blood Urine Nitrate Urine Bilirubin Urine Urobilinogen Ur Leukocyte Esterase Urine RBC Urine Mucus Microbiology 02/21/18 16:50 Blood - Peripheral Aerobic Blood Culture - Preliminary No growth in 3 days 02/21/18 16:50 Blood - Peripheral Anaerobic Blood Culture - Preliminary No growth in 3 days 02/21/18 17:00 Blood - Peripheral Aerobic Blood Culture - Preliminary No growth in 3 days 02/21/18 17:00 Blood - Peripheral Anaerobic Blood Culture - Preliminary No growth in 3 days Assessment and Plan - Assessment (1) COPD (chronic obstructive pulmonary disease) Code(s): J44.9 - Chronic obstructive pulmonary disease, unspecified Status: Chronic (2) Lung mass Code(s): R91.8 - Other nonspecific abnormal finding of lung field Status: Acute (3) H/O deep venous thrombosis Code(s): Z86.718 - Personal history of other venous thrombosis and embolism Status: Acute (4) C. difficile colitis Code(s): A04.72 - Enterocolitis due to Clostridium difficile, not specified as recurrent Status: Acute - Plan 82 YOWM with history of O2-dependent COPD, DM, atrial fibrillation, recent C. difficile infection, and history of DVT status post IVC filter admitted on 02/21 for shortness of breath and found to have a large R hilar mass. 1. Pneumonia - Patient clinically with crackles at the left lung base and with cough - CXR showing atelectasis in the LLL - Given elevation in WBC to 16 today, will treat for suspected PNA - Rocephin and Azithromycin - Urine Legionella and pneumococcal - Sputum cultures 2. COPD exacerbation - Symptoms improving - Change IV SoluMedrol to PO Prednisone 20 mg BID - Continue bronchodilators - Continue home inhalers - Supplemental O2 (maintaining excellent sats on 2L) - BiPAP PRN 3. Right hilar lung mass - CXR showing new right hilar mass not seen on previous imaging from 02/14 - CT chest with large 8 cm mass in the R mediastinum/hilar region likely representing a primary central carina malignancy. There are also 2 cavitary masses in the LLL - Pulm consulted, appreciate eval - CT-guided bx ordered last week and was planned for today but unfortunately the order was cancelled along the way - Too late in the day for IR to perform biopsy today so will place order again and it can be done tomorrow 4. Atrial fibrillation - HR has been 90-110s - Discontinuing Verapamil given patient's persistent peripheral edema - Coreg 6.25 mg PO BID and can titrate as needed - Holding Eliquis in light of upcoming biopsy 5. Bilateral lower extremity edema - Pt still with significant pitting edema - Echo done on 02/15 with EF of 60-65% - Continue Lasix - D/C Verapamil since it may be associated with edema 6. CKD - Creatinine improving - Avoid nephrotoxic agents - Renally dose meds - Pt follows with Dr. Nieto as outpatient - Creatinine was as high as 5.9 last admission - Continue to monitor - U/A unremarkable, no proteinuria 7. HTN - BP stable - Continue Losartan - If creatine continues to rise will d/c but given his DM and CKD he benefits from an ARB 8. DM - SSI w/ Accuchecks per protocol - Start Levemir 5 units BID and can titrate based on supplemental coverage 9. Recent C. difficile infection - Diagnosed 01/29 and treated with 14 day course of Vanco - No ongoing diarrhea DVT Prophylaxis: h/o DVT s/p IVC Filter, hold Eliquis for procedure Discussed Condition With: The patient and his
[2018-02-25] MEDS ORDERED: dilTIAZem CD 240 MG Capsule PO SCH (09:00)
[2018-02-25] MEDS: Senna/Docusate Sodium 8.6/50 MG Tablet PO SCH ×2 (09:27→21:45)
[2018-02-25] MEDS: Ezetimibe 10 MG Tablet PO SCH (09:28)
[2018-02-25] MEDS: guaiFENesin 600 MG ER Tablet PO SCH ×2 (09:28→21:45)
[2018-02-25] MEDS: Famotidine 20 MG Tablet PO SCH ×2 (09:30→21:45)
[2018-02-25 09:43] LABS: Hematocrit 38.3 % (39.0-51.0); Hemoglobin 12.7 gm/dL (13.0-17.0); Mean Corpuscular HGB Conc 33.2 % (32.0-36.0); Mean Corpuscular Hemoglobin 28.8 pg (27.0-34.0); Mean Corpuscular Volume 86.7 fL (80.0-100.0); Platelet Count 183 th/mm3 (150-450); Red Blood Count 4.42 mil/mm3 (4.50-5.90); Red Cell Distribution Width 15.3 % (11.6-17.2); White Blood Count 16.4 th/mm3 (4.0-11.0)
[2018-02-25] MEDS: Insulin NovoLOG Aspart Correctional Sugar Inj SQ SCH ×4 (09:55→21:46)
[2018-02-25] MEDS: Insulin Detemir Inj 1,000 UNIT/10 ML Vial SQ SCH ×2 (09:56→21:46)
[2018-02-25] MEDS ORDERED: UMECLIDINIUM INH SCH (10:00)
[2018-02-25 10:17] LABS: Calcium 8.6 mg/dL (8.5-10.1); Carbon Dioxide 26.3 meq/L (21.0-32.0); Potassium 4.1 meq/L (3.5-5.1)
[2018-02-25] MEDS: Budesonide-Formoterol 160/4.5 MCG 6 GM Inhaler INH SCH ×2 (10:56→21:47)
--- NOTE | 2018-02-25 15:27 | XR ---
EXAM DATE: 02/25/2018 3:14 PM EDT AGE/SEX: 82 years / Male INDICATIONS: . Short of breath, pneumonia. CLINICAL DATA: This is the patient's initial encounter. Patient reports that signs and symptoms have been present for 4 - 6 days and indicates a pain score of 0/10. MEDICAL/SURGICAL HISTORY: . Chronic obstructive pulmonary disease. Gastroesophageal reflux dise ase. Hypercholesterolemia. Diabetes. Deep vein thrombosis. Hypertension. Pulmonary embolism. Skin can cer. . IVC filter. COMPARISON: [facility] – [place], CT CHEST W CONTRAST, 02/21/2018. . FINDINGS: There are emphysematous changes again seen. There is linear area of atelectasis at the left lung base . The right hilar and mediastinal mass is again seen. A cavitary left lung lesions noted on the recen t CT are not clearly visualized radiographically. There are no pleural effusions. The osseous structu res are intact. Heart size is normal. CONCLUSION: Left basilar atelectasis is now seen. Mediastinal/right hilar mass again noted. Electronically signed by: Duc Loza MD 02/25/2018 3:26 PM EDT
[2018-02-25] MEDS: Azithromycin 250 MG Tablet PO SCH (17:36)
[2018-02-25] MEDS: Carvedilol 6.25 MG Tablet PO SCH (21:45)
[2018-02-25] MEDS: predniSONE 20 MG Tablet PO SCH (21:45)
[2018-02-26 03:14] LABS: Albumin/Creatinine Ratio 83 mg/g (<17)
[2018-02-26 08:51] LABS: Hematocrit 37.7 % (39.0-51.0); Hemoglobin 12.5 gm/dL (13.0-17.0); Mean Corpuscular HGB Conc 33.3 % (32.0-36.0); Mean Corpuscular Hemoglobin 29.1 pg (27.0-34.0); Mean Corpuscular Volume 87.4 fL (80.0-100.0); Mean Platelet Volume 8.2 fL (7.0-11.0); Platelet Count 165 th/mm3 (150-450); Red Blood Count 4.31 mil/mm3 (4.50-5.90); Red Cell Distribution Width 15.2 % (11.6-17.2); White Blood Count 16.6 th/mm3 (4.0-11.0)
[2018-02-26 09:03] LABS: Calcium 8.2 mg/dL (8.5-10.1); Carbon Dioxide 28.3 meq/L (21.0-32.0); Potassium 4.3 meq/L (3.5-5.1)
[2018-02-26] MEDS: Famotidine 20 MG Tablet PO SCH ×2 (09:03→20:56)
[2018-02-26] MEDS: Insulin NovoLOG Aspart Correctional Sugar Inj SQ SCH ×5 (09:03→20:58)
[2018-02-26] MEDS: Azithromycin 250 MG Tablet PO SCH (09:03)
[2018-02-26] MEDS: predniSONE 20 MG Tablet PO SCH ×2 (09:03→20:56)
[2018-02-26] MEDS: Ezetimibe 10 MG Tablet PO SCH (09:03)
[2018-02-26] MEDS: Carvedilol 6.25 MG Tablet PO SCH ×2 (09:03→20:56)
[2018-02-26] MEDS: guaiFENesin 600 MG ER Tablet PO SCH ×2 (09:04→20:56)
[2018-02-26] MEDS: Senna/Docusate Sodium 8.6/50 MG Tablet PO SCH ×2 (09:04→20:58)
[2018-02-26] MEDS: Budesonide-Formoterol 160/4.5 MCG 6 GM Inhaler INH SCH ×2 (09:04→20:35)
[2018-02-26] MEDS: Insulin Detemir Inj 1,000 UNIT/10 ML Vial SQ SCH ×2 (09:05→20:56)
[2018-02-26] MEDS ORDERED: fentaNYL Citrate Inj 250 MCG/5 ML Ampul ONE (13:55)
[2018-02-26] MEDS ORDERED: Lidocaine 1%/Epinephrine 1:100,000 Inj 50 ML Vial ONE (14:14)
--- NOTE | 2018-02-26 16:15 | P.PN ---
Subjective Interval history: Patient is recovering from pneumonia and COPD exacerbation. He has a new diagnosis of a right hilar mass which was undergone biopsy today. Also dealing with edema secondary to CHF versus atrial fibrillation. He feels weak still. Physical Exam Vital signs: Vital Signs 02/25/18 20:00 02/26/18 00:00 02/26/18 03:36 Temperature 98 F 98 F 98 F Pulse Rate 104 H 89 85 Respiratory Rate 17 18 16 Blood Pressure 149/70 H 122/73 125/85 Pulse Oximetry 96 94 L 98 02/26/18 08:00 02/26/18 09:52 02/26/18 12:00 Temperature 97.8 F 97.6 F Pulse Rate 81 82 Respiratory Rate 20 20 Blood Pressure 135/87 118/76 Pulse Oximetry 95 95 96 Intake & Output 02/25/18 02/26/18 02/26/18 18:59 06:59 18:59 Intake Total 0 / 0 0 / 0 Balance 0 / 0 0 / 0 Weight 85.9 kg Intake: Oral 0 / 0 0 / 0 Other: # Voids 900 2 Narrative: GENERAL: AAOx3, weak appearing SKIN: Warm and dry. No rashes HEAD: Atruamtic, normocephalic. EYES: No scleral icterus. No injection or drainage. ENT: Moist mucous membranes, patent nares, no erythema of oropharynx. NECK: Supple, trachea midline. No JVD or lymphadenopathy. Normal thyroid. CARDIOVASCULAR: Regular rate and rhythm. No murmurs, gallops, or rubs. RESPIRATORY: Breath sounds clear equal bilaterally. No crackles or wheezes. No accessory muscle use. GASTROINTESTINAL: Abdomen soft, non-tender, nondistended, normal active bowel sounds MUSCULOSKELETAL: No cyanosis, 2+ edema at ankles, 1+ edema on the shins, trace edema on thighs NEURO: CN II-XII grossly intact, no focal deficits, no slurring of speech Results - Labs CBC & Chem 7: 02/26/18 06:40 02/26/18 06:40 Laboratory Results - last 24 hr 02/24/18 02/25/18 02/25/18 18:55 16:16 21:42 WBC RBC Hgb Hct MCV MCH MCHC RDW Plt Count MPV Sodium Potassium Chloride Carbon Dioxide Anion Gap BUN Creatinine Estimated GFR POC Glucose 171 H 188 H Random Glucose Calcium Ur Microalbumin mg/L 37 U Creat (Microalbumin) 44.0 Microalb/Creat Ratio 83 H 02/26/18 02/26/18 02/26/18 06:40 06:40 07:41 WBC 16.6 H RBC 4.31 L Hgb 12.5 L Hct 37.7 L MCV 87.4 MCH 29.1 MCHC 33.3 RDW 15.2 Plt Count 165 MPV 8.2 Sodium 139 Potassium 4.3 Chloride 104 Carbon Dioxide 28.3 Anion Gap 7 BUN 57 H Creatinine 1.28 Estimated GFR 54 L POC Glucose 151 H Random Glucose 146 H Calcium 8.2 L Ur Microalbumin mg/L U Creat (Microalbumin) Microalb/Creat Ratio 02/26/18 12:05 WBC RBC Hgb Hct MCV MCH MCHC RDW Plt Count MPV Sodium Potassium Chloride Carbon Dioxide Anion Gap BUN Creatinine Estimated GFR POC Glucose 122 H Random Glucose Calcium Ur Microalbumin mg/L U Creat (Microalbumin) Microalb/Creat Ratio Microbiology 02/21/18 16:50 Blood - Peripheral Aerobic Blood Culture - Final No growth in 5 days 02/21/18 16:50 Blood - Peripheral Anaerobic Blood Culture - Final No growth in 5 days 02/21/18 17:00 Blood - Peripheral Aerobic Blood Culture - Final No growth in 5 days 02/21/18 17:00 Blood - Peripheral Anaerobic Blood Culture - Final No growth in 5 days - Imaging Impressions Chest X-Ray 02/25/18 00:00 CONCLUSION: Left basilar atelectasis is now seen. Mediastinal/right hilar mass again noted. Assessment and Plan - Assessment (1) COPD (chronic obstructive pulmonary disease) Code(s): J44.9 - Chronic obstructive pulmonary disease, unspecified Status: Chronic (2) Lung mass Code(s): R91.8 - Other nonspecific abnormal finding of lung field Status: Acute (3) H/O deep venous thrombosis Code(s): Z86.718 - Personal history of other venous thrombosis and embolism Status: Acute (4) C. difficile colitis Code(s): A04.72 - Enterocolitis due to Clostridium difficile, not specified as recurrent Status: Acute - Plan 82 YO with history of O2-dependent COPD, DM, atrial fibrillation, recent C. difficile infection, and history of DVT status post IVC filter admitted on 02/21 for shortness of breath and found to have a large R hilar mass. Pneumonia Patient slowly recovering from left lower lobe pneumonia Leukocytosis trending downward Continue with azithromycin and Rocephin Urine Legionella pending Sputum cultures negative thus far COPD exacerbation Continue p.o. prednisone, 20 mg twice daily Continue duo nebs and home inhalers, continue supplemental oxygen and as needed BiPAP Right hilar lung mass CT chest shows 8 cm mass in the right mediastinum, quality consistent with malignancy, cavitary lesion in LLL Interventional radiology to perform CT-guided biopsy today Appreciate radiology consult Appreciate pulmonology consult Atrial fibrillation Continue Coreg 6.25 mg twice daily Eliquis held for biopsy, will resume tomorrow if follow-up chest x-ray normal Lower extremity edema Significant bilateral pitting edema Echocardiogram on 720 shows ejection fraction of 60-65% Verapamil discontinued for association with edema Continue IV Lasix h/o CKD Creatinines are near baseline, at 1.28 Monitor level given current diuresis with Lasix Avoid nephrotoxic agents Patient has outpatient follow-up with Dr. Nieto Type 2 diabetes Accu-Cheks with sliding scale insulin coverage Levemir 5 units twice daily Diabetic diet Hypertension Continue losartan Recent C. difficile infection Diagnosis 01/29/2018, completed 14 day course of oral vancomycin Diarrhea resolved DVT Prophylaxis h/o DVT s/p IVC Filter, hold Eliquis for procedure
--- NOTE | 2018-02-26 19:22 | P.PNPL ---
Subjective Interval history: 82 YOWm with COPD, Rt hilar, mediastinal mass, LLL density Weak , mild sob DW , high risk for Ptx, suggests bronch first Physical Exam Vital signs: Vital Signs 02/25/18 20:00 02/26/18 00:00 02/26/18 03:36 Temperature 98 F 98 F 98 F Pulse Rate 104 H 89 85 Respiratory Rate 17 18 16 Blood Pressure 149/70 H 122/73 125/85 Pulse Oximetry 96 94 L 98 02/26/18 08:00 02/26/18 09:52 02/26/18 12:00 Temperature 97.8 F 97.6 F Pulse Rate 81 82 Respiratory Rate 20 20 Blood Pressure 135/87 118/76 Pulse Oximetry 95 95 96 02/26/18 16:00 Temperature 97.6 F Pulse Rate 90 Respiratory Rate 20 Blood Pressure 115/57 L Pulse Oximetry 97 Intake & Output 02/26/18 02/26/18 02/27/18 06:59 18:59 06:59 Intake Total 0 / 0 100 / 100 Balance 0 / 0 100 / 100 Weight 85.9 kg Intake: IV 100 / 100 Rocephin Inj 1,000 MG In NS Inj 100 / 100 100 ML @ 200 mls/hr IV.SIG Q24H [facility] Rx#:[id number] Oral 0 / 0 0 / 0 Other: # Voids 2 1,600 # Bowel Movements 0 Assessment and Plan - Plan Impression: 1. Right lung mass in hilar and mediasinal area with compression of bronchus 2. 2 cm left lower lobe cavitary lesion. 3. Chronic obstructive pulmonary disease 4. Deep venous thrombosis status post inferior vena cava filter placement. PLAN: Will need Bronch if bronch non diagnostic, will need CT guided Bx DW Pt Cont Aerosol nebs Cont abx monitor BS Will gomez for Bronch
[2018-02-27] MEDS: Insulin NovoLOG Aspart Correctional Sugar Inj SQ SCH ×4 (08:02→21:54)
[2018-02-27] MEDS: Azithromycin 250 MG Tablet PO SCH (08:53)
[2018-02-27] MEDS: Carvedilol 6.25 MG Tablet PO SCH ×2 (08:53→21:55)
[2018-02-27] MEDS: predniSONE 20 MG Tablet PO SCH ×2 (08:53→21:54)
[2018-02-27] MEDS: Ezetimibe 10 MG Tablet PO SCH (08:53)
[2018-02-27] MEDS: Senna/Docusate Sodium 8.6/50 MG Tablet PO SCH ×2 (08:54→21:54)
[2018-02-27] MEDS: Famotidine 20 MG Tablet PO SCH ×2 (08:54→21:54)
[2018-02-27] MEDS: Insulin Detemir Inj 1,000 UNIT/10 ML Vial SQ SCH ×2 (08:54→21:55)
[2018-02-27] MEDS: guaiFENesin 600 MG ER Tablet PO SCH ×2 (08:54→21:54)
[2018-02-27] MEDS: Budesonide-Formoterol 160/4.5 MCG 6 GM Inhaler INH SCH ×2 (08:55→21:57)
[2018-02-27 09:44] LABS: Hematocrit 43.3 % (39.0-51.0); Hemoglobin 14.1 gm/dL (13.0-17.0); Mean Corpuscular HGB Conc 32.7 % (32.0-36.0); Mean Corpuscular Hemoglobin 28.7 pg (27.0-34.0); Mean Corpuscular Volume 87.7 fL (80.0-100.0); Mean Platelet Volume 8.1 fL (7.0-11.0); Platelet Count 145 th/mm3 (150-450); Red Blood Count 4.93 mil/mm3 (4.50-5.90); Red Cell Distribution Width 15.2 % (11.6-17.2); White Blood Count 19.2 th/mm3 (4.0-11.0)
[2018-02-27 10:13] LABS: Calcium 8.8 mg/dL (8.5-10.1); Carbon Dioxide 30.9 meq/L (21.0-32.0); Potassium 4.1 meq/L (3.5-5.1)
--- NOTE | 2018-02-27 15:08 | P.PN ---
Subjective Interval history: 82-year-old male, still remains weak from his pneumonia. His diuresis with Lasix has been unimpressive, low volume. We discussed changing to Bumex. He is undergoing a bronchoscopy with biopsy tomorrow to investigate perihilar mass on the right. Physical Exam Vital signs: Vital Signs 02/26/18 16:00 02/26/18 20:00 02/27/18 00:00 Temperature 97.6 F 97.8 F 97.4 F L Pulse Rate 90 96 H 87 Respiratory Rate 20 18 18 Blood Pressure 115/57 L 129/75 130/80 Pulse Oximetry 97 98 95 02/27/18 04:00 02/27/18 08:00 02/27/18 12:00 Temperature 97.4 F L 97.3 F L 98.1 F Pulse Rate 85 86 85 Respiratory Rate 19 18 18 Blood Pressure 119/83 134/86 114/71 Pulse Oximetry 96 96 96 Intake & Output 02/26/18 02/27/18 02/27/18 18:59 06:59 18:59 Intake Total 100 / 100 Balance 100 / 100 Weight 85.4 kg Intake: IV 100 / 100 Rocephin Inj 1,000 MG In NS Inj 100 / 100 100 ML @ 200 mls/hr IV.SIG Q24H [facility] Rx#:[id number] Oral 0 / 0 Other: # Voids 1,600 2 # Bowel Movements 0 1 Narrative: GENERAL: AAOx3, weak appearing SKIN: Warm and dry. No rashes HEAD: Atruamtic, normocephalic. EYES: No scleral icterus. No injection or drainage. ENT: Moist mucous membranes, patent nares, no erythema of oropharynx. NECK: Supple, trachea midline. No JVD or lymphadenopathy. Normal thyroid. CARDIOVASCULAR: Regular rate and rhythm. No murmurs, gallops, or rubs. RESPIRATORY: Breath sounds clear equal bilaterally. No crackles or wheezes. No accessory muscle use. GASTROINTESTINAL: Abdomen soft, non-tender, nondistended, normal active bowel sounds MUSCULOSKELETAL: No cyanosis, 2+ edema at ankles, 1+ edema on the shins, trace edema on thighs NEURO: CN II-XII grossly intact, no focal deficits, no slurring of speech Results - Labs CBC & Chem 7: 02/27/18 09:08 02/27/18 09:08 Laboratory Results - last 24 hr 07/31/18 07/31/18 08/01/18 17:01 20:35 07:57 WBC RBC Hgb Hct MCV MCH MCHC RDW Plt Count MPV Sodium Potassium Chloride Carbon Dioxide Anion Gap BUN Creatinine Estimated GFR POC Glucose 161 H 176 H 113 H Random Glucose Calcium 02/27/18 02/27/18 02/27/18 09:08 09:08 12:44 WBC 19.2 H RBC 4.93 Hgb 14.1 Hct 43.3 MCV 87.7 MCH 28.7 MCHC 32.7 RDW 15.2 Plt Count 145 L MPV 8.1 Sodium 140 Potassium 4.1 Chloride 102 Carbon Dioxide 30.9 Anion Gap 7 BUN 61 H Creatinine 1.36 H Estimated GFR 50 L POC Glucose 221 H Random Glucose 117 H Calcium 8.8 Assessment and Plan - Assessment (1) COPD (chronic obstructive pulmonary disease) Code(s): J44.9 - Chronic obstructive pulmonary disease, unspecified Status: Chronic (2) Lung mass Code(s): R91.8 - Other nonspecific abnormal finding of lung field Status: Acute (3) H/O deep venous thrombosis Code(s): Z86.718 - Personal history of other venous thrombosis and embolism Status: Acute (4) C. difficile colitis Code(s): A04.72 - Enterocolitis due to Clostridium difficile, not specified as recurrent Status: Acute - Plan 82 YO with history of O2-dependent COPD, DM, atrial fibrillation, recent C. difficile infection, and history of DVT status post IVC filter admitted on 02/21 for shortness of breath and found to have a large R hilar mass. Pneumonia Patient slowly recovering from left lower lobe pneumonia Leukocytosis upward again Continue with azithromycin and Rocephin Urine Legionella pending Sputum cultures negative thus far COPD exacerbation Continue p.o. prednisone, 20 mg twice daily Continue duo nebs and home inhalers, continue supplemental oxygen and as needed BiPAP Right hilar lung mass CT chest shows 8 cm mass in the right mediastinum, quality consistent with malignancy, cavitary lesion in LLL Bronchoscopy with biopsy scheduled for tomorrow at 2:30 PM Appreciate radiology consult Appreciate pulmonology consult Atrial fibrillation Continue Coreg 6.25 mg twice daily Eliquis held for biopsy, will resume tomorrow if follow-up chest x-ray normal Lower extremity edema Significant bilateral pitting edema Echocardiogram on 720 shows ejection fraction of 60-65% Verapamil discontinued for association with edema Continue IV Lasix h/o CKD Creatinines are near baseline, at 1.28 Monitor level given current diuresis with Lasix Avoid nephrotoxic agents Patient has outpatient follow-up with Dr. Nieto Type 2 diabetes Accu-Cheks with sliding scale insulin coverage Levemir 5 units twice daily Diabetic diet Hypertension Continue losartan Recent C. difficile infection Diagnosis 01/29/2018, completed 14 day course of oral vancomycin Diarrhea resolved DVT Prophylaxis h/o DVT s/p IVC Filter, held Eliquis for procedure
[2018-02-27] MEDS ORDERED: Dextrose 5%/NaCl 0.45% Inj 1,000 ML IV.CONT SCH (19:15)
--- NOTE | 2018-02-27 20:10 | P.PNPL ---
Subjective Interval history: 82 YOWm with COPD, Rt hilar, mediastinal mass, LLL density Weak , mild sob DW , high risk for Ptx, suggests bronch first Up on the side of bed Physical Exam Vital signs: Vital Signs 02/27/18 00:00 02/27/18 04:00 02/27/18 08:00 Temperature 97.4 F L 97.4 F L 97.3 F L Pulse Rate 87 85 86 Respiratory Rate 18 19 18 Blood Pressure 130/80 119/83 134/86 Pulse Oximetry 95 96 96 02/27/18 12:00 02/27/18 16:00 02/27/18 17:23 Temperature 98.1 F 97.6 F Pulse Rate 85 87 Respiratory Rate 18 17 Blood Pressure 114/71 105/76 Pulse Oximetry 96 95 95 Intake & Output 02/27/18 02/27/18 02/28/18 06:59 18:59 06:59 Intake Total 100 / 100 Balance 100 / 100 Weight 85.4 kg Intake: IV 100 / 100 Rocephin Inj 1,000 MG In NS Inj 100 / 100 100 ML @ 200 mls/hr IV.SIG Q24H [facility] Rx#:[id number] Other: # Voids 2 # Bowel Movements 1 GENERAL: Elderly WM, NAD SKIN: Warm and dry. HEAD: Normocephalic. EYES: No scleral icterus. No injection or drainage. NECK: Supple, trachea midline. No JVD or lymphadenopathy. CARDIOVASCULAR: Regular rate and rhythm without murmurs, gallops, or rubs. RESPIRATORY: Breath sounds equal bilaterally. No accessory muscle use. GASTROINTESTINAL: Abdomen soft, non-tender, nondistended. MUSCULOSKELETAL: No cyanosis, or edema. BACK: Nontender without obvious deformity. No CVA tenderness. Assessment and Plan - Plan Impression: 1. Right lung mass in hilar and mediasinal area with compression of bronchus 2. 2 cm left lower lobe cavitary lesion. 3. Chronic obstructive pulmonary disease 4. Deep venous thrombosis status post inferior vena cava filter placement. PLAN: Will need Bronch if bronch non diagnostic, will need CT guided Bx DW Pt Cont Aerosol nebs Cont abx monitor BS Bronch tommorrow Keep NPO after midnight
[2018-02-28 05:58] LABS: Hematocrit 39.8 % (39.0-51.0); Hemoglobin 13.1 gm/dL (13.0-17.0); Mean Corpuscular Hemoglobin 28.9 pg (27.0-34.0); Mean Corpuscular Volume 87.5 fL (80.0-100.0); Mean Platelet Volume 8.2 fL (7.0-11.0); Platelet Count 137 th/mm3 (150-450); Red Blood Count 4.55 mil/mm3 (4.50-5.90); Red Cell Distribution Width 15.2 % (11.6-17.2); White Blood Count 17.2 th/mm3 (4.0-11.0)
[2018-02-28 06:16] LABS: Calcium 8.4 mg/dL (8.5-10.1); Carbon Dioxide 30.6 meq/L (21.0-32.0); Potassium 4.3 meq/L (3.5-5.1)
[2018-02-28] MEDS: Insulin Detemir Inj 1,000 UNIT/10 ML Vial SQ SCH ×2 (10:09→20:37)
[2018-02-28] MEDS: Famotidine 20 MG Tablet PO SCH ×2 (10:10→20:36)
[2018-02-28] MEDS: Carvedilol 6.25 MG Tablet PO SCH ×2 (10:11→20:37)
[2018-02-28] MEDS: Azithromycin 250 MG Tablet PO SCH (10:11)
[2018-02-28] MEDS: guaiFENesin 600 MG ER Tablet PO SCH ×2 (10:11→20:37)
[2018-02-28] MEDS: Ezetimibe 10 MG Tablet PO SCH (10:11)
[2018-02-28] MEDS: Insulin NovoLOG Aspart Correctional Sugar Inj SQ SCH ×7 (10:12→21:26)
[2018-02-28] MEDS: Senna/Docusate Sodium 8.6/50 MG Tablet PO SCH ×3 (10:12→20:36)
[2018-02-28] MEDS: predniSONE 20 MG Tablet PO SCH ×2 (10:12→20:37)
[2018-02-28] MEDS: Budesonide-Formoterol 160/4.5 MCG 6 GM Inhaler INH SCH ×2 (10:22→20:38)
--- NOTE | 2018-02-28 16:26 | MP ---
cc: Dominic Camarena MD DATE OF OPERATION: 02/28/2018 PROCEDURE PERFORMED: Bronchoscopy. PREOPERATIVE DIAGNOSIS: Right lung mass. POSTOPERATIVE DIAGNOSIS: Right lung endobronchial lesion. INDICATION FOR PROCEDURE: Informed consent was obtained from the patient, and procedure and the complications were explained to the patient and his . Complications including complication of anesthesia, pneumothorax requiring chest tube, bleeding complication, injury to the blood vessel, lungs, and nerves; arrhythmia, hypoxia and need for ventilator was explained and they agreed for the procedure. Also, it was explained that biopsy can be nondiagnostic. DESCRIPTION OF PROCEDURE: The patient was brought to endoscopy suite under general anesthesia and endotracheal tube was placed by anesthesiologist. Bronchoscopy done through endotracheal tube. Distal trachea is normal. Bronchoscope advanced to the left lung. A lot of mucus plugs were suctioned. Left upper, lingular, and lower lobe were visualized. No endobronchial lesion was seen. Then bronchoscope pulled back, advanced to the right lung. Right upper, middle, and lower lobes were visualized. Small amount of mucus was suctioned and he had an obstructing mass in the anterior segment of the right upper lobe. It bleeds to touch easily. Right upper lobe washing, brushing and needle aspiration biopsy was done. He had areas of bleeding, which was controlled with cold saline and epinephrine lavage. He tolerated the procedure well. Aspiration needle biopsy sent for pathology. Brushing is sent for cytology. Washing is sent for cytology, routine culture, AFB, fungal culture. He tolerated the procedure well. Postprocedure chest x-ray ordered to rule out pneumothorax. MD RICK Christianson/NAKUL , 04:10 PM , 04:20 PM
--- NOTE | 2018-02-28 16:52 | P.PN ---
Subjective Interval history: Patient undergoing bronchoscopy with biopsy of right hilar mass today. He is still diuresing for lower extremity edema, Bumex is working a little better than Lasix. Physical Exam Vital signs: Vital Signs 02/27/18 17:23 02/27/18 20:00 02/28/18 00:00 Temperature 97.9 F 97.8 F Pulse Rate 99 H 88 Respiratory Rate 18 16 Blood Pressure 112/57 L 123/64 Pulse Oximetry 95 95 94 L 02/28/18 04:00 02/28/18 08:00 02/28/18 11:55 Temperature 98.8 F 97.4 F L 97.2 F L Pulse Rate 77 77 83 Respiratory Rate 14 18 18 Blood Pressure 110/66 95/59 L 109/66 Pulse Oximetry 96 97 92 L Intake & Output 02/27/18 02/28/18 02/28/18 18:59 06:59 18:59 Intake Total 100 / 100 780 / 780 Balance 100 / 100 780 / 780 Weight 85.4 kg Intake: IV 100 / 100 Rocephin Inj 1,000 MG In NS Inj 100 / 100 100 ML @ 200 mls/hr IV.SIG Q24H [facility] Rx#:[id number] Oral 780 / 780 Narrative: GENERAL: AAOx3, weak appearing SKIN: Warm and dry. No rashes HEAD: Atruamtic, normocephalic. EYES: No scleral icterus. No injection or drainage. ENT: Moist mucous membranes, patent nares, no erythema of oropharynx. NECK: Supple, trachea midline. No JVD or lymphadenopathy. Normal thyroid. CARDIOVASCULAR: Regular rate and rhythm. No murmurs, gallops, or rubs. RESPIRATORY: Breath sounds clear equal bilaterally. No crackles or wheezes. No accessory muscle use. GASTROINTESTINAL: Abdomen soft, non-tender, nondistended, normal active bowel sounds MUSCULOSKELETAL: No cyanosis, 1+ edema at ankles and shins, trace edema on thighs NEURO: CN II-XII grossly intact, no focal deficits, no slurring of speech Results - Labs CBC & Chem 7: 02/28/18 04:39 02/28/18 04:39 Laboratory Results - last 24 hr 02/27/18 02/27/18 02/28/18 17:10 19:55 04:39 WBC 17.2 H RBC 4.55 Hgb 13.1 Hct 39.8 MCV 87.5 MCH 28.9 MCHC 33.0 RDW 15.2 Plt Count 137 L MPV 8.2 Sodium Potassium Chloride Carbon Dioxide Anion Gap BUN Creatinine Estimated GFR POC Glucose 140 H 226 H Random Glucose Calcium 02/28/18 02/28/18 02/28/18 04:39 07:50 11:57 WBC RBC Hgb Hct MCV MCH MCHC RDW Plt Count MPV Sodium 139 Potassium 4.3 Chloride 100 Carbon Dioxide 30.6 Anion Gap 8 BUN 64 H Creatinine 1.42 H Estimated GFR 48 L POC Glucose 111 H 95 Random Glucose 114 H Calcium 8.4 L 02/28/18 16:31 WBC RBC Hgb Hct MCV MCH MCHC RDW Plt Count MPV Sodium Potassium Chloride Carbon Dioxide Anion Gap BUN Creatinine Estimated GFR POC Glucose 87 Random Glucose Calcium Microbiology 02/27/18 22:00 Urine - Clean Catch Urine Streptococcus pneumoniae Antigen ( M - Final Presumptive negative for streptococcus pneumoniae antigen, suggesting no current or recent infection. Infection due to Streptococcus pneumoniae cannot be ruled out since the antigen present in the sample may be below the detection limit of the test. 02/27/18 22:00 Urine - Clean Catch Urine Legionella Antigen - Final Presumptive negative for Legionella pneumophila serogroup 1 antigen in urine, suggesting no recent or recurrent infection. Infection due to Legionella cannot be ruled out since other serogroups and species may cause disease, antigen may not be present in urine in early infection, and the level of antigen present in the urine may be below the detection limit of the test. Assessment and Plan - Assessment (1) COPD (chronic obstructive pulmonary disease) Code(s): J44.9 - Chronic obstructive pulmonary disease, unspecified Status: Chronic (2) Lung mass Code(s): R91.8 - Other nonspecific abnormal finding of lung field Status: Acute (3) H/O deep venous thrombosis Code(s): Z86.718 - Personal history of other venous thrombosis and embolism Status: Acute (4) C. difficile colitis Code(s): A04.72 - Enterocolitis due to Clostridium difficile, not specified as recurrent Status: Acute - Plan 82 YO with history of O2-dependent COPD, DM, atrial fibrillation, recent C. difficile infection, and history of DVT status post IVC filter admitted on 02/21 for shortness of breath and found to have a large R hilar mass. Pneumonia Patient slowly recovering from left lower lobe pneumonia Leukocytosis downward today Continue with azithromycin and Rocephin Urine Legionella negative Sputum cultures negative thus far COPD exacerbation Continue p.o. prednisone, 20 mg twice daily Continue duo nebs and home inhalers, continue supplemental oxygen and as needed BiPAP Right hilar lung mass CT chest shows 8 cm mass in the right mediastinum, quality consistent with malignancy, cavitary lesion in LLL Bronchoscopy with biopsy performed 02/28/18, pathology pending Appreciate radiology consult Appreciate pulmonology consult Atrial fibrillation Continue Coreg 6.25 mg twice daily Eliquis held for biopsy, will resume if follow-up x-ray normal Lower extremity edema Significant bilateral pitting edema Echocardiogram on 720 shows ejection fraction of 60-65% Verapamil discontinued for association with edema Bumex ordered to replace Lasix h/o CKD Creatinines are near baseline, at 1.28 Monitor level given current diuresis with Lasix Avoid nephrotoxic agents Patient has outpatient follow-up with Dr. Nieto Type 2 diabetes Accu-Cheks with sliding scale insulin coverage Levemir 5 units twice daily Diabetic diet Hypertension Continue losartan Recent C. difficile infection Diagnosis 01/29/2018, completed 14 day course of oral vancomycin Diarrhea resolved Repeat C. difficile screen DVT Prophylaxis h/o DVT s/p IVC Filter, held Eliquis for procedure
--- NOTE | 2018-02-28 17:21 | XR ---
EXAM DATE: 02/28/2018 5:17 PM EDT AGE/SEX: 82 years / Male INDICATIONS: Post bronchoscopy. CLINICAL DATA: This is the patient's subsequent encounter. Patient reports that signs and symptoms h ave been present for 1 day and indicates a pain score of Nonresponsive. MEDICAL/SURGICAL HISTORY: . Chronic obstructive pulmonary disease. Gastroesophageal reflux dise ase. Hypercholesterolemia. Diabetes. Deep vein thrombosis. Hypertension. Pulmonary embolism. Skin can cer. . IVC filter. COMPARISON: [facility] [place], CHEST 2V PA&LAT, 02/25/2018. . FINDINGS: Stable linear parenchymal opacity in the left lung base. Stable right hilar mass. Cavitary lesions no lindsey on recent CT exam again not demonstrated. No significant pneumothorax. Cardiac silhouette is with in normal limits. Bony thorax is intact. CONCLUSION: 1. No significant pneumothorax. 2. Redemonstration of right hilar mass. 3. Left basilar atelectasis. Electronically signed by: Tony Matt MD 02/28/2018 5:20 PM EDT
--- NOTE | 2018-02-28 17:22 | P.PNPL ---
Subjective Interval history: 82 YOWm with COPD, Rt hilar, mediastinal mass, LLL density Had Bronch, endobronchial lesion at ant segment RUL, bleed easily BAL, [place] and needle aspiration done Tolerated well Physical Exam Vital signs: Vital Signs 02/27/18 17:23 02/27/18 20:00 02/28/18 00:00 Temperature 97.9 F 97.8 F Pulse Rate 99 H 88 Respiratory Rate 18 16 Blood Pressure 112/57 L 123/64 Pulse Oximetry 95 95 94 L 02/28/18 04:00 02/28/18 08:00 02/28/18 11:55 Temperature 98.8 F 97.4 F L 97.2 F L Pulse Rate 77 77 83 Respiratory Rate 14 18 18 Blood Pressure 110/66 95/59 L 109/66 Pulse Oximetry 96 97 92 L Intake & Output 02/27/18 02/28/18 02/28/18 18:59 06:59 18:59 Intake Total 100 / 100 780 / 780 Balance 100 / 100 780 / 780 Weight 85.4 kg Intake: IV 100 / 100 Rocephin Inj 1,000 MG In NS Inj 100 / 100 100 ML @ 200 mls/hr IV.SIG Q24H [facility] Rx#:[id number] Oral 780 / 780 GENERAL: Elderly WM, NAD SKIN: Warm and dry. HEAD: Normocephalic. EYES: No scleral icterus. No injection or drainage. NECK: Supple, trachea midline. No JVD or lymphadenopathy. CARDIOVASCULAR: Regular rate and rhythm without murmurs, gallops, or rubs. RESPIRATORY: Breath sounds equal bilaterally. No accessory muscle use. GASTROINTESTINAL: Abdomen soft, non-tender, nondistended. MUSCULOSKELETAL: No cyanosis, or edema. BACK: Nontender without obvious deformity. No CVA tenderness. Assessment and Plan - Plan Impression: 1. Right lung mass in hilar and mediasinal area with compression of bronchus 2. 2 cm left lower lobe cavitary lesion. 3. Chronic obstructive pulmonary disease 4. Deep venous thrombosis status post inferior vena cava filter placement. 5. RUL ant segment Endobronchial mass PLAN: DW Pt and Cont Aerosol nebs Cont abx monitor BS Check cxr
[2018-03-01] MEDS: Insulin NovoLOG Aspart Correctional Sugar Inj SQ SCH ×4 (09:26→21:04)
[2018-03-01] MEDS: Insulin Detemir Inj 1,000 UNIT/10 ML Vial SQ SCH ×2 (09:26→21:05)
[2018-03-01] MEDS: Famotidine 20 MG Tablet PO SCH ×2 (09:27→21:03)
[2018-03-01] MEDS: Ezetimibe 10 MG Tablet PO SCH (09:27)
[2018-03-01] MEDS: Carvedilol 6.25 MG Tablet PO SCH ×2 (09:28→21:03)
[2018-03-01] MEDS: predniSONE 20 MG Tablet PO SCH ×2 (09:28→21:03)
[2018-03-01] MEDS: Senna/Docusate Sodium 8.6/50 MG Tablet PO SCH ×2 (09:28→21:04)
[2018-03-01] MEDS: Azithromycin 250 MG Tablet PO SCH (09:28)
[2018-03-01] MEDS: guaiFENesin 600 MG ER Tablet PO SCH ×2 (09:28→21:04)
[2018-03-01] MEDS: Budesonide-Formoterol 160/4.5 MCG 6 GM Inhaler INH SCH ×2 (09:29→21:04)
--- NOTE | 2018-03-01 10:31 | P.DIET ---
Nutritional Evaluation Type of nutrition evaluation: follow-up Nutrition screening: Weight Loss > 10 lbs Subjective Subjective Comments: Eating 100% w/ no complaints. Objective - Diagnosis Pulmonary Mass - Objective % IBW: 111 (LMR=491#) Body Weight Used for Calculations: Actual (86kg) Energy Needs - Lower Range (kCal/kg): 25 Energy Needs - Upper Range (kCal/kg): 30 Lower Limit kCal/kg (kCals): 2,150 Upper Limit kCal/kg (kCals): 2,580 Lower Limit Protein Factor (Grams per Kg): 1.0 Upper Limit Protein Factor (Grams per Kg): 1.2 Lower Protein Needs (Protein): 86 Upper Protein Needs (Protein): 103 Fluid Factor (ml/kg): 25 Estimated Fluid Needs (ml): 2,150 Dietitian Reviewed in Medical Record: Current diet, Curent medications, Intake & Output, Labs, Medical history Diet Order: Oral Diet Intake Amount: Excellent 90%+ Objective Comments: Meds: Bumex, Prednisone Labs: AccuCheck 282, A1C 6.4 on 02/15/18 LBM 02/27, c.diff+ 02/28 Bronchoscopy w/ bx Assessment Assessment: Pt is on a diet, which is appropriate. He underwent a bronchoscopy yesterday w/ bx, results are pending. Currently he's eating well and not a high nutritional risk necessarily. He is c.diff+. EMR reviewed. Will continue to monitor for pts bx results in case it does result as cancer. Continue current POC. Dietitian following. Recommendations: 1. Continue current POC. 2. Monitoring bx results. Dietitian to Monitor: Lab values, Glucose level, Intake & Output, Diet tolerance , Weight change, PO Intake, Medical course (Lung bx )
--- NOTE | 2018-03-01 14:52 | P.PN ---
Subjective Interval history: 82-year-old male who tolerated his bronchoscopy with biopsy of right hilar mass. He is breathing comfortably but still dependent on oxygen. Lower extremities are still edematous. He has no new complaints. Physical Exam Vital signs: Vital Signs 02/28/18 16:00 02/28/18 16:25 02/28/18 16:30 Temperature 97.6 F 98 F Pulse Rate 86 91 H 90 Respiratory Rate 18 16 15 Blood Pressure 118/63 105/58 L 109/58 L Pulse Oximetry 92 L 95 94 L 02/28/18 16:45 02/28/18 17:00 02/28/18 17:15 Temperature Pulse Rate 89 85 87 Respiratory Rate 15 16 16 Blood Pressure 105/56 L 108/55 L 106/61 Pulse Oximetry 93 L 93 L 92 L 02/28/18 17:35 02/28/18 20:00 03/01/18 00:00 Temperature 97.6 F 98.0 F 97.6 F Pulse Rate 86 89 90 Respiratory Rate 15 18 18 Blood Pressure 118/65 157/69 H 112/72 Pulse Oximetry 95 94 L 96 03/01/18 04:00 03/01/18 08:00 03/01/18 10:48 Temperature 97.8 F 97.7 F Pulse Rate 78 77 Respiratory Rate 18 18 Blood Pressure 112/71 129/75 Pulse Oximetry 96 96 96 03/01/18 12:00 Temperature 98 F Pulse Rate 85 Respiratory Rate 18 Blood Pressure 117/70 Pulse Oximetry 95 Intake & Output 02/28/18 03/01/18 03/01/18 18:59 06:59 18:59 Intake Total 880 / 880 120 / 120 Output Total 1425 / 1425 Balance 880 / 880 -1305 / -1305 Weight 83.5 kg Intake: IV 100 / 100 Rocephin Inj 1,000 MG In NS Inj 100 / 100 100 ML @ 200 mls/hr IV.SIG Q24H [facility] Rx#:[id number] Oral 780 / 780 120 / 120 Output: Urine 1425 / 1425 Other: Date of Last Bowel Movement 02/26/18 02/27/18 Narrative: GENERAL: AAOx3, weak appearing SKIN: Warm and dry. No rashes HEAD: Atruamtic, normocephalic. EYES: No scleral icterus. No injection or drainage. ENT: Moist mucous membranes, patent nares, no erythema of oropharynx. NECK: Supple, trachea midline. No JVD or lymphadenopathy. Normal thyroid. CARDIOVASCULAR: Regular rate and rhythm. No murmurs, gallops, or rubs. RESPIRATORY: Atelectatic sounds in bases. No wheezes. No accessory muscle use. GASTROINTESTINAL: Abdomen soft, non-tender, nondistended, normal active bowel sounds MUSCULOSKELETAL: No cyanosis, 1+ edema at ankles and shins, trace edema on thighs NEURO: CN II-XII grossly intact, no focal deficits, no slurring of speech Results - Labs CBC & Chem 7: 02/28/18 04:39 02/28/18 04:39 Laboratory Results - last 24 hr 02/28/18 02/28/18 03/01/18 16:31 20:35 07:40 POC Glucose 87 130 H 282 H 03/01/18 11:23 POC Glucose 194 H Microbiology 02/28/18 16:00 Bronchial Washings - Right Upper Lobe Acid Fast Bacilli Smear - Final No acid fast bacilli seen 02/28/18 16:00 Bronchial Washings - Right Upper Lobe Fungal Smear - Final No fungal elements seen 02/28/18 16:00 Bronchial - Right Upper Lobe Gram Stain - Final - Imaging Impressions Chest X-Ray 02/28/18 16:07 CONCLUSION: 1. No significant pneumothorax. 2. Redemonstration of right hilar mass. 3. Left basilar atelectasis. Assessment and Plan - Assessment (1) COPD (chronic obstructive pulmonary disease) Code(s): J44.9 - Chronic obstructive pulmonary disease, unspecified Status: Chronic (2) Lung mass Code(s): R91.8 - Other nonspecific abnormal finding of lung field Status: Acute (3) H/O deep venous thrombosis Code(s): Z86.718 - Personal history of other venous thrombosis and embolism Status: Acute (4) C. difficile colitis Code(s): A04.72 - Enterocolitis due to Clostridium difficile, not specified as recurrent Status: Acute - Plan 82 YO with history of O2-dependent COPD, DM, atrial fibrillation, recent C. difficile infection, and history of DVT status post IVC filter admitted on 02/21 for shortness of breath and found to have a large R hilar mass. Pneumonia Patient slowly recovering from left lower lobe pneumonia Leukocytosis downward today Continue with azithromycin and Rocephin Urine Legionella negative Sputum cultures negative COPD exacerbation Continue p.o. prednisone, 20 mg twice daily Continue duo nebs and home inhalers, continue supplemental oxygen and as needed BiPAP Right hilar lung mass CT chest shows 8 cm mass in the right mediastinum, quality consistent with malignancy, cavitary lesion in LLL Bronchoscopy with biopsy performed 02/28/18, pathology pending Appreciate radiology consult Appreciate pulmonology consult Atrial fibrillation Continue Coreg 6.25 mg twice daily Eliquis held for biopsy, will resume if follow-up x-ray normal Lower extremity edema Significant bilateral pitting edema Echocardiogram on 720 shows ejection fraction of 60-65% Verapamil discontinued for association with edema Bumex ordered to replace Lasix Slow diuresis, will add Abraham wraps to assist with redistribution of fluids into circulation h/o CKD Creatinines are near baseline, at 1.28 Monitor level given current diuresis with Lasix Avoid nephrotoxic agents Patient has outpatient follow-up with Dr. Nieto Type 2 diabetes Accu-Cheks with sliding scale insulin coverage Levemir 5 units twice daily Diabetic diet Hypertension Continue losartan Recent C. difficile infection Diagnosis 01/29/2018, completed 14 day course of oral vancomycin Diarrhea resolved Repeat C. difficile screen pending DVT Prophylaxis h/o DVT s/p IVC Filter, held Eliquis for procedure
--- NOTE | 2018-03-01 20:59 | P.PNPL ---
Subjective Interval history: 82 YOWm with COPD, Rt hilar, mediastinal mass, LLL density Had Bronch, endobronchial lesion at ant segment RUL, bleed easily BAL, [place] and needle aspiration done Tolerated well Path pending no hemoptysis Physical Exam Vital signs: Vital Signs 03/01/18 00:00 03/01/18 04:00 03/01/18 08:00 Temperature 97.6 F 97.8 F 97.7 F Pulse Rate 90 78 77 Respiratory Rate 18 18 18 Blood Pressure 112/72 112/71 129/75 Pulse Oximetry 96 96 96 03/01/18 10:48 03/01/18 12:00 03/01/18 16:00 Temperature 98 F 97.7 F Pulse Rate 85 83 Respiratory Rate 18 Blood Pressure 117/70 130/71 Pulse Oximetry 96 95 96 Intake & Output 03/01/18 03/01/18 03/02/18 06:59 18:59 06:59 Intake Total 120 / 120 560 / 560 Output Total 1425 / 1425 1005 / 1005 Balance -1305 / -1305 -445 / -445 Weight 83.5 kg Intake: Oral 120 / 120 560 / 560 Output: Urine 1425 / 1425 1005 / 1005 Other: Date of Last Bowel Movement 02/26/18 02/27/18 GENERAL: Elderly Wm,NAD SKIN: Warm and dry. HEAD: Normocephalic. EYES: No scleral icterus. No injection or drainage. NECK: Supple, trachea midline. No JVD or lymphadenopathy. CARDIOVASCULAR: Regular rate and rhythm without murmurs, gallops, or rubs. RESPIRATORY: Breath sounds equal bilaterally. No accessory muscle use. GASTROINTESTINAL: Abdomen soft, non-tender, nondistended. MUSCULOSKELETAL: No cyanosis, or edema. BACK: Nontender without obvious deformity. No CVA tenderness. Assessment and Plan - Plan Impression: 1. Right lung mass in hilar and mediasinal area with compression of bronchus 2. 2 cm left lower lobe cavitary lesion. 3. Chronic obstructive pulmonary disease 4. Deep venous thrombosis status post inferior vena cava filter placement. 5. RUL ant segment Endobronchial mass PLAN: DW Pt and Cont Aerosol nebs Cont abx monitor BS
[2018-03-02] MEDS: Famotidine 20 MG Tablet PO SCH ×2 (09:35→20:59)
[2018-03-02] MEDS: Azithromycin 250 MG Tablet PO SCH (09:35)
[2018-03-02] MEDS: Senna/Docusate Sodium 8.6/50 MG Tablet PO SCH ×2 (09:36→20:59)
[2018-03-02] MEDS: guaiFENesin 600 MG ER Tablet PO SCH ×2 (09:36→20:59)
[2018-03-02] MEDS: Carvedilol 6.25 MG Tablet PO SCH ×2 (09:36→20:59)
[2018-03-02] MEDS: Ezetimibe 10 MG Tablet PO SCH (09:36)
[2018-03-02] MEDS: predniSONE 20 MG Tablet PO SCH ×2 (09:37→20:59)
[2018-03-02] MEDS: Insulin Detemir Inj 1,000 UNIT/10 ML Vial SQ SCH ×2 (09:37→21:01)
[2018-03-02] MEDS: Insulin NovoLOG Aspart Correctional Sugar Inj SQ SCH ×4 (09:37→21:01)
[2018-03-02] MEDS: Budesonide-Formoterol 160/4.5 MCG 6 GM Inhaler INH SCH ×2 (09:38→22:57)
--- NOTE | 2018-03-02 12:27 | P.PNIM ---
Subjective Interval history: Post biopsy of lung. Patient is doing well. Patient and do not wish to discharge to [facility] facilities of patient's ambulation will have to improve prior to discharge. No new complaints today. C. difficile testing is negative. Physical Exam Vital signs: Vital Signs 03/01/18 16:00 03/01/18 20:00 03/01/18 23:36 Temperature 97.7 F 97.5 F L Pulse Rate 83 83 Respiratory Rate 18 16 Blood Pressure 130/71 114/65 Pulse Oximetry 96 95 96 03/02/18 00:00 03/02/18 08:00 Temperature 97.8 F 97.6 F Pulse Rate 73 72 Respiratory Rate 16 16 Blood Pressure 125/64 130/61 Pulse Oximetry 96 97 Intake & Output 03/01/18 03/02/18 03/02/18 18:59 06:59 18:59 Intake Total 560 / 560 Output Total 1005 / 1005 Balance -445 / -445 Weight 82.8 kg Intake: Oral 560 / 560 Output: Urine 1005 / 1005 Other: Date of Last Bowel Movement 02/27/18 Narrative: GENERAL: NAD, A&Ox3 HEAD: Normocephalic. NECK: Supple, trachea midline. No lymphadenopathy. EYES: No scleral icterus. No injection or drainage. CARDIOVASCULAR: Regular rate and rhythm without murmurs, gallops, or rubs. RESPIRATORY: Breath sounds equal bilaterally. No accessory muscle use. GASTROINTESTINAL: Abdomen soft, non-tender, nondistended. MUSCULOSKELETAL: No cyanosis, or edema. SKIN: Warm and dry. NEURO: No focal neurological deficits. Results - Labs CBC & Chem 7: 02/28/18 04:39 02/28/18 04:39 Laboratory Results - last 24 hr 03/01/18 03/01/18 03/01/18 16:21 20:00 21:11 POC Glucose 238 H 194 H Stl C.difficile Tox PCR St C. diff Tox Epid 027 03/02/18 08:23 POC Glucose 91 Stl C.difficile Tox PCR St C. diff Tox Epid 027 Microbiology 02/28/18 16:00 Bronchial - Right Upper Lobe Gram Stain - Final 02/28/18 16:00 Bronchial - Right Upper Lobe Bronchial Culture - Preliminary Immature growth - reincubate 02/28/18 16:00 Bronchial Washings - Right Upper Lobe Acid Fast Bacilli Smear - Final No acid fast bacilli seen Assessment and Plan - Assessment (1) COPD (chronic obstructive pulmonary disease) Code(s): J44.9 - Chronic obstructive pulmonary disease, unspecified Status: Chronic (2) Lung mass Code(s): R91.8 - Other nonspecific abnormal finding of lung field Status: Acute (3) H/O deep venous thrombosis Code(s): Z86.718 - Personal history of other venous thrombosis and embolism Status: Acute (4) C. difficile colitis Code(s): A04.72 - Enterocolitis due to Clostridium difficile, not specified as recurrent Status: Acute - Plan 82-year-old male admitted secondary to lung mass with shortness of breath Pneumonia Improving Continue with azithromycin and Rocephin Urine Legionella negative Sputum cultures negative COPD exacerbation Slowly improving Continue prednisone Continue duo nebs and home inhalers, continue supplemental oxygen and as needed BiPAP Right hilar lung mass Status post biopsy Pulmonary following Atrial fibrillation Continue Coreg 6.25 mg twice daily Resume Eliquis Lower extremity edema Improving slowly Echocardiogram on 720 shows ejection fraction of 60-65% Verapamil discontinued for association with edema Bumex ordered to replace Lasix Continue Abraham wraps Physical deconditioning Improved strength and balance and ambulation needed prior to discharge Continue PT h/o CKD Avoid nephrotoxic agents Patient has outpatient follow-up with Dr. Nieto Type 2 diabetes Follow blood sugars Insulin sliding scale Diabetic diet Levemir 5 units twice daily Hypertension Continue baseline treatment Follow blood pressures Adjust treatments as needed Continue losartan Recent C. difficile infection Repeat C. difficile screen pending negative DVT Prophylaxis Resume Eliquis Discharge planning , Improvement in functionality needed prior to discharge home
--- NOTE | 2018-03-02 13:01 | P.PNPL ---
Subjective Interval history: 82 YOWm with COPD, Rt hilar, mediastinal mass, LLL density Had Bronch, endobronchial lesion at ant segment RUL, bleed easily BAL, [place] and needle aspiration done Tolerated well Path pending no hemoptysis Did't sleep well Physical Exam Vital signs: Vital Signs 03/01/18 16:00 03/01/18 20:00 03/01/18 23:36 Temperature 97.7 F 97.5 F L Pulse Rate 83 83 Respiratory Rate 18 16 Blood Pressure 130/71 114/65 Pulse Oximetry 96 95 96 03/02/18 00:00 03/02/18 08:00 Temperature 97.8 F 97.6 F Pulse Rate 73 72 Respiratory Rate 16 16 Blood Pressure 125/64 130/61 Pulse Oximetry 96 97 Intake & Output 03/01/18 03/02/18 03/02/18 18:59 06:59 18:59 Intake Total 560 / 560 Output Total 1005 / 1005 Balance -445 / -445 Weight 82.8 kg Intake: Oral 560 / 560 Output: Urine 1005 / 1005 Other: Date of Last Bowel Movement 02/27/18 GENERAL: Elderly WM, weak SKIN: Warm and dry. HEAD: Normocephalic. EYES: No scleral icterus. No injection or drainage. NECK: Supple, trachea midline. No JVD or lymphadenopathy. CARDIOVASCULAR: Regular rate and rhythm without murmurs, gallops, or rubs. RESPIRATORY: Breath sounds equal bilaterally. No accessory muscle use. GASTROINTESTINAL: Abdomen soft, non-tender, nondistended. MUSCULOSKELETAL: No cyanosis, or edema. BACK: Nontender without obvious deformity. No CVA tenderness. Assessment and Plan - Plan Impression: 1. Right lung mass in hilar and mediasinal area with compression of bronchus 2. 2 cm left lower lobe cavitary lesion. 3. Chronic obstructive pulmonary disease 4. Deep venous thrombosis status post inferior vena cava filter placement. 5. RUL ant segment Endobronchial mass PLAN: Cont Aerosol nebs Cont abx monitor BS Coreg 3.25 mg bid Zetia 10 mg daily.
[2018-03-03] MEDS: Azithromycin 250 MG Tablet PO SCH (08:56)
[2018-03-03] MEDS: Senna/Docusate Sodium 8.6/50 MG Tablet PO SCH ×2 (08:56→20:45)
[2018-03-03] MEDS: Carvedilol 6.25 MG Tablet PO SCH ×2 (08:56→20:42)
[2018-03-03] MEDS: predniSONE 20 MG Tablet PO SCH ×2 (08:57→20:42)
[2018-03-03] MEDS: Famotidine 20 MG Tablet PO SCH ×2 (08:57→20:41)
[2018-03-03] MEDS: guaiFENesin 600 MG ER Tablet PO SCH ×2 (08:57→20:44)
[2018-03-03] MEDS: Ezetimibe 10 MG Tablet PO SCH (08:57)
[2018-03-03] MEDS: Insulin NovoLOG Aspart Correctional Sugar Inj SQ SCH ×4 (08:58→20:44)
[2018-03-03] MEDS: Insulin Detemir Inj 1,000 UNIT/10 ML Vial SQ SCH ×2 (08:58→20:44)
[2018-03-03] MEDS: Budesonide-Formoterol 160/4.5 MCG 6 GM Inhaler INH SCH ×2 (08:59→20:54)
--- NOTE | 2018-03-03 11:42 | P.PNIM ---
Subjective Interval history: Some epistaxis occurred since yesterday. Humidifier added to oxygen. Patient will need improved functioning prior to discharge, weekend physical therapy pending. No new complaints from the patient. Physical Exam Vital signs: Vital Signs 03/02/18 12:00 03/02/18 16:00 03/02/18 20:00 Temperature 97.8 F 98.1 F 98.2 F Pulse Rate 77 86 95 H Respiratory Rate 18 18 18 Blood Pressure 113/63 104/63 109/59 L Pulse Oximetry 96 96 95 03/03/18 00:00 03/03/18 04:00 03/03/18 08:00 Temperature 99.1 F 97.5 F L 97.2 F L Pulse Rate 84 75 75 Respiratory Rate 16 18 16 Blood Pressure 117/64 129/67 127/67 Pulse Oximetry 96 98 98 Intake & Output 03/02/18 03/03/18 03/03/18 18:59 06:59 18:59 Intake Total 480 / 480 Output Total 900 / 900 Balance -420 / -420 Intake: Oral 480 / 480 Output: Urine 900 / 900 Other: Date of Last Bowel Movement 03/01/18 # Bowel Movements 1 Narrative: GENERAL: NAD, A&Ox3 HEAD: Normocephalic. NECK: Supple, trachea midline. No lymphadenopathy. EYES: No scleral icterus. No injection or drainage. CARDIOVASCULAR: Regular rate and rhythm without murmurs, gallops, or rubs. RESPIRATORY: Breath sounds equal bilaterally. No accessory muscle use. GASTROINTESTINAL: Abdomen soft, non-tender, nondistended. MUSCULOSKELETAL: No cyanosis, or edema. SKIN: Warm and dry. NEURO: No focal neurological deficits. Results - Labs CBC & Chem 7: 02/28/18 04:39 02/28/18 04:39 Laboratory Results - last 24 hr 03/02/18 03/02/18 03/02/18 12:24 17:22 20:13 POC Glucose 141 H 201 H 182 H 03/03/18 08:17 POC Glucose 95 Microbiology 02/28/18 16:00 Bronchial - Right Upper Lobe Gram Stain - Final 02/28/18 16:00 Bronchial - Right Upper Lobe Bronchial Culture - Final Moderate growth normal respiratory yee Assessment and Plan - Assessment (1) COPD (chronic obstructive pulmonary disease) Code(s): J44.9 - Chronic obstructive pulmonary disease, unspecified Status: Chronic (2) Lung mass Code(s): R91.8 - Other nonspecific abnormal finding of lung field Status: Acute (3) H/O deep venous thrombosis Code(s): Z86.718 - Personal history of other venous thrombosis and embolism Status: Acute (4) C. difficile colitis Code(s): A04.72 - Enterocolitis due to Clostridium difficile, not specified as recurrent Status: Acute - Plan 82-year-old male admitted secondary to lung mass with shortness of breath Continue physical therapy and discharge once patient reaches functional status for discharge to home. and patient refused shelter facility. Pneumonia Improving Continue with azithromycin and Rocephin Urine Legionella negative Sputum cultures negative COPD exacerbation Slowly improving Continue prednisone Continue duo nebs and home inhalers, continue supplemental oxygen and as needed BiPAP Right hilar lung mass Status post biopsy Pulmonary following Atrial fibrillation Continue Coreg 6.25 mg twice daily Resume Eliquis Lower extremity edema Improving slowly Echocardiogram on 720 shows ejection fraction of 60-65% Verapamil discontinued for association with edema Bumex ordered to replace Lasix Continue Abraham wraps Physical deconditioning Improved strength and balance and ambulation needed prior to discharge Continue PT h/o CKD Avoid nephrotoxic agents Patient has outpatient follow-up with Dr. Nieto Type 2 diabetes Follow blood sugars Insulin sliding scale Diabetic diet Levemir 5 units twice daily Hypertension Continue baseline treatment Follow blood pressures Adjust treatments as needed Continue losartan Recent C. difficile infection Repeat C. difficile screen pending negative DVT Prophylaxis Resume Eliquis Discharge planning , Improvement in functionality needed prior to discharge home
--- NOTE | 2018-03-03 14:33 | P.PNPL ---
Subjective Interval history: 82 YOWm with COPD, Rt hilar, mediastinal mass, LLL density Had Bronch, endobronchial lesion at ant segment RUL, bleed easily BAL, [place] and needle aspiration done Tolerated well Path pending no hemoptysis at , has increased swelling legs Physical Exam Vital signs: Vital Signs 03/02/18 16:00 03/02/18 20:00 03/03/18 00:00 Temperature 98.1 F 98.2 F 99.1 F Pulse Rate 86 95 H 84 Respiratory Rate 18 18 16 Blood Pressure 104/63 109/59 L 117/64 Pulse Oximetry 96 95 96 03/03/18 04:00 03/03/18 08:00 03/03/18 12:00 Temperature 97.5 F L 97.2 F L 97.8 F Pulse Rate 75 75 79 Respiratory Rate 18 18 Blood Pressure 129/67 127/67 116/68 Pulse Oximetry 98 98 95 Intake & Output 03/02/18 03/03/18 03/03/18 18:59 06:59 18:59 Intake Total 480 / 480 Output Total 900 / 900 Balance -420 / -420 Intake: Oral 480 / 480 Output: Urine 900 / 900 Other: Date of Last Bowel Movement 03/01/18 03/01/18 # Bowel Movements 1 GENERAL: Elderly WM, mild sob SKIN: Warm and dry. HEAD: Normocephalic. EYES: No scleral icterus. No injection or drainage. NECK: Supple, trachea midline. No JVD or lymphadenopathy. CARDIOVASCULAR: Regular rate and rhythm without murmurs, gallops, or rubs. RESPIRATORY: Breath sounds equal bilaterally. No accessory muscle use. GASTROINTESTINAL: Abdomen soft, non-tender, nondistended. MUSCULOSKELETAL: No cyanosis, or edema. BACK: Nontender without obvious deformity. No CVA tenderness. Assessment and Plan - Plan Impression: 1. Right lung mass in hilar and mediasinal area with compression of bronchus 2. 2 cm left lower lobe cavitary lesion. 3. Chronic obstructive pulmonary disease 4. Deep venous thrombosis status post inferior vena cava filter placement. 5. RUL ant segment Endobronchial mass PLAN: Cont Aerosol nebs Cont abx monitor BS Coreg 3.25 mg bid Zetia 10 mg daily. Check Path DW pt and his at
[2018-03-04] MEDS: Insulin NovoLOG Aspart Correctional Sugar Inj SQ SCH ×4 (08:39→21:25)
[2018-03-04] MEDS: guaiFENesin 600 MG ER Tablet PO SCH ×2 (08:47→21:25)
[2018-03-04] MEDS: Carvedilol 6.25 MG Tablet PO SCH ×2 (08:47→21:25)
[2018-03-04] MEDS: Senna/Docusate Sodium 8.6/50 MG Tablet PO SCH ×2 (08:47→21:25)
[2018-03-04] MEDS: Famotidine 20 MG Tablet PO SCH ×2 (08:48→21:25)
[2018-03-04] MEDS: predniSONE 20 MG Tablet PO SCH ×2 (08:48→21:25)
[2018-03-04] MEDS: Azithromycin 250 MG Tablet PO SCH (08:48)
[2018-03-04] MEDS: Insulin Detemir Inj 1,000 UNIT/10 ML Vial SQ SCH ×2 (08:49→21:25)
[2018-03-04] MEDS: Ezetimibe 10 MG Tablet PO SCH (08:50)
[2018-03-04] MEDS: Budesonide-Formoterol 160/4.5 MCG 6 GM Inhaler INH SCH ×2 (08:50→21:26)
--- NOTE | 2018-03-04 13:17 | P.PNIM ---
Subjective Interval history: Patient is having gradual improvement in his physical functions. Patient's preference is to discuss pathology results prior to discharge. He may be stable at this point for transition to home with home health, awaiting updated physical therapy evaluation. Physical Exam Vital signs: Vital Signs 03/03/18 16:00 03/03/18 20:00 03/04/18 00:00 Temperature 97.7 F 97.9 F 97 F L Pulse Rate 87 93 H 90 Respiratory Rate 18 18 18 Blood Pressure 125/66 114/72 107/68 Pulse Oximetry 95 94 L 95 03/04/18 04:00 03/04/18 08:00 03/04/18 10:05 Temperature 97.5 F L 97.7 F Pulse Rate 76 74 Respiratory Rate 18 22 Blood Pressure 108/62 130/61 Pulse Oximetry 95 95 95 Intake & Output 03/03/18 03/04/18 03/04/18 18:59 06:59 18:59 Intake Total 480 / 480 100 / 100 Output Total 500 / 500 Balance -20 / -20 100 / 100 Weight 82.3 kg Intake: IV 100 / 100 Rocephin Inj 1,000 MG In NS Inj 100 / 100 100 ML @ 200 mls/hr IV.SIG Q24H [facility] Rx#:[id number] Oral 480 / 480 Output: Urine 500 / 500 Other: Date of Last Bowel Movement 03/01/18 03/01/18 Narrative: GENERAL: NAD, A&Ox3 HEAD: Normocephalic. NECK: Supple, trachea midline. No lymphadenopathy. EYES: No scleral icterus. No injection or drainage. CARDIOVASCULAR: Regular rate and rhythm without murmurs, gallops, or rubs. RESPIRATORY: Breath sounds equal bilaterally. No accessory muscle use. GASTROINTESTINAL: Abdomen soft, non-tender, nondistended. MUSCULOSKELETAL: No cyanosis, or edema. SKIN: Warm and dry. NEURO: No focal neurological deficits. Results - Labs CBC & Chem 7: 02/28/18 04:39 02/28/18 04:39 Laboratory Results - last 24 hr 03/03/18 03/03/18 03/04/18 16:55 20:44 07:57 POC Glucose 186 H 266 H 126 H 03/04/18 12:47 POC Glucose 160 H Assessment and Plan - Assessment (1) COPD (chronic obstructive pulmonary disease) Code(s): J44.9 - Chronic obstructive pulmonary disease, unspecified Status: Chronic (2) Lung mass Code(s): R91.8 - Other nonspecific abnormal finding of lung field Status: Acute (3) H/O deep venous thrombosis Code(s): Z86.718 - Personal history of other venous thrombosis and embolism Status: Acute (4) C. difficile colitis Code(s): A04.72 - Enterocolitis due to Clostridium difficile, not specified as recurrent Status: Acute - Plan 82-year-old male admitted secondary to lung mass with shortness of breath Awaiting pathology and updated physical therapy evaluation prior to discharge. Continue physical therapy and discharge once patient reaches functional status for discharge to home. Pneumonia Improving Continue with azithromycin and Rocephin Urine Legionella negative Sputum cultures negative COPD exacerbation Slowly improving Continue prednisone Continue duo nebs and home inhalers, continue supplemental oxygen and as needed BiPAP Right hilar lung mass Status post biopsy Pulmonary following Atrial fibrillation Continue Coreg 6.25 mg twice daily Resume Eliquis Lower extremity edema Improving slowly Echocardiogram on 720 shows ejection fraction of 60-65% Verapamil discontinued for association with edema Bumex ordered to replace Lasix Continue Abraham wraps Physical deconditioning Improved strength and balance and ambulation needed prior to discharge Continue PT h/o CKD Avoid nephrotoxic agents Patient has outpatient follow-up with Dr. Nieto Type 2 diabetes Follow blood sugars Insulin sliding scale Diabetic diet Levemir 5 units twice daily Hypertension Continue baseline treatment Follow blood pressures Adjust treatments as needed Continue losartan Recent C. difficile infection Repeat C. difficile screen pending negative DVT Prophylaxis Resume Eliquis Discharge planning , Improvement in functionality needed prior to discharge home
--- NOTE | 2018-03-04 15:06 | P.DS ---
Date of admission: 02/22/18 13:24 Primary care physician: Mavis Lindo MD Brief History from admission: This is an 82-year-old male with a PMH of COPD, O2 Dependent, DM, H/o DVT s/p IVC Filter, Afib on Eliquis and C Diff who presented to the ER w/ complaints of severe SOB. Recent admit 02/14-02/19/18 for similar complaints, treated for COPD Exacerbation, s/p eval by Dr. Camarena w/ Pulmonology. Returns now w/ worsening SOB. Denies fever/chills. No c/o chest pain. On arrival, BP 142/67, HR 85, O2 sat 97% on RA, Afebrile. WBC 13.2. Chemistry essentially at baseline. Troponin negative. CXR with new masslike opacity right hilar region, recommendation for further evaluation. CT Chest with large right-sided mass involving right hilum and mediastinum, likely central lung malignancy, 2 cavitary masses in left lower lobe, nonspecific. Previous CXR on 02/14/2018 with no evidence of lung mass. DS: Diagnosis - Discharge Diagnosis (1) COPD (chronic obstructive pulmonary disease) Status: Chronic (2) Lung mass Status: Acute (3) H/O deep venous thrombosis Status: Acute (4) C. difficile colitis Status: Acute DS: Medications - Discharge Medications Prescriptions: amoxicillin-pot clavulanate [Augmentin] 1 tab PO BID #10 tab apixaban [Eliquis] 5 mg PO BID #60 tab azithromycin 500 mg PO DAILY #5 tab carvedilol [Coreg] 6.25 mg PO BID #60 tab famotidine 10 mg PO BID #60 tab furosemide [Lasix] 20 mg PO DAILY #30 tab nicotine 1 patch TRANSDERMAL DAILY #30 ea prednisone 10 mg PO DAILY #30 tab DS: Summary Hospital Course: Mr. Vallejo is an 82-year-old male. He is admitted secondary to acute respiratory distress with hypoxia related to COPD exacerbation. During this workup he was found to have a lung mass. Lung masses biopsy during the stay. Patient has slow recovery from his COPD exacerbation. Currently he still on a higher amount of oxygen that he uses at baseline. At baseline he was using 2 L/ min just at night and currently he is using 2 L/min continuously. She is however gaining in his functional status and has been cleared for home with home health PT. At this point he is medically stable and cleared for discharge to home. Biopsy results will be obtained by follow-up with pulmonology as an outpatient. He will continue his antibiotic treatments at home. - Time Spent with Patient Total time spent providing and/or coordinating discharge services: Less than 30 minutes - Quality: VTE Deep Vein Thrombosis/Pulmonary Embolism Present on Admission: No Exam Vital signs: Vital Signs 03/03/18 16:00 03/03/18 20:00 03/04/18 00:00 Temperature 97.7 F 97.9 F 97 F L Pulse Rate 87 93 H 90 Respiratory Rate 18 18 18 Blood Pressure 125/66 114/72 107/68 Pulse Oximetry 95 94 L 95 03/04/18 04:00 03/04/18 08:00 03/04/18 10:05 Temperature 97.5 F L 97.7 F Pulse Rate 76 74 Respiratory Rate 18 22 Blood Pressure 108/62 130/61 Pulse Oximetry 95 95 95 03/04/18 12:00 Temperature Pulse Rate Respiratory Rate Blood Pressure Pulse Oximetry 95 Intake & Output 03/03/18 03/04/18 03/04/18 18:59 06:59 18:59 Intake Total 480 / 480 100 / 100 Output Total 500 / 500 Balance -20 / -20 100 / 100 Weight 82.3 kg Intake: IV 100 / 100 Rocephin Inj 1,000 MG In NS Inj 100 / 100 100 ML @ 200 mls/hr IV.SIG Q24H ARYA Rx#:[id number] Oral 480 / 480 Output: Urine 500 / 500 Other: Date of Last Bowel Movement 03/01/18 03/01/18 Results Procedures completed during hospitalization: Lung mass biopsy Labs on day of discharge: Labs from last 24 hours 03/04/18 03/04/18 03/03/18 12:47 07:57 20:44 POC Glucose 160 H 126 H 266 H 03/03/18 16:55 POC Glucose 186 H - Impressions ITS Impressions Chest CT 02/21/18 16:15 CONCLUSION: Chest X-Ray 02/28/18 16:07 CONCLUSION: 1. No significant pneumothorax. 2. Redemonstration of right hilar mass. 3. Left basilar atelectasis. Discharge Plan - Discharge Disposition Patient Disposition: W/Home Health Service - Discharge Condition Condition: Stable - Discharge Order Discharge Orders: Discharge Order (Routine); Ordered 03/04/18 Ordered By: Kushal Rincon - Discharge Details Anticipated Discharge Date: 03/04/18 Discharge Comment: Needs Home Oxygen - Physicians Team Primary Care Provider: Mavis Lindo Attending Provider: Kushal Rincon Other Providers: Maryanne Quesada ; Cindy White MD ; Dominic Camarena MD
--- NOTE | 2018-03-04 15:27 | P.DCO ---
- Physical Therapy Order: Evaluate and treat, Improve ambulation, Strength and gait training - Home Health Nursing Order: Medical education, Signs/symptoms of disease process, Oxygen administration education, Nursing assessment with vital signs - Certification I have seen patient William Copeland on 03/04/18. My clinical findings support the need for the requested home health care services because: Limited mobility due to disease progression, Patient has SOB, Deconditioned with increased weakness, Limited ability to care for self, High risk of falls, Infection with risk of complications I certify that my clinical findings support that this patient is homebound because: Hx COPD - exertion dyspnea/weakness, Unsteady gait/balance, Unsafe to leave home unassisted, Unable to use public transportation
--- NOTE | 2018-03-04 19:52 | P.PNPL ---
Subjective Interval history: 82 YOWm with COPD, Rt hilar, mediastinal mass, LLL density Had Bronch, endobronchial lesion at ant segment RUL, bleed easily BAL, [place] and needle aspiration done Tolerated well no hemoptysis Bronch SSLC Physical Exam Vital signs: Vital Signs 03/03/18 20:00 03/04/18 00:00 03/04/18 04:00 Temperature 97.9 F 97 F L 97.5 F L Pulse Rate 93 H 90 76 Respiratory Rate 18 18 18 Blood Pressure 114/72 107/68 108/62 Pulse Oximetry 94 L 95 95 03/04/18 08:00 03/04/18 10:05 03/04/18 12:00 Temperature 97.7 F 97.9 F Pulse Rate 74 76 Respiratory Rate 22 20 Blood Pressure 130/61 101/52 L Pulse Oximetry 95 95 94 L 03/04/18 15:41 03/04/18 16:00 03/04/18 19:41 Temperature 97.4 F L Pulse Rate 85 Respiratory Rate 20 Blood Pressure 110/57 L Pulse Oximetry 95 95 95 Intake & Output 03/04/18 03/04/18 03/05/18 06:59 18:59 06:59 Intake Total 100 / 100 840 / 840 Output Total 700 / 700 Balance 100 / 100 140 / 140 Weight 82.3 kg Intake: IV 100 / 100 Rocephin Inj 1,000 MG In NS Inj 100 / 100 100 ML @ 200 mls/hr IV.SIG Q24H ARYA Rx#:[id number] Oral 840 / 840 Output: Urine 700 / 700 Other: Date of Last Bowel Movement 03/01/18 # Bowel Movements 1 GENERAL: Elderly WM, Mild SOB SKIN: Warm and dry. HEAD: Normocephalic. EYES: No scleral icterus. No injection or drainage. NECK: Supple, trachea midline. No JVD or lymphadenopathy. CARDIOVASCULAR: Regular rate and rhythm without murmurs, gallops, or rubs. RESPIRATORY: Breath sounds equal bilaterally. No accessory muscle use. GASTROINTESTINAL: Abdomen soft, non-tender, nondistended. MUSCULOSKELETAL: No cyanosis, or edema. BACK: Nontender without obvious deformity. No CVA tenderness. Assessment and Plan - Plan Impression: 1. Right lung mass in hilar and mediasinal area with compression of bronchus 2. 2 cm left lower lobe cavitary lesion. 3. Chronic obstructive pulmonary disease 4. Deep venous thrombosis status post inferior vena cava filter placement. 5. RUL ant segment Endobronchial mass--SCLC PLAN: Cont Aerosol nebs Cont abx monitor BS Coreg 3.25 mg bid Zetia 10 mg daily. DW pt and his at BS path results Consult .
--- NOTE | 2018-03-04 21:21 | P.PNONC ---
Subjective Interval history: Resting in bed. Increased work of breathing with acitivity. Objective Vital Signs/Intake & Output: Vital Signs 03/04/18 00:00 03/04/18 04:00 03/04/18 08:00 Temperature 97 F L 97.5 F L 97.7 F Pulse Rate 90 76 74 Respiratory Rate 18 18 22 Blood Pressure 107/68 108/62 130/61 Pulse Oximetry 95 95 95 03/04/18 10:05 03/04/18 12:00 03/04/18 15:41 Temperature 97.9 F 97.4 F L Pulse Rate 76 85 Respiratory Rate 20 20 Blood Pressure 101/52 L 110/57 L Pulse Oximetry 95 94 L 95 03/04/18 16:00 03/04/18 19:41 Temperature Pulse Rate Respiratory Rate Blood Pressure Pulse Oximetry 95 95 Intake & Output 03/04/18 03/04/18 03/05/18 06:59 18:59 06:59 Intake Total 100 / 100 840 / 840 Output Total 700 / 700 Balance 100 / 100 140 / 140 Weight 82.3 kg Intake: IV 100 / 100 Rocephin Inj 1,000 MG In NS Inj 100 / 100 100 ML @ 200 mls/hr IV.SIG Q24H ARYA Rx#:[id number] Oral 840 / 840 Output: Urine 700 / 700 Other: Date of Last Bowel Movement 03/01/18 # Bowel Movements 1 Result Diagrams: 02/28/18 04:39 02/28/18 04:39 Laboratory Results: Laboratory Results - last 24 hr 03/04/18 03/04/18 03/04/18 07:57 12:47 18:05 POC Glucose 126 H 160 H 205 H 03/04/18 20:07 POC Glucose 244 H Culture Results: Microbiology 02/28/18 16:00 Gram Stain - Final Bronchial - Right Upper Lobe Bronchial Culture - Final Moderate growth normal respiratory yee Medications: Active Medications Generic Name Dose Route Start Last Admin Trade Name Freq PRN Reason Stop Dose Admin Apixaban 5 mg 03/02/18 21:00 03/04/18 11:33 Eliquis PO 5 mg BID ARYA Administration Azithromycin 500 mg 02/25/18 16:30 03/04/18 08:48 Zithromax PO 500 mg DAILY ARYA Administration Budesonide/Formoterol Fumarate 2 puff 02/21/18 21:00 03/04/18 08:50 Symbicort 160/4.5 Mcg Inh INH 2 puff BID ARYA Administration Bumetanide 1 mg 02/27/18 18:00 03/04/18 17:25 Bumex Inj IV.PUSH 1 mg BID@0900,1800 ARYA Administration Carvedilol 6.25 mg 02/25/18 21:00 03/04/18 08:47 Coreg PO 6.25 mg BID ARYA Administration Diltiazem HCl 120 mg 02/22/18 09:00 02/24/18 10:02 Cardizem Cd 24hr PO 120 mg DAILY ARYA Administration Ezetimibe 10 mg 02/22/18 09:00 03/04/18 08:50 Zetia PO 10 mg DAILY ARYA Administration Famotidine 10 mg 02/27/18 21:00 03/04/18 08:48 Pepcid PO 10 mg BID ARYA Administration Guaifenesin 600 mg 02/21/18 21:00 03/04/18 08:47 Mucinex Er PO 600 mg BID ARYA Administration Ceftriaxone Sodium 1,000 mg/ 100 mls @ 200 mls/hr 02/25/18 17:00 03/04/18 17: 26 Sodium Chloride IV.SIG 100 mls/hr Q24H ARYA Administration Insulin Aspart 0 unit 02/24/18 17:00 03/04/18 18:23 Novolog Insulin Correctional Sugar Inj SQ 3 unit ACHS ARYA Administration Protocol Insulin Detemir 5 unit 02/25/18 09:00 03/04/18 08:49 Levemir Inj SQ 5 unit BID ARYA Administration Losartan Potassium 50 mg 02/22/18 09:00 03/04/18 08:48 Cozaar PO 50 mg DAILY ARYA Administration Pravastatin Sodium 80 mg 02/22/18 09:00 03/04/18 08:47 Pravachol PO 80 mg DAILY ARYA Administration Prednisone 20 mg 02/25/18 21:00 03/04/18 08:48 Deltasone PO 20 mg BID ARYA Administration Senna/Docusate Sodium 1 tab 02/21/18 21:00 03/04/18 08:47 Lianna-Colace PO 1 tab BID ARYA Administration Temazepam 15 mg 02/21/18 19:26 02/21/18 21:25 Restoril PO 15 mg HS PRN Administration INSOMNIA Objective Remarks: GENERAL: Well-nourished, well-developed patient. SKIN: Warm and dry. HEAD: Normocephalic. EYES: No scleral icterus. No injection or drainage. NECK: Supple, trachea midline. No JVD or lymphadenopathy. LYMPHATIC: No adenopathy. CARDIOVASCULAR: Regular rate and rhythm without murmurs. RESPIRATORY: No accessory muscle use. GASTROINTESTINAL: Abdomen soft, non-tender, nondistended. EXTREMITIES: No cyanosis, or edema. MUSCULOSKELETAL: Adequate muscle tone. NEUROLOGICAL: No obvious focal deficit. Awake, alert, and oriented x3. PSYCHIATRIC: Appropriate mood and affect; insight and judgment normal. Assessment/Plan - Plan 1. SCLC: Right sided lung mass with mediastinal involvement. S/p bronchoscopy with washing revealing SCLC. will complete staging with CT abdomen/pelvis and MRI brain. Inpatient oncology service will continue to follow closely.
[2018-03-04 22:01] LABS: Hepatitits B Surface Antigen Nonreactive (Nonreactive)
[2018-03-04 22:41] LABS: Hepatitis A IgM Antibody Nonreactive (Nonreactive)
[2018-03-05] MEDS: Insulin NovoLOG Aspart Correctional Sugar Inj SQ SCH ×4 (08:00→20:59)
[2018-03-05] MEDS ORDERED: Diatrizoate Meglum/Diatrizoate Sod Liq 9 ML UDC PO ONE (09:30)
--- NOTE | 2018-03-05 09:40 | MR ---
EXAM DATE: 03/05/2018 9:32 AM EDT AGE/SEX: 82 years / Male INDICATIONS: Metastatic disease. Lung ca. CLINICAL DATA: This is the patient's initial encounter. Patient reports that signs and symptoms have been present for 2 days and indicates a pain score of 0/10. MEDICAL/SURGICAL HISTORY: Carcinoma, lung. Chronic obstructive pulmonary disease. IVC Filter p lacement. Bronchoscopy. COMPARISON: No prior exams available for comparison. TECHNIQUE: Multiplanar, multisequence examination of the brain was performed without and with 9 ml Ga davist (gadobutrol) contrast as a single exam dose. FINDINGS: No intracranial mass or midline shift. No hydrocephalus. No recent infarction identified. Postcontrast images reveal no enhancing lesions to suggest metastatic disease. There are moderate chr onic ischemic changes in the white matter. Cortical volume loss present. No sellar mass. No sinus opa cification. CONCLUSION: 1. No evidence for metastatic disease to the brain. 2. Moderate chronic ischemic changes in the white matter with cortical volume loss. Electronically signed by: Wliliam Leyva MD 03/05/2018 9:39 AM EDT
[2018-03-05] MEDS ORDERED: Gadobutrol PF 10 MMOL/10 ML Vial (for RAD) IV.SIG ONE (09:42)
[2018-03-05] MEDS: Azithromycin 250 MG Tablet PO SCH (10:16)
[2018-03-05] MEDS: predniSONE 20 MG Tablet PO SCH ×2 (10:16→20:43)
[2018-03-05] MEDS: Senna/Docusate Sodium 8.6/50 MG Tablet PO SCH ×2 (10:16→20:43)
[2018-03-05] MEDS: guaiFENesin 600 MG ER Tablet PO SCH ×2 (10:17→20:43)
[2018-03-05] MEDS: Famotidine 20 MG Tablet PO SCH ×2 (10:17→20:43)
[2018-03-05] MEDS: Carvedilol 6.25 MG Tablet PO SCH ×2 (10:17→20:43)
[2018-03-05] MEDS: Ezetimibe 10 MG Tablet PO SCH (10:17)
[2018-03-05] MEDS: Insulin Detemir Inj 1,000 UNIT/10 ML Vial SQ SCH ×2 (10:18→21:00)
[2018-03-05] MEDS: Budesonide-Formoterol 160/4.5 MCG 6 GM Inhaler INH SCH ×2 (10:28→20:46)
--- NOTE | 2018-03-05 11:27 | P.PNIM ---
Subjective Interval history: Pathology result came back late yesterday. 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 Discharge is canceled and patient is in process of consulting with oncology and finishing cancer staging workup. Physical Exam Vital signs: Vital Signs 03/04/18 12:00 03/04/18 15:41 03/04/18 16:00 Temperature 97.9 F 97.4 F L Pulse Rate 76 85 Respiratory Rate 20 20 Blood Pressure 101/52 L 110/57 L Pulse Oximetry 94 L 95 95 03/04/18 19:41 03/04/18 20:00 03/05/18 00:00 Temperature 97.5 F L 97.5 F L Pulse Rate 98 H 92 H Respiratory Rate 18 18 Blood Pressure 107/60 121/55 L Pulse Oximetry 95 93 L 93 L 03/05/18 06:00 03/05/18 08:00 03/05/18 09:56 Temperature 97.4 F L 98.2 F Pulse Rate 98 H 74 Respiratory Rate 18 18 Blood Pressure 98/61 L 118/56 L Pulse Oximetry 94 L 95 95 Intake & Output 03/04/18 03/05/18 03/05/18 18:59 06:59 18:59 Intake Total 840 / 840 360 / 360 Output Total 700 / 700 550 / 550 Balance 140 / 140 -190 / -190 Weight 81.4 kg Intake: Oral 840 / 840 360 / 360 Output: Urine 700 / 700 550 / 550 Other: # Bowel Movements 1 1 Narrative: GENERAL: NAD, A&Ox3 HEAD: Normocephalic. NECK: Supple, trachea midline. No lymphadenopathy. EYES: No scleral icterus. No injection or drainage. CARDIOVASCULAR: Regular rate and rhythm without murmurs, gallops, or rubs. RESPIRATORY: Breath sounds equal bilaterally. No accessory muscle use. GASTROINTESTINAL: Abdomen soft, non-tender, nondistended. MUSCULOSKELETAL: No cyanosis, or edema. SKIN: Warm and dry. NEURO: No focal neurological deficits. Results - Labs CBC & Chem 7: 02/28/18 04:39 02/28/18 04:39 Laboratory Results - last 24 hr 03/04/18 03/04/18 03/04/18 12:47 17:47 17:47 POC Glucose 160 H RPR Nonreactive Hepatitis A IgM Ab Nonreactive Hep Bs Antigen Nonreactive Hep B Core IgM Ab Nonreactive Hep C IgG Ab Nonreactive HIV 1&2 Ab/P24 Ag 4thGn Nonreactive 03/04/18 03/04/18 03/05/18 18:05 20:07 08:08 POC Glucose 205 H 244 H 121 H RPR Hepatitis A IgM Ab Hep Bs Antigen Hep B Core IgM Ab Hep C IgG Ab HIV 1&2 Ab/P24 Ag 4thGn - Imaging Impressions Head MRI 03/05/18 00:00 CONCLUSION: 1. No evidence for metastatic disease to the brain. 2. Moderate chronic ischemic changes in the white matter with cortical volume loss. - Procedures Lung mass biopsy Assessment and Plan - Assessment (1) COPD (chronic obstructive pulmonary disease) Code(s): J44.9 - Chronic obstructive pulmonary disease, unspecified Status: Chronic (2) Lung mass Code(s): R91.8 - Other nonspecific abnormal finding of lung field Status: Acute (3) H/O deep venous thrombosis Code(s): Z86.718 - Personal history of other venous thrombosis and embolism Status: Acute (4) C. difficile colitis Code(s): A04.72 - Enterocolitis due to Clostridium difficile, not specified as recurrent Status: Acute - Plan 82-year-old male admitted secondary to lung mass with shortness of breath Small cell carcinoma on pathology. Continue workup as recommended by oncology. Continue physical therapy and discharge once oncology workup completed. Small cell carcinoma CT of abdomen pelvis pending MRI of brain pending Oncology following Discharge failed to workup completed Pneumonia Improving Continue with azithromycin and Rocephin Urine Legionella negative Sputum cultures negative COPD exacerbation Slowly improving Continue prednisone Continue duo nebs and home inhalers, continue supplemental oxygen and as needed BiPAP Right hilar lung mass Status post biopsy Pulmonary following Atrial fibrillation Continue Coreg 6.25 mg twice daily Resume Eliquis Lower extremity edema Improving slowly Echocardiogram on 720 shows ejection fraction of 60-65% Verapamil discontinued for association with edema Bumex ordered to replace Lasix Continue Abraham wraps Physical deconditioning Improved strength and balance and ambulation needed prior to discharge Continue PT h/o CKD Avoid nephrotoxic agents Patient has outpatient follow-up with Dr. Nieto Type 2 diabetes Follow blood sugars Insulin sliding scale Diabetic diet Levemir 5 units twice daily Hypertension Continue baseline treatment Follow blood pressures Adjust treatments as needed Continue losartan Recent C. difficile infection Repeat C. difficile screen pending negative DVT Prophylaxis Resume Eliquis Discharge planning , Complete oncology workup prior to discharge
[2018-03-05 16:51] LABS: Calcium 8.5 mg/dL (8.5-10.1); Carbon Dioxide 35.4 meq/L (21.0-32.0); Potassium 4.4 meq/L (3.5-5.1)
--- NOTE | 2018-03-05 19:32 | P.PNPL ---
Subjective Interval history: 82 YOWm with COPD, Rt hilar, mediastinal mass, LLL density Had Bronch, endobronchial lesion at ant segment RUL, bleed easily BAL, [place] and needle aspiration done Tolerated well no hemoptysis Bronch SSLC MRI Brain no mets Physical Exam Vital signs: Vital Signs 03/04/18 19:41 03/04/18 20:00 03/05/18 00:00 Temperature 97.5 F L 97.5 F L Pulse Rate 98 H 92 H Respiratory Rate 18 18 Blood Pressure 107/60 121/55 L Pulse Oximetry 95 93 L 93 L 03/05/18 06:00 03/05/18 08:00 03/05/18 09:56 Temperature 97.4 F L 98.0 F Pulse Rate 98 H 90 Respiratory Rate 18 18 Blood Pressure 98/61 L 113/62 Pulse Oximetry 94 L 94 L 95 03/05/18 16:00 Temperature 98.2 F Pulse Rate 77 Respiratory Rate 18 Blood Pressure 135/73 Pulse Oximetry 96 Intake & Output 03/05/18 03/05/18 03/06/18 06:59 18:59 06:59 Intake Total 360 / 360 360 / 360 Output Total 550 / 550 1400 / 1400 Balance -190 / -190 -1040 / -1040 Weight 81.4 kg Intake: Oral 360 / 360 360 / 360 Output: Urine 550 / 550 1400 / 1400 Other: # Bowel Movements 1 1 GENERAL: Elderly WM, mild sob SKIN: Warm and dry. HEAD: Normocephalic. EYES: No scleral icterus. No injection or drainage. NECK: Supple, trachea midline. No JVD or lymphadenopathy. CARDIOVASCULAR: Regular rate and rhythm without murmurs, gallops, or rubs. RESPIRATORY: Breath sounds equal bilaterally. No accessory muscle use. GASTROINTESTINAL: Abdomen soft, non-tender, nondistended. MUSCULOSKELETAL: No cyanosis, or edema. BACK: Nontender without obvious deformity. No CVA tenderness. Assessment and Plan - Plan Impression: 1. Right lung mass in hilar and mediasinal area with compression of bronchus 2. 2 cm left lower lobe cavitary lesion. 3. Chronic obstructive pulmonary disease 4. Deep venous thrombosis status post inferior vena cava filter placement. 5. RUL ant segment Endobronchial mass--SCLC PLAN: Cont Aerosol nebs Cont abx monitor BS Coreg 3.25 mg bid Zetia 10 mg daily. DW pt and his at BS path results Kranthi
[2018-03-06] MEDS: Insulin NovoLOG Aspart Correctional Sugar Inj SQ SCH ×4 (08:29→22:03)
--- NOTE | 2018-03-06 09:37 | CT ---
EXAM DATE: 03/06/2018 9:06 AM EDT AGE/SEX: 82 years / Male INDICATIONS: Staging for newly diagnosed lung cancer CLINICAL DATA: This is the patient's initial encounter. Patient reports that signs and symptoms have been present for 1 day and indicates a pain score of 0/10. MEDICAL/SURGICAL HISTORY: Chronic obstructive pulmonary disease. Diabetes. Gastroesophageal r eflux disease. Hypertension, DVT None. ORAL CONTRAST: Prescribed oral contrast ingested. RADIATION DOSE: 7.39 CTDI (mGy) COMPARISON: [facility] [place] CHEST W [place]AST, 02/21/2018. . TECHNIQUE: Multiple contiguous axial images were obtained through the abdomen and pelvis following b olus infusion of 95 ml Omnipaque 350 (iohexol) nonionic water-soluble contrast as a single exam dos e. Prescribed oral contrast ingested. Using automated exposure control and adjustment of the mA and/ or kV according to patient size, radiation dose was kept as low as reasonably achievable to obtain op timal diagnostic quality images. DICOM format image data is available electronically for review and comparison. FINDINGS: Lower Lungs: There is consolidation in both lung bases left greater than right. Liver: The liver has a homogeneous density without space-occupying lesion. There is no dilation of th e biliary tree. Spleen: Homogeneous density without enlargement. Pancreas: Unremarkable without mass or calcification. Kidneys: Normal in size and shape. No evidence of a solid mass or hydronephrosis. There are simple a ppearing cysts in both kidneys. Adrenal Glands: Unremarkable. Aorta: There is a contained thrombosed aneurysmal dissection involving the abdominal aorta. This ex tends for approximately 4 cm and extends out to the left approximately 3 cm. This is mostly chronic i n appearance. There is also an inferior vena caval filter in place with thrombosis of the inferior ve na cava below this portion. There is also thrombus in both common iliac veins left greater than right . This is more extensive on the left extends into the femoral vein as well. Bowel/Mesentery: The bowel loops are grossly unremarkable. The cecum and sigmoid colon have a normal configuration. Abdominal Wall: Intact. Retroperitoneum: No evidence of adenopathy in the retrocrural, para-aortic, or deep pelvic regions. Bladder: Contours are smooth. Reproductive Organs: No abnormal masses or calcifications seen. Inguinal: The inguinal region is unremarkable without evidence of adenopathy. Bony Structures: Degenerative changes greatest in the thoracic spine. CONCLUSION: 1. 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 2. Inferior vena caval filter in place with thrombosis of the inferior vena cava below this portion. There is also extensive thrombus involving the left iliac veins and femoral vein. There is a small a mount of thrombus in the proximal right common iliac vein. 3. No evidence of metastatic disease or adenopathy in the abdomen or pelvis. 4. Please see recent chest CT for findings in the chest. Electronically signed by: Carlos Shirley MD 03/06/2018 9:36 AM EDT
[2018-03-06] MEDS: Ezetimibe 10 MG Tablet PO SCH (09:39)
[2018-03-06] MEDS: Famotidine 20 MG Tablet PO SCH ×2 (09:40→22:02)
[2018-03-06] MEDS: Azithromycin 250 MG Tablet PO SCH (09:40)
[2018-03-06] MEDS: predniSONE 20 MG Tablet PO SCH ×2 (09:40→22:03)
[2018-03-06] MEDS: Insulin Detemir Inj 1,000 UNIT/10 ML Vial SQ SCH ×2 (09:40→22:03)
[2018-03-06] MEDS: Carvedilol 6.25 MG Tablet PO SCH ×2 (09:40→22:02)
[2018-03-06] MEDS: Senna/Docusate Sodium 8.6/50 MG Tablet PO SCH ×2 (09:40→22:04)
[2018-03-06] MEDS: Budesonide-Formoterol 160/4.5 MCG 6 GM Inhaler INH SCH ×2 (09:40→22:04)
[2018-03-06] MEDS: guaiFENesin 600 MG ER Tablet PO SCH ×2 (09:40→22:02)
--- NOTE | 2018-03-06 11:54 | P.PNIM ---
Subjective Interval history: MRI of the brain shows no tumors. CT of abdomen and pelvis pending. Oncology follow-up pending. No new complaints from the patient. Physical Exam Vital signs: Vital Signs 03/05/18 16:00 03/05/18 20:00 03/06/18 00:00 Temperature 98.2 F 97.5 F L 97.6 F Pulse Rate 77 83 81 Respiratory Rate 18 18 18 Blood Pressure 135/73 113/59 L 117/65 Pulse Oximetry 96 97 97 03/06/18 04:00 Temperature 97.5 F L Pulse Rate 73 Respiratory Rate 18 Blood Pressure 111/67 Pulse Oximetry 92 L Intake & Output 03/05/18 03/06/18 03/06/18 18:59 06:59 18:59 Intake Total 360 / 360 600 / 600 Output Total 1400 / 1400 650 / 650 Balance -1040 / -1040 -50 / -50 Weight 82.3 kg Intake: Oral 360 / 360 600 / 600 Output: Urine 1400 / 1400 650 / 650 Other: # Bowel Movements 1 1 Narrative: GENERAL: NAD, A&Ox3 HEAD: Normocephalic. NECK: Supple, trachea midline. No lymphadenopathy. EYES: No scleral icterus. No injection or drainage. CARDIOVASCULAR: Regular rate and rhythm without murmurs, gallops, or rubs. RESPIRATORY: Breath sounds equal bilaterally. No accessory muscle use. GASTROINTESTINAL: Abdomen soft, non-tender, nondistended. MUSCULOSKELETAL: No cyanosis, bilateral lower extremity edema, improving. SKIN: Warm and dry. NEURO: No focal neurological deficits. Results - Labs CBC & Chem 7: 02/28/18 04:39 03/05/18 15:48 Laboratory Results - last 24 hr 03/05/18 03/05/18 03/05/18 15:48 18:09 20:45 Sodium 137 Potassium 4.4 Chloride 98 Carbon Dioxide 35.4 H Anion Gap 4 L BUN 59 H Creatinine 1.31 H Estimated GFR 53 L POC Glucose 111 H 216 H Random Glucose 149 H Calcium 8.5 03/06/18 08:17 Sodium Potassium Chloride Carbon Dioxide Anion Gap BUN Creatinine Estimated GFR POC Glucose 107 Random Glucose Calcium - Imaging Impressions Abdomen/Pelvis CT 03/06/18 00:00 CONCLUSION: 1. 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 2. Inferior vena caval filter in place with thrombosis of the inferior vena cava below this portion. There is also extensive thrombus involving the left iliac veins and femoral vein. There is a small amount of thrombus in the proximal right common iliac vein. 3. No evidence of metastatic disease or adenopathy in the abdomen or pelvis. 4. Please see recent chest CT for findings in the chest. - Procedures Lung mass biopsy Assessment and Plan - Assessment (1) COPD (chronic obstructive pulmonary disease) Code(s): J44.9 - Chronic obstructive pulmonary disease, unspecified Status: Chronic (2) Lung mass Code(s): R91.8 - Other nonspecific abnormal finding of lung field Status: Acute (3) H/O deep venous thrombosis Code(s): Z86.718 - Personal history of other venous thrombosis and embolism Status: Acute (4) C. difficile colitis Code(s): A04.72 - Enterocolitis due to Clostridium difficile, not specified as recurrent Status: Acute - Plan 82-year-old male admitted secondary to lung mass with shortness of breath Small cell carcinoma on pathology. Continue workup as recommended by oncology. CT of abdomen pelvis pending. MRI of brain shows no tumors. Oncology following. Continue physical therapy and discharge once oncology workup completed. Small cell carcinoma CT of abdomen pelvis pending MRI of brain pending Oncology following Discharge failed to workup completed Pneumonia Improving Continue with azithromycin and Rocephin Urine Legionella negative Sputum cultures negative COPD exacerbation Slowly improving Continue prednisone Continue duo nebs and home inhalers, continue supplemental oxygen and as needed BiPAP Right hilar lung mass Status post biopsy Pulmonary following Atrial fibrillation Continue Coreg 6.25 mg twice daily Resume Eliquis Lower extremity edema Improving slowly Echocardiogram on 720 shows ejection fraction of 60-65% Verapamil discontinued for association with edema Bumex ordered to replace Lasix Continue Abraham wraps Physical deconditioning Improved strength and balance and ambulation needed prior to discharge Continue PT h/o CKD Avoid nephrotoxic agents Patient has outpatient follow-up with Dr. Nieto Type 2 diabetes Follow blood sugars Insulin sliding scale Diabetic diet Levemir 5 units twice daily Hypertension Continue baseline treatment Follow blood pressures Adjust treatments as needed Continue losartan Recent C. difficile infection Repeat C. difficile screen pending negative DVT Prophylaxis Resume Eliquis Discharge planning Awaiting clearance from oncology
--- NOTE | 2018-03-06 15:29 | P.PNONC ---
Subjective Interval history: Afebrile Patient resting in bed with visitors present Reports his breathing is "okay I guess" Happy to hear that he has no known distant metastatic disease Objective Vital Signs/Intake & Output: Vital Signs 03/05/18 16:00 03/05/18 20:00 03/06/18 00:00 Temperature 98.2 F 97.5 F L 97.6 F Pulse Rate 77 83 81 Respiratory Rate 18 18 18 Blood Pressure 135/73 113/59 L 117/65 Pulse Oximetry 96 97 97 03/06/18 04:00 03/06/18 08:00 03/06/18 12:00 Temperature 97.5 F L 97.6 F 97.8 F Pulse Rate 73 77 82 Respiratory Rate 18 18 18 Blood Pressure 111/67 118/61 102/66 Pulse Oximetry 92 L 95 95 Intake & Output 03/05/18 03/06/18 03/06/18 18:59 06:59 18:59 Intake Total 360 / 360 600 / 600 Output Total 1400 / 1400 650 / 650 Balance -1040 / -1040 -50 / -50 Weight 181 lb 7.047 oz Intake: Oral 360 / 360 600 / 600 Output: Urine 1400 / 1400 650 / 650 Other: # Bowel Movements 1 1 Result Diagrams: 02/28/18 04:39 03/05/18 15:48 Laboratory Results: Laboratory Results - last 24 hr 03/05/18 03/05/18 03/05/18 15:48 18:09 20:45 Sodium 137 Potassium 4.4 Chloride 98 Carbon Dioxide 35.4 H Anion Gap 4 L BUN 59 H Creatinine 1.31 H Estimated GFR 53 L POC Glucose 111 H 216 H Random Glucose 149 H Calcium 8.5 03/06/18 03/06/18 08:17 12:37 Sodium Potassium Chloride Carbon Dioxide Anion Gap BUN Creatinine Estimated GFR POC Glucose 107 123 H Random Glucose Calcium Imaging Studies: Impressions Abdomen/Pelvis CT 03/06/18 00:00 CONCLUSION: 1. 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 2. Inferior vena caval filter in place with thrombosis of the inferior vena cava below this portion. There is also extensive thrombus involving the left iliac veins and femoral vein. There is a small amount of thrombus in the proximal right common iliac vein. 3. No evidence of metastatic disease or adenopathy in the abdomen or pelvis. 4. Please see recent chest CT for findings in the chest. Medications: Active Medications Generic Name Dose Route Start Last Admin Trade Name Freq PRN Reason Stop Dose Admin Apixaban 5 mg 03/02/18 21:00 03/06/18 09:39 Eliquis PO 5 mg BID ARYA Administration Azithromycin 500 mg 02/25/18 16:30 03/06/18 09:40 Zithromax PO 500 mg DAILY ARYA Administration Budesonide/Formoterol Fumarate 2 puff 02/21/18 21:00 03/06/18 09:40 Symbicort 160/4.5 Mcg Inh INH 2 puff BID ARYA Administration Bumetanide 1 mg 02/27/18 18:00 03/06/18 09:39 Bumex Inj IV.PUSH 1 mg BID@0900,1800 ARYA Administration Carvedilol 6.25 mg 02/25/18 21:00 03/06/18 09:40 Coreg PO 6.25 mg BID ARYA Administration Diltiazem HCl 120 mg 02/22/18 09:00 02/24/18 10:02 Cardizem Cd 24hr PO 120 mg DAILY ARYA Administration Ezetimibe 10 mg 02/22/18 09:00 03/06/18 09:39 Zetia PO 10 mg DAILY ARYA Administration Famotidine 10 mg 02/27/18 21:00 03/06/18 09:40 Pepcid PO 10 mg BID ARYA Administration Guaifenesin 600 mg 02/21/18 21:00 03/06/18 09:40 Mucinex Er PO 600 mg BID ARYA Administration Ceftriaxone Sodium 1,000 mg/ 100 mls @ 200 mls/hr 02/25/18 17:00 03/05/18 17: 00 Sodium Chloride IV.SIG 100 mls/hr Q24H ARYA Administration Insulin Aspart 0 unit 02/24/18 17:00 03/06/18 12:00 Novolog Insulin Correctional Sugar Inj SQ Not Given [facility] Protocol Insulin Detemir 5 unit 02/25/18 09:00 03/06/18 09:40 Levemir Inj SQ 5 unit BID [facility] Administration Losartan Potassium 50 mg 02/22/18 09:00 03/06/18 09:40 Cozaar PO 50 mg DAILY [facility] Administration Pravastatin Sodium 80 mg 02/22/18 09:00 03/06/18 09:39 Pravachol PO 80 mg DAILY ARYA Administration Prednisone 20 mg 02/25/18 21:00 03/06/18 09:40 Deltasone PO 20 mg BID ARYA Administration Senna/Docusate Sodium 1 tab 02/21/18 21:00 03/06/18 09:40 Lianna-Colace PO 1 tab BID ARYA Administration Temazepam 15 mg 02/21/18 19:26 02/21/18 21:25 Restoril PO 15 mg HS PRN Administration INSOMNIA Objective Remarks: GENERAL: Elderly male resting in bed in no obvious distress SKIN: Warm and dry. HEAD: Normocephalic. EYES: No scleral icterus. No injection or drainage. NECK: Supple, trachea midline. No JVD or lymphadenopathy. CARDIOVASCULAR: Regular rate and rhythm without murmurs. RESPIRATORY: Bilateral rales to the lower lobes posteriorly. On 3 L nasal cannula GASTROINTESTINAL: Abdomen soft, non-tender, nondistended. EXTREMITIES: No cyanosis, or edema. MUSCULOSKELETAL: Generalized weakness NEUROLOGICAL: No obvious focal deficit. Awake, alert, and oriented x3. Assessment/Plan - Plan 1. SCLC: Right sided lung mass with mediastinal involvement. S/p bronchoscopy with washing revealing SCLC. Staging imaging of brain, abdomen and pelvis show no evidence of distant metastatic disease. 2. I have contacted new patient referrals and they are facilitating him into our clinic to see Dr. Quesada which will be sometime next week. - Attending Statement The exam, history, and the medical decision-making described in the above note were completed with the assistance of the mid-level provider. I reviewed and agree with the findings presented. I attest that I had a [id number] encounter with the patient on the same day, and personally performed and documented my assessment and findings in the medical record. Resting in bed. Oxygen saturation at rest with no oxygen via nasal cannula is in the mid 80's. No evidence of extrathoracic SCLC. Declininc performance status. 8 cm right hilar/mediastinal mass. Long discussion with patient, and son regarding treatment options. Discussed treatment with chemotherapy with carboplatin and etoposide x 3 days followed by sequential radiation therapy. Discussed side effects of chemotherapy. Discussed prognosis and survival of SCLC. Discussed that if patient and family decide to move forward with aggressive therapy would move forward with initial chemotherapy inpatient. If they decide to focus on comfort and quality of life will consult hospice and arrange for discharge home with hospice.
--- NOTE | 2018-03-06 18:24 | P.PNPL ---
Subjective Interval history: 82 YOWm with COPD, Rt hilar, mediastinal mass, LLL density Had Bronch, endobronchial lesion at ant segment RUL, bleed easily BAL, [place] and needle aspiration done Tolerated well no hemoptysis Bronch SSLC MRI Brain no mets Feels comfortable Physical Exam Vital signs: Vital Signs 03/05/18 20:00 03/06/18 00:00 03/06/18 04:00 Temperature 97.5 F L 97.6 F 97.5 F L Pulse Rate 83 81 73 Respiratory Rate 18 18 18 Blood Pressure 113/59 L 117/65 111/67 Pulse Oximetry 97 97 92 L Pulse Oximetry [Resting on Room Air] Pulse Oximetry [Resting with Oxygen] 03/06/18 08:00 03/06/18 12:00 03/06/18 18:10 Temperature 97.6 F 97.8 F Pulse Rate 77 82 Respiratory Rate 18 18 Blood Pressure 118/61 102/66 Pulse Oximetry 95 95 Pulse Oximetry [Resting on Room Air] 87 L Pulse Oximetry [Resting with Oxygen] 94 L Intake & Output 03/05/18 03/06/18 03/06/18 18:59 06:59 18:59 Intake Total 360 / 360 600 / 600 Output Total 1400 / 1400 650 / 650 Balance -1040 / -1040 -50 / -50 Weight 82.3 kg Intake: Oral 360 / 360 600 / 600 Output: Urine 1400 / 1400 650 / 650 Other: # Bowel Movements 1 1 GENERAL: Elderly WM,NAD SKIN: Warm and dry. HEAD: Normocephalic. EYES: No scleral icterus. No injection or drainage. NECK: Supple, trachea midline. No JVD or lymphadenopathy. CARDIOVASCULAR: Regular rate and rhythm without murmurs, gallops, or rubs. RESPIRATORY: Breath sounds equal bilaterally. No accessory muscle use. GASTROINTESTINAL: Abdomen soft, non-tender, nondistended. MUSCULOSKELETAL: No cyanosis, or edema. BACK: Nontender without obvious deformity. No CVA tenderness. Assessment and Plan - Plan Impression: 1. Right lung mass in hilar and mediasinal area with compression of bronchus 2. 2 cm left lower lobe cavitary lesion. 3. Chronic obstructive pulmonary disease 4. Deep venous thrombosis status post inferior vena cava filter placement. 5. RUL ant segment Endobronchial mass--SCLC PLAN: Cont Aerosol nebs Cont abx monitor BS Coreg 3.25 mg bid Zetia 10 mg daily. DW pt and his at BS path results DC Plans underway
--- NOTE | 2018-03-07 09:53 | P.PNONC ---
Subjective Interval history: Afebrile Pt denies any acute complaints Ready for chemo Objective Vital Signs/Intake & Output: Vital Signs 03/06/18 12:00 03/06/18 18:10 03/06/18 20:00 Temperature 97.8 F 98.7 F Pulse Rate 82 100 H Respiratory Rate 18 22 Blood Pressure 102/66 101/58 L Pulse Oximetry 95 94 L Pulse Oximetry [Resting on Room Air] 87 L Pulse Oximetry [Resting with Oxygen] 94 L 03/07/18 00:00 03/07/18 04:00 03/07/18 08:00 Temperature 98 F 97.1 F L 98.0 F Pulse Rate 101 H 87 83 Respiratory Rate 18 18 20 Blood Pressure 102/60 122/60 123/61 Pulse Oximetry 93 L 94 L 93 L Pulse Oximetry [Resting on Room Air] Pulse Oximetry [Resting with Oxygen] 03/07/18 08:41 Temperature Pulse Rate Respiratory Rate Blood Pressure Pulse Oximetry 95 Pulse Oximetry [Resting on Room Air] Pulse Oximetry [Resting with Oxygen] Intake & Output 03/06/18 03/07/18 03/07/18 18:59 06:59 18:59 Intake Total 1096 / 1096 780 / 780 Output Total 1175 / 1175 1025 / 1025 Balance -79 / -79 -245 / -245 Weight 186 lb 4.65 oz Intake: Oral 1096 / 1096 780 / 780 Output: Urine 1175 / 1175 1025 / 1025 Other: Date of Last Bowel Movement 03/06/18 # Bowel Movements 2 Result Diagrams: 03/07/18 13:21 03/07/18 13:21 Laboratory Results: Laboratory Results - last 24 hr 03/06/18 03/06/18 03/06/18 12:37 17:29 20:51 POC Glucose 123 H 254 H 252 H 03/07/18 08:15 POC Glucose 197 H Medications: Active Medications Generic Name Dose Route Start Last Admin Trade Name Freq PRN Reason Stop Dose Admin Apixaban 5 mg 03/02/18 21:00 03/06/18 22:02 Eliquis PO 5 mg BID ARYA Administration Azithromycin 500 mg 02/25/18 16:30 03/06/18 09:40 Zithromax PO 500 mg DAILY ARYA Administration Budesonide/Formoterol Fumarate 2 puff 02/21/18 21:00 03/06/18 22:04 Symbicort 160/4.5 Mcg Inh INH 2 puff BID ARYA Administration Bumetanide 1 mg 02/27/18 18:00 03/06/18 18:44 Bumex Inj IV.PUSH 1 mg BID@0900,1800 ARYA Administration Carvedilol 6.25 mg 02/25/18 21:00 03/06/18 22:02 Coreg PO 6.25 mg BID ARYA Administration Diltiazem HCl 120 mg 02/22/18 09:00 02/24/18 10:02 Cardizem Cd 24hr PO 120 mg DAILY ARYA Administration Ezetimibe 10 mg 02/22/18 09:00 03/06/18 09:39 Zetia PO 10 mg DAILY ARYA Administration Famotidine 10 mg 02/27/18 21:00 03/06/18 22:02 Pepcid PO 10 mg BID ARYA Administration Guaifenesin 600 mg 02/21/18 21:00 03/06/18 22:02 Mucinex Er PO 600 mg BID ARYA Administration Ceftriaxone Sodium 1,000 mg/ 100 mls @ 200 mls/hr 02/25/18 17:00 03/06/18 18: 44 Sodium Chloride IV.SIG 100 mls/hr Q24H ARYA Administration Insulin Aspart 0 unit 02/24/18 17:00 03/06/18 22:03 Novolog Insulin Correctional Sugar Inj SQ 5 unit ACHS ARYA Administration Protocol Insulin Detemir 5 unit 02/25/18 09:00 03/06/18 22:03 Levemir Inj SQ 5 unit BID ARYA Administration Losartan Potassium 50 mg 02/22/18 09:00 03/06/18 09:40 Cozaar PO 50 mg DAILY ARYA Administration Pravastatin Sodium 80 mg 02/22/18 09:00 03/06/18 09:39 Pravachol PO 80 mg DAILY ARYA Administration Prednisone 20 mg 02/25/18 21:00 03/06/18 22:03 Deltasone PO 20 mg BID ARYA Administration Senna/Docusate Sodium 1 tab 02/21/18 21:00 03/06/18 22:04 Lianna-Colace PO Not Given BID [facility] Temazepam 15 mg 02/21/18 19:26 02/21/18 21:25 Restoril PO 15 mg HS PRN Administration INSOMNIA Objective Remarks: GENERAL: Elderly male sitting up on side of bed eating breakfast in no obvious distress. SKIN: Warm and dry. HEAD: Normocephalic. EYES: No scleral icterus. No injection or drainage. NECK: Supple, trachea midline. No JVD or lymphadenopathy. CARDIOVASCULAR: Regular rate and rhythm without murmurs. RESPIRATORY: Bilateral rales to the lower lobes posteriorly. On 3 L nasal cannula GASTROINTESTINAL: Abdomen soft, non-tender, nondistended. EXTREMITIES: No cyanosis, or edema. MUSCULOSKELETAL: Generalized weakness NEUROLOGICAL: No obvious focal deficit. Awake, alert, and oriented x3. Assessment/Plan - Plan 1. Transfer pt to oncology floor for chemo today. 2. Chemotherapy will be given 3 days in a row. (Carbo/UTILITY PERSON-16) 3. Anticipate discharge after chemo complete. - Attending Statement The exam, history, and the medical decision-making described in the above note were completed with the assistance of the mid-level provider. I reviewed and agree with the findings presented. I attest that I had a [id number] encounter with the patient on the same day, and personally performed and documented my assessment and findings in the medical record. 1. SCLC: large 8 cm mass in right hilar extending into the mediastium. Will initiate chemotherap while inpatient with carboplatin, etoposide. Discussed side effects of chemotherapy with patient and including but not limited to fatigue, N/V, diarrhea/constipation, liver disease, kidney injury. He expressed understanding and desire to move foward wtih chemotherapy. 2. TCP: No evidence of liver disease, hypersplenism, hemolysis (normal bili) Will check iron profile, ferritin, vitamin B12, folate, smear. Will cotnineu to monitor. 3. Extensive clot: on apixaban.
[2018-03-07] MEDS: guaiFENesin 600 MG ER Tablet PO SCH ×2 (10:05→22:24)
[2018-03-07] MEDS: Ezetimibe 10 MG Tablet PO SCH (10:05)
[2018-03-07] MEDS: predniSONE 20 MG Tablet PO SCH ×2 (10:05→22:24)
[2018-03-07] MEDS: Azithromycin 250 MG Tablet PO SCH (10:05)
[2018-03-07] MEDS: Carvedilol 6.25 MG Tablet PO SCH ×2 (10:06→22:25)
[2018-03-07] MEDS: Famotidine 20 MG Tablet PO SCH ×2 (10:06→22:24)
[2018-03-07] MEDS: Insulin Detemir Inj 1,000 UNIT/10 ML Vial SQ SCH ×2 (10:07→22:27)
[2018-03-07] MEDS: Insulin NovoLOG Aspart Correctional Sugar Inj SQ SCH ×3 (10:07→22:29)
[2018-03-07] MEDS: Senna/Docusate Sodium 8.6/50 MG Tablet PO SCH (10:11)
[2018-03-07] MEDS: Budesonide-Formoterol 160/4.5 MCG 6 GM Inhaler INH SCH ×2 (10:11→22:30)
--- NOTE | 2018-03-07 11:07 | P.DS ---
Date of admission: 02/22/18 13:24 Primary care physician: Mavis Lindo MD Brief History from admission: This is an 82-year-old male with a PMH of COPD, O2 Dependent, DM, H/o DVT s/p IVC Filter, Afib on Eliquis and C Diff who presented to the ER w/ complaints of severe SOB. Recent admit 02/14-02/19/18 for similar complaints, treated for COPD Exacerbation, s/p eval by Dr. Camarena w/ Pulmonology. Returns now w/ worsening SOB. Denies fever/chills. No c/o chest pain. On arrival, BP 142/67, HR 85, O2 sat 97% on RA, Afebrile. WBC 13.2. Chemistry essentially at baseline. Troponin negative. CXR with new masslike opacity right hilar region, recommendation for further evaluation. CT Chest with large right-sided mass involving right hilum and mediastinum, likely central lung malignancy, 2 cavitary masses in left lower lobe, nonspecific. Previous CXR on 02/14/2018 with no evidence of lung mass. DS: Diagnosis - Discharge Diagnosis (1) COPD (chronic obstructive pulmonary disease) Status: Chronic (2) Lung mass Status: Acute (3) H/O deep venous thrombosis Status: Acute (4) C. difficile colitis Status: Acute DS: Medications - Discharge Medications Prescriptions: amoxicillin-pot clavulanate [Augmentin] 1 tab PO BID #10 tab apixaban [Eliquis] 5 mg PO BID #60 tab azithromycin 500 mg PO DAILY #5 tab carvedilol [Coreg] 6.25 mg PO BID #60 tab famotidine 10 mg PO BID #60 tab furosemide [Lasix] 20 mg PO DAILY #30 tab nicotine 1 patch TRANSDERMAL DAILY #30 ea prednisone 10 mg PO DAILY #30 tab DS: Summary Hospital Course: Mr. Vallejo is an 82-year-old male. He is admitted secondary to acute respiratory distress with hypoxia related to COPD exacerbation. During this workup he was found to have a lung mass. Lung masses biopsy during the stay. Patient has slow recovery from his COPD exacerbation. Currently he still on a higher amount of oxygen that he uses at baseline. At baseline he was using 2 L/ min just at night and currently he is using 2 L/min continuously. She is however gaining in his functional status and has been cleared for home with home health PT. biopsy results of the small cell carcinoma. Staging images were obtained which showed no metastasis to the brain or abdomen/pelvis. Oncology has reviewed this patient's situation and patient is clear for discharge home by oncology. At this point he is medically stable and cleared for discharge to home. Biopsy results will be obtained by follow-up with pulmonology as an outpatient. He will continue his antibiotic treatments at home. - Time Spent with Patient Total time spent providing and/or coordinating discharge services: Less than 30 minutes - Quality: VTE Deep Vein Thrombosis/Pulmonary Embolism Present on Admission: No Exam Vital signs: Vital Signs 03/06/18 12:00 03/06/18 18:10 03/06/18 20:00 Temperature 97.8 F 98.7 F Pulse Rate 82 100 H Respiratory Rate 18 22 Blood Pressure 102/66 101/58 L Pulse Oximetry 95 94 L Pulse Oximetry [Resting on Room Air] 87 L Pulse Oximetry [Resting with Oxygen] 94 L 03/07/18 00:00 03/07/18 04:00 03/07/18 08:00 Temperature 98 F 97.1 F L 98.0 F Pulse Rate 101 H 87 83 Respiratory Rate 18 18 20 Blood Pressure 102/60 122/60 123/61 Pulse Oximetry 93 L 94 L 93 L Pulse Oximetry [Resting on Room Air] Pulse Oximetry [Resting with Oxygen] 03/07/18 08:41 Temperature Pulse Rate Respiratory Rate Blood Pressure Pulse Oximetry 95 Pulse Oximetry [Resting on Room Air] Pulse Oximetry [Resting with Oxygen] Intake & Output 03/06/18 03/07/18 03/07/18 18:59 06:59 18:59 Intake Total 1096 / 1096 780 / 780 Output Total 1175 / 1175 1025 / 1025 Balance -79 / -79 -245 / -245 Weight 84.5 kg Intake: Oral 1096 / 1096 780 / 780 Output: Urine 1175 / 1175 1025 / 1025 Other: Date of Last Bowel Movement 03/06/18 # Bowel Movements 2 Results Procedures completed during hospitalization: Lung mass biopsy Labs on day of discharge: Labs from last 24 hours 03/07/18 03/06/18 03/06/18 08:15 20:51 17:29 POC Glucose 197 H 252 H 254 H 03/06/18 12:37 POC Glucose 123 H - Impressions ITS Impressions Chest CT 02/21/18 16:15 CONCLUSION: Chest X-Ray 02/28/18 16:07 CONCLUSION: 1. No significant pneumothorax. 2. Redemonstration of right hilar mass. 3. Left basilar atelectasis. Head MRI 03/05/18 00:00 CONCLUSION: 1. No evidence for metastatic disease to the brain. 2. Moderate chronic ischemic changes in the white matter with cortical volume loss. Abdomen/Pelvis CT 03/06/18 00:00 CONCLUSION: 1. 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 2. Inferior vena caval filter in place with thrombosis of the inferior vena cava below this portion. There is also extensive thrombus involving the left iliac veins and femoral vein. There is a small amount of thrombus in the proximal right common iliac vein. 3. No evidence of metastatic disease or adenopathy in the abdomen or pelvis. 4. Please see recent chest CT for findings in the chest. Discharge Plan - Discharge Disposition Patient Disposition: /Home Health Service - Discharge Condition Condition: Stable - Discharge Order Discharge Orders: Discharge Order (Routine); Ordered 03/04/18 Ordered By: Kushal Rincon - Discharge Details Anticipated Discharge Date: 03/04/18 Discharge Comment: Needs Home Oxygen - Physicians Team Primary Care Provider: Mavis Lindo Attending Provider: Kushal Rincon Other Providers: Maryanne Quesada ; Cindy White MD ; Dominic Camarena MD
[2018-03-07 13:42] LABS: Baso % (Auto) 0.1 % (0.0-2.0); Eos % (Auto) 0.1 % (0.0-4.0); Hemoglobin 13.5 gm/dL (13.0-17.0); Lymph # (Auto) 0.8 th/mm3 (1.0-4.8); Lymph % (Auto) 7.2 % (9.0-44.0); Mean Corpuscular HGB Conc 33.7 % (32.0-36.0); Mean Corpuscular Hemoglobin 29.8 pg (27.0-34.0); Mean Corpuscular Volume 88.5 fL (80.0-100.0); Mean Platelet Volume 8.5 fL (7.0-11.0); Mono # (Auto) 0.6 th/mm3 (0.0-0.9); Mono % (Auto) 5.6 % (0.0-8.0); Neut # (Auto) 9.3 th/mm3 (1.8-7.7); Platelet Count 128 th/mm3 (150-450); Red Blood Count 4.53 mil/mm3 (4.50-5.90); White Blood Count 10.7 th/mm3 (4.0-11.0)
[2018-03-07 14:00] LABS: Albumin 2.8 g/dL (3.4-5.0); Anion Gap 8 meq/L (5-15); Aspartate Aminotransferase 24 U/L (15-37); Blood Urea Nitrogen 56 mg/dL (7-18); Calcium 8.7 mg/dL (8.5-10.1); Carbon Dioxide 31.1 meq/L (21.0-32.0); Chloride 99 meq/L (98-107); Glomerular Filtration Rate 52 mL/min (>89); Glucose,Random 163 mg/dL (74-106); Potassium 4.2 meq/L (3.5-5.1); Sodium 138 meq/L (136-145)
[2018-03-07 14:02] LABS: Alanine Aminotransferase 84 U/L (12-78)
[2018-03-07 14:03] LABS: Alkaline Phosphatase 79 U/L (45-117); Total Protein 6.1 g/dL (6.4-8.2)
--- NOTE | 2018-03-07 16:24 | P.DIET ---
Nutritional Evaluation Type of nutrition evaluation: follow-up Nutrition consult regarding: Diet Evaluation Nutrition screening: Weight Loss > 10 lbs Subjective Subjective Comments: I think pt may have been in process of transfer to [facility] on my visit as he was out of his room. Has been eating 100%. Objective - Diagnosis Pulmonary Mass - Objective % IBW: 112 (HDV=343#) Body Weight Used for Calculations: Actual (86kg) Energy Needs - Lower Range (kCal/kg): 25 Energy Needs - Upper Range (kCal/kg): 30 Lower Limit kCal/kg (kCals): 2,150 Upper Limit kCal/kg (kCals): 2,580 Lower Limit Protein Factor (Grams per Kg): 1.0 Upper Limit Protein Factor (Grams per Kg): 1.2 Lower Protein Needs (Protein): 86 Upper Protein Needs (Protein): 103 Fluid Factor (ml/kg): 25 Estimated Fluid Needs (ml): 2,150 Dietitian Reviewed in Medical Record: Current diet, Curent medications, Intake & Output, Labs Diet Order: Oral Diet Intake Amount: Excellent 90%+ Objective Comments: Meds: Bumex, Prednisone Labs: AccuCheck 197, A1C 6.4 on 02/15/18 LBM 03/06, c.diff+ 02/28 Bronchoscopy w/ bx, new small cell carcinoma dx per EMR Assessment Assessment: Pt remains on a diet and has been eating well. He is to receive 3 days of chemotherapy for his newly dx SCC per review of EMR. BG levels reviewed. Possible D/C after chemo, but will continue to monitor. Recommendations: 1. Continue current POC. Dietitian to Monitor: Lab values, Glucose level, Intake & Output, Diet tolerance , Weight change, PO Intake, Medical course
--- NOTE | 2018-03-07 17:05 | P.PNPL ---
Subjective Interval history: 82 YOWm with COPD, Rt hilar, mediastinal mass, LLL density Feels comfortable Ambulates to the BR Physical Exam Vital signs: Vital Signs 03/06/18 18:10 03/06/18 20:00 03/07/18 00:00 Temperature 98.7 F 98 F Pulse Rate 100 H 101 H Respiratory Rate 22 18 Blood Pressure 101/58 L 102/60 Pulse Oximetry 94 L 93 L Pulse Oximetry [Resting on Room Air] 87 L Pulse Oximetry [Resting with Oxygen] 94 L 03/07/18 04:00 03/07/18 08:00 03/07/18 08:41 Temperature 97.1 F L 98.0 F Pulse Rate 87 83 Respiratory Rate 18 20 Blood Pressure 122/60 123/61 Pulse Oximetry 94 L 93 L 95 Pulse Oximetry [Resting on Room Air] Pulse Oximetry [Resting with Oxygen] 03/07/18 12:00 03/07/18 13:48 Temperature 98.1 F 97.8 F Pulse Rate 82 89 Respiratory Rate 18 16 Blood Pressure 122/60 100/62 Pulse Oximetry 94 L 95 Pulse Oximetry [Resting on Room Air] Pulse Oximetry [Resting with Oxygen] Intake & Output 03/06/18 03/07/18 03/07/18 18:59 06:59 18:59 Intake Total 1096 / 1096 780 / 780 380 / 380 Output Total 1175 / 1175 1025 / 1025 Balance -79 / -79 -245 / -245 380 / 380 Weight 84.5 kg Intake: Oral 1096 / 1096 780 / 780 380 / 380 Output: Urine 1175 / 1175 1025 / 1025 Other: # Voids 800 Date of Last Bowel Movement 03/06/18 03/06/18 # Bowel Movements 2 0 GENERAL: Frail elderly Wm,NAD SKIN: Warm and dry. HEAD: Normocephalic. EYES: No scleral icterus. No injection or drainage. NECK: Supple, trachea midline. No JVD or lymphadenopathy. CARDIOVASCULAR: Regular rate and rhythm without murmurs, gallops, or rubs. RESPIRATORY: Breath sounds equal bilaterally. No accessory muscle use. GASTROINTESTINAL: Abdomen soft, non-tender, nondistended. MUSCULOSKELETAL: No cyanosis, or edema. BACK: Nontender without obvious deformity. No CVA tenderness. Assessment and Plan - Plan Impression: 1. Right lung mass in hilar and mediasinal area with compression of bronchus 2. 2 cm left lower lobe cavitary lesion. 3. Chronic obstructive pulmonary disease 4. Deep venous thrombosis status post inferior vena cava filter placement. 5. RUL ant segment Endobronchial mass--SCLC PLAN: Cont Aerosol nebs Cont abx monitor BS Coreg 3.25 mg bid Zetia 10 mg daily. DW pt and his at BS path results Will try chemo, if he does't tolerate would want him home with hospice
[2018-03-07 21:34] LABS: % Iron Saturation 17.8 % (20-50)
[2018-03-07 21:45] LABS: Activated Partial Thrombo Time 20.8 sec (24.3-30.1); INR 1.1 Ratio; Prothrombin Time 10.7 sec (9.8-11.6)
[2018-03-07 21:59] LABS: Folate 14.8 ng/mL (3.1-17.5)
[2018-03-08 06:50] LABS: Baso % (Auto) 0.1 % (0.0-2.0); Eos % (Auto) 0.1 % (0.0-4.0); Hematocrit 38.9 % (39.0-51.0); Lymph # (Auto) 0.8 th/mm3 (1.0-4.8); Lymph % (Auto) 8.4 % (9.0-44.0); Mean Corpuscular HGB Conc 33.4 % (32.0-36.0); Mean Corpuscular Hemoglobin 29.7 pg (27.0-34.0); Mean Platelet Volume 8.6 fL (7.0-11.0); Mono # (Auto) 0.4 th/mm3 (0.0-0.9); Neut # (Auto) 7.7 th/mm3 (1.8-7.7); Neut % (Auto) 86.4 % (16.0-70.0); Platelet Count 121 th/mm3 (150-450); Red Blood Count 4.36 mil/mm3 (4.50-5.90); Red Cell Distribution Width 16.2 % (11.6-17.2); White Blood Count 8.9 th/mm3 (4.0-11.0)
[2018-03-08 07:12] LABS: Albumin 2.7 g/dL (3.4-5.0); Anion Gap 8 meq/L (5-15); Aspartate Aminotransferase 29 U/L (15-37); Blood Urea Nitrogen 55 mg/dL (7-18); Calcium 8.8 mg/dL (8.5-10.1); Carbon Dioxide 31.3 meq/L (21.0-32.0); Chloride 100 meq/L (98-107); Glomerular Filtration Rate 62 mL/min (>89); Glucose,Random 105 mg/dL (74-106); Potassium 4.7 meq/L (3.5-5.1); Sodium 139 meq/L (136-145)
[2018-03-08 07:13] LABS: Alanine Aminotransferase 79 U/L (12-78)
[2018-03-08 07:16] LABS: Alkaline Phosphatase 73 U/L (45-117); Total Protein 5.8 g/dL (6.4-8.2)
[2018-03-08] MEDS: Insulin NovoLOG Aspart Correctional Sugar Inj SQ SCH ×5 (08:08→22:20)
[2018-03-08] MEDS: Carvedilol 6.25 MG Tablet PO SCH ×2 (09:26→22:02)
[2018-03-08] MEDS: Famotidine 20 MG Tablet PO SCH ×2 (09:26→22:06)
[2018-03-08] MEDS: Azithromycin 250 MG Tablet PO SCH (09:26)
[2018-03-08] MEDS: guaiFENesin 600 MG ER Tablet PO SCH ×2 (09:27→22:02)
[2018-03-08] MEDS: Ezetimibe 10 MG Tablet PO SCH (09:27)
[2018-03-08] MEDS: Budesonide-Formoterol 160/4.5 MCG 6 GM Inhaler INH SCH ×2 (09:27→22:07)
[2018-03-08] MEDS: predniSONE 20 MG Tablet PO SCH ×2 (09:27→22:02)
[2018-03-08] MEDS: Insulin Detemir Inj 1,000 UNIT/10 ML Vial SQ SCH ×2 (09:28→22:18)
[2018-03-08] MEDS ORDERED: Sodium Chlor 0.9% Inj 250 ML IV.SIG SCH (15:00)
[2018-03-08] MEDS ORDERED: Granisetron 1 MG/ML Vial IV.PUSH ONE (15:30)
[2018-03-08] MEDS ORDERED: Dexamethasone Inj 20 MG in Sodium Chlor 0.9% Inj 50 ML IV.SIG ONE (15:30)
[2018-03-08] MEDS ORDERED: CARBOPLATIN IV.SIG ONE (16:00)
[2018-03-08] MEDS ORDERED: SODIUM CHLOR 0.9% IV.SIG ONE ×2 (16:00→16:30)
[2018-03-08] MEDS ORDERED: ETOPOSIDE IV.SIG ONE (16:30)
--- NOTE | 2018-03-08 17:19 | P.PNONC ---
Subjective Interval history: Afebrile. Patient awaiting the start of his chemotherapy. He has no complaints at this time. Objective Vital Signs/Intake & Output: Vital Signs 03/08/18 01:15 03/08/18 04:50 03/08/18 08:00 Temperature 97.4 F L 98.1 F 97.9 F Pulse Rate 88 81 92 H Respiratory Rate 17 18 21 Blood Pressure 104/69 129/68 107/64 Pulse Oximetry 95 94 L 93 L 03/08/18 10:13 03/08/18 12:00 03/08/18 16:00 Temperature 98.2 F 98.0 F Pulse Rate 90 89 Respiratory Rate 16 18 Blood Pressure 105/66 122/73 Pulse Oximetry 94 L 94 L 94 L Intake & Output 03/07/18 03/08/18 03/08/18 18:59 06:59 18:59 Intake Total 380 / 380 580 / 580 240 / 240 Output Total 900 / 900 1100 / 1100 Balance 380 / 380 -320 / -320 -860 / -860 Weight 76.6 kg Intake: IV 100 / 100 Rocephin Inj 1,000 MG In NS Inj 100 / 100 100 ML @ 200 mls/hr IV.SIG Q24H ARYA Rx#:[id number] Oral 380 / 380 480 / 480 240 / 240 Output: Urine 900 / 900 1100 / 1100 Other: # Voids 800 1 2 Date of Last Bowel Movement 03/06/18 03/07/18 03/07/18 # Bowel Movements 0 1 # Incontinent Bowel Movements 1 Result Diagrams: 03/08/18 05:57 03/08/18 05:57 Laboratory Results: Laboratory Results - last 24 hr 03/07/18 03/07/18 03/07/18 19:43 19:43 21:59 WBC RBC Hgb Hct MCV MCH MCHC RDW Plt Count MPV Neut % (Auto) Lymph % (Auto) [place] % (Auto) Eos % (Auto) Baso % (Auto) Neut # (Auto) Lymph # (Auto) [place] # (Auto) Eos # (Auto) Baso # (Auto) WBC Differential Differential Comment PT 10.7 INR 1.1 APTT 20.8 L Fibrinogen 194 L Sodium Potassium Chloride Carbon Dioxide Anion Gap BUN Creatinine Estimated GFR POC Glucose 208 H Random Glucose Calcium Iron 47 L TIBC 265 % Saturation 17.8 L Ferritin 350 Total Bilirubin AST ALT Alkaline Phosphatase Total Protein Albumin Vitamin B12 1132 H Folate 14.8 03/08/18 03/08/18 03/08/18 05:57 05:57 08:15 WBC 8.9 RBC 4.36 L Hgb 13.0 Hct 38.9 L MCV 89.0 MCH 29.7 MCHC 33.4 RDW 16.2 Plt Count 121 L MPV 8.6 Neut % (Auto) 86.4 H Lymph % (Auto) 8.4 L [place] % (Auto) 5.0 Eos % (Auto) 0.1 Baso % (Auto) 0.1 Neut # (Auto) 7.7 Lymph # (Auto) 0.8 L [place] # (Auto) 0.4 Eos # (Auto) 0.0 Baso # (Auto) 0.0 WBC Differential . Differential Comment Auto diff final PT INR APTT Fibrinogen Sodium 139 Potassium 4.7 Chloride 100 Carbon Dioxide 31.3 Anion Gap 8 BUN 55 H Creatinine 1.13 Estimated GFR 62 L POC Glucose 101 Random Glucose 105 Calcium 8.8 Iron TIBC % Saturation Ferritin Total Bilirubin 0.5 AST 29 ALT 79 H Alkaline Phosphatase 73 Total Protein 5.8 L Albumin 2.7 L Vitamin B12 Folate 03/08/18 03/08/18 12:04 17:00 WBC RBC Hgb Hct MCV MCH MCHC RDW Plt Count MPV Neut % (Auto) Lymph % (Auto) [place] % (Auto) Eos % (Auto) Baso % (Auto) Neut # (Auto) Lymph # (Auto) [place] # (Auto) Eos # (Auto) Baso # (Auto) WBC Differential Differential Comment PT INR APTT Fibrinogen Sodium Potassium Chloride Carbon Dioxide Anion Gap BUN Creatinine Estimated GFR POC Glucose 154 H 146 H Random Glucose Calcium Iron TIBC % Saturation Ferritin Total Bilirubin AST ALT Alkaline Phosphatase Total Protein Albumin Vitamin B12 Folate Culture Results: Microbiology 02/28/18 16:00 Fungal Smear - Final Bronchial Washings - Right Upper Lobe No fungal elements seen Fungal Culture - Preliminary No growth in 1 week 02/28/18 16:00 Acid Fast Bacilli Smear - Final Bronchial Washings - Right Upper Lobe No acid fast bacilli seen Mycobacterial Culture - Preliminary No growth in 1 week Medications: Active Medications Generic Name Dose Route Start Last Admin Trade Name Freq PRN Reason Stop Dose Admin Apixaban 5 mg 03/02/18 21:00 03/08/18 09:26 Eliquis PO 5 mg BID ARYA Administration Azithromycin 500 mg 02/25/18 16:30 03/08/18 09:26 Zithromax PO 500 mg DAILY ARYA Administration Budesonide/Formoterol Fumarate 2 puff 02/21/18 21:00 03/08/18 09:27 Symbicort 160/4.5 Mcg Inh INH 2 puff BID ARYA Administration Bumetanide 1 mg 02/27/18 18:00 03/08/18 11:03 Bumex Inj IV.PUSH 1 mg BID@0900,1800 ARAY Administration Carvedilol 6.25 mg 02/25/18 21:00 03/08/18 09:26 Coreg PO 6.25 mg BID [facility] Administration Diltiazem HCl 120 mg 02/22/18 09:00 02/24/18 10:02 Cardizem Cd 24hr PO 120 mg DAILY [facility] Administration Ezetimibe 10 mg 02/22/18 09:00 03/08/18 09:27 Zetia PO 10 mg DAILY [facility] Administration Famotidine 10 mg 02/27/18 21:00 03/08/18 09:26 Pepcid PO 10 mg BID [facility] Administration Guaifenesin 600 mg 02/21/18 21:00 03/08/18 09:27 Mucinex Er PO 600 mg BID [facility] Administration Ceftriaxone Sodium 1,000 mg/ 100 mls @ 200 mls/hr 02/25/18 17:00 03/08/18 00: 25 Sodium Chloride IV.SIG Infused Q24H [facility] Infusion Insulin Aspart 0 unit 02/24/18 17:00 03/08/18 12:06 Novolog Insulin Correctional Sugar Inj SQ Not [facility] Insulin Detemir 5 unit 02/25/18 09:00 03/08/18 09:28 Levemir Inj SQ 5 unit BID [facility] Administration Losartan Potassium 50 mg 02/22/18 09:00 03/08/18 09:26 Cozaar PO 50 mg DAILY [facility] Administration Pravastatin Sodium 80 mg 02/22/18 09:00 03/08/18 09:27 Pravachol PO 80 mg DAILY [facility] Administration Prednisone 20 mg 02/25/18 21:00 03/08/18 09:27 Deltasone PO 20 mg BID [facility] Administration Temazepam 15 mg 02/21/18 19:26 02/21/18 21:25 Restoril PO 15 mg HS PRN Administration INSOMNIA Objective Remarks: GENERAL: Elderly male patient lying in bed, in no acute distress. SKIN: Warm and dry. HEAD: Normocephalic. MOUTH: Dry mucous membranes. EYES: No scleral icterus. No injection or drainage. NECK: Supple, trachea midline. CARDIOVASCULAR: Regular rate and rhythm without murmurs. RESPIRATORY: Anterior breath sounds clear, equal bilaterally. Nonlabored. GASTROINTESTINAL: Abdomen soft, non-tender, nondistended. EXTREMITIES: No cyanosis, or edema. MUSCULOSKELETAL: Generalized weakness NEUROLOGICAL: No obvious focal deficit. Awake, alert, and oriented x3. Assessment/Plan - Plan 1. Awaiting chemotherapy today. 2. Chemotherapy will be given 3 days in a row. 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 Anticipate discharge after chemo complete. - Attending Statement The exam, history, and the medical decision-making described in the above note were completed with the assistance of the mid-level provider. I reviewed and agree with the findings presented. I attest that I had a [id number] encounter with the patient on the same day, and personally performed and documented my assessment and findings in the medical record. 82 yoM with a SCLC. 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
--- NOTE | 2018-03-08 17:53 | P.PNIM ---
Subjective Interval history: Patient says he is feeling all right. Denies any pain. Has no complaints. Physical Exam Vital signs: Vital Signs 03/08/18 01:15 03/08/18 04:50 03/08/18 08:00 Temperature 97.4 F L 98.1 F 97.9 F Pulse Rate 88 81 92 H Respiratory Rate 17 18 21 Blood Pressure 104/69 129/68 107/64 Pulse Oximetry 95 94 L 93 L 03/08/18 10:13 03/08/18 12:00 03/08/18 16:00 Temperature 98.2 F 98.0 F Pulse Rate 90 89 Respiratory Rate 16 18 Blood Pressure 105/66 122/73 Pulse Oximetry 94 L 94 L 94 L 03/08/18 17:30 03/08/18 17:44 Temperature 98.0 F Pulse Rate 96 H Respiratory Rate 16 Blood Pressure 116/63 Pulse Oximetry 94 L 95 Intake & Output 03/07/18 03/08/18 03/08/18 18:59 06:59 18:59 Intake Total 380 / 380 580 / 580 530.3 / 530.3 Output Total 900 / 900 1100 / 1100 Balance 380 / 380 -320 / -320 -569.7 / -569.7 Weight 76.6 kg Intake: IV 100 / 100 290.3 / 290.3 Paraplatin Inj 403 MG In NS Inj 290.3 / 290.3 250 ML @ 580.6 mls/hr IV.SIG ONCE ONE Rx#:[id number] Rocephin Inj 1,000 MG In NS Inj 100 / 100 100 ML @ 200 mls/hr IV.SIG Q24H ARYA Rx#:[id number] Oral 380 / 380 480 / 480 240 / 240 Output: Urine 900 / 900 1100 / 1100 Other: # Voids 800 1 2 Date of Last Bowel Movement 03/07/18 03/07/18 03/07/18 # Bowel Movements 0 1 # Incontinent Bowel Movements 1 Narrative: GENERAL: In bed. Appears comfortable. SKIN: Warm and dry. HEAD: Normocephalic. EYES: No scleral icterus. No injection or drainage. NECK: Supple, trachea midline. No JVD. CARDIOVASCULAR: Regular rate and rhythm without murmurs, gallops, or rubs. RESPIRATORY: Breath sounds equal bilaterally. No accessory muscle use. GASTROINTESTINAL: Abdomen soft, non-tender, nondistended. MUSCULOSKELETAL: No cyanosis, or edema. BACK: Nontender without obvious deformity. No CVA tenderness. Results - Labs CBC & Chem 7: 03/08/18 05:57 03/08/18 05:57 Laboratory Results - last 24 hr 03/07/18 03/07/18 03/07/18 19:43 19:43 21:59 WBC RBC Hgb Hct MCV MCH MCHC RDW Plt Count MPV Neut % (Auto) Lymph % (Auto) [place] % (Auto) Eos % (Auto) Baso % (Auto) Neut # (Auto) Lymph # (Auto) [place] # (Auto) Eos # (Auto) Baso # (Auto) WBC Differential Differential Comment PT 10.7 INR 1.1 APTT 20.8 L Fibrinogen 194 L Sodium Potassium Chloride Carbon Dioxide Anion Gap BUN Creatinine Estimated GFR POC Glucose 208 H Random Glucose Calcium Iron 47 L TIBC 265 % Saturation 17.8 L Ferritin 350 Total Bilirubin AST ALT Alkaline Phosphatase Total Protein Albumin Vitamin B12 1132 H Folate 14.8 03/08/18 03/08/18 03/08/18 05:57 05:57 08:15 WBC 8.9 RBC 4.36 L Hgb 13.0 Hct 38.9 L MCV 89.0 MCH 29.7 MCHC 33.4 RDW 16.2 Plt Count 121 L MPV 8.6 Neut % (Auto) 86.4 H Lymph % (Auto) 8.4 L [place] % (Auto) 5.0 Eos % (Auto) 0.1 Baso % (Auto) 0.1 Neut # (Auto) 7.7 Lymph # (Auto) 0.8 L [place] # (Auto) 0.4 Eos # (Auto) 0.0 Baso # (Auto) 0.0 WBC Differential . Differential Comment Auto diff final PT INR APTT Fibrinogen Sodium 139 Potassium 4.7 Chloride 100 Carbon Dioxide 31.3 Anion Gap 8 BUN 55 H Creatinine 1.13 Estimated GFR 62 L POC Glucose 101 Random Glucose 105 Calcium 8.8 Iron TIBC % Saturation Ferritin Total Bilirubin 0.5 AST 29 ALT 79 H Alkaline Phosphatase 73 Total Protein 5.8 L Albumin 2.7 L Vitamin B12 Folate 03/08/18 03/08/18 12:04 17:00 WBC RBC Hgb Hct MCV MCH MCHC RDW Plt Count MPV Neut % (Auto) Lymph % (Auto) [place] % (Auto) Eos % (Auto) Baso % (Auto) Neut # (Auto) Lymph # (Auto) [place] # (Auto) Eos # (Auto) Baso # (Auto) WBC Differential Differential Comment PT INR APTT Fibrinogen Sodium Potassium Chloride Carbon Dioxide Anion Gap BUN Creatinine Estimated GFR POC Glucose 154 H 146 H Random Glucose Calcium Iron TIBC % Saturation Ferritin Total Bilirubin AST ALT Alkaline Phosphatase Total Protein Albumin Vitamin B12 Folate Microbiology 02/28/18 16:00 Bronchial Washings - Right Upper Lobe Fungal Smear - Final No fungal elements seen 02/28/18 16:00 Bronchial Washings - Right Upper Lobe Fungal Culture - Preliminary No growth in 1 week 02/28/18 16:00 Bronchial Washings - Right Upper Lobe Acid Fast Bacilli Smear - Final No acid fast bacilli seen 02/28/18 16:00 Bronchial Washings - Right Upper Lobe Mycobacterial Culture - Preliminary No growth in 1 week - Procedures Lung mass biopsy Assessment and Plan - Assessment (1) COPD (chronic obstructive pulmonary disease) Code(s): J44.9 - Chronic obstructive pulmonary disease, unspecified Status: Chronic (2) Lung mass Code(s): R91.8 - Other nonspecific abnormal finding of lung field Status: Acute (3) H/O deep venous thrombosis Code(s): Z86.718 - Personal history of other venous thrombosis and embolism Status: Acute (4) C. difficile colitis Code(s): A04.72 - Enterocolitis due to Clostridium difficile, not specified as recurrent Status: Acute - Plan 82-year-old male admitted secondary to lung mass with shortness of breath Small cell carcinoma on pathology. Continue workup as recommended by oncology. CT of abdomen pelvis pending. MRI of brain shows no tumors. Oncology following. Continue physical therapy and discharge once oncology workup completed. //Small cell lung cancer //Right hilar lung mass -Status post biopsy = Management with chemotherapy first dose 03/08 as per oncology. //Pneumonia Improving Continue with azithromycin and Rocephin Urine Legionella negative Sputum cultures negative = Status post 10 days of antibiotics. //COPD exacerbation Slowly improving Continue prednisone Continue duo nebs and home inhalers, continue supplemental oxygen and as needed BiPAP = Continues on prednisone 20 mg p.o. twice daily. //Atrial fibrillation Continue Coreg 6.25 mg twice daily =cont Eliquis /Bilateral Lower extremity edema Improving slowly Echocardiogram on 720 shows ejection fraction of 60-65% Verapamil discontinued for association with edema Bumex ordered to replace Lasix Continue Abraham wraps = 03/08. Instructed nursing to start Abraham wraps with foot up leg. //Physical deconditioning Improved strength and balance and ambulation needed prior to discharge Continue PT //h/o CKD Avoid nephrotoxic agents Patient has outpatient follow-up with Dr. Nieto = Renal function stable. Continue to monitor as needed //Type 2 diabetes Follow blood sugars Insulin sliding scale Diabetic diet Levemir 5 units twice daily = Glucose acceptable. Continue to monitor. //Hypertension Continue baseline treatment Follow blood pressures Adjust treatments as needed Continue losartan = Blood pressure acceptable. Continue to monitor. //Recent C. difficile infection Repeat C. difficile screen pending negative //DVT Prophylaxis =cont Eliquis (for afib) Discharge Planning: Patient started on chemotherapy by oncology.
--- NOTE | 2018-03-08 18:31 | P.PNPL ---
Subjective Interval history: 82 YOWm with COPD, Rt hilar, mediastinal mass, LLL density Feels comfortable Ambulates to the BR Receiving Chemo Physical Exam Vital signs: Vital Signs 03/08/18 01:15 03/08/18 04:50 03/08/18 08:00 Temperature 97.4 F L 98.1 F 97.9 F Pulse Rate 88 81 92 H Respiratory Rate 17 18 21 Blood Pressure 104/69 129/68 107/64 Pulse Oximetry 95 94 L 93 L 03/08/18 10:13 03/08/18 12:00 03/08/18 16:00 Temperature 98.2 F 98.0 F Pulse Rate 90 89 Respiratory Rate 16 18 Blood Pressure 105/66 122/73 Pulse Oximetry 94 L 94 L 94 L 03/08/18 17:30 03/08/18 17:44 Temperature 98.0 F Pulse Rate 96 H Respiratory Rate 16 Blood Pressure 116/63 Pulse Oximetry 94 L 95 Intake & Output 03/07/18 03/08/18 03/08/18 18:59 06:59 18:59 Intake Total 380 / 380 580 / 580 585.3 / 585.3 Output Total 900 / 900 1100 / 1100 Balance 380 / 380 -320 / -320 -514.7 / -514.7 Weight 76.6 kg Intake: IV 100 / 100 345.3 / 345.3 Paraplatin Inj 403 MG In NS Inj 290.3 / 290.3 250 ML @ 580.6 mls/hr IV.SIG ONCE ONE Rx#:[id number] Decadron Inj 20 MG In NS Inj 50 55 / 55 ML @ 220 mls/hr IV.SIG ONCE ONE Rx#:[id number] Rocephin Inj 1,000 MG In NS Inj 100 / 100 100 ML @ 200 mls/hr IV.SIG Q24H ARYA Rx#:[id number] Oral 380 / 380 480 / 480 240 / 240 Output: Urine 900 / 900 1100 / 1100 Other: # Voids 800 1 2 Date of Last Bowel Movement 03/07/18 03/07/18 03/07/18 # Bowel Movements 0 1 # Incontinent Bowel Movements 1 GENERAL: Elderly WM,NAD SKIN: Warm and dry. HEAD: Normocephalic. EYES: No scleral icterus. No injection or drainage. NECK: Supple, trachea midline. No JVD or lymphadenopathy. CARDIOVASCULAR: Regular rate and rhythm without murmurs, gallops, or rubs. RESPIRATORY: Breath sounds equal bilaterally. No accessory muscle use. GASTROINTESTINAL: Abdomen soft, non-tender, nondistended. MUSCULOSKELETAL: No cyanosis, or edema. BACK: Nontender without obvious deformity. No CVA tenderness. Assessment and Plan - Plan Impression: 1. Right lung mass in hilar and mediasinal area with compression of bronchus 2. 2 cm left lower lobe cavitary lesion. 3. Chronic obstructive pulmonary disease 4. Deep venous thrombosis status post inferior vena cava filter placement. 5. RUL ant segment Endobronchial mass--SCLC PLAN: Cont Aerosol nebs Cont abx monitor BS Coreg 3.25 mg bid Zetia 10 mg daily. DW pt and his at BS path results Stable pulm status Available prn over weekend.
[2018-03-09] MEDS: Insulin NovoLOG Aspart Correctional Sugar Inj SQ SCH ×4 (09:19→20:22)
[2018-03-09] MEDS: Insulin Detemir Inj 1,000 UNIT/10 ML Vial SQ SCH ×2 (09:20→20:21)
[2018-03-09] MEDS: Carvedilol 6.25 MG Tablet PO SCH ×2 (09:20→20:21)
[2018-03-09] MEDS: Ezetimibe 10 MG Tablet PO SCH (09:20)
[2018-03-09] MEDS: predniSONE 20 MG Tablet PO SCH ×2 (09:20→20:20)
[2018-03-09] MEDS: guaiFENesin 600 MG ER Tablet PO SCH ×2 (09:20→20:20)
[2018-03-09] MEDS: Famotidine 20 MG Tablet PO SCH ×2 (09:20→20:20)
[2018-03-09] MEDS: Budesonide-Formoterol 160/4.5 MCG 6 GM Inhaler INH SCH ×2 (09:31→20:27)
--- NOTE | 2018-03-09 09:43 | P.PNONC ---
Subjective Interval history: Afebrile Patient complains of being cold Shortness of breath unchanged Tolerating chemotherapy well yesterday Objective Vital Signs/Intake & Output: Vital Signs 03/08/18 10:13 03/08/18 12:00 03/08/18 16:00 Temperature 98.2 F 98.0 F Pulse Rate 90 89 Respiratory Rate 16 18 Blood Pressure 105/66 122/73 Pulse Oximetry 94 L 94 L 94 L 03/08/18 17:30 03/08/18 17:44 03/08/18 20:00 Temperature 98.0 F Pulse Rate 96 H Respiratory Rate 16 Blood Pressure 116/63 Pulse Oximetry 94 L 95 95 03/09/18 00:23 03/09/18 04:00 03/09/18 04:14 Temperature 97.9 F 97.7 F Pulse Rate 105 H 93 H Respiratory Rate 17 17 Blood Pressure 104/60 111/67 Pulse Oximetry 93 L 91 L 91 L 03/09/18 07:09 03/09/18 07:59 Temperature 97.3 F L Pulse Rate 82 Respiratory Rate 18 Blood Pressure 112/65 Pulse Oximetry 92 L 93 L Intake & Output 03/08/18 03/09/18 03/09/18 18:59 06:59 18:59 Intake Total 585.3 / 585.3 749.7 / 749.7 Output Total 1100 / 1100 1100 / 1100 Balance -514.7 / -514.7 -350.3 / -350.3 Weight 168 lb 13.985 oz 168 lb 10.458 oz Intake: IV 345.3 / 345.3 509.7 / 509.7 Paraplatin Inj 403 MG In NS Inj 290.3 / 290.3 250 ML @ 580.6 mls/hr IV.SIG ONCE ONE Rx#:[id number] Decadron Inj 20 MG In NS Inj 50 55 / 55 ML @ 220 mls/hr IV.SIG ONCE ONE Rx#:[id number] Vepesid Inj 194 MG In NS Inj 509.7 / 509.7 500 ML @ 509.7 mls/hr IV.SIG ONCE ONE Rx#:[id number] Oral 240 / 240 240 / 240 Output: Urine 1100 / 1100 1100 / 1100 Other: # Voids 2 Date of Last Bowel Movement 03/07/18 03/08/18 Result Diagrams: 03/09/18 10:36 03/09/18 10:36 Laboratory Results: Laboratory Results - last 24 hr 03/08/18 03/08/18 03/08/18 12:04 17:00 22:11 POC Glucose 154 H 146 H 259 H 03/09/18 07:58 POC Glucose 173 H Culture Results: Microbiology 02/28/18 16:00 Fungal Smear - Final Bronchial Washings - Right Upper Lobe No fungal elements seen Fungal Culture - Preliminary No growth in 1 week 02/28/18 16:00 Acid Fast Bacilli Smear - Final Bronchial Washings - Right Upper Lobe No acid fast bacilli seen Mycobacterial Culture - Preliminary No growth in 1 week Medications: Active Medications Generic Name Dose Route Start Last Admin Trade Name Freq PRN Reason Stop Dose Admin Apixaban 5 mg 03/02/18 21:00 03/09/18 09:20 Eliquis PO 5 mg BID ARYA Administration Budesonide/Formoterol Fumarate 2 puff 02/21/18 21:00 03/09/18 09:31 Symbicort 160/4.5 Mcg Inh INH 2 puff BID ARYA Administration Bumetanide 1 mg 02/27/18 18:00 03/09/18 09:29 Bumex Inj IV.PUSH 1 mg BID@0900,1800 ARYA Administration Carvedilol 6.25 mg 02/25/18 21:00 03/09/18 09:20 Coreg PO 6.25 mg BID ARYA Administration Diltiazem HCl 120 mg 02/22/18 09:00 02/24/18 10:02 Cardizem Cd 24hr PO 120 mg DAILY ARYA Administration Ezetimibe 10 mg 02/22/18 09:00 03/09/18 09:20 Zetia PO 10 mg DAILY ARYA Administration Famotidine 10 mg 02/27/18 21:00 03/09/18 09:20 Pepcid PO 10 mg BID ARYA Administration Guaifenesin 600 mg 02/21/18 21:00 03/09/18 09:20 Mucinex Er PO 600 mg BID ARYA Administration Insulin Aspart 0 unit 02/24/18 17:00 03/09/18 09:19 Novolog Insulin Correctional Sugar Inj SQ 1 unit ACHS ARYA Administration Protocol Insulin Detemir 5 unit 02/25/18 09:00 03/09/18 09:20 Levemir Inj SQ 5 unit BID ARYA Administration Losartan Potassium 50 mg 02/22/18 09:00 03/09/18 09:20 Cozaar PO 50 mg DAILY ARYA Administration Pravastatin Sodium 80 mg 02/22/18 09:00 03/09/18 09:20 Pravachol PO 80 mg DAILY ARYA Administration Prednisone 20 mg 02/25/18 21:00 03/09/18 09:20 Deltasone PO 20 mg BID ARYA Administration Temazepam 15 mg 02/21/18 19:26 02/21/18 21:25 Restoril PO 15 mg HS PRN Administration INSOMNIA Objective Remarks: GENERAL: Elderly male resting in bed talking on the phone in no obvious distress SKIN: Warm and dry. HEAD: Normocephalic. EYES: No scleral icterus. No injection or drainage. NECK: Supple, trachea midline. No JVD or lymphadenopathy. CARDIOVASCULAR: Regular rate and rhythm without murmurs. RESPIRATORY: Bilateral rales to the lower lobes posteriorly. On 2 L nasal cannula GASTROINTESTINAL: Abdomen soft, non-tender, nondistended. EXTREMITIES: No cyanosis, or edema. MUSCULOSKELETAL: Generalized weakness NEUROLOGICAL: No obvious focal deficit. Awake, alert, and oriented x3. Assessment/Plan - Plan 82-year-old male with new diagnosis of small cell lung cancer. He has no distant metastatic disease on imaging. He was offered hospice/best supportive care versus chemotherapy and he chose to try chemo. This is being delivered inpatient for cycle 1. 1. Patient tolerated day 1 of carbo SMALL KICK PRESS OPERATOR-16 well yesterday. 2. Patient will receive SMALL KICK PRESS OPERATOR-16 (etoposide) today and tomorrow to complete a total of 3 days. Continue supportive care. 3. Monitor CBC, CMP. 4. Anticipate discharge after chemo complete. He will follow-up with Dr. Quesada in clinic outpatient. - Attending Statement The exam, history, and the medical decision-making described in the above note were completed with the assistance of the mid-level provider. I reviewed and agree with the findings presented. I attest that I had a [id number] encounter with the patient on the same day, and personally performed and documented my assessment and findings in the medical record. He is frail and weak. He tolerated day 1 therapy well. He is due for SMALL KICK PRESS OPERATOR-16 today and tomorrow. Situation discussed with his .
[2018-03-09 11:39] LABS: Baso % (Auto) 0.1 % (0.0-2.0); Hematocrit 38.1 % (39.0-51.0); Hemoglobin 12.8 gm/dL (13.0-17.0); Lymph # (Auto) 0.7 th/mm3 (1.0-4.8); Mean Corpuscular HGB Conc 33.6 % (32.0-36.0); Mean Corpuscular Hemoglobin 29.7 pg (27.0-34.0); Mean Corpuscular Volume 88.5 fL (80.0-100.0); Mean Platelet Volume 8.3 fL (7.0-11.0); Mono # (Auto) 0.4 th/mm3 (0.0-0.9); Mono % (Auto) 5.2 % (0.0-8.0); Neut % (Auto) 86.7 % (16.0-70.0); Platelet Count 125 th/mm3 (150-450); Red Blood Count 4.31 mil/mm3 (4.50-5.90); Red Cell Distribution Width 16.2 % (11.6-17.2); White Blood Count 8.1 th/mm3 (4.0-11.0)
[2018-03-09 12:07] LABS: Alanine Aminotransferase 88 U/L (12-78); Albumin 2.8 g/dL (3.4-5.0); Alkaline Phosphatase 75 U/L (45-117); Anion Gap 8 meq/L (5-15); Aspartate Aminotransferase 29 U/L (15-37); Blood Urea Nitrogen 59 mg/dL (7-18); Calcium 8.4 mg/dL (8.5-10.1); Carbon Dioxide 32.3 meq/L (21.0-32.0); Chloride 97 meq/L (98-107); Glomerular Filtration Rate 54 mL/min (>89); Glucose,Random 247 mg/dL (74-106); Potassium 4.2 meq/L (3.5-5.1); Sodium 137 meq/L (136-145); Total Protein 5.8 g/dL (6.4-8.2)
[2018-03-09] MEDS: Dexamethasone Inj 10 MG in Sodium Chlor 0.9% Inj 50 ML IV.SIG SCH (16:01)
[2018-03-09] MEDS: SODIUM CHLOR 0.9% IV.SIG SCH (16:17)
[2018-03-09] MEDS: ETOPOSIDE IV.SIG SCH (16:17)
[2018-03-10 06:36] LABS: Baso % (Auto) 0.1 % (0.0-2.0); Hematocrit 37.1 % (39.0-51.0); Hemoglobin 12.5 gm/dL (13.0-17.0); Lymph # (Auto) 0.7 th/mm3 (1.0-4.8); Lymph % (Auto) 8.6 % (9.0-44.0); Mean Corpuscular HGB Conc 33.8 % (32.0-36.0); Mean Corpuscular Hemoglobin 29.8 pg (27.0-34.0); Mean Corpuscular Volume 88.2 fL (80.0-100.0); Mean Platelet Volume 8.3 fL (7.0-11.0); Mono # (Auto) 0.3 th/mm3 (0.0-0.9); Neut # (Auto) 7.2 th/mm3 (1.8-7.7); Neut % (Auto) 87.3 % (16.0-70.0); Platelet Count 130 th/mm3 (150-450); Red Cell Distribution Width 16.7 % (11.6-17.2); White Blood Count 8.2 th/mm3 (4.0-11.0)
[2018-03-10 07:03] LABS: Alanine Aminotransferase 76 U/L (12-78); Albumin 2.6 g/dL (3.4-5.0); Anion Gap 8 meq/L (5-15); Aspartate Aminotransferase 24 U/L (15-37); Blood Urea Nitrogen 63 mg/dL (7-18); Calcium 8.4 mg/dL (8.5-10.1); Chloride 101 meq/L (98-107); Glomerular Filtration Rate 59 mL/min (>89); Glucose,Random 118 mg/dL (74-106); Potassium 4.6 meq/L (3.5-5.1); Sodium 138 meq/L (136-145)
[2018-03-10 07:21] LABS: Alkaline Phosphatase 71 U/L (45-117); Total Protein 5.6 g/dL (6.4-8.2)
[2018-03-10] MEDS: Insulin Detemir Inj 1,000 UNIT/10 ML Vial SQ SCH ×2 (09:07→20:24)
[2018-03-10] MEDS: Ezetimibe 10 MG Tablet PO SCH (09:08)
[2018-03-10] MEDS: Carvedilol 6.25 MG Tablet PO SCH ×2 (09:08→20:18)
[2018-03-10] MEDS: Famotidine 20 MG Tablet PO SCH ×2 (09:08→20:18)
[2018-03-10] MEDS: guaiFENesin 600 MG ER Tablet PO SCH ×2 (09:08→20:18)
[2018-03-10] MEDS: predniSONE 20 MG Tablet PO SCH ×2 (09:08→20:18)
[2018-03-10] MEDS: Insulin NovoLOG Aspart Correctional Sugar Inj SQ SCH ×4 (09:08→20:25)
[2018-03-10] MEDS: Budesonide-Formoterol 160/4.5 MCG 6 GM Inhaler INH SCH ×2 (09:10→20:26)
--- NOTE | 2018-03-10 09:59 | P.PNONC ---
Subjective Interval history: Afebrile Patient reports chemotherapy going well Good appetite No acute complaints Objective Vital Signs/Intake & Output: Vital Signs 03/09/18 12:00 03/09/18 16:00 03/09/18 20:00 Temperature 98.9 F 97.3 F L Pulse Rate 98 H 86 94 H Respiratory Rate 20 16 18 Blood Pressure 114/67 111/66 135/72 Pulse Oximetry 89 L 93 L 94 L 03/09/18 21:05 03/10/18 00:00 03/10/18 04:00 Temperature 98.5 F 97.8 F Pulse Rate 89 84 Respiratory Rate 16 16 Blood Pressure 106/64 119/71 Pulse Oximetry 97 92 L 95 03/10/18 08:00 Temperature 98.3 F Pulse Rate 86 Respiratory Rate 16 Blood Pressure 127/83 Pulse Oximetry 88 L Intake & Output 03/09/18 03/10/18 03/10/18 18:59 06:59 18:59 Intake Total 693 / 693 100 / 100 Output Total 575 / 575 575 / 575 Balance 118 / 118 -475 / -475 Intake: IV 53 / 53 Decadron Inj 10 MG In NS Inj 50 53 / 53 ML @ 210 mls/hr IV.SIG Q24H ARYA Rx#:[id number] Oral 640 / 640 100 / 100 Output: Urine 575 / 575 575 / 575 Other: Date of Last Bowel Movement 03/08/18 03/08/18 Result Diagrams: 03/10/18 05:20 03/10/18 05:20 Laboratory Results: Laboratory Results - last 24 hr 03/09/18 03/09/18 03/09/18 10:36 10:36 12:00 WBC 8.1 RBC 4.31 L Hgb 12.8 L Hct 38.1 L MCV 88.5 MCH 29.7 MCHC 33.6 RDW 16.2 Plt Count 125 L MPV 8.3 Neut % (Auto) 86.7 H Lymph % (Auto) 8.0 L [place] % (Auto) 5.2 Eos % (Auto) 0.0 Baso % (Auto) 0.1 Neut # (Auto) 7.0 Lymph # (Auto) 0.7 L [place] # (Auto) 0.4 Eos # (Auto) 0.0 Baso # (Auto) 0.0 WBC Differential . Differential Comment Auto diff final Sodium 137 Potassium 4.2 Chloride 97 L Carbon Dioxide 32.3 H Anion Gap 8 BUN 59 H Creatinine 1.28 Estimated GFR 54 L POC Glucose 236 H Random Glucose 247 H D Calcium 8.4 L Total Bilirubin 0.5 AST 29 ALT 88 H Alkaline Phosphatase 75 Total Protein 5.8 L Albumin 2.8 L 03/09/18 03/09/18 03/10/18 16:14 20:19 05:20 WBC 8.2 RBC 4.20 L Hgb 12.5 L Hct 37.1 L MCV 88.2 MCH 29.8 MCHC 33.8 RDW 16.7 Plt Count 130 L MPV 8.3 Neut % (Auto) 87.3 H Lymph % (Auto) 8.6 L [place] % (Auto) 4.0 Eos % (Auto) 0.0 Baso % (Auto) 0.1 Neut # (Auto) 7.2 Lymph # (Auto) 0.7 L [place] # (Auto) 0.3 Eos # (Auto) 0.0 Baso # (Auto) 0.0 WBC Differential . Differential Comment Auto diff final Sodium Potassium Chloride Carbon Dioxide Anion Gap BUN Creatinine Estimated GFR POC Glucose 171 H 223 H Random Glucose Calcium Total Bilirubin AST ALT Alkaline Phosphatase Total Protein Albumin 03/10/18 03/10/18 05:20 09:05 WBC RBC Hgb Hct MCV MCH MCHC RDW Plt Count MPV Neut % (Auto) Lymph % (Auto) [place] % (Auto) Eos % (Auto) Baso % (Auto) Neut # (Auto) Lymph # (Auto) [place] # (Auto) Eos # (Auto) Baso # (Auto) WBC Differential Differential Comment Sodium 138 Potassium 4.6 Chloride 101 Carbon Dioxide 29.0 Anion Gap 8 BUN 63 H Creatinine 1.18 Estimated GFR 59 L POC Glucose 109 Random Glucose 118 H D Calcium 8.4 L Total Bilirubin 0.7 AST 24 ALT 76 Alkaline Phosphatase 71 Total Protein 5.6 L Albumin 2.6 L Culture Results: Microbiology 02/28/18 16:00 Fungal Smear - Final Bronchial Washings - Right Upper Lobe No fungal elements seen Fungal Culture - Preliminary No growth in 1 week 02/28/18 16:00 Acid Fast Bacilli Smear - Final Bronchial Washings - Right Upper Lobe No acid fast bacilli seen Mycobacterial Culture - Preliminary No growth in 1 week Medications: Active Medications Generic Name Dose Route Start Last Admin Trade Name Freq PRN Reason Stop Dose Admin Apixaban 5 mg 03/02/18 21:00 03/10/18 09:08 Eliquis PO 5 mg BID ARYA Administration Budesonide/Formoterol Fumarate 2 puff 02/21/18 21:00 03/10/18 09:10 Symbicort 160/4.5 Mcg Inh INH 2 puff BID ARYA Administration Bumetanide 1 mg 02/27/18 18:00 03/10/18 09:14 Bumex Inj IV.PUSH 1 mg BID@0900,1800 ARYA Administration Carvedilol 6.25 mg 02/25/18 21:00 03/10/18 09:08 Coreg PO 6.25 mg BID [facility] Administration Diltiazem HCl 120 mg 02/22/18 09:00 02/24/18 10:02 Cardizem Cd 24hr PO 120 mg DAILY ARYA Administration Ezetimibe 10 mg 02/22/18 09:00 03/10/18 09:08 Zetia PO 10 mg DAILY ARYA Administration Famotidine 10 mg 02/27/18 21:00 03/10/18 09:08 Pepcid PO 10 mg BID ARYA Administration Guaifenesin 600 mg 02/21/18 21:00 03/10/18 09:08 Mucinex Er PO 600 mg BID [facility] Administration Etoposide 194 mg/ Sodium 509.7 mls @ 509.7 mls/hr 03/09/18 14:00 03/09/18 16: 17 Chloride IV.SIG 03/10/18 14:59 509.7 mls/hr Q24H ARYA Administration Dexamethasone Sodium Phosphate 52.5 mls @ 210 mls/hr 03/09/18 13:30 03/09/18 16:16 10 mg/ Sodium Chloride IV.SIG 03/10/18 13:44 Infused Q24H ARYA Infusion Insulin Aspart 0 unit 02/24/18 17:00 03/10/18 09:08 Novolog Insulin Correctional Sugar [facility]j [facility]Q [facility] Protocol Insulin Detemir 5 unit 02/25/18 09:00 03/10/18 09:07 Levemir Inj SQ 5 unit BID [facility] Administration Losartan Potassium 50 mg 02/22/18 09:00 03/10/18 09:08 Cozaar PO 50 mg DAILY [facility] Administration Pravastatin Sodium 80 mg 02/22/18 09:00 03/10/18 09:08 Pravachol PO 80 mg DAILY ARYA Administration Prednisone 20 mg 02/25/18 21:00 03/10/18 09:08 Deltasone PO 20 mg BID ARYA Administration Temazepam 15 mg 02/21/18 19:26 02/21/18 21:25 Restoril PO 15 mg HS PRN Administration INSOMNIA Objective Remarks: GENERAL: Elderly male sitting on side of bed eating breakfast. He appears hungry. SKIN: Warm and dry. HEAD: Normocephalic. EYES: No scleral icterus. No injection or drainage. NECK: Supple, trachea midline. No JVD or lymphadenopathy. CARDIOVASCULAR: Regular rate and rhythm without murmurs. RESPIRATORY: Scattered rhonchi posteriorly, worse on the right. On 2 L nasal cannula GASTROINTESTINAL: Abdomen soft, non-tender, nondistended. EXTREMITIES: No cyanosis, or edema. MUSCULOSKELETAL: Generalized weakness NEUROLOGICAL: No obvious focal deficit. Awake, alert, and oriented x3. Assessment/Plan - Plan 82-year-old male with new diagnosis of small cell lung cancer. He has no distant metastatic disease on imaging. He was offered hospice/best supportive care versus chemotherapy and he chose to try chemo. This is being delivered inpatient for cycle 1. 1. Patient tolerating chemotherapy well. He will receive the final dose of etoposide today to complete cycle 1. 2. Monitor CBC, CMP. Continue supportive care. - Attending Statement The exam, history, and the medical decision-making described in the above note were completed with the assistance of the mid-level provider. I reviewed and agree with the findings presented. I attest that I had a [id number] encounter with the patient on the same day, and personally performed and documented my assessment and findings in the medical record. He will complete a 3 CEMENT BASED MATERIALS PUMP TENDER-16. Overall there is no change in his well-being. He remains weak and frail. Questions answered for the . Laboratory studies pending for tomorrow.
[2018-03-10] MEDS: Dexamethasone Inj 10 MG in Sodium Chlor 0.9% Inj 50 ML IV.SIG SCH (14:35)
[2018-03-10] MEDS: SODIUM CHLOR 0.9% IV.SIG SCH (15:05)
[2018-03-10] MEDS: ETOPOSIDE IV.SIG SCH (15:05)
--- NOTE | 2018-03-10 16:03 | P.PNIM ---
Subjective Interval history: Patient says he is feeling right. Denies any chest pain shortness of breath. Denies nausea or vomiting. Had bowel movement. Physical Exam Vital signs: Vital Signs 03/09/18 20:00 03/09/18 21:05 03/10/18 00:00 Temperature 97.3 F L 98.5 F Pulse Rate 94 H 89 Respiratory Rate 18 16 Blood Pressure 135/72 106/64 Pulse Oximetry 94 L 97 92 L 03/10/18 04:00 03/10/18 08:00 03/10/18 11:36 Temperature 97.8 F 98.3 F Pulse Rate 84 86 89 Respiratory Rate 16 16 18 Blood Pressure 119/71 127/83 123/64 Pulse Oximetry 95 96 91 L Intake & Output 03/09/18 03/10/18 03/10/18 18:59 06:59 18:59 Intake Total 1202.7 / 1202.7 100 / 100 53 / 53 Output Total 575 / 575 575 / 575 200 / 200 Balance 627.7 / 627.7 -475 / -475 -147 / -147 Intake: IV 562.7 / 562.7 53 / 53 Decadron Inj 10 MG In NS Inj 50 53 / 53 53 / 53 ML @ 210 mls/hr IV.SIG Q24H ARYA Rx#:[id number] Vepesid Inj 194 MG In NS Inj 509.7 / 509.7 500 ML @ 509.7 mls/hr IV.SIG Q24H ARYA Rx#:[id number] Oral 640 / 640 100 / 100 Output: Urine 575 / 575 575 / 575 200 / 200 Other: Date of Last Bowel Movement 03/08/18 03/08/18 03/08/18 Narrative: GENERAL: Sleeping, wakes up for exam. In bed. Appears comfortable. SKIN: Warm and dry. HEAD: Normocephalic. EYES: No scleral icterus. No injection or drainage. NECK: Supple, trachea midline. No JVD. CARDIOVASCULAR: Regular rate and rhythm without murmurs, gallops, or rubs. RESPIRATORY: Breath sounds equal bilaterally. No accessory muscle use. GASTROINTESTINAL: Abdomen soft, non-tender, nondistended. MUSCULOSKELETAL: No cyanosis, or edema. BACK: Nontender without obvious deformity. No CVA tenderness. Results - Labs CBC & Chem 7: 03/10/18 05:20 08/12/18 05:20 Laboratory Results - last 24 hr 03/09/18 03/09/18 03/10/18 16:14 20:19 05:20 WBC 8.2 RBC 4.20 L Hgb 12.5 L Hct 37.1 L MCV 88.2 MCH 29.8 MCHC 33.8 RDW 16.7 Plt Count 130 L MPV 8.3 Neut % (Auto) 87.3 H Lymph % (Auto) 8.6 L [place] % (Auto) 4.0 Eos % (Auto) 0.0 Baso % (Auto) 0.1 Neut # (Auto) 7.2 Lymph # (Auto) 0.7 L [place] # (Auto) 0.3 Eos # (Auto) 0.0 Baso # (Auto) 0.0 WBC Differential . Differential Comment Auto diff final Sodium Potassium Chloride Carbon Dioxide Anion Gap BUN Creatinine Estimated GFR POC Glucose 171 H 223 H Random Glucose Calcium Total Bilirubin AST ALT Alkaline Phosphatase Total Protein Albumin 03/10/18 03/10/18 03/10/18 05:20 09:05 11:33 WBC RBC Hgb Hct MCV MCH MCHC RDW Plt Count MPV Neut % (Auto) Lymph % (Auto) [place] % (Auto) Eos % (Auto) Baso % (Auto) Neut # (Auto) Lymph # (Auto) [place] # (Auto) Eos # (Auto) Baso # (Auto) WBC Differential Differential Comment Sodium 138 Potassium 4.6 Chloride 101 Carbon Dioxide 29.0 Anion Gap 8 BUN 63 H Creatinine 1.18 Estimated GFR 59 L POC Glucose 109 245 H Random Glucose 118 H D Calcium 8.4 L Total Bilirubin 0.7 AST 24 ALT 76 Alkaline Phosphatase 71 Total Protein 5.6 L Albumin 2.6 L - Procedures Lung mass biopsy Assessment and Plan - Assessment (1) COPD (chronic obstructive pulmonary disease) Code(s): J44.9 - Chronic obstructive pulmonary disease, unspecified Status: Chronic (2) Lung mass Code(s): R91.8 - Other nonspecific abnormal finding of lung field Status: Acute (3) H/O deep venous thrombosis Code(s): Z86.718 - Personal history of other venous thrombosis and embolism Status: Acute (4) C. difficile colitis Code(s): A04.72 - Enterocolitis due to Clostridium difficile, not specified as recurrent Status: Acute - Plan 82-year-old male admitted secondary to lung mass with shortness of breath Small cell carcinoma on pathology. Continue workup as recommended by oncology. CT of abdomen pelvis pending. MRI of brain shows no tumors. Oncology following. Continue physical therapy and discharge once oncology workup completed. //Small cell lung cancer //Right hilar lung mass -Status post biopsy = Management with chemotherapy first dose 03/08 as per oncology. = 03/10. Last dose of chemotherapy today. If continues stable, discharge when cleared by oncology. //Pneumonia Improving Continue with azithromycin and Rocephin Urine Legionella negative Sputum cultures negative = Status post 10 days of antibiotics. //COPD exacerbation Slowly improving Continue prednisone Continue duo nebs and home inhalers, continue supplemental oxygen and as needed BiPAP = Continues on prednisone 20 mg p.o. twice daily. //Atrial fibrillation Continue Coreg 6.25 mg twice daily =cont Eliquis /Bilateral Lower extremity edema Improving slowly Echocardiogram on 720 shows ejection fraction of 60-65% Verapamil discontinued for association with edema Bumex ordered to replace Lasix Continue Abraham wraps = 03/08. Instructed nursing to start Abraham wraps with foot up leg. //Physical deconditioning Improved strength and balance and ambulation needed prior to discharge Continue PT //h/o CKD Avoid nephrotoxic agents Patient has outpatient follow-up with Dr. Nieto = Renal function stable. Continue to monitor as needed //Type 2 diabetes Follow blood sugars Insulin sliding scale Diabetic diet Levemir 5 units twice daily = Glucose acceptable. Continue to monitor. //Hypertension Continue baseline treatment Follow blood pressures Adjust treatments as needed Continue losartan = Blood pressure acceptable. Continue to monitor. //Recent C. difficile infection Repeat C. difficile screen pending negative //DVT Prophylaxis =cont Eliquis (for afib) Discharge Planning: Patient started on chemotherapy by oncology. Discharge when cleared by oncology.
--- NOTE | 2018-03-10 16:04 | P.DCO ---
- Physical Therapy Order: Evaluate and treat - Home Health Nursing Order: Medical education, Oxygen administration education - Home Health Aide Order: To assist in: Bathing and personal care - Motion Picture Director Order: To evaluate: Support services Order: To provide: Long range planning, Community services - Certification I have seen patient William Copeland on 03/10/18. My clinical findings support the need for the requested home health care services because: Limited ability to care for self I certify that my clinical findings support that this patient is homebound because: Unsafe to leave home unassisted
[2018-03-11 06:58] LABS: Baso % (Auto) 0.1 % (0.0-2.0); Hematocrit 37.3 % (39.0-51.0); Hemoglobin 12.5 gm/dL (13.0-17.0); Lymph # (Auto) 0.6 th/mm3 (1.0-4.8); Lymph % (Auto) 9.3 % (9.0-44.0); Mean Corpuscular HGB Conc 33.6 % (32.0-36.0); Mean Corpuscular Hemoglobin 29.7 pg (27.0-34.0); Mean Corpuscular Volume 88.3 fL (80.0-100.0); Mean Platelet Volume 8.2 fL (7.0-11.0); Mono # (Auto) 0.2 th/mm3 (0.0-0.9); Mono % (Auto) 3.6 % (0.0-8.0); Platelet Count 127 th/mm3 (150-450); Red Blood Count 4.23 mil/mm3 (4.50-5.90); Red Cell Distribution Width 16.5 % (11.6-17.2); White Blood Count 6.8 th/mm3 (4.0-11.0)
[2018-03-11 07:04] LABS: Albumin 2.7 g/dL (3.4-5.0); Anion Gap 8 meq/L (5-15); Blood Urea Nitrogen 66 mg/dL (7-18); Calcium 8.5 mg/dL (8.5-10.1); Carbon Dioxide 28.1 meq/L (21.0-32.0); Chloride 103 meq/L (98-107); Glomerular Filtration Rate 65 mL/min (>89); Glucose,Random 133 mg/dL (74-106); Potassium 4.5 meq/L (3.5-5.1); Sodium 139 meq/L (136-145)
[2018-03-11 07:09] LABS: Alanine Aminotransferase 67 U/L (12-78); Alkaline Phosphatase 66 U/L (45-117); Aspartate Aminotransferase 22 U/L (15-37); Total Protein 5.6 g/dL (6.4-8.2)
[2018-03-11] MEDS: Insulin NovoLOG Aspart Correctional Sugar Inj SQ SCH ×4 (08:30→20:03)
[2018-03-11] MEDS: Ezetimibe 10 MG Tablet PO SCH (08:41)
[2018-03-11] MEDS: guaiFENesin 600 MG ER Tablet PO SCH ×2 (08:41→20:03)
[2018-03-11] MEDS: Famotidine 20 MG Tablet PO SCH ×2 (08:42→20:02)
[2018-03-11] MEDS: predniSONE 20 MG Tablet PO SCH (08:43)
[2018-03-11] MEDS: Carvedilol 6.25 MG Tablet PO SCH ×2 (08:43→20:02)
[2018-03-11] MEDS: Budesonide-Formoterol 160/4.5 MCG 6 GM Inhaler INH SCH ×2 (08:47→20:03)
[2018-03-11] MEDS: Insulin Detemir Inj 1,000 UNIT/10 ML Vial SQ SCH ×2 (08:56→20:03)
--- NOTE | 2018-03-11 10:08 | P.PNIM ---
Subjective Interval history: Patient says he is feeling well. Denies any chest pain or shortness of breath. Feels like going home. Physical Exam Vital signs: Vital Signs 03/10/18 11:36 03/10/18 16:00 03/10/18 20:00 Temperature 98.5 F Pulse Rate 89 71 102 H Respiratory Rate 18 18 18 Blood Pressure 123/64 99/60 L 119/75 Pulse Oximetry 91 L 94 L 92 L 03/10/18 20:53 03/11/18 00:00 03/11/18 04:00 Temperature 97.4 F L 97.6 F Pulse Rate 71 101 H 88 Respiratory Rate 18 16 15 Blood Pressure 111/72 116/73 Pulse Oximetry 93 L 95 03/11/18 09:36 Temperature Pulse Rate Respiratory Rate Blood Pressure Pulse Oximetry 96 Intake & Output 03/10/18 03/11/18 03/11/18 18:59 06:59 18:59 Intake Total 653 / 653 240 / 240 Output Total 650 / 650 1000 / 1000 Balance 3 / 3 -760 / -760 Weight 78.6 kg 77.2 kg Intake: IV 53 / 53 Decadron Inj 10 MG In NS Inj 50 53 / 53 ML @ 210 mls/hr IV.SIG Q24H ARYA Rx#:[id number] Oral 600 / 600 240 / 240 Output: Urine 650 / 650 1000 / 1000 Other: # Voids 1 Date of Last Bowel Movement 03/10/18 03/10/18 # Bowel Movements 1 Narrative: GENERAL: Sleeping, wakes up for exam. In bed. Appears comfortable. No change on exam from yesterday. SKIN: Warm and dry. HEAD: Normocephalic. EYES: No scleral icterus. No injection or drainage. NECK: Supple, trachea midline. No JVD. CARDIOVASCULAR: Regular rate and rhythm without murmurs, gallops, or rubs. RESPIRATORY: Breath sounds equal bilaterally. No accessory muscle use. GASTROINTESTINAL: Abdomen soft, non-tender, nondistended. MUSCULOSKELETAL: No cyanosis, or edema. BACK: Nontender without obvious deformity. No CVA tenderness. Results - Labs CBC & Chem 7: 03/11/18 06:15 03/11/18 06:15 Laboratory Results - last 24 hr 03/10/18 03/10/18 03/10/18 11:33 17:07 20:16 WBC RBC Hgb Hct MCV MCH MCHC RDW Plt Count MPV Neut % (Auto) Lymph % (Auto) [place] % (Auto) Eos % (Auto) Baso % (Auto) Neut # (Auto) Lymph # (Auto) [place] # (Auto) Eos # (Auto) Baso # (Auto) WBC Differential Differential Comment Sodium Potassium Chloride Carbon Dioxide Anion Gap BUN Creatinine Estimated GFR POC Glucose 245 H 180 H 274 H Random Glucose Calcium Total Bilirubin AST ALT Alkaline Phosphatase Total Protein Albumin 03/11/18 03/11/18 03/11/18 06:15 06:15 08:32 WBC 6.8 RBC 4.23 L Hgb 12.5 L Hct 37.3 L MCV 88.3 MCH 29.7 MCHC 33.6 RDW 16.5 Plt Count 127 L MPV 8.2 Neut % (Auto) 87.0 H Lymph % (Auto) 9.3 [place] % (Auto) 3.6 Eos % (Auto) 0.0 Baso % (Auto) 0.1 Neut # (Auto) 6.0 Lymph # (Auto) 0.6 L [place] # (Auto) 0.2 Eos # (Auto) 0.0 Baso # (Auto) 0.0 WBC Differential . Differential Comment Auto diff final Sodium 139 Potassium 4.5 Chloride 103 Carbon Dioxide 28.1 Anion Gap 8 BUN 66 H Creatinine 1.09 Estimated GFR 65 L POC Glucose 112 H Random Glucose 133 H Calcium 8.5 Total Bilirubin 0.7 AST 22 ALT 67 Alkaline Phosphatase 66 Total Protein 5.6 L Albumin 2.7 L - Procedures Lung mass biopsy Assessment and Plan - Assessment (1) COPD (chronic obstructive pulmonary disease) Code(s): J44.9 - Chronic obstructive pulmonary disease, unspecified Status: Chronic (2) Lung mass Code(s): R91.8 - Other nonspecific abnormal finding of lung field Status: Acute (3) H/O deep venous thrombosis Code(s): Z86.718 - Personal history of other venous thrombosis and embolism Status: Acute (4) C. difficile colitis Code(s): A04.72 - Enterocolitis due to Clostridium difficile, not specified as recurrent Status: Acute - Plan 82-year-old male admitted secondary to lung mass with shortness of breath Small cell carcinoma on pathology. Continue workup as recommended by oncology. CT of abdomen pelvis pending. MRI of brain shows no tumors. Oncology following. Continue physical therapy and discharge once oncology workup completed. //Small cell lung cancer //Right hilar lung mass -Status post biopsy = Management with chemotherapy first dose 03/08 as per oncology. = 03/10. Last dose of chemotherapy today. If continues stable, discharge when cleared by oncology. = 03/11. Discharge when cleared by oncology. //Pneumonia Improving Continue with azithromycin and Rocephin Urine Legionella negative Sputum cultures negative = completed 10 days of antibiotics. //COPD exacerbation Slowly improving Continue prednisone Continue duo nebs and home inhalers, continue supplemental oxygen and as needed BiPAP = f/u with Dr Camarena as OP. //Atrial fibrillation Continue Coreg 6.25 mg twice daily =cont Eliquis /Bilateral Lower extremity edema Improving slowly Echocardiogram on 720 shows ejection fraction of 60-65% Verapamil discontinued for association with edema Bumex ordered to replace Lasix Continue Abraham wraps = 03/08. Instructed nursing to start Abraham wraps with foot up leg. //Physical deconditioning Improved strength and balance and ambulation needed prior to discharge Continue PT //h/o CKD Avoid nephrotoxic agents Patient has outpatient follow-up with Dr. Nieto = Renal function stable. Continue to monitor as needed //Type 2 diabetes Follow blood sugars Insulin sliding scale Diabetic diet Levemir 5 units twice daily = Glucose acceptable. Continue to monitor. //Hypertension Continue baseline treatment Follow blood pressures Adjust treatments as needed Continue losartan = Blood pressure acceptable. Continue to monitor. //Recent C. difficile infection Repeat C. difficile screen pending negative //DVT Prophylaxis =cont Eliquis (for afib) Discharge Planning: Status post first dose of chemotherapy. Discharge when cleared by oncology. Follow-up with Dr. Quesada as outpatient. Discharge when cleared by oncology.
--- NOTE | 2018-03-11 10:12 | P.DS ---
Date of admission: 02/22/18 13:24 Primary care physician: Mavis Lindo MD Brief History from admission: This is an 82-year-old male with a PMH of COPD, O2 Dependent, DM, H/o DVT s/p IVC Filter, Afib on Eliquis and C Diff who presented to the ER w/ complaints of severe SOB. Recent admit 02/14-02/19/18 for similar complaints, treated for COPD Exacerbation, s/p eval by Dr. Migue mabry/ Pulmonology. Returns now w/ worsening SOB. Denies fever/chills. No c/o chest pain. On arrival, BP 142/67, HR 85, O2 sat 97% on RA, Afebrile. WBC 13.2. Chemistry essentially at baseline. Troponin negative. CXR with new masslike opacity right hilar region, recommendation for further evaluation. CT Chest with large right-sided mass involving right hilum and mediastinum, likely central lung malignancy, 2 cavitary masses in left lower lobe, nonspecific. Previous CXR on 02/14/2018 with no evidence of lung mass. DS: Diagnosis - Discharge Diagnosis (1) COPD (chronic obstructive pulmonary disease) Status: Chronic (2) Lung mass Status: Acute (3) H/O deep venous thrombosis Status: Acute (4) C. difficile colitis Status: Acute DS: Medications - Discharge Medications Prescriptions: apixaban [Eliquis] 5 mg PO BID #60 tab carvedilol [Coreg] 6.25 mg PO BID #60 tab famotidine 10 mg PO BID #60 tab furosemide [Lasix] 20 mg PO DAILY #30 tab nicotine 1 patch TRANSDERMAL DAILY #30 ea prednisone 10 mg PO DAILY #30 tab DS: Summary Hospital Course: Mr. Vallejo is an 82-year-old male. He is admitted secondary to acute respiratory distress with hypoxia related to COPD exacerbation. During this workup he was found to have a lung mass. Lung masses biopsy during the stay. Patient has slow recovery from his COPD exacerbation. Currently he still on a higher amount of oxygen that he uses at baseline. At baseline he was using 2 L/ min just at night and currently he is using 2 L/min continuously. She is however gaining in his functional status and has been cleared for home with home health PT. biopsy results of the small cell carcinoma. Staging images were obtained which showed no metastasis to the brain or abdomen/pelvis. Patient completed antibiotic treatment. Patient underwent biopsy which is positive for small cell lung cancer. Oncology was consulted patient was started on first dose of chemotherapy which was completed. She will need to follow-up with oncology, pulmonology as outpatient. For problem based summary from most recent progress note, please see below. 82-year-old male admitted secondary to lung mass with shortness of breath Small cell carcinoma on pathology. Continue workup as recommended by oncology. CT of abdomen pelvis pending. MRI of brain shows no tumors. Oncology following. Continue physical therapy and discharge once oncology workup completed. //Small cell lung cancer //Right hilar lung mass -Status post biopsy = Management with chemotherapy first dose 03/08 as per oncology. = 03/10. Last dose of chemotherapy today. If continues stable, discharge when cleared by oncology. = 03/11. Discharge when cleared by oncology. //Pneumonia Improving Continue with azithromycin and Rocephin Urine Legionella negative Sputum cultures negative = completed 10 days of antibiotics. //COPD exacerbation Slowly improving Continue prednisone Continue duo nebs and home inhalers, continue supplemental oxygen and as needed BiPAP = f/u with Dr Camarena as OP. //Atrial fibrillation Continue Coreg 6.25 mg twice daily =cont Eliquis /Bilateral Lower extremity edema Improving slowly Echocardiogram on 720 shows ejection fraction of 60-65% Verapamil discontinued for association with edema Bumex ordered to replace Lasix Continue Abraham wraps = 03/08. Instructed nursing to start Abraham wraps with foot up leg. //Physical deconditioning Improved strength and balance and ambulation needed prior to discharge Continue PT //h/o CKD Avoid nephrotoxic agents Patient has outpatient follow-up with Dr. Nieto = Renal function stable. Continue to monitor as needed //Type 2 diabetes Follow blood sugars Insulin sliding scale Diabetic diet Levemir 5 units twice daily = Glucose acceptable. Continue to monitor. //Hypertension Continue baseline treatment Follow blood pressures Adjust treatments as needed Continue losartan = Blood pressure acceptable. Continue to monitor. //Recent C. difficile infection Repeat C. difficile screen pending negative //DVT Prophylaxis =cont Eliquis (for afib) Discharge Planning: Status post first dose of chemotherapy. Discharge when cleared by oncology. Follow-up with Dr. Quesada as outpatient. Discharge when cleared by oncology. - Time Spent with Patient Total time spent providing and/or coordinating discharge services: Greater than 30 minutes - Quality: VTE Deep Vein Thrombosis/Pulmonary Embolism Present on Admission: No Exam Vital signs: Vital Signs 03/10/18 11:36 03/10/18 16:00 03/10/18 20:00 Temperature 98.5 F Pulse Rate 89 71 102 H Respiratory Rate 18 18 18 Blood Pressure 123/64 99/60 L 119/75 Pulse Oximetry 91 L 94 L 92 L 03/10/18 20:53 03/11/18 00:00 03/11/18 04:00 Temperature 97.4 F L 97.6 F Pulse Rate 71 101 H 88 Respiratory Rate 18 16 15 Blood Pressure 111/72 116/73 Pulse Oximetry 93 L 95 03/11/18 09:36 Temperature Pulse Rate Respiratory Rate Blood Pressure Pulse Oximetry 96 Intake & Output 03/10/18 03/11/18 03/11/18 18:59 06:59 18:59 Intake Total 653 / 653 240 / 240 Output Total 650 / 650 1000 / 1000 Balance 3 / 3 -760 / -760 Weight 78.6 kg 77.2 kg Intake: IV 53 / 53 Decadron Inj 10 MG In NS Inj 50 53 / 53 ML @ 210 mls/hr IV.SIG Q24H ARYA Rx#:[id number] Oral 600 / 600 240 / 240 Output: Urine 650 / 650 1000 / 1000 Other: # Voids 1 Date of Last Bowel Movement 03/10/18 03/10/18 # Bowel Movements 1 Results Procedures completed during hospitalization: Lung mass biopsy Labs on day of discharge: Labs from last 24 hours 03/11/18 03/11/18 03/11/18 08:32 06:15 06:15 WBC 6.8 RBC 4.23 L Hgb 12.5 L Hct 37.3 L MCV 88.3 MCH 29.7 MCHC 33.6 RDW 16.5 Plt Count 127 L MPV 8.2 Neut % (Auto) 87.0 H Lymph % (Auto) 9.3 [place] % (Auto) 3.6 Eos % (Auto) 0.0 Baso % (Auto) 0.1 Neut # (Auto) 6.0 Lymph # (Auto) 0.6 L [place] # (Auto) 0.2 Eos # (Auto) 0.0 Baso # (Auto) 0.0 WBC Differential . Differential Comment Auto diff final Sodium 139 Potassium 4.5 Chloride 103 Carbon Dioxide 28.1 Anion Gap 8 BUN 66 H Creatinine 1.09 Estimated GFR 65 L POC Glucose 112 H Random Glucose 133 H Calcium 8.5 Total Bilirubin 0.7 AST 22 ALT 67 Alkaline Phosphatase 66 Total Protein 5.6 L Albumin 2.7 L 03/10/18 03/10/18 03/10/18 20:16 17:07 11:33 WBC RBC Hgb Hct MCV MCH MCHC RDW Plt Count MPV Neut % (Auto) Lymph % (Auto) [place] % (Auto) Eos % (Auto) Baso % (Auto) Neut # (Auto) Lymph # (Auto) [place] # (Auto) Eos # (Auto) Baso # (Auto) WBC Differential Differential Comment Sodium Potassium Chloride Carbon Dioxide Anion Gap BUN Creatinine Estimated GFR POC Glucose 274 H 180 H 245 H Random Glucose Calcium Total Bilirubin AST ALT Alkaline Phosphatase Total Protein Albumin Preliminary micro results at discharge 02/28/18 16:00 Fungal Culture - Preliminary Bronchial Washings - Right Upper Lobe No growth in 1 week 02/28/18 16:00 Mycobacterial Culture - Preliminary Bronchial Washings - Right Upper Lobe No growth in 1 week - Impressions ITS Impressions Chest CT 02/21/18 16:15 CONCLUSION: Chest X-Ray 02/28/18 16:07 CONCLUSION: 1. No significant pneumothorax. 2. Redemonstration of right hilar mass. 3. Left basilar atelectasis. Head MRI 03/05/18 00:00 CONCLUSION: 1. No evidence for metastatic disease to the brain. 2. Moderate chronic ischemic changes in the white matter with cortical volume loss. Abdomen/Pelvis CT 03/06/18 00:00 CONCLUSION: 1. 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 2. Inferior vena caval filter in place with thrombosis of the inferior vena cava below this portion. There is also extensive thrombus involving the left iliac veins and femoral vein. There is a small amount of thrombus in the proximal right common iliac vein. 3. No evidence of metastatic disease or adenopathy in the abdomen or pelvis. 4. Please see recent chest CT for findings in the chest. Discharge Plan - Discharge Disposition Patient Disposition: /Home Health Service - Discharge Condition Condition: Stable - Discharge Order Discharge Orders: Discharge Order (Routine); Ordered 03/11/18 Ordered By: Kushal Rincon - Discharge Details Anticipated Discharge Date: 03/11/18 Discharge Comment: Needs Home Oxygen - Physicians Team Primary Care Provider: Mavis Lindo Attending Provider: Vazquez Cruz Other Providers: Maryanne Quesada ; Cindy White MD ; Dominic Camarena MD
--- NOTE | 2018-03-11 10:58 | P.PNONC ---
Subjective Interval history: Afebrile. Patient lying in bed, in no acute distress. His is at the bedside. He states he is ready to go home. He feels like he tolerated the chemotherapy well. Objective Vital Signs/Intake & Output: Vital Signs 03/10/18 11:36 03/10/18 16:00 03/10/18 20:00 Temperature 98.5 F Pulse Rate 89 71 102 H Respiratory Rate 18 18 18 Blood Pressure 123/64 99/60 L 119/75 Pulse Oximetry 91 L 94 L 92 L 03/10/18 20:53 03/11/18 00:00 03/11/18 04:00 Temperature 97.4 F L 97.6 F Pulse Rate 71 101 H 88 Respiratory Rate 18 16 15 Blood Pressure 111/72 116/73 Pulse Oximetry 93 L 95 03/11/18 08:00 03/11/18 08:28 03/11/18 09:36 Temperature 98.4 F Pulse Rate 86 95 H Respiratory Rate 18 Blood Pressure 138/69 Pulse Oximetry 92 L 96 Intake & Output 03/10/18 03/11/18 03/11/18 18:59 06:59 18:59 Intake Total 653 / 653 240 / 240 Output Total 650 / 650 1000 / 1000 Balance 3 / 3 -760 / -760 Weight 78.6 kg 77.2 kg Intake: IV 53 / 53 Decadron Inj 10 MG In NS Inj 50 53 / 53 ML @ 210 mls/hr IV.SIG Q24H ARYA Rx#:[id number] Oral 600 / 600 240 / 240 Output: Urine 650 / 650 1000 / 1000 Other: # Voids 1 Date of Last Bowel Movement 03/10/18 03/10/18 # Bowel Movements 1 Result Diagrams: 03/11/18 06:15 03/11/18 06:15 Laboratory Results: Laboratory Results - last 24 hr 03/10/18 03/10/18 03/10/18 11:33 17:07 20:16 WBC RBC Hgb Hct MCV MCH MCHC RDW Plt Count MPV Neut % (Auto) Lymph % (Auto) [place] % (Auto) Eos % (Auto) Baso % (Auto) Neut # (Auto) Lymph # (Auto) [place] # (Auto) Eos # (Auto) Baso # (Auto) WBC Differential Differential Comment Sodium Potassium Chloride Carbon Dioxide Anion Gap BUN Creatinine Estimated GFR POC Glucose 245 H 180 H 274 H Random Glucose Calcium Total Bilirubin AST ALT Alkaline Phosphatase Total Protein Albumin 03/11/18 03/11/18 03/11/18 06:15 06:15 08:32 WBC 6.8 RBC 4.23 L Hgb 12.5 L Hct 37.3 L MCV 88.3 MCH 29.7 MCHC 33.6 RDW 16.5 Plt Count 127 L MPV 8.2 Neut % (Auto) 87.0 H Lymph % (Auto) 9.3 [place] % (Auto) 3.6 Eos % (Auto) 0.0 Baso % (Auto) 0.1 Neut # (Auto) 6.0 Lymph # (Auto) 0.[address] [place] # (Auto) 0.2 Eos # (Auto) 0.0 Baso # (Auto) 0.0 WBC Differential . Differential Comment Auto diff final Sodium 139 Potassium 4.5 Chloride 103 Carbon Dioxide 28.1 Anion Gap 8 BUN 66 H Creatinine 1.09 Estimated GFR 65 L POC Glucose 112 H Random Glucose 133 H Calcium 8.5 Total Bilirubin 0.7 AST 22 ALT 67 Alkaline Phosphatase 66 Total Protein 5.6 L Albumin 2.7 L Medications: Active Medications Generic Name Dose Route Start Last Admin Trade Name Freq PRN Reason Stop Dose Admin Albuterol 1 ampul 02/25/18 09:36 03/10/18 20:53 Duoneb Neb (Prn) NEB 1 ampul QID NEB PRN Administration SHORTNESS OF BREATH/WHEEZING Apixaban 5 mg 03/02/18 21:00 03/11/18 08:43 Eliquis PO 5 mg BID ARYA Administration Budesonide/Formoterol Fumarate 2 puff 02/21/18 21:00 03/11/18 08:47 Symbicort 160/4.5 Mcg Inh INH 2 puff BID ARYA Administration Bumetanide 1 mg 02/27/18 18:00 03/11/18 08:56 Bumex Inj IV.PUSH 1 mg BID@0900,1800 ARYA Administration Carvedilol 6.25 mg 02/25/18 21:00 03/11/18 08:43 Coreg PO 6.25 mg BID ARYA Administration Diltiazem HCl 120 mg 02/22/18 09:00 02/24/18 10:02 Cardizem Cd 24hr PO 120 mg DAILY ARYA Administration Ezetimibe 10 mg 02/22/18 09:00 03/11/18 08:41 Zetia PO 10 mg DAILY ARYA Administration Famotidine 10 mg 02/27/18 21:00 03/11/18 08:42 Pepcid PO 10 mg BID ARYA Administration Guaifenesin 600 mg 02/21/18 21:00 03/11/18 08:41 Mucinex Er PO 600 mg BID ARYA Administration Insulin Aspart 0 unit 02/24/18 17:00 03/10/18 20:25 Novolog Insulin Correctional Sugar Inj SQ 5 unit ACHS ARYA Administration Protocol Insulin Detemir 5 unit 02/25/18 09:00 03/10/18 20:24 Levemir Inj SQ 5 unit BID ARYA Administration Losartan Potassium 50 mg 02/22/18 09:00 03/11/18 08:43 Cozaar PO 50 mg DAILY ARYA Administration Pravastatin Sodium 80 mg 02/22/18 09:00 03/11/18 08:45 Pravachol PO 80 mg DAILY ARYA Administration Temazepam 15 mg 02/21/18 19:26 02/21/18 21:25 Restoril PO 15 mg HS PRN Administration INSOMNIA Objective Remarks: GENERAL: Elderly cachectic male patient lying in bed, in no acute distress. SKIN: Warm and dry. HEAD: Normocephalic. MOUTH: Dry mucous membranes. EYES: No scleral icterus. No injection or drainage. NECK: Supple, trachea midline. CARDIOVASCULAR: Regular rate and rhythm without murmurs. RESPIRATORY: Bilateral upper lobes with scattered rhonchi, equal bilaterally. Nonlabored. 2LO2 via NC. GASTROINTESTINAL: Abdomen soft, non-tender, nondistended. EXTREMITIES: No cyanosis. 2+ bilateral LE edema. Abraham wraps to BLE. MUSCULOSKELETAL: Generalized weakness NEUROLOGICAL: No obvious focal deficit. Awake, alert, and oriented x3. Assessment/Plan - Plan 82-year-old male with new diagnosis of small cell lung cancer. He has no distant metastatic disease on imaging. He was offered hospice/best supportive care versus chemotherapy and he chose to try chemo. This is being delivered inpatient for cycle 1. 1. Patient tolerated chemotherapy well. 2. Monitor CBC, CMP. 3. Patient cleared for discharge from an oncology standpoint. He will follow- up with Dr. Quesada in the outpatient clinic in 2 weeks. - Attending Statement The exam, history, and the medical decision-making described in the above note were completed with the assistance of the mid-level provider. I reviewed and agree with the findings presented. I attest that I had a [id number] encounter with the patient on the same day, and personally performed and documented my assessment and findings in the medical record. 82 yoM with SCLC; carboplatin/etoposide started on 03/08/2018. Cleared for discharge from oncologic standpoint
--- NOTE | 2018-03-11 19:53 | P.PNPL ---
Subjective Interval history: 82 YOWm with COPD, Rt hilar, mediastinal mass, LLL density Feels comfortable Ambulates to the BR tolerated chemo Feels well Physical Exam Vital signs: Vital Signs 03/10/18 20:00 03/10/18 20:53 03/11/18 00:00 Temperature 98.5 F 97.4 F L Pulse Rate 102 H 71 101 H Respiratory Rate 18 18 16 Blood Pressure 119/75 111/72 Pulse Oximetry 92 L 93 L 03/11/18 04:00 03/11/18 08:00 03/11/18 08:28 Temperature 97.6 F 98.4 F Pulse Rate 88 86 95 H Respiratory Rate 15 18 Blood Pressure 116/73 138/69 Pulse Oximetry 95 92 L 03/11/18 09:36 03/11/18 12:45 03/11/18 16:19 Temperature 97.8 F 97.8 F Pulse Rate 83 89 Respiratory Rate 16 16 Blood Pressure 114/68 127/68 Pulse Oximetry 96 91 L 90 L 03/11/18 17:37 Temperature Pulse Rate Respiratory Rate Blood Pressure Pulse Oximetry 91 L Intake & Output 03/11/18 03/11/18 03/12/18 06:59 18:59 06:59 Intake Total 240 / 240 957 / 957 Output Total 1000 / 1000 950 / 950 Balance -760 / -760 7 / 7 Weight 77.2 kg Intake: Oral 240 / 240 957 / 957 Output: Urine 1000 / 1000 950 / 950 Other: Date of Last Bowel Movement 03/10/18 03/10/18 GENERAL: Elderly WM, NAD SKIN: Warm and dry. HEAD: Normocephalic. EYES: No scleral icterus. No injection or drainage. NECK: Supple, trachea midline. No JVD or lymphadenopathy. CARDIOVASCULAR: Regular rate and rhythm without murmurs, gallops, or rubs. RESPIRATORY: Breath sounds equal bilaterally. No accessory muscle use. GASTROINTESTINAL: Abdomen soft, non-tender, nondistended. MUSCULOSKELETAL: No cyanosis, or edema. BACK: Nontender without obvious deformity. No CVA tenderness. Assessment and Plan - Plan Impression: 1. Right lung mass in hilar and mediasinal area with compression of bronchus 2. 2 cm left lower lobe cavitary lesion. 3. Chronic obstructive pulmonary disease 4. Deep venous thrombosis status post inferior vena cava filter placement. 5. RUL ant segment Endobronchial mass--SCLC PLAN: Cont Aerosol nebs monitor BS Coreg 3.25 mg bid Zetia 10 mg daily. DW pt and his at BS path results Stable pulm status DC plans undeway
[2018-03-12 06:47] LABS: Baso % (Auto) 0.1 % (0.0-2.0); Eos % (Auto) 0.6 % (0.0-4.0); Hematocrit 40.8 % (39.0-51.0); Hemoglobin 13.3 gm/dL (13.0-17.0); Lymph # (Auto) 1.1 th/mm3 (1.0-4.8); Lymph % (Auto) 22.7 % (9.0-44.0); Mean Corpuscular HGB Conc 32.7 % (32.0-36.0); Mean Corpuscular Hemoglobin 29.3 pg (27.0-34.0); Mean Corpuscular Volume 89.5 fL (80.0-100.0); Mean Platelet Volume 8.1 fL (7.0-11.0); Mono # (Auto) 0.1 th/mm3 (0.0-0.9); Mono % (Auto) 1.6 % (0.0-8.0); Neut # (Auto) 3.5 th/mm3 (1.8-7.7); Platelet Count 121 th/mm3 (150-450); Red Blood Count 4.55 mil/mm3 (4.50-5.90); Red Cell Distribution Width 16.5 % (11.6-17.2); White Blood Count 4.7 th/mm3 (4.0-11.0)
[2018-03-12 07:06] LABS: Albumin 2.8 g/dL (3.4-5.0); Anion Gap 6 meq/L (5-15); Aspartate Aminotransferase 25 U/L (15-37); Blood Urea Nitrogen 64 mg/dL (7-18); Calcium 8.5 mg/dL (8.5-10.1); Carbon Dioxide 33.6 meq/L (21.0-32.0); Chloride 101 meq/L (98-107); Glomerular Filtration Rate 74 mL/min (>89); Glucose,Random 58 mg/dL (74-106); Potassium 4.3 meq/L (3.5-5.1); Sodium 141 meq/L (136-145)
[2018-03-12 07:07] LABS: Alanine Aminotransferase 68 U/L (12-78)
[2018-03-12 07:09] LABS: Alkaline Phosphatase 69 U/L (45-117); Total Protein 5.8 g/dL (6.4-8.2)
[2018-03-12] MEDS: Insulin NovoLOG Aspart Correctional Sugar Inj SQ SCH ×2 (08:20→12:40)
[2018-03-12] MEDS: Famotidine 20 MG Tablet PO SCH (08:23)
[2018-03-12] MEDS: Ezetimibe 10 MG Tablet PO SCH (08:23)
[2018-03-12] MEDS: guaiFENesin 600 MG ER Tablet PO SCH (08:23)
[2018-03-12] MEDS: Carvedilol 6.25 MG Tablet PO SCH (08:23)
[2018-03-12] MEDS: Budesonide-Formoterol 160/4.5 MCG 6 GM Inhaler INH SCH (08:25)
[2018-03-12] MEDS: Insulin Detemir Inj 1,000 UNIT/10 ML Vial SQ SCH (08:40)
[2018-03-12] MEDS ORDERED: predniSONE 20 MG Tablet PO SCH (09:00)
[2018-03-12 10:00] VITALS: RESP 18; O2SAT 91
[2018-03-12 12:45] VITALS: PULSE 97; TEMP 98
[2018-03-12 13:39] VITALS: BP 117/63
--- NOTE | 2018-03-12 18:24 | P.PNPL ---
Subjective Interval history: 82 YOWm with COPD, Rt hilar, mediastinal mass, LLL density Feels comfortable Ambulates to the BR tolerated chemo at BS Physical Exam Vital signs: Vital Signs 03/11/18 20:00 03/12/18 00:00 03/12/18 04:00 Temperature 97.9 F 97.8 F 97.5 F L Pulse Rate 90 85 86 Respiratory Rate 18 18 17 Blood Pressure 125/72 111/69 125/75 Pulse Oximetry 93 L 93 L 92 L 03/12/18 08:13 03/12/18 12:35 03/12/18 13:32 Temperature 97.9 F 98.0 F Pulse Rate 94 H 97 H Respiratory Rate 18 18 Blood Pressure 124/69 97/55 L 117/63 Pulse Oximetry 91 L 91 L Intake & Output 03/11/18 03/12/18 03/12/18 18:59 06:59 18:59 Intake Total 1197 / 1197 357 / 357 Output Total 2049 725 / 725 Balance -853 / -853 -368 / -368 Weight 77.5 kg Intake: Oral 1197 / 1197 357 / 357 Output: Urine 2049 725 / 725 Other: Date of Last Bowel Movement 03/10/18 03/10/18 03/12/18 # Bowel Movements 1 1 GENERAL: Elderly Wm,NAD SKIN: Warm and dry. HEAD: Normocephalic. EYES: No scleral icterus. No injection or drainage. NECK: Supple, trachea midline. No JVD or lymphadenopathy. CARDIOVASCULAR: Regular rate and rhythm without murmurs, gallops, or rubs. RESPIRATORY: Breath sounds equal bilaterally. No accessory muscle use. GASTROINTESTINAL: Abdomen soft, non-tender, nondistended. MUSCULOSKELETAL: No cyanosis, or edema. BACK: Nontender without obvious deformity. No CVA tenderness. Assessment and Plan - Plan Impression: 1. Right lung mass in hilar and mediasinal area with compression of bronchus 2. 2 cm left lower lobe cavitary lesion. 3. Chronic obstructive pulmonary disease 4. Deep venous thrombosis status post inferior vena cava filter placement. 5. RUL ant segment Endobronchial mass--SCLC PLAN: Cont Aerosol nebs monitor BS Coreg 3.25 mg bid Zetia 10 mg daily. DW pt and his at BS path results Stable pulm status Will FU in office
== END 2018-03-12 16:10 | disposition home health service (06) ==
LOC: NEPC 14:12 → NEDA 14:12 → NEPGCP 20:00 → NEDA 20:08 → N04 02-23 19:55 → HCIN 03-07 12:18
PROVIDERS: ADMIT Internal Medicine; ATTEND Internal Medicine

== ENCOUNTER 2018-03-16 04:58 | Inpatient (IN) ==
--- NOTE | 2018-03-16 05:34 | ED ---
HPI General Chief Complaint: Altered Mental Status Stated Complaint: Altered mental Time Seen by Provider: 03/16/18 05:11 Source: family History of Present Illness HPI narrative: Patient presents to the emergency department with recurrent falls per . Of note the states that the patient is DNI/DNR although BiPAP would be okay (this was confirmed in the presence of the nurse). She states that he has had recurrent falls with the last episode being this morning. He is a lung cancer patient and his last chemo was on Sunday. states that he has just not been himself lately. When asked if patient shawn blood thinners replies that he was taken off of Eliquis approximately 1 month ago, but he restarted it today and had one dose today. When EMS arrived on the scene he was hypotensive at 88/45 blood pressure improved with 500 cc of IV normal saline. He denies chest pain, shortness of breath, fever, chills, diarrhea, abdominal pain, nausea, or vomiting. He is on oxygen 24/7 at home, approximately 3 L. Related Data Home Medications Medication Instructions Recorded Confirmed ezetimibe [Zetia] 10 mg PO DAILY 02/04/18 03/16/18 losartan 50 mg PO DAILY 02/04/18 03/16/18 simvastatin [Zocor] 40 mg PO DAILY 02/04/18 03/16/18 albuterol sulfate [ProAir HFA] 2 puff INHALATION DAILY 02/14/18 03/16/18 fluticasone-salmeterol [Advair 1 inh INHALATION BID 02/14/18 03/16/18 Diskus] omega-3 acid ethyl esters 1 g PO DAILY 02/14/18 03/16/18 umeclidinium 1 puff INHALATION DAILY 02/14/18 03/16/18 Previous Rx's Medication Instructions Recorded Lactobacillus acidoph-L.bulgar 2 tab PO BID #60 tab 02/19/18 [Lactinex] diltiazem HCl 120 mg PO DAILY #60 cap 02/19/18 guaifenesin [Mucinex] 600 mg PO BID #10 tab 02/19/18 nitroglycerin [Nitrostat] 0.4 mg SUBLINGUAL Q5M PRN #30 tab 02/19/18 apixaban [Eliquis] 5 mg PO BID #60 tab 03/04/18 carvedilol [Coreg] 6.25 mg PO BID #60 tab 03/04/18 famotidine 10 mg PO BID #60 tab 03/04/18 furosemide [Lasix] 20 mg PO DAILY #30 tab 03/04/18 nicotine 1 patch TRANSDERMAL DAILY #30 ea 03/04/18 prednisone 10 mg PO DAILY #30 tab 03/04/18 Allergies Allergy/AdvReac Type Severity Reaction Status Date / Time No Known Allergies Allergy Verified 02/14/18 12:58 Review of Systems ROS Unobtainable ROS Unobtainable: unobtainable due to mental status ROS: all other systems reviewed are negative FOR[facility]LY [facility] Medical History Medical History Lung cancer (Acute) C. difficile colitis (Acute) COPD (chronic obstructive pulmonary disease) (Acute) DVT, lower extremity (Acute) Diabetes mellitus (Acute) Emphysema lung (Acute) GERD (gastroesophageal reflux disease) (Acute) High cholesterol (Acute) Hypertension (Acute) Presence of IVC filter (Acute) Pulmonary embolism (Acute) Skin cancer of face (Acute) Social History Social History Substance History: No History of Abuse Second Hand Smoke Exposure: No Smoking Status: Former smoker Tobacco Type: Cigarettes Packs Per Day: 1 Cigarettes Per Day: 20.0 Years Smoked: 50 Pack-Years: 50.00 How Often Do You Have a Drink Containing Alcohol: Never Hx Recent Travel: No Recent Travel in [facility] within the Last 8 Weeks: No Recent Out of Country Travel within the Last 8 Weeks: No Immunization History Tetanus Immunization: <5 Years Hx Influenza Vaccine This Season: Yes Exam Narrative Exam Narrative: GENERAL: No acute distress. SKIN: Focused skin assessment warm/dry. HEAD: Atraumatic. Normocephalic. EYES: Pupils equal and round. No scleral icterus. No injection or drainage. ENT: No nasal bleeding or discharge. Mucous membranes are dry. NECK: Trachea midline. No JVD. CARDIOVASCULAR: Tachy. No murmur appreciated. RESPIRATORY: No accessory muscle use. Coarse breath sounds bilat. GASTROINTESTINAL: Abdomen soft, non-tender, nondistended. MUSCULOSKELETAL: No obvious deformities. No clubbing. No cyanosis. + bilat LE edema. NEUROLOGICAL: Awake and alert. No obvious cranial nerve deficits. Motor grossly within normal limits. PSYCHIATRIC: Difficult to assess secondary to altered mental status. Course Initial Documented Vital Signs Temperature 98.8 F 03/16/18 05:20 Pulse Rate 111 H 03/16/18 05:20 Respiratory Rate 28 H 03/16/18 05:20 Blood Pressure 110/53 L 03/16/18 05:20 Pulse Oximetry 88 L 03/16/18 05:20 Last Documented Vital Signs Temperature 98.4 F 03/16/18 06:58 Pulse Rate 107 H 03/16/18 06:58 Respiratory Rate 22 03/16/18 06:58 Blood Pressure 101/54 L 03/16/18 06:58 Pulse Oximetry 92 L 03/16/18 06:58 Critical Care Time Critical Care Time: Yes Total Critical Care Time: 30 Attestation: Aggregate critical care time was 30 minutes. Time to perform other separately billable procedures was not included in the critical care time. My time did not include minutes spent treating any other patients simultaneously or on activities that did not directly contribute to the patient's treatment. The services I provided to this patient were to treat and/or prevent clinically significant deterioration that could result in: respiratory failure, worsening renal failure, increased morbidity I provided critical care services requiring my management, as noted below: Chart data review, documentation time, medication orders and management, vital sign assessments/reviewing monitor data, ordering and reviewing lab tests, ordering and interpreting/reviewing x-rays and diagnostic studies, care of the patient and discussion of the patient with the admitting physicians. Medical Decision Making MDM Narrative Medical decision making narrative: Patient presents to the emergency department with altered mental status and recurrent falls. Patient placed on environmental remediation engineer, continuous pulse ox, and IV access obtained. Head and C-spine CT, chest x-ray, EKG, and labs ordered. Patient was placed on O2. Head CT: No acute findings. CXR: CONCLUSION: Persistent masslike area in the right suprahilar region.Patchy areas of consolidation or atelectasis at the medial lung bases. Pelvis XR: No acute process. Labs: Elevated lactic acid, CK, T bili, glucose, creatinine, MB, BUN, AST 0715: Discussed case with patient's heme/onc doctor, Dr. Quesada. States she will see patient today (I've placed a formal consult) and requested cefepime and IV hydration. Discussed with patient's oncoming nurse, who will discuss renally dosing cefepime with pharmacist. Patient written for IV NS and cefepime 2grams IV in ER. Rios placed to monitor Is/Os. Case was also discussed with the admit MD, Dr. Madera. Will admit to intermediate care. Medical Screen Exam Complete: Yes Emergency Medical Condition: Yes Differential Diagnosis Differential Diagnosis: Pulmonary edema, pleural effusion, ACS pneumonia, sepsis , dehydration Lab Data Result diagrams: 03/16/18 05:40 03/16/18 05:40 Lab Results 03/16/18 03/16/18 03/16/18 Range/Units 05:40 05:40 05:40 WBC 0.4 L (4.0-11.0) th/mm3 RBC 4.04 L (4.50-5.90) mil/mm3 Hgb 12.1 L (13.0-17.0) gm/dL Hct 35.8 L (39.0-51.0) % MCV 88.7 (80.0-100.0) fL MCH 29.9 (27.0-34.0) pg MCHC 33.7 (32.0-36.0) % RDW 15.8 (11.6-17.2) % Plt Count 71 L D (150-450) th/mm3 MPV 7.9 (7.0-11.0) fL Prelim Diff (Auto) Manual diff required WBC Differential Manual diff final Seg Neuts % (Manual) 6 L (16-70) % Lymphocytes % (Manual) 91 H (9-44) % Monocytes % (Manual) 3 (0-8) % Abs Neuts (Manual) 0.0 L* (1.8-7.7) th/mm3 Differential Comment . Platelet Estimate Low L (Normal) Platelet Morphology Normal (Normal) RBC Morphology Normal (Normal) PT 12.6 H (9.8-11.6) sec INR 1.2 Ratio APTT 24.6 (24.3-30.1) sec Sodium 141 (136-145) meq/L Potassium 4.5 (3.5-5.1) meq/L Chloride 101 (98-107) meq/L Carbon Dioxide 28.8 (21.0-32.0) meq/L Anion Gap 11 (5-15) meq/L BUN 57 H (7-18) mg/dL Creatinine 2.21 H (0.60-1.30) mg/dL Estimated GFR 29 L (>89) mL/min Random Glucose 139 H (74-106) mg/dL Lactic Acid (0.4-2.0) mmol/L Calcium 8.6 (8.5-10.1) mg/dL Magnesium 2.3 (1.5-2.5) mg/dL Total Bilirubin 1.1 H (0.2-1.0) mg/dL AST 75 H (15-37) U/L ALT 72 (12-78) U/L Alkaline Phosphatase 60 (45-117) U/L Total Creatine Kinase 1585 H (39-308) U/L CK-MB (CK-2) 4.9 H (0.5-3.6) ng/mL CK-MB (CK-2) % 0.3 (0.0-4.0) % Troponin I 0.04 (0.02-0.05) ng/mL B-Natriuretic Peptide (0-100) pg/mL Total Protein 6.6 D (6.4-8.2) g/dL Albumin 2.5 L (3.4-5.0) g/dL 03/16/18 03/16/18 Range/Units 05:40 05:45 WBC (4.0-11.0) th/mm3 RBC (4.50-5.90) mil/mm3 Hgb (13.0-17.0) gm/dL Hct (39.0-51.0) % MCV (80.0-100.0) fL MCH (27.0-34.0) pg MCHC (32.0-36.0) % RDW (11.6-17.2) % Plt Count (150-450) th/mm3 MPV (7.0-11.0) fL Prelim Diff (Auto) WBC Differential Seg Neuts % (Manual) (16-70) % Lymphocytes % (Manual) (9-44) % Monocytes % (Manual) (0-8) % Abs Neuts (Manual) (1.8-7.7) th/mm3 Differential Comment Platelet Estimate (Normal) Platelet Morphology (Normal) RBC Morphology (Normal) PT (9.8-11.6) sec INR Ratio APTT (24.3-30.1) sec Sodium (136-145) meq/L Potassium (3.5-5.1) meq/L Chloride (98-107) meq/L Carbon Dioxide (21.0-32.0) meq/L Anion Gap (5-15) meq/L BUN (7-18) mg/dL Creatinine (0.60-1.30) mg/dL Estimated GFR (>89) mL/min Random Glucose (74-106) mg/dL Lactic Acid 4.3 H* (0.4-2.0) mmol/L Calcium (8.5-10.1) mg/dL Magnesium (1.5-2.5) mg/dL Total Bilirubin (0.2-1.0) mg/dL AST (15-37) U/L ALT (12-78) U/L Alkaline Phosphatase (45-117) U/L Total Creatine Kinase (39-308) U/L CK-MB (CK-2) (0.5-3.6) ng/mL CK-MB (CK-2) % (0.0-4.0) % Troponin I (0.02-0.05) ng/mL B-Natriuretic Peptide 56 (0-100) pg/mL Total Protein (6.4-8.2) g/dL Albumin (3.4-5.0) g/dL Imaging Data Radiologist's impression: Cervical Spine CT 03/16/18 05:20 CONCLUSION: 1. No acute bony injury is seen. 2. Degenerative change. Chest X-Ray 03/16/18 05:20 CONCLUSION: Persistent masslike area in the right suprahilar region. Patchy areas of consolidation or atelectasis at the medial lung bases. Head CT 03/16/18 05:20 CONCLUSION: 1. No acute abnormality seen. 2. Age-related atrophy and suspected small vessel ischemic change in the white matter. . Pelvis X-Ray 03/16/18 06:27 CONCLUSION: No evidence of fracture. ECG Data Attestation: I personally reviewed and interpreted this ECG as follows: (sinus tachy at 114, normal intervals, QTc 371, normal axis) Discharge Plan Discharge Disposition Patient Disposition: 30 Still Patient Discharge Condition Condition: Stable Discharge Details Diagnosis: JESS (acute kidney injury), Sepsis, Rhabdomyolysis, Pneumonia, Neutropenic, Lung cancer Physicians Team ED Provider: Rosemary Whitaker Primary Care Provider: UNKNOWN, Attending Provider: Carlos Madera Other Providers: Maryanne Quesada Status ED Status: Admitted Patient
[2018-03-16 06:04] LABS: Hematocrit 35.8 % (39.0-51.0); Hemoglobin 12.1 gm/dL (13.0-17.0); Mean Corpuscular HGB Conc 33.7 % (32.0-36.0); Mean Corpuscular Hemoglobin 29.9 pg (27.0-34.0); Mean Corpuscular Volume 88.7 fL (80.0-100.0); Mean Platelet Volume 7.9 fL (7.0-11.0); Platelet Count 71 th/mm3 (150-450); Red Blood Count 4.04 mil/mm3 (4.50-5.90); Red Cell Distribution Width 15.8 % (11.6-17.2); White Blood Count 0.4 th/mm3 (4.0-11.0)
[2018-03-16 06:13] LABS: Activated Partial Thrombo Time 24.6 sec (24.3-30.1); INR 1.2 Ratio; Prothrombin Time 12.6 sec (9.8-11.6)
[2018-03-16 06:23] LABS: Alanine Aminotransferase 72 U/L (12-78); Albumin 2.5 g/dL (3.4-5.0); Anion Gap 11 meq/L (5-15); Aspartate Aminotransferase 75 U/L (15-37); Blood Urea Nitrogen 57 mg/dL (7-18); Calcium 8.6 mg/dL (8.5-10.1); Carbon Dioxide 28.8 meq/L (21.0-32.0); Chloride 101 meq/L (98-107); Glomerular Filtration Rate 29 mL/min (>89); Glucose,Random 139 mg/dL (74-106); Magnesium 2.3 mg/dL (1.5-2.5); Potassium 4.5 meq/L (3.5-5.1); Sodium 141 meq/L (136-145)
--- NOTE | 2018-03-16 06:23 | CT ---
EXAM DATE: 03/16/2018 6:11 AM EDT AGE/SEX: 82 years / Male INDICATIONS: Trauma; multiple falls secondary to hypotension. Altered mental status. CLINICAL DATA: This is the patient's initial encounter. Patient reports that signs and symptoms have been present for 3 days and indicates a pain score of Nonresponsive. MEDICAL/SURGICAL HISTORY: Chronic obstructive pulmonary disease. Diabetes. Deep venous thrombosis . Lung mass, C-diff, sepsis None. RADIATION DOSE: 56.35 CTDI (mGy) COMPARISON: No prior exams available for comparison. TECHNIQUE: CT of the head without contrast. Using automated exposure control and adjustment of the mA and/or kV according to patient size, radiation dose was kept as low as reasonably achievable to ob tain optimal diagnostic quality images. DICOM format image data is available electronically for revi ew and comparison. FINDINGS: Cerebrum: The ventricles and cortical sulci are widened. There is decreased density in the cerebral white matter. No evidence of midline shift, mass lesion, hemorrhage or acute infarction. No extraaxi al fluid collections are seen. Posterior Fossa: The cerebellum and brainstem are intact. The 4th ventricle is midline. The cerebe llopontine angle is unremarkable. Extracranial: The visualized portion of the orbits is intact. Skull: The calvaria is intact. No evidence of skull fracture. CONCLUSION: 1. No acute abnormality seen. 2. Age-related atrophy and suspected small vessel ischemic change in the white matter. . Electronically signed by: Miguel Huitron MD 03/16/2018 6:21 AM EDT
--- NOTE | 2018-03-16 06:30 | CT ---
EXAM DATE: 03/16/2018 6:16 AM EDT AGE/SEX: 82 years / Male INDICATIONS: Trauma; multiple falls over the past three days. CLINICAL DATA: This is the patient's initial encounter. Patient reports that signs and symptoms have been present for 3 days and indicates a pain score of Nonresponsive. MEDICAL/SURGICAL HISTORY: Chronic obstructive pulmonary disease. Diabetes. Deep venous thromb osis. C-diff, lung mass None. RADIATION DOSE: 19.58 CTDI (mGy) COMPARISON: No prior exams available for comparison. TECHNIQUE: Contiguous axial images were obtained using helical multirow detector technique. The vol umetric data was post-processed with multiplanar reconstruction in oblique axial, sagittal, and coron al planes. Using automated exposure control and adjustment of the mA and/or kV according to patient s ize, radiation dose was kept as low as reasonably achievable to obtain optimal diagnostic quality libby ges. DICOM format image data is available electronically for review and comparison. FINDINGS: Vertebrae: Normal vertebral body height. There is prominent hypertrophic change seen at the superior aspect of anterior arch of C1. Alignment: Normal. No subluxation. There is prominent ossification of the stylohyoid ligament. This is a normal variant. There appears t o be some thickening at the mid right stylohyoid ligament calcification likely from prior fracturing or a pseudarthrosis at this region. The midportion of the stylohyoid ligament on the left side is not calcified. This is all thought to be an incidental finding. C2-3: The bony spinal canal is normal in size. No evidence of disc bulge or herniation. The neural foramina are bilaterally patent. There is facet hypertrophy being worse on the left. C3-4: The bony spinal canal is normal in size. No evidence of disc bulge or herniation. The neural foramina are bilaterally patent. There is bilateral facet hypertrophy. C4-5: The bony spinal canal is normal in size. No evidence of disc bulge or herniation. The neural foramina are bilaterally patent. There is bilateral facet hypertrophy. C5-6: The bony spinal canal is normal in size. No evidence of disc bulge or herniation. The neural foramina are bilaterally patent. There is bilateral facet hypertrophy. There is mild uncovertebral h ypertrophy especially on the left.. C6-7: The bony spinal canal is normal in size. The disc demonstrates decreased height. A significan t impression on the thecal sac is not seen. No evidence of disc bulge or herniation. The neural fora ryan are bilaterally patent. There is mild facet hypertrophy. C7-T1: The bony spinal canal is normal in size. No evidence of disc bulge or herniation. The neura l foramina are bilaterally patent. There is mild facet hypertrophy. CONCLUSION: 1. No acute bony injury is seen. 2. Degenerative change. Electronically signed by: Miguel Huitron MD 03/16/2018 6:29 AM EDT
--- NOTE | 2018-03-16 06:35 | XR ---
EXAM DATE: 03/16/2018 6:04 AM EDT AGE/SEX: 82 years / Male INDICATIONS: Short of breath. CLINICAL DATA: This is the patient's initial encounter. Patient reports that signs and symptoms have been present for 1 day and indicates a pain score of 5/10. MEDICAL/SURGICAL HISTORY: Non-responsive. Non-responsive. COMPARISON: [facility], CHEST 1V SINGLE AP, 02/28/2018. C, CHEST 1V SINGLE AP, 02/21/2018. [facility], CHEST 1V SINGLE AP, 02/14/2018. . FINDINGS: The heart size is normal. There continues to be increased density in the right suprahilar region. The re is patchy density identified the bases bilaterally. The mid and upper lungs are clear. No effusion is seen. CONCLUSION: Persistent masslike area in the right suprahilar region. Patchy areas of consolidation or atelectasis at the medial lung bases. Electronically signed by: Miguel Huitron MD 03/16/2018 6:34 AM EDT
[2018-03-16 06:37] LABS: Alkaline Phosphatase 60 U/L (45-117); Creatine Kinase 1585 U/L (39-308); Total Protein 6.6 g/dL (6.4-8.2); Troponin I 0.04 ng/mL (0.02-0.05)
[2018-03-16 06:49] LABS: CKMB Percent 0.3 % (0.0-4.0); Creatine Kinase MB 4.9 ng/mL (0.5-3.6)
[2018-03-16] MEDS ORDERED: Sod Chloride 0.9% Inj 1,000 ML IV.SIG ONE ×2 (07:00→12:59)
[2018-03-16] MEDS ORDERED: Piperacil/Tazo 3.375 GM Premix 50 ML IV.SIG ONE (07:02)
[2018-03-16] MEDS ORDERED: Vancomycin Inj 1,000 MG in Sodium Chlor 0.9% Inj 250 ML IV.SIG ONE (07:02)
--- NOTE | 2018-03-16 07:06 | XR ---
EXAM DATE: 03/16/2018 7:01 AM EDT AGE/SEX: 82 years / Male INDICATIONS: History of several falls. CLINICAL DATA: This is the patient's initial encounter. Patient reports that signs and symptoms have been present for 1 day and indicates a pain score of Nonresponsive. MEDICAL/SURGICAL HISTORY: . Chronic obstructive pulmonary disease. Diabetes. Deep venous thromb osis. Lung mass, C-diff, sepsis None. COMPARISON: No prior exams available for comparison. FINDINGS: Single AP view of the pelvis. Bone alignment within normal limits. No evidence of fracture. No eviden ce of hip joint narrowing. Degenerative findings of the lower lumbar spine with endplate osteophytes and facet arthrosis. CONCLUSION: No evidence of fracture. Electronically signed by: Refugio Larios MD 03/16/2018 7:05 AM EDT
[2018-03-16 07:10] LABS: Lymphocytes 91 % (9-44); Monocytes 3 % (0-8)
[2018-03-16 07:15] LABS: Platelet Morphology Normal (Normal)
[2018-03-16 07:16] LABS: RBC Morphology Normal (Normal)
[2018-03-16 08:34] LABS: Bilirubin,Urine Negative (Negative); Clarity,Urine Hazy (Clear); Color,Urine Yellow (Yellw/Straw); Glucose,Urine (UA) Negative (Negative); Leukocyte Esterase,Urine Negative (Negative); Mucus,Urine Few /lpf (Occasional); Nitrite,Urine Negative (Negative); Specific Gravity,Urine 1.015 (1.002-1.035); Squamous Epithelial Cell,Urine <1 /hpf (0-5)
[2018-03-16] MEDS ORDERED: Acetaminophen 325 MG Tablet PO PRN (08:54)
[2018-03-16] MEDS: Lactobacillus Acidophilus/L. Spores Tablet PO SCH ×2 (10:23→22:38)
[2018-03-16] MEDS: Ezetimibe 10 MG Tablet PO SCH (10:23)
[2018-03-16] MEDS: Senna/Docusate Sodium 8.6/50 MG Tablet PO SCH ×2 (10:23→23:16)
[2018-03-16] MEDS: guaiFENesin 600 MG ER Tablet PO SCH ×2 (10:23→22:38)
[2018-03-16] MEDS: predniSONE 10 MG Tablet PO SCH (10:24)
[2018-03-16] MEDS: Famotidine 20 MG Tablet PO SCH ×2 (10:24→22:37)
[2018-03-16] MEDS ORDERED: Morphine Inj 4 MG/ML Vial IV.PUSH PRN ×2 (10:27→14:46)
[2018-03-16] MEDS ORDERED: Sodium Chloride 0.45 % Inj 1,000 ML IV.CONT SCH (10:30)
--- NOTE | 2018-03-16 10:42 | P.HPIM ---
History of Present Illness Primary Care Physician: UNKNOWN Chief Complaint: Weakness History of Present Illness: The patient is an 82-year-old male recent diagnosis of small cell carcinoma who is presenting to the hospital with weakness. The patient was discharged from the hospital on Sunday where he stayed for about 20 days while he had a workup for a lung mass and was started on chemotherapy. The patient received chemotherapy on Sunday, Sunday and Sunday. He went home on Sunday in the first couple of days he did okay. He had home hospice services. He then became very weak. He had about 5 falls at home over the past 2 days. He has not been eating much. He has mostly been sipping on Ensure and water. This morning at 4 AM he got up to pee and then apparently fell down. His found him and was unable to help him get up so she called 911. The patient's family states that they are no longer interested in pursuing chemotherapy. They are interested in hospice services. The patient denies any pain at this time. He is chronically on oxygen. He has been on diuretics at home. Oncology was contacted by the emergency department. Discussed with nursing. FH: Denies pertinent family history - Diagnosis (1) Dehydration (2) JESS (acute kidney injury) (3) Acute respiratory failure with hypoxia (4) Pulmonary mass (5) Neutropenic (6) Lung cancer Inpatient Certification: I certify that the inpatient services were ordered in accordance with Medicare regulations governing the order. This includes certification that hospital inpatient services are reasonable and necessary and in the case of services not specified as inpatient-only under 42 CFR 419.22(n), that they are appropriately provided as inpatient services in accordance to with the 2-midnight benchmark under 43 CFR 412.3(e) Estimated Total Length of Stay (Days): 3 Plans for Post Hospital Care: Not yet determined Review of Systems All other systems reviewed negative except as stated in HPI PMFSH - History History Provided By: Significant Other - Medical History Medical History: Medical History (Last Updated 03/16/18 @ 05:22 by Juancarlos Chacon) Lung cancer C. difficile colitis COPD (chronic obstructive pulmonary disease) DVT, lower extremity Diabetes mellitus Emphysema lung GERD (gastroesophageal reflux disease) High cholesterol Hypertension Presence of IVC filter Pulmonary embolism Skin cancer of face - Tobacco History Second Hand Smoke Exposure: No Smoking Status: Former smoker Tobacco Type: Cigarettes Packs Per Day: 1 Years Smoked: 50 - Alcohol History How Often Do You Have a Drink Containing Alcohol: Never - Substance Use History Substance History: No History of Abuse - Travel History History of Recent Travel: No Recent Travel in the [place] Within the Last 8 Weeks: No Recent Travel Out of the Country Within the Last 8 Weeks: No - Immunization History Tetanus Immunization: <5 Years Hx Influenza Vaccine This Season: Yes Medications and Allergies Active Medications: Active Medications Acetaminophen (Tylenol) 650 mg PO Q4H PRN PRN Reason: Temp > 100.4 Albuterol (Duoneb Neb (Prn)) 1 ampul NEB Q2HR NEB PRN PRN Reason: DYSPNEA Albuterol (Duoneb Neb (Marielle)) 1 ampul NEB Q6HR WHILE AWAKE NEB MARIELLE Apixaban (Eliquis) 5 mg PO BID MARIELLE Ezetimibe (Zetia) 10 mg PO DAILY MARIELLE Famotidine (Pepcid) 10 mg PO BID MARIELLE Guaifenesin (Mucinex Er) 600 mg PO BID [facility] Cefepime HCl 2,000 mg/ Sodium (Chloride) 100 mls @ 200 mls/hr IV.SIG Q12H MARIELLE Sodium Chloride (1/2 Normal Saline Inj) 1,000 mls @ 100 mls/hr IV.CONT .Q10H MARIELLE Stop: 03/16/18 20:29 Lactobacillus Acidophilus (Lactinex) 2 tab PO BID [facility] Nicotine (Habitrol 21 Mg Patch.24 Hr) 1 patch T-DERMAL DAILY [facility] Non-Formulary Medication (Fluticasone-Salmeterol [Advair Diskus]) 1 inh INHALATION BID [facility] Ondansetron HCl (Zofran Inj) 4 mg IV.PUSH Q6H PRN PRN Reason: NAUSEA OR VOMITING Patch Removal (Remove Old Patch) 1 each T-DERMAL DAILY [facility] Pravastatin Sodium (Pravachol) 80 mg PO DAILY [facility] Prednisone (Deltasone) 10 mg PO DAILY [facility] Senna/Docusate Sodium (Lianna-Colace) 1 tab PO BID [facility] Allergies Allergy/AdvReac Type Severity Reaction Status Date / Time No Known Allergies Allergy Verified 02/14/18 12:58 Home Medications Medication Instructions Recorded Confirmed Type ezetimibe [Zetia] 10 mg PO DAILY 02/04/18 03/16/18 History losartan 50 mg PO DAILY 02/04/18 03/16/18 History simvastatin [Zocor] 40 mg PO DAILY 02/04/18 03/16/18 History albuterol sulfate [ProAir HFA] 2 puff INHALATION DAILY 02/14/18 03/16/18 History fluticasone-salmeterol [Advair 1 inh INHALATION BID 02/14/18 03/16/18 History Diskus] omega-3 acid ethyl esters 1 g PO DAILY 02/14/18 03/16/18 History umeclidinium 1 puff INHALATION DAILY 02/14/18 03/16/18 History Exam Vital signs: Vital Signs 03/16/18 05:20 03/16/18 05:21 03/16/18 06:58 Temperature 98.8 F 98.4 F Pulse Rate 111 H 107 H Respiratory Rate 28 H 22 Blood Pressure 110/53 L 101/54 L Pulse Oximetry 88 L 92 L 92 L 03/16/18 08:46 Temperature 98.1 F Pulse Rate 110 H Respiratory Rate 19 Blood Pressure 113/59 L Pulse Oximetry 91 L Intake & Output 03/15/18 03/16/18 03/16/18 18:59 06:59 18:59 Weight 81.647 kg Narrative: GENERAL: No acute distress. SKIN: Focused skin assessment warm/dry. HEAD: Atraumatic. Normocephalic. EYES: Pupils equal and round. No scleral icterus. No injection or drainage. ENT: No nasal bleeding or discharge. Mucous membranes are dry. NECK: Trachea midline. No JVD. CARDIOVASCULAR: Tachycardic. No murmur appreciated. RESPIRATORY: Coarse breath sounds bilaterally. GASTROINTESTINAL: Abdomen soft, non-tender, nondistended. MUSCULOSKELETAL: No obvious deformities. No clubbing. No cyanosis. + TR bilateral LE edema. NEUROLOGICAL: Awake and alert. No obvious cranial nerve deficits. Motor grossly within normal limits. Results - Labs CBC & Chem 7: 03/16/18 05:40 03/16/18 05:40 Labs: Short CBC 03/16/18 Range/Units 05:40 WBC 0.4 L (4.0-11.0) th/mm3 Hgb 12.1 L (13.0-17.0) gm/dL Hct 35.8 L (39.0-51.0) % Plt Count 71 L D (150-450) th/mm3 BMP 03/16/18 05:40 Sodium 141 Potassium 4.5 Chloride 101 Carbon Dioxide 28.8 BUN 57 H Creatinine 2.21 H Calcium 8.6 Cardiac Enzymes 03/16/18 Range/Units 05:40 Total Creatine Kinase 1585 H (39-308) U/L CK-MB (CK-2) 4.9 H (0.5-3.6) ng/mL Troponin I 0.04 (0.02-0.05) ng/mL Liver Function 03/16/18 Range/Units 05:40 Total Bilirubin 1.1 H (0.2-1.0) mg/dL AST 75 H (15-37) U/L ALT 72 (12-78) U/L Alkaline Phosphatase 60 (45-117) U/L Albumin 2.5 L (3.4-5.0) g/dL Urine 03/16/18 Range/Units 07:40 Urine Color Yellow (Yellw/Straw) Urine Clarity Hazy H (Clear) Urine pH 5.0 (5.0-8.5) Ur Specific [place] 1.015 (1.002-1.035) Urine Protein 30 H (Neg-Trace) mg/dL Urine Glucose (UA) Negative (Negative) mg/dL - Imaging Impressions Cervical Spine CT 03/16/18 05:20 CONCLUSION: 1. No acute bony injury is seen. 2. Degenerative change. Chest X-Ray 03/16/18 05:20 CONCLUSION: Persistent masslike area in the right suprahilar region. Patchy areas of consolidation or atelectasis at the medial lung bases. Head CT 03/16/18 05:20 CONCLUSION: 1. No acute abnormality seen. 2. Age-related atrophy and suspected small vessel ischemic change in the white matter. . Pelvis X-Ray 03/16/18 06:27 CONCLUSION: No evidence of fracture. Caprini VTE Risk Assessment Caprini VTE Risk Assessment: Moderate/High Risk (score >= 2) Caprini Risk Assessment Model: Point Value = 1 Point Value = 2 Point Value = 3 Point Value = 5 Age 41-60 Minor surgery BMI > 25 kg/m2 Swollen legs Varicose veins or History of unexplained or recurrent spontaneous Oral contraceptives or hormone replacement Sepsis (< 1 month) Serious lung disease, including pneumonia (< 1 month) Abnormal pulmonary function Acute myocardial infarction Congestive heart failure (< 1 month) History of inflammatory bowel disease Medical patient at bed rest Age 61-74 Arthroscopic surgery Major open surgery (> 45 min) Laparoscopic surgery (> 45 min) Malignancy Confined to bed (> 72 hours) Immobilizing plaster cast Central venous access Age >= 75 History of VTE Family history of VTE Factor V Leiden Prothrombin [id number] Lupus anticoagulant Anticardiolipin antibodies Elevated serum homocysteine Heparin-induced thrombocytopenia Other congenital or acquired thrombophilia Stroke (< 1 month) Elective arthroplasty Hip, pelvis, or leg fracture Acute spinal cord injury (< 1 month) Prophylaxis Regimen: Total Risk Factor Score Risk Level Prophylaxis Regimen 0-1 Low Early ambulation 2 Moderate Order ONE of the following: *Sequential Compression Device (SCD) *Heparin 5000 units SQ BID 3-4 Higher Order ONE of the following medications: *Heparin 5000 units SQ TID *Enoxaparin/Lovenox 40 mg SQ daily (WT < 150 kg, CrCl > 30 mL/min) *Enoxaparin/Lovenox 30 mg SQ daily (WT < 150 kg, CrCl > 10-29 mL/min) *Enoxaparin/Lovenox 30 mg SQ BID (WT < 150 kg, CrCl > 30 mL/min) AND/OR *Sequential Compression Device (SCD) 5 or more Highest Order ONE of the following medications: *Heparin 5000 units SQ TID (Preferred with Epidurals) *Enoxaparin/Lovenox 40 mg SQ daily (WT < 150 kg, CrCl > 30 mL/min) *Enoxaparin/Lovenox 30 mg SQ daily (WT < 150 kg, CrCl > 10-29 mL/min) *Enoxaparin/Lovenox 30 mg SQ BID (WT < 150 kg, CrCl > 30 mL/min) AND *Sequential Compression Device (SCD) Assessment and Plan - Assessment (1) Dehydration Code(s): E86.0 - Dehydration Status: Acute (2) JESS (acute kidney injury) Code(s): N17.9 - Acute kidney failure, unspecified Status: Acute (3) Acute respiratory failure with hypoxia Code(s): J96.01 - Acute respiratory failure with hypoxia Status: Acute (4) Pulmonary mass Code(s): R91.8 - Other nonspecific abnormal finding of lung field Status: Acute (5) Neutropenic Code(s): D70.9 - Neutropenia, unspecified Status: Acute (6) Lung cancer Code(s): C34.90 - Malignant neoplasm of unspecified part of unspecified bronchus or lung Status: Acute - Plan Small cell lung cancer/ Neutropenia/ Weakness Started on chemotherapy last week. Presents with neutropenia and weakness. He has fallen down at home five times since being discharged from the hospital. He had home hospice services. The family does not want to continue with chemotherapy. -oncology consult pending. -continue IV cefepime, renally dosed. -IVFs. -trend lactic acid level, which was elevated on admission. -oxygen as needed. -standing and as needed nebs. -case management and hospice consults. Pancytopenia S/t chemotherapy. -oncology consult pending. -antibiotics. -follow CBC. Acute renal failure/ Rhabdomyolysis The pt is on diuretics as an outpt. Recent EF was normal. CPK is elevated. -d/c diuretics and give IVFs. -monitor fluid balance. -trend CPK. HTN Blood pressure has been WNL. -hold home meds for now and resume as clinically indicated. -clonidine as needed. PPx: On Eliquis Code Status: DNR Discussed Condition With: Pt, family, nurse, Dr. Whitaker (5) Neutropenic Qualifiers: Neutropenia type: secondary to cancer chemotherapy Qualified Code(s): D70.1 - Agranulocytosis secondary to cancer chemotherapy; T45.1X5A - Adverse effect of antineoplastic and immunosuppressive drugs, initial encounter (6) Lung cancer Qualifiers: Laterality: unspecified laterality Lung location: unspecified part of lung Qualified Code(s): C34.90 - Malignant neoplasm of unspecified part of unspecified bronchus or lung
[2018-03-16] MEDS: Budesonide-Formoterol 160/4.5 MCG 6 GM Inhaler INH SCH ×2 (12:30→22:36)
[2018-03-16] MEDS ORDERED: Dextrose 50% in Water 50 ML Vial IV.PUSH PRN (13:00)
[2018-03-16] MEDS ORDERED: Filgrastim Inj 300 MCG/ML Vial SQ SCH (14:00)
--- NOTE | 2018-03-16 16:37 | ECG ---
Date Performed: 03/16/2018 Time Performed: 05:52:28 PTAGE: 82 years EKG: SINUS TACHYCARDIA WITH OCCASIONAL VENTRICULAR PREMATURE COMPLEXES When compared to previous tracing, heart rate is faster. ABNORMAL RHYTHM ECG PREVIOUS TRACING : 02/21/2018 14.28 DOCTOR: Wesley Del Rio Interpretating Date/Time 03/16/2018 16:36:41
--- NOTE | 2018-03-16 17:14 | MB ---
cc: Maryanne Quesada MD DATE: 03/16/2018 CHIEF COMPLAINT: 1. Pancytopenia. 2. Small cell lung cancer. 3. Failure to thrive. 4. Falls at home. HISTORY OF PRESENT ILLNESS: Mr. Vallejo is an 82-year-old gentleman with history of COPD, venous thromboembolism, C. difficile colitis, acid reflux, hyperlipidemia, hypertension, former tobacco abuse, who was hospitalized in late January to early February 2018. Imaging studies at that time showed large right-sided mass involving the right hilum and mediastinum, which was highly suspicious for malignancy. He was seen by Dr. Camarena who underwent bronchoscopy with results returning as small cell lung cancer. At that time, I had an extensive discussion with the patient, his and his son regarding initiating treatment with carboplatin and etoposide versus hospice care. Discussed risks and benefits of each option. At that time, the patient had decided to move forward with chemotherapy. During his hospital stay, had not noted any improvement in his performance status after initiation of chemo. His reported that he was doing well for 2 days after hospital discharge. He subsequently was having falls at home due to tripping over objects and he was brought to the emergency room for further evaluation. Laboratory studies found white blood cell count 0.4, hemoglobin 12.1, and platelet count of 71,000. ANC is 0. Chemistry studies with creatinine of 2.21. Total bilirubin is 1.1, AST 75, ALT 72. Creatinine kinase is 15.85. Lactic acid initially elevated at 4.3. PAST MEDICAL HISTORY: 1. COPD. 2. Deep venous thrombosis. 3. Hypertension. 4. Hyperlipidemia. 5. Tobacco abuse. SOCIAL HISTORY: He is a former smoker. Good support system with extended family. ALLERGIES: NO KNOWN DRUG ALLERGIES. FAMILY HISTORY: No family history of malignancy. REVIEW OF SYSTEMS: Positive for failure to thrive as above in the HPI. Other review of systems negative. PHYSICAL EXAMINATION: GENERAL: Elderly man, chronically ill-appearing, resting in bed. HEENT: Normocephalic, atraumatic. ENT, with evidence of blood around nares. CARDIOVASCULAR: Regular rate and rhythm. No murmurs. RESPIRATORY: Clear to auscultation bilaterally. ABDOMEN: Soft, nontender, nondistended. Bowel sounds present. EXTREMITIES: With mild edema. SKIN: With some bruising from falls. PSYCHIATRIC: Appropriate mood and affect. ASSESSMENT AND PLAN: 1. Small cell lung cancer status post chemotherapy with no improvement in the patient's overall performance status. The patient and his family have elected to move forward with hospice therapy. They do not want any further chemotherapy. They have already initiated contact with [facility] and goal is once the patient is stabilized to go home with hospice care. 2. Pancytopenia due to chemotherapy. We will initiate GCSF as the patient has evidence of infiltrates on lung exam. 3. Infectious disease, evidence of infiltrates on my exam. We will place the patient on GCSF as above. We will follow up results of cultures. 4. FENR. Elevated creatinine likely due to dehydration at home. The patient is currently receiving IV fluids. 5. ____. Pelvic x-ray with no evidence of fracture. Inpatient oncology/hematology will continue to follow. MD BRITTNY Azar/skylar/abel , 11:41 AM , 11:48 AM
[2018-03-16] MEDS: Insulin NovoLOG Aspart Correctional Sugar Inj SQ SCH ×2 (17:39→23:14)
[2018-03-17 06:32] LABS: Alanine Aminotransferase 62 U/L (12-78); Albumin 1.8 g/dL (3.4-5.0); Alkaline Phosphatase 50 U/L (45-117); Anion Gap 11 meq/L (5-15); Aspartate Aminotransferase 70 U/L (15-37); Blood Urea Nitrogen 67 mg/dL (7-18); Carbon Dioxide 25.8 meq/L (21.0-32.0); Chloride 105 meq/L (98-107); Creatine Kinase 1352 U/L (39-308); Glomerular Filtration Rate 32 mL/min (>89); Glucose,Random 97 mg/dL (74-106); Potassium 4.6 meq/L (3.5-5.1); Sodium 142 meq/L (136-145); Total Protein 6.1 g/dL (6.4-8.2)
[2018-03-17 07:01] LABS: CKMB Percent 0.1 % (0.0-4.0); Creatine Kinase MB 1.7 ng/mL (0.5-3.6)
[2018-03-17 08:19] VITALS: BP 93/50; TEMP 99.7
[2018-03-17] MEDS: Insulin NovoLOG Aspart Correctional Sugar Inj SQ SCH ×2 (08:20→13:59)
[2018-03-17 08:37] VITALS: RESP 18
[2018-03-17 08:44] VITALS: O2SAT 97
[2018-03-17] MEDS: Ezetimibe 10 MG Tablet PO SCH (09:00)
[2018-03-17] MEDS: Lactobacillus Acidophilus/L. Spores Tablet PO SCH (09:00)
[2018-03-17] MEDS: Famotidine 20 MG Tablet PO SCH (09:00)
[2018-03-17] MEDS: Senna/Docusate Sodium 8.6/50 MG Tablet PO SCH (09:00)
[2018-03-17] MEDS: predniSONE 10 MG Tablet PO SCH (09:56)
[2018-03-17] MEDS: guaiFENesin 600 MG ER Tablet PO SCH (09:56)
[2018-03-17] MEDS ORDERED: Azithromycin 250 MG Tablet PO SCH (10:00)
[2018-03-17] MEDS: Budesonide-Formoterol 160/4.5 MCG 6 GM Inhaler INH SCH (10:02)
[2018-03-17 10:18] LABS: Hematocrit 32.3 % (39.0-51.0); Hemoglobin 10.6 gm/dL (13.0-17.0); Mean Corpuscular Hemoglobin 29.9 pg (27.0-34.0); Mean Corpuscular Volume 90.8 fL (80.0-100.0); Mean Platelet Volume 8.4 fL (7.0-11.0); Platelet Count 36 th/mm3 (150-450); Red Blood Count 3.55 mil/mm3 (4.50-5.90); Red Cell Distribution Width 17.1 % (11.6-17.2); White Blood Count 0.3 th/mm3 (4.0-11.0)
--- NOTE | 2018-03-17 10:24 | P.PNIM ---
Subjective Interval history: Patient is tachycardic, hypotensive. Requiring a lot of of oxygen on non rebreather. He would require higher level of care but his and family decided to transition him to comfort care. They want inpatient Hospice. Physical Exam Vital signs: Vital Signs 03/16/18 11:17 03/16/18 11:19 03/16/18 12:15 Temperature Pulse Rate 114 H 115 H 115 H Respiratory Rate 22 20 Blood Pressure 93/57 L 93/57 L 87/51 L Pulse Oximetry 89 L 89 L 90 L 03/16/18 12:30 03/16/18 12:35 03/16/18 14:00 Temperature 98.5 F Pulse Rate 115 H 115 H 111 H Respiratory Rate 18 Blood Pressure 86/50 L 87/52 L 85/51 L Pulse Oximetry 94 L 85 L 91 L 03/16/18 14:45 03/16/18 16:00 03/16/18 16:15 Temperature Pulse Rate 111 H 109 H 111 H Respiratory Rate Blood Pressure 101/56 L 93/57 L 105/60 Pulse Oximetry 93 L 92 L 92 L 03/16/18 16:45 03/16/18 18:57 03/16/18 18:58 Temperature 100.8 F H Pulse Rate 111 H 118 H Respiratory Rate 18 18 Blood Pressure 95/59 L Pulse Oximetry 93 L 97 03/16/18 20:00 03/16/18 20:27 03/16/18 20:45 Temperature 100.9 F H Pulse Rate 123 H 127 H Respiratory Rate 25 H Blood Pressure 109/60 Pulse Oximetry 87 L 94 L 03/16/18 22:00 03/16/18 23:00 03/17/18 00:00 Temperature 98 F 99.4 F Pulse Rate 124 H 124 H Respiratory Rate 24 27 H Blood Pressure 99/60 L 93/59 L Pulse Oximetry 97 95 97 03/17/18 01:27 03/17/18 03:30 03/17/18 04:06 Temperature 100.3 F H Pulse Rate 121 H 121 H Respiratory Rate 25 H Blood Pressure 101/56 L Pulse Oximetry 94 L 96 03/17/18 04:30 03/17/18 06:51 03/17/18 08:19 Temperature 98.8 F 99.7 F H Pulse Rate 118 H Respiratory Rate 22 Blood Pressure 93/50 L Pulse Oximetry 96 98 03/17/18 08:37 03/17/18 08:43 Temperature Pulse Rate 117 H Respiratory Rate 18 Blood Pressure Pulse Oximetry 97 Intake & Output 03/16/18 03/17/18 03/17/18 18:59 06:59 18:59 Intake Total 100 / 100 Output Total 375 / 375 300 / 300 Balance -375 / -375 -200 / -200 Weight 78 kg Intake: IV 100 / 100 Maxipime Inj 2,000 MG In NS Inj 100 / 100 100 ML @ 200 mls/hr IV.SIG Q12H [facility] Rx#:[id number] Output: Urine 375 / 375 Urine Amount (Catheter) 300 / 300 Indwelling Urethral Catheter 300 / 300 Other: Date of Last Bowel Movement 03/15/18 03/15/18 Narrative: GENERAL: Patient in obvious respiratory distress, in and out of consciousness. CARDIOVASCULAR: Tachycardic in the 120s and regular rhythm without murmurs, gallops, or rubs. RESPIRATORY: Diffuse rhonchi throughout. Shallow breathing. GASTROINTESTINAL: Abdomen soft, non-tender, non-distended. MUSCULOSKELETAL: Bilateral lower extremity with 1+ edema NEURO: Alert to self only. Lethargic - Urinary Catheter Management Indwelling Urethral Catheter Cath placed during this visit: yes Reason for continuing: Hourly intake/output Insertion date: 03/16/18 Insertion time: 07:48 Results - Labs CBC & Chem 7: 03/17/18 04:00 03/17/18 04:00 Laboratory Results - last 24 hr 03/16/18 03/16/18 03/16/18 11:59 12:09 17:31 WBC RBC Hgb Hct MCV MCH MCHC RDW Plt Count MPV Differential Comment Sodium Potassium Chloride Carbon Dioxide Anion Gap BUN Creatinine Estimated GFR POC Glucose 123 H 106 Random Glucose Lactic Acid 2.9 H Calcium Total Bilirubin AST ALT Alkaline Phosphatase Total Creatine Kinase CK-MB (CK-2) CK-MB (CK-2) % Total Protein Albumin 03/16/18 03/17/18 03/17/18 23:06 04:00 04:00 WBC 0.3 L RBC 3.55 L Hgb 10.6 L Hct 32.3 L MCV 90.8 MCH 29.9 MCHC 33.0 RDW 17.1 Plt Count 36 L D MPV 8.4 Differential Comment . Sodium 142 Potassium 4.6 Chloride 105 Carbon Dioxide 25.8 Anion Gap 11 BUN 67 H Creatinine 2.01 H Estimated GFR 32 L POC Glucose 95 Random Glucose 97 Lactic Acid Calcium 8.0 L Total Bilirubin 0.7 AST 70 H ALT 62 Alkaline Phosphatase 50 Total Creatine Kinase 1352 H CK-MB (CK-2) 1.7 CK-MB (CK-2) % 0.1 Total Protein 6.1 L Albumin 1.8 L D 03/17/18 08:16 WBC RBC Hgb Hct MCV MCH MCHC RDW Plt Count MPV Differential Comment Sodium Potassium Chloride Carbon Dioxide Anion Gap BUN Creatinine Estimated GFR POC Glucose 98 Random Glucose Lactic Acid Calcium Total Bilirubin AST ALT Alkaline Phosphatase Total Creatine Kinase CK-MB (CK-2) CK-MB (CK-2) % Total Protein Albumin Assessment and Plan - Assessment (1) Dehydration Code(s): E86.0 - Dehydration Status: Acute (2) JESS (acute kidney injury) Code(s): N17.9 - Acute kidney failure, unspecified Status: Acute (3) Acute respiratory failure with hypoxia Code(s): J96.01 - Acute respiratory failure with hypoxia Status: Acute (4) Pulmonary mass Code(s): R91.8 - Other nonspecific abnormal finding of lung field Status: Acute (5) Neutropenic Code(s): D70.9 - Neutropenia, unspecified Status: Acute (6) Lung cancer Code(s): C34.90 - Malignant neoplasm of unspecified part of unspecified bronchus or lung Status: Acute - Plan 82-year-old male with small cell lung cancer who started chemotherapy last week. Patient presented to the hospital with generalized weakness, found to be pancytopenic, and acute renal failure and rhabdomyolysis. Patient found to be in acute respiratory failure with pneumonia. His respiratory status have declined. He is hypotensive, tachycardic, requiring high amount of oxygen on nonrebreather. The patient would require a higher level of care in the ICU and possibly intubation. However his and family wants to transition him to hospice services. They no longer wants to pursue treatment with chemotherapy. He is too unstable and would not be able to be cared for at home. They elected for transfer to hospice care center. Small cell lung cancer/ Neutropenia/ Weakness Started on chemotherapy last week. Presents with neutropenia and weakness. He has fallen down at home five times since being discharged from the hospital. He had home hospice services. The family does not want to continue with chemotherapy. -case management and hospice consults. [facility]. Plan for transfer to care center today. Pancytopenia S/t chemotherapy. -oncology followed and started the patient on G-CSF. -antibiotics. Acute respiratory failure secondary to pneumonia and small cell cancer. -On cefepime and azithromycin. Acute renal failure/ Rhabdomyolysis The pt is on diuretics as an outpt. Recent EF was normal. CPK is elevated. -d/c diuretics and given IVFs. -monitor fluid balance. -trend CPK. HTN Blood pressure has been WNL. -hold home meds for now and resume as clinically indicated. -clonidine as needed. Discharge Planning: Discharge patient to Hospice care center Condition on discharge: Deteriorating Regular Diet as tolerated Ad Marilia activity Rx written:None (5) Neutropenic Qualifiers: Neutropenia type: secondary to cancer chemotherapy Qualified Code(s): D70.1 - Agranulocytosis secondary to cancer chemotherapy; T45.1X5A - Adverse effect of antineoplastic and immunosuppressive drugs, initial encounter (6) Lung cancer Qualifiers: Laterality: unspecified laterality Lung location: unspecified part of lung Qualified Code(s): C34.90 - Malignant neoplasm of unspecified part of unspecified bronchus or lung
[2018-03-17 10:58] LABS: Lymphocytes 90 % (9-44); Monocytes 10 % (0-8)
[2018-03-17 10:59] LABS: Platelet Morphology Normal (Normal)
--- NOTE | 2018-03-17 11:47 | P.PNONC ---
Subjective Interval history: Patient sitting up in bed, anxious, non-rebreather at [address] RN is at the bedside about to administer Ativan. Patient's is also at the bedside. Objective Vital Signs/Intake & Output: Vital Signs 03/16/18 12:15 03/16/18 12:30 03/16/18 12:35 Temperature 98.5 F Pulse Rate 115 H 115 H 115 H Respiratory Rate 20 18 Blood Pressure 87/51 L 86/50 L 87/52 L Pulse Oximetry 90 L 94 L 85 L 03/16/18 14:00 03/16/18 14:45 03/16/18 16:00 Temperature Pulse Rate 111 H 111 H 109 H Respiratory Rate Blood Pressure 85/51 L 101/56 L 93/57 L Pulse Oximetry 91 L 93 L 92 L 03/16/18 16:15 03/16/18 16:45 03/16/18 18:57 Temperature 100.8 F H Pulse Rate 111 H 111 H Respiratory Rate 18 Blood Pressure 105/60 95/59 L Pulse Oximetry 92 L 93 L 97 03/16/18 18:58 03/16/18 20:00 03/16/18 20:27 Temperature 100.9 F H Pulse Rate 118 H 123 H 127 H Respiratory Rate 18 25 H Blood Pressure 109/60 Pulse Oximetry 87 L 03/16/18 20:45 03/16/18 22:00 03/16/18 23:00 Temperature 98 F Pulse Rate 124 H Respiratory Rate 24 Blood Pressure 99/60 L Pulse Oximetry 94 L 97 95 03/17/18 00:00 03/17/18 01:27 03/17/18 03:30 Temperature 99.4 F 100.3 F H Pulse Rate 124 H 121 H Respiratory Rate 27 H 25 H Blood Pressure 93/59 L 101/56 L Pulse Oximetry 97 94 L 96 03/17/18 04:06 03/17/18 04:30 03/17/18 06:51 Temperature 98.8 F Pulse Rate 121 H Respiratory Rate Blood Pressure Pulse Oximetry 96 03/17/18 08:19 03/17/18 08:37 03/17/18 08:43 Temperature 99.7 F H Pulse Rate 118 H 117 H Respiratory Rate 22 18 Blood Pressure 93/50 L Pulse Oximetry 98 97 Intake & Output 03/16/18 03/17/18 03/17/18 18:59 06:59 18:59 Intake Total 100 / 100 Output Total 375 / 375 300 / 300 Balance -375 / -375 -200 / -200 Weight 78 kg Intake: IV 100 / 100 Maxipime Inj 2,000 MG In NS Inj 100 / 100 100 ML @ 200 mls/hr IV.SIG Q12H MARIELLE Rx#:[id number] Output: Urine 375 / 375 Urine Amount (Catheter) 300 / 300 Indwelling Urethral Catheter 300 / 300 Other: Date of Last Bowel Movement 03/15/18 03/15/18 Result Diagrams: 03/17/18 04:00 03/17/18 04:00 Laboratory Results: Laboratory Results - last 24 hr 03/16/18 03/16/18 03/16/18 11:59 12:09 17:31 WBC RBC Hgb Hct MCV MCH MCHC RDW Plt Count MPV Prelim Diff (Auto) WBC Differential Lymphocytes % (Manual) Monocytes % (Manual) Abs Neuts (Manual) Differential Comment Platelet Estimate Platelet Morphology Sodium Potassium Chloride Carbon Dioxide Anion Gap BUN Creatinine Estimated GFR POC Glucose 123 H 106 Random Glucose Lactic Acid 2.9 H Calcium Total Bilirubin AST ALT Alkaline Phosphatase Total Creatine Kinase CK-MB (CK-2) CK-MB (CK-2) % Total Protein Albumin 03/16/18 03/17/18 03/17/18 23:06 04:00 04:00 WBC 0.3 L RBC 3.55 L Hgb 10.6 L Hct 32.3 L MCV 90.8 MCH 29.9 MCHC 33.0 RDW 17.1 Plt Count 36 L D MPV 8.4 Prelim Diff (Auto) Manual diff required WBC Differential Manual diff final Lymphocytes % (Manual) 90 H Monocytes % (Manual) 10 H Abs Neuts (Manual) 0.0 L* Differential Comment . Platelet Estimate Low L Platelet Morphology Normal Sodium 142 Potassium 4.6 Chloride 105 Carbon Dioxide 25.8 Anion Gap 11 BUN 67 H Creatinine 2.01 H Estimated GFR 32 L POC Glucose 95 Random Glucose 97 Lactic Acid Calcium 8.0 L Total Bilirubin 0.7 AST 70 H ALT 62 Alkaline Phosphatase 50 Total Creatine Kinase 1352 H CK-MB (CK-2) 1.7 CK-MB (CK-2) % 0.1 Total Protein 6.1 L Albumin 1.8 L D 03/17/18 08:16 WBC RBC Hgb Hct MCV MCH MCHC RDW Plt Count MPV Prelim Diff (Auto) WBC Differential Lymphocytes % (Manual) Monocytes % (Manual) Abs Neuts (Manual) Differential Comment Platelet Estimate Platelet Morphology Sodium Potassium Chloride Carbon Dioxide Anion Gap BUN Creatinine Estimated GFR POC Glucose 98 Random Glucose Lactic Acid Calcium Total Bilirubin AST ALT Alkaline Phosphatase Total Creatine Kinase CK-MB (CK-2) CK-MB (CK-2) % Total Protein Albumin Culture Results: Microbiology 03/16/18 05:45 Aerobic Blood Culture - Preliminary Blood - Peripheral No growth in 1 day Anaerobic Blood Culture - Preliminary No growth in 1 day 03/16/18 05:40 Aerobic Blood Culture - Preliminary Blood - Peripheral No growth in 1 day Anaerobic Blood Culture - Preliminary No growth in 1 day Medications: Active Medications Generic Name Dose Route Start Last Admin Trade Name Freq PRN Reason Stop Dose Admin Albuterol 1 ampul 03/16/18 14:00 03/17/18 08:32 Duoneb Neb (Marielle) NEB 1 ampul Q6HR WHILE AWAKE NEB MARIELLE Administration Apixaban 5 mg 03/16/18 09:00 03/17/18 09:56 Eliquis PO 5 mg BID MARIELLE Administration Azithromycin 500 mg 03/17/18 10:00 03/17/18 10:07 Zithromax PO 500 mg Q24H MARIELLE Administration Budesonide/Formoterol Fumarate 2 puff 03/16/18 12:00 03/17/18 10:02 Symbicort 160/4.5 Mcg Inh INH 2 puff BID MARIELLE Administration Ezetimibe 10 mg 03/16/18 09:00 03/16/18 10:23 Zetia PO 10 mg DAILY MARIELLE Administration Famotidine 10 mg 03/16/18 09:00 03/16/18 22:37 Pepcid PO 10 mg BID MARIELLE Administration Filgrastim 300 mcg 03/16/18 14:00 03/16/18 17:38 Neupogen Inj SQ 300 mcg DAILY@1400 MARIELLE Administration Guaifenesin 600 mg 03/16/18 09:00 03/17/18 09:56 Mucinex Er PO 600 mg BID MARIELLE Administration Cefepime HCl 2,000 mg/ Sodium 100 mls @ 200 mls/hr 03/16/18 20:00 03/17/18 10 :40 Chloride IV.SIG 100 mls/hr Q12H MARIELLE Administration Insulin Aspart 0 unit 03/16/18 17:00 03/17/18 08:20 Novolog Insulin Correctional Sugar Inj SQ Not Given ACHS MARIELLE Protocol Lactobacillus Acidophilus 2 tab 03/16/18 09:00 03/16/18 22:38 Lactinex PO 2 tab BID MARIELLE Administration Lorazepam 0.5 mg 03/16/18 14:46 03/17/18 11:22 Ativan Inj IV.PUSH 0.5 mg Q2H PRN Administration ANXIETY Nicotine 1 patch 03/16/18 09:00 03/17/18 09:56 Habitrol 21 Mg Patch.24 Hr T-DERMAL 1 patch DAILY MARIELLE Administration Patch Removal 1 each 03/17/18 09:00 03/17/18 11:15 Remove Old Patch T-DERMAL 1 each DAILY MARIELLE Administration Pravastatin Sodium 80 mg 03/16/18 09:00 03/16/18 10:23 Pravachol PO 80 mg DAILY MARIELLE Administration Prednisone 10 mg 03/16/18 09:00 03/17/18 09:56 Deltasone PO 10 mg DAILY MARIELLE Administration Senna/Docusate Sodium 1 tab 03/16/18 09:00 03/16/18 23:16 Lianna-Colace PO Not Given BID MARIELLE Objective Remarks: GENERAL: Cachectic ill-appearing male patient, tripod sitting in moderate distress. SKIN: Warm and dry. HEAD: Normocephalic. EYES: No scleral icterus. No injection or drainage. NECK: Supple, trachea midline. No JVD or lymphadenopathy. LYMPHATIC: No adenopathy. CARDIOVASCULAR: Regular rate and rhythm without murmurs. RESPIRATORY: Anterior breath sounds rhonchi, equal bilaterally. Labored, O2 via nonrebreather @ 11L. GASTROINTESTINAL: Abdomen soft, non-tender, nondistended. EXTREMITIES: No cyanosis, or edema. MUSCULOSKELETAL: Decreased muscle tone. NEUROLOGICAL: No obvious focal deficit. Awake, alert. Not answering questions. PSYCHIATRIC: Anxious. Assessment/Plan - Plan Mr. Vallejo is an 82-year-old gentleman with a history of COPD, venous thromboembolism, C. difficile I will colitis, acid reflux, hyperlipidemia, hypertension and small cell lung cancer. Treatment with carboplatin and etoposide were initiated. The patient did not notice any improvement in his performance status and his reports he started falling at home approximately 2 days after discharge. He was admitted to the hospital for rhabdomyolysis, acute kidney injuries, falls and pancytopenia. Patient has been in the process of obtaining hospice services with [facility], once stable. Plan: 1. Small cell lung cancer, patient does not wish to have any further treatment. He has already began the process of obtaining hospice services with [facility] and this will continue once he is stable for discharge. 2. Neutropenic fever, T-max 100.9F. We have started G-CSF support. 3. Acute kidney injury, probably secondary to dehydration, continue IV fluids. 4. Lung infiltrates, on azithromycin.
[2018-03-17] MEDS ORDERED: Sodium Chlor 0.9% Inj 500 ML IV.SIG SCH (13:00)
[2018-03-17 14:43] VITALS: PULSE 108
== END 2018-03-17 15:36 | disposition hospice, inpatient (51) ==
LOC: NEPE 04:58 → NEDA 07:35 → HCIN 11:00
PROVIDERS: ADMIT Family Medicine; ATTEND Family Medicine